=== PATIENT | female | born 1985 | race Caucasian/White ===

== ENCOUNTER 2019-03-08 16:36 | Emergency (ER) | payer BC ==
--- NOTE | 2019-03-08 17:14 | ED ---
Psych HPI - General Source: patient, police, RN notes reviewed Mode of arrival: ambulatory Limitations: no limitations <Get Heller - Last Filed: 03/08/19 17:10> <Kali Delacruz - Last Filed: 03/09/19 01:56> - General Chief Complaint: Psychiatric Symptoms Stated Complaint: pickup order Time Seen by Provider: 03/08/19 16:44 - History of Present Illness Initial Comments: 33-year-old female presents emergency Department with police for psychiatric evaluation. Patient petition by brother and which she states is for her chronic drinking issue with a history of depression and anxiety. Patient also had weight loss secondary to that eating from her anxiety. Patient denies being suicidal no illicit drug use. Patient states he drinks 3-4 drinks daily. Denies any physical complaints. (Get Heller) - Related Data Home Medications Medication Instructions Recorded Confirmed Lessina 0.1/20mcg 1 tab PO DAILY 03/08/19 03/08/19 Allergies Allergy/AdvReac Type Severity Reaction Status Date / Time No Known Allergies Allergy Verified 03/08/19 17:32 Review of Systems ROS Other: All systems not noted in ROS Statement are negative. <Get Heller - Last Filed: 03/08/19 17:10> ROS Other: All systems not noted in ROS Statement are negative. <Kali Delacruz - Last Filed: 03/09/19 01:56> ROS Statement: Those systems with pertinent positive or pertinent negative responses have been documented in the HPI. Past Medical History Past Medical History: No Reported History History of Any Multi-Drug Resistant Organisms: None Reported Past Surgical History: No Surgical Hx Reported Past Psychological History: Anxiety, Depression Smoking Status: Current every day smoker Past Alcohol Use History: Daily Past Drug Use History: None Reported <Get Heller - Last Filed: 03/08/19 17:10> General Exam Limitations: no limitations General appearance: alert, in no apparent distress Head exam: Present: atraumatic, normocephalic, normal inspection Eye exam: Present: normal appearance, PERRL, EOMI. Absent: scleral icterus, conjunctival injection, periorbital swelling ENT exam: Present: normal exam, normal oropharynx, mucous membranes moist, TM's normal bilaterally Neck exam: Present: normal inspection. Absent: tenderness, meningismus, lymphadenopathy Respiratory exam: Present: normal lung sounds bilaterally. Absent: respiratory distress, wheezes, rales, rhonchi, stridor Cardiovascular Exam: Present: regular rate, normal rhythm, normal heart sounds. Absent: systolic murmur, diastolic murmur, rubs, gallop, clicks GI/Abdominal exam: Present: soft, normal bowel sounds. Absent: distended, tenderness, guarding, rebound, rigid Neurological exam: Present: alert, oriented X3, CN II-XII intact Skin exam: Present: warm, dry, intact, normal color. Absent: rash <Get Heller - Last Filed: 03/08/19 17:10> Course Vital Signs 03/08/19 03/08/19 16:41 19:30 Temperature 97.2 F L Pulse Rate 102 H 90 Respiratory 18 20 Rate Blood Pressure 175/102 158/92 O2 Sat by Pulse 98 99 Oximetry Medical Decision Making - Lab Data Result diagrams: 03/08/19 17:23 03/08/19 17:23 <Kali Delacruz - Last Filed: 03/09/19 01:56> - Lab Data Lab Results 03/08/19 03/08/19 03/08/19 Range/Units 17:23 17:23 17:23 WBC 6.2 (3.8-10.6) k/uL RBC 3.79 L (3.80-5.40) m/uL Hgb 13.5 (11.4-16.0) gm/dL Hct 40.6 (34.0-46.0) % MCV 107.0 H (80.0-100.0) fL MCH 35.7 H (25.0-35.0) pg MCHC 33.4 (31.0-37.0) g/dL RDW 15.1 (11.5-15.5) % Plt Count 141 L (150-450) k/uL Neutrophils % 52 % Lymphocytes % 36 % Monocytes % 6 % Eosinophils % 1 % Basophils % 1 % Neutrophils # 3.3 (1.3-7.7) k/uL Lymphocytes # 2.2 (1.0-4.8) k/uL Monocytes # 0.4 (0-1.0) k/uL Eosinophils # 0.0 (0-0.7) k/uL Basophils # 0.1 (0-0.2) k/uL Macrocytosis Moderate Sodium 141 (137-145) mmol/L Potassium 4.2 (3.5-5.1) mmol/L Chloride 102 (98-107) mmol/L Carbon Dioxide 24 (22-30) mmol/L Anion Gap 15 mmol/L BUN 8 (7-17) mg/dL Creatinine 0.54 (0.52-1.04) mg/dL Est GFR (CKD-EPI)AfAm >90 (>60 ml/min/1.73 sqM) Est GFR (CKD-EPI)NonAf >90 (>60 ml/min/1.73 sqM) Glucose 90 (74-99) mg/dL Calcium 9.4 (8.4-10.2) mg/dL Magnesium 1.1 L (1.6-2.3) mg/dL Total Bilirubin 0.6 (0.2-1.3) mg/dL AST 175 H (14-36) U/L ALT 60 H (9-52) U/L Alkaline Phosphatase 81 (38-126) U/L Total Protein 8.2 (6.3-8.2) g/dL Albumin 4.8 (3.5-5.0) g/dL Lipase 177 (23-300) U/L Urine Color Light Yellow Urine Appearance Clear (Clear) Urine pH 6.0 (5.0-8.0) Ur Specific [place] 1.003 (1.001-1.035) Urine Protein 1+ H (Negative) Urine Glucose (UA) Negative (Negative) Urine Ketones Negative (Negative) Urine Blood Negative (Negative) Urine Nitrite Negative (Negative) Urine Bilirubin Negative (Negative) Urine Urobilinogen <2.0 (<2.0) mg/dL Ur Leukocyte Esterase Negative (Negative) Urine RBC <1 (0-5) /hpf Urine WBC <1 (0-5) /hpf Ur Squamous Epith Cells 1 (0-4) /hpf Urine Bacteria Rare H (None) /hpf Urine Opiates Screen Not Detected (NotDetected) Ur Oxycodone Screen Not Detected (NotDetected) Urine Methadone Screen Not Detected (NotDetected) Ur Propoxyphene Screen Not Detected (NotDetected) Ur Barbiturates Screen Not Detected (NotDetected) U Tricyclic Antidepress Not Detected (NotDetected) Ur Phencyclidine Scrn Not Detected (NotDetected) Ur Amphetamines Screen Not Detected (NotDetected) U Methamphetamines Scrn Not Detected (NotDetected) U Benzodiazepines Scrn Not Detected (NotDetected) Urine Cocaine Screen Not Detected (NotDetected) U Marijuana (THC) Screen Not Detected (NotDetected) Disposition <Get Heller - Last Filed: 03/08/19 17:10> Is patient prescribed a controlled substance at d/c from ED?: No <Kali Delacruz - Last Filed: 03/09/19 01:56> Clinical Impression: Mood disorder Disposition: HOME SELF-CARE Condition: Good Instructions (If sedation given, give patient instructions): Mood Disorders (ED) Referrals: Douglas Evans MD [Primary Care Provider] - 1-2 days
[2019-03-08 17:32] LABS: Basophils # (A) 0.1 k/uL (0-0.2); Basophils % (A) 1 %; Eosinophils % (A) 1 %; HCT 40.6 % (34.0-46.0); HGB 13.5 gm/dL (11.4-16.0); Lymphocytes # (A) 2.2 k/uL (1.0-4.8); Lymphocytes % (A) 36 %; MCH 35.7 pg (25.0-35.0); MCHC 33.4 g/dL (31.0-37.0); Macrocytosis Moderate; Monocytes # (A) 0.4 k/uL (0-1.0); Monocytes % (A) 6 %; Neutrophils # (A) 3.3 k/uL (1.3-7.7); Neutrophils % (A) 52 %; Platelet Count 141 k/uL (150-450); RBC 3.79 m/uL (3.80-5.40); RDW 15.1 % (11.5-15.5); WBC 6.2 k/uL (3.8-10.6)
[2019-03-08 17:38] LABS: Appearance,Urine Clear (Clear); Bacteria,Urine Rare /hpf; Bilirubin,Urine Negative (Negative); Blood,Urine Negative (Negative); Color,Urine Light Yellow; Glucose,Urine (UA) Negative (Negative); Ketones,Urine Negative (Negative); Leukocyte Esterase,Urine Negative (Negative); Nitrite,Urine Negative (Negative); Protein,Urine 1+ (Negative); RBC,Urine <1 /hpf (0-5); Specific Gravity,Urine 1.003 (1.001-1.035); Squamous Epithelial Cell,Urine 1 /hpf (0-4); Urobilinogen,Urine <2.0 mg/dL (<2.0); WBC,Urine <1 /hpf (0-5)
[2019-03-08 17:48] LABS: ALT 60 U/L (9-52); AST 175 U/L (14-36); Albumin 4.8 g/dL (3.5-5.0); Alkaline Phosphatase 81 U/L (38-126); Amphetamine Screen,Urine Not Detected (NotDetected); Anion Gap 15 mmol/L; Barbiturate Screen,Urine Not Detected (NotDetected); Benzodiazepines Screen,Urine Not Detected (NotDetected); Blood Urea Nitrogen 8 mg/dL (7-17); Calcium 9.4 mg/dL (8.4-10.2); Carbon Dioxide 24 mmol/L (22-30); Chloride 102 mmol/L (98-107); Cocaine Screen,Urine Not Detected (NotDetected); Glucose 90 mg/dL (74-99); Lipase 177 U/L (23-300); Magnesium 1.1 mg/dL (1.6-2.3); Methadone Screen, Urine Not Detected (NotDetected); Opiate Screen,Urine Not Detected (NotDetected); Oxycodone Screen, Urine Not Detected (NotDetected); Phencyclidine Screen,Urine Not Detected (NotDetected); Potassium 4.2 mmol/L (3.5-5.1); Sodium 141 mmol/L (137-145); Total Bilirubin 0.6 mg/dL (0.2-1.3); Total Protein 8.2 g/dL (6.3-8.2); Tricyclic Antidepressant,Urine Not Detected (NotDetected); Urn Cannabinoid Scrn Not Detected (NotDetected)
[2019-03-08] MEDS ORDERED: MAGNESIUM OXIDE 400 MG TAB PO STA (17:52)
[2019-03-09 02:32] VITALS: BP 148/52; PULSE 87; RESP 16; TEMP 98.1
== END 2019-03-09 02:32 | disposition home or self-care (01) ==
LOC: EC 16:36
DX: F32.9 Major depressive disorder, single episode, unspecified (principal); F41.9 Anxiety disorder, unspecified; R63.4 Abnormal weight loss; F17.200 Nicotine dependence, unspecified, uncomplicated; Z79.3 Long term (current) use of hormonal contraceptives
CPT/HCPCS: 36415; 80053; 80306; 81001; 82075; 83690; 83735; 85025; 99284

== ENCOUNTER 2020-02-21 18:36 | Emergency (ER) | payer BC ==
[2020-02-21 18:51] VITALS: RESP 18; TEMP 98.7
[2020-02-21] MEDS ORDERED: chlordiazePOXIDE 25 MG CAP PO STA (19:40)
--- NOTE | 2020-02-21 19:43 | ED ---
Recheck HPI - General Chief Complaint: Recheck/Abnormal Lab/Rx Stated Complaint: detox Time Seen by Provider: 02/21/20 18:59 Source: patient Mode of arrival: ambulatory Limitations: no limitations - History of Present Illness Initial Comments: 34 year-old female patient presents to the emergency department today for evaluation of alcohol withdrawal. Patient states that she generally drinks 6-8 drinks of vodka daily. States that she has not had any alcohol for the last 2 days. States that she was seen at [facility] today and had labs performed. She was given magnesium, Ativan, and IV fluids. States that she was discharged and instructed to present to a rehabilitation facility. Patient denies having any seizure type activity. States that she has been having several episodes of diarrhea throughout the day. Denies any hematochezia or melena. Denies nausea or vomiting. She denies any chest pain or shortness of breath. Denies any abdominal pain. Patient denies any recent rash, fever, chills, cough, back pain, numbness, tingling, dizziness, weakness, hematuria, dysuria, urinary urgency, urinary frequency, headache, visual changes, or any other complaints. - Related Data Home Medications Medication Instructions Recorded Confirmed Lessina 0.1/20mcg 1 tab PO DAILY 03/08/19 03/08/19 Previous Rx's Medication Instructions Recorded chlordiazePOXIDE HCl [Librium] 25 mg PO DIRECTED 4 Days #15 02/21/20 capsule Allergies Allergy/AdvReac Type Severity Reaction Status Date / Time No Known Allergies Allergy Verified 02/21/20 18:51 Review of Systems ROS Statement: Those systems with pertinent positive or pertinent negative responses have been documented in the HPI. ROS Other: All systems not noted in ROS Statement are negative. Past Medical History Past Medical History: No Reported History History of Any Multi-Drug Resistant Organisms: None Reported Past Surgical History: No Surgical Hx Reported Past Psychological History: Anxiety, Depression Smoking Status: Current every day smoker Past Alcohol Use History: Daily Past Drug Use History: None Reported General Exam Limitations: no limitations General appearance: alert, in no apparent distress, other (This is a well- developed, female patient in no acute distress. Vital signs upon presentation are temperature 98.7F, pulse 108, respirations 18, blood pressure 134/82, pulse ox 100% on room air.) Eye exam: Present: normal appearance, PERRL, EOMI. Absent: scleral icterus, conjunctival injection, periorbital swelling ENT exam: Present: normal exam, normal oropharynx, mucous membranes moist Respiratory exam: Present: normal lung sounds bilaterally. Absent: respiratory distress, wheezes, rales, rhonchi, stridor Cardiovascular Exam: Present: regular rate, normal rhythm, normal heart sounds. Absent: systolic murmur, diastolic murmur, rubs, gallop, clicks GI/Abdominal exam: Present: soft, normal bowel sounds. Absent: distended, tenderness, guarding, rebound, rigid Neurological exam: Present: alert, oriented X3, CN II-XII intact, other (Patient has generalized shaking.) Psychiatric exam: Present: normal affect, normal mood. Absent: homicidal ideation, suicidal ideation Skin exam: Present: warm, dry, intact, normal color. Absent: rash Course Vital Signs 02/21/20 18:50 Temperature 98.7 F Pulse Rate 108 H Respiratory 18 Rate Blood Pressure 134/82 O2 Sat by Pulse 100 Oximetry Medical Decision Making - Medical Decision Making 34 year-old female patient presented to the emergency department today for evaluation of alcohol withdrawal. Physical examination revealed generalized shaking but was otherwise unremarkable. I did review patient's paperwork from [facility] which showed patient was diagnosed with alcohol withdrawal and hypomagnesemia. She did receive 3 doses of Ativan, IV fluids, and magnesium while in the department. Patient's vital signs here showed no major abnormalities. I did discuss with patient that we unfortunately do not provide alcohol rehabilitation and that she would need to follow-up at an outpatient facility. She was given a list of these facilities. She is also given a prescription for Librium to assist with alcohol withdrawals while johnberyl killiang to go to a facility. Return parameters were discussed in detail. She verbalizes understanding and agrees with this plan. Disposition Clinical Impression: Alcohol withdrawal Disposition: HOME SELF-CARE Condition: Good Instructions (If sedation given, give patient instructions): Alcohol Withdrawal (ED) Additional Instructions: Increase fluids. Take medications as directed, do not drink alcohol with this medication. Follow-up at a alcohol rehabilitation facility. Follow-up with your primary care physician for recheck in 1-2 days. Return to the emergency department immediately for any new, worsening, or concerning symptoms. Prescriptions: chlordiazePOXIDE HCl [Librium] 25 mg PO DIRECTED 4 Days #15 capsule Is patient prescribed a controlled substance at d/c from ED?: No Referrals: Douglas Evans MD [Primary Care Provider] - 1-2 days Time of Disposition: 19:43
[2020-02-21 20:02] VITALS: BP 134/95; PULSE 107
== END 2020-02-21 20:12 | disposition home or self-care (01) ==
LOC: EC 18:36
DX: F10.239 Alcohol dependence with withdrawal, unspecified (principal); F17.200 Nicotine dependence, unspecified, uncomplicated; Z79.3 Long term (current) use of hormonal contraceptives
CPT/HCPCS: 99284

== ENCOUNTER 2020-04-01 11:24 | Inpatient (IN) | payer BC ==
--- NOTE | 2020-04-01 11:55 | ED ---
General Adult HPI - General Stated complaint: Mental Health Time Seen by Provider: 04/01/20 11:28 - History of Present Illness Initial comments: Dictation was produced using [employer] dictation software. please excuse any grammatical, word or spelling errors. This patient was cared for during a federal and state declared state of emergency secondary to Covid 19 Chief Complaint: 34-year-old female presents with bizarre behavior History of Present Illness: Patient's 34-year-old female she was brought in by EMS for bizarre behavior. According to nurse receive report from EMS patient has been exhibiting very strange behavioral signs. So apparently patient has been showing rapid changes in personality. Patient also has been seen many things vigorously. Patient states that she has no medical complaints at this time. She reports that she was drinking last night. She denies any visual auditory hallucinations. Denies any suicidal or homicidal ideation. The ROS documented in this emergency department record has been reviewed and confirmed by me. Those systems with pertinent positive or negative responses have been documented in the HPI. All other systems are other negative and/or noncontributory. PHYSICAL EXAM: General Impression: Alert and oriented x3, not in acute distress, smells of EtOH HEENT: Normocephalic atraumatic, extra-ocular movements intact, pupils equal and reactive to light bilaterally, mucous membranes moist. Cardiovascular: Heart regular rate and rhythm Chest: Able to complete full sentences, no retractions, no tachypnea Abdomen: abdomen soft, non-tender, non-distended, no organomegaly Musculoskeletal: Pulses present and equal in all extremities, no peripheral edema Motor: no focal deficits noted Neurological: CN II-XII grossly intact, no focal motor or sensory deficits noted Skin: Intact with no visualized rashes Psych: Normal affect and mood ED course: 34 yo female presents with bizarre behavior. Breath alcohol test is 264. Vital signs upon arrival shows blood pressure 85/54. This was taken however while she was sleeping. According to nurse who received report from EMS there was concern that patient may have overdosed. Laboratory evaluation obtained. CBC unremarkable. Metabolic panel shows no acidosis. Magnesium level I.3. Patient treated with IV magnesium. She does have osmolality of 401. With a normal as osmolar gap. Salicylates and Tylenol is negative. Review blood pressure after intravenous fluids is improved and found to be normal. Considering degree of alcohol intoxication. Discussed patient case with Dr. Peterson who is willing to accept patient's care. Psychiatry consultation. Pending urine - Related Data Home Medications Medication Instructions Recorded Confirmed Lessina 0.1/20mcg 1 tab PO DAILY 03/08/19 03/08/19 Previous Rx's Medication Instructions Recorded chlordiazePOXIDE HCl [Librium] 25 mg PO DIRECTED 4 Days #15 02/21/20 capsule Allergies Allergy/AdvReac Type Severity Reaction Status Date / Time No Known Allergies Allergy Verified 04/01/20 13:31 Review of Systems ROS Statement: Those systems with pertinent positive or pertinent negative responses have been documented in the HPI. ROS Other: All systems not noted in ROS Statement are negative. Past Medical History Past Medical History: No Reported History History of Any Multi-Drug Resistant Organisms: None Reported Past Surgical History: No Surgical Hx Reported Past Psychological History: Anxiety, Depression Smoking Status: Current every day smoker Past Alcohol Use History: Daily Past Drug Use History: None Reported Course Vital Signs 04/01/20 04/01/20 12:14 13:07 Pulse Rate 77 63 Respiratory 18 16 Rate Blood Pressure 85/54 112/72 O2 Sat by Pulse 100 98 Oximetry Medical Decision Making - Lab Data Result diagrams: 04/01/20 12:25 04/01/20 12:25 Lab Results 04/01/20 04/01/20 04/01/20 Range/Units 12:25 12:25 12:25 WBC 8.0 (3.8-10.6) k/uL RBC 3.79 L (3.80-5.40) m/uL Hgb 13.0 (11.4-16.0) gm/dL Hct 42.1 (34.0-46.0) % MCV 110.9 H (80.0-100.0) fL MCH 34.3 (25.0-35.0) pg MCHC 31.0 (31.0-37.0) g/dL RDW 13.8 (11.5-15.5) % Plt Count 316 (150-450) k/uL Macrocytosis Marked A Sodium 146 H (137-145) mmol/L Potassium 4.4 (3.5-5.1) mmol/L Chloride 106 (98-107) mmol/L Carbon Dioxide 27 (22-30) mmol/L Anion Gap 13 mmol/L BUN <2 L (7-17) mg/dL Creatinine 0.53 (0.52-1.04) mg/dL Est GFR (CKD-EPI)AfAm >90 (>60 ml/min/1.73 sqM) Est GFR (CKD-EPI)NonAf >90 (>60 ml/min/1.73 sqM) Glucose 101 H (74-99) mg/dL Osmolality 401 H* (280-301) mosm/kg Plasma Lactic Acid Marc 2.0 (0.7-2.0) mmol/L Calcium 9.6 (8.4-10.2) mg/dL Magnesium 1.3 L (1.6-2.3) mg/dL Salicylates <1.0 mg/dL Acetaminophen <10.0 ug/mL Serum Alcohol 383 H* mg/dL Disposition Clinical Impression: Psychosis, Alcohol intoxication Disposition: ADMITTED IP TO THIS HOSP Condition: Fair Referrals: Douglas Evans MD [Primary Care Provider] - 1-2 days Decision Time: 13:31
[2020-04-01] MEDS ORDERED: SODIUM CHLORIDE 0.9% 1,000 ML IV ONE (12:49)
[2020-04-01 13:02] LABS: Basophils # (A) 0.1 k/uL (0-0.2); Basophils % (A) 1 %; Eosinophils # (A) 0.2 k/uL (0-0.7); Eosinophils % (A) 3 %; HCT 42.1 % (34.0-46.0); Lymphocytes # (A) 2.9 k/uL (1.0-4.8); Lymphocytes % (A) 36 %; MCH 34.3 pg (25.0-35.0); MCV 110.9 fL (80.0-100.0); Macrocytosis Marked; Mean Platelet Volume 7.1; Monocytes # (A) 0.3 k/uL (0-1.0); Monocytes % (A) 4 %; Neutrophils # (A) 4.3 k/uL (1.3-7.7); Neutrophils % (A) 54 %; Platelet Count 316 k/uL (150-450); RBC 3.79 m/uL (3.80-5.40); RDW 13.8 % (11.5-15.5)
[2020-04-01 13:05] LABS: Acetaminophen <10.0 ug/mL; African American GFR (CKD) >90 (>60 ml/min/1.73 sqM); Anion Gap 13 mmol/L; Blood Urea Nitrogen <2 mg/dL (7-17); Calcium 9.6 mg/dL (8.4-10.2); Carbon Dioxide 27 mmol/L (22-30); Chloride 106 mmol/L (98-107); Glucose 101 mg/dL (74-99); Magnesium 1.3 mg/dL (1.6-2.3); Non-African American GFR(CKD) >90 (>60 ml/min/1.73 sqM); Potassium 4.4 mmol/L (3.5-5.1); Salicylate <1.0 mg/dL; Sodium 146 mmol/L (137-145)
[2020-04-01 13:16] LABS: Alcohol 383 mg/dL
[2020-04-01] MEDS ORDERED: NALOXONE 0.4 MG/ML 1 ML VIAL IV PRN (13:31)
[2020-04-01] MEDS ORDERED: THIAMINE 100 MG/ML 2 ML VIAL IM STA (13:32)
[2020-04-01] MEDS ORDERED: LORazepam 2 MG/ML INJ IV PRN ×2 (13:32)
[2020-04-01] MEDS: MAGNESIUM SULFATE-D5W PMX 1 GM in DEXTROSE/WATER 1 100ML.BAG IVPB SCH ×2 (14:00→14:58)
[2020-04-01] MEDS: LORazepam 2 MG/ML INJ IV PRN (16:27)
[2020-04-01] MEDS: THIAMINE 100 MG TAB PO SCH (16:33)
[2020-04-01] MEDS ORDERED: ONDANSETRON ODT 4 MG TAB PO PRN (20:03)
[2020-04-01] MEDS ORDERED: NA PHOS,M-B/NA PHOS,DI-BA 133 ML ENEMA RECTAL PRN (20:04)
[2020-04-01] MEDS ORDERED: LACTULOSE 20 GM/30 ML CUP PO PRN (20:04)
[2020-04-01] MEDS ORDERED: ONDANSETRON 4 MG/2 ML VIAL IVP PRN (20:04)
[2020-04-01] MEDS ORDERED: MAG HYDROX/AL HYDROX/SIMETH 30 ML CUP PO PRN (20:04)
[2020-04-01] MEDS ORDERED: CALCIUM CARBONATE 500 MG CHEWABLE PO PRN (20:04)
[2020-04-01] MEDS ORDERED: MAGNESIUM HYDROXIDE 2,400 MG/10 ML CUP PO PRN (20:04)
[2020-04-01] MEDS: MELATONIN 5 MG TABLET PO PRN (21:03)
[2020-04-01] MEDS: ACAMPROSATE CALCIUM 333 MG TABLET.DR PO SCH (21:03)
[2020-04-01] MEDS: levETIRAcetam 500 MG TAB PO SCH (21:03)
--- NOTE | 2020-04-01 21:48 | P.HPIM ---
History of Present Illness H&P Date: 04/01/20 Chief Complaint: Erratic behavior History of presenting complaint: This is a 34-year-old patient who follows with Dr. Douglas Evans. Per the EMS's narrative-up on arrival they found the patient not able to access the home. Does well. Eventually the patient unlock the door. [employer] and called to say that she was unresponsive and possibly overdose. [employer] was not present. Patient denied any attempt of harm to herself or taking any medications. Patient was very erratic with ounces and just stumbling around without purpose. She went from chronic laughing for no apparent reason. She was lethargic and can't relate honestly. Patient continued to be lethargic but easily arousable. Patient states to me that she takes 2 glasses of vodka every night. Along with melatonin. Patient call level this afternoon in the ER was [phone]. During my interview this evening patient not sure why she was brought here. But does state that when she woke up there was ambulance people there and she was taken to the hospital. Patient slightly anxious and depressed but no suicidal. Denies hearing any voices or seeing things. She lives with her significant other of many years. He does work she does not. Review of systems: GEN.: Tired EYES: None HEENT: None NECK: None RESPIRATORY: None CARDIOVASCULAR: None GASTROINTESTINAL: Had 1 loose stool this morning GENITOURINARY: None MUSCULOSKELETAL: None LYMPHATICS: None HEMATOLOGICAL: None PSYCHIATRY: Anxious NEUROLOGICAL: Jittery Past medical history to include: Depression, anxiety, chronic alcohol disorder Social history: Patient smokes three-quarter pack a day, takes 2 glasses of vodka every night with melatonin. Lives with her significant other maciej Trimble. Family history: Reviewed, noncontributory to presentation Physical examination: VITAL SIGNS: 99, 91, 18, 101/69, 97% on room air GENERAL: BMI 25, laying in bed somewhat restless, awake. EYES: Pupils equal. Conjunctiva normal. HEENT: External appearance of nose and ears normal, oral cavity grossly normal. NECK: JVD not raised; masses not palpable. HEART: First and second heart sounds are normal; no edema. LUNGS: Respiratory rate normal; clear to auscultation. ABDOMEN: Soft, nontender, liver spleen not palpable, no masses palpable. PSYCH: Alert and oriented x3; mood and affect very is somewhat anxious about erratic and answering questionsl. NEUROLOGICAL: Cranial nerves grossly intact; no facial asymmetry, power and sensation grossly intact tremors present, restless. LYMPHATICS: No lymph nodes palpable in the axilla and neck INVESTIGATIONS, reviewed in the clinical context: White count 8 hemoglobin 13 platelets 316 potassium 4.6 serum osmolality 401 Serum salicylate less than 1 serum acetaminophen less than 10 serum alcohol 383 Assessment: -Acute alcohol intoxication -Alcohol use disorder -Alcoholic hepatitis with recent cath report a month ago showing AST of 135 and ALT of 60 -Chronic nicotine dependence patient's cigarette smoker -Depression and anxiety not otherwise specified -Abnormal psychiatric behavior related to be assessed for psychosis -Alcohol withdrawal syndrome, with possible DTs Plan: Patient be started on Valium 5 mg every 8 and add Lopressor 12.5 by mouth 284 controlling symptomatic dry. Fall precautions. Home medications to be resumed. Psychiatry is being consulted. Will give IV fluids at 1 50 mL an hour. Repeat labs in the morning. Replace magnesium. Lovenox for DVT prophylaxis. Nicotine patch. Expect the patient to be hospital at least for 2 nights. Past Medical History Past Medical History: No Reported History History of Any Multi-Drug Resistant Organisms: None Reported Past Surgical History: No Surgical Hx Reported Past Psychological History: Anxiety, Depression Smoking Status: Current every day smoker Past Alcohol Use History: Daily Past Drug Use History: None Reported - Past Family History Mother Family Medical History: No Reported History Medications and Allergies Home Medications Medication Instructions Recorded Confirmed Type Acamprosate Calcium [Campral] 666 mg PO TID 04/01/20 04/01/20 History Citalopram Hydrobromide [CeleXA] 20 mg PO DAILY 04/01/20 04/01/20 History Ondansetron Odt [Zofran Odt] 4 mg PO TID PRN 04/01/20 04/01/20 History Orsythia 1 tab PO DAILY 04/01/20 04/01/20 History busPIRone HCL 10 mg PO QID PRN 04/01/20 04/01/20 History levETIRAcetam [Keppra] 500 mg PO BID 04/01/20 04/01/20 History traZODone HCL [Desyrel] 100 mg PO HS PRN 04/01/20 04/01/20 History Allergies Allergy/AdvReac Type Severity Reaction Status Date / Time No Known Allergies Allergy Verified 04/01/20 13:31 Physical Exam Vitals: Vital Signs Temp Pulse Pulse Resp BP BP Pulse Ox 04/01/20 20:19 99.0 F 91 18 101/69 97 04/01/20 16:00 83 16 04/01/20 15:34 98.4 F 83 16 119/86 99 04/01/20 15:06 98 F 72 16 97/62 100 04/01/20 13:07 63 16 112/72 98 04/01/20 12:14 77 18 85/54 100 Intake and Output 04/01/20 04/01/20 04/01/20 06:59 14:59 22:59 Other: # Voids 2 Weight 63.957 kg 63.957 kg Results CBC & Chem 7: 04/01/20 12:25 04/01/20 12:25 Labs: Abnormal Lab Results - Last 24 Hours (Table) 04/01/20 04/01/20 Range/Units 12:25 12:25 RBC 3.79 L (3.80-5.40) m/uL MCV 110.9 H (80.0-100.0) fL Macrocytosis Marked A Sodium 146 H (137-145) mmol/L BUN <2 L (7-17) mg/dL Glucose 101 H (74-99) mg/dL Osmolality 401 H* (280-301) mosm/kg Magnesium 1.3 L (1.6-2.3) mg/dL Serum Alcohol 383 H* mg/dL
[2020-04-01] MEDS: METOPROLOL TARTRATE 12.5 MG TAB PO SCH (22:02)
[2020-04-01] MEDS: MAGNESIUM OXIDE 400 MG TAB PO SCH (22:02)
[2020-04-01] MEDS: DEXTROSE 5%-0.45% NACL 1,000 ML IV SCH (22:02)
[2020-04-01] MEDS: DIAZEPAM 5 MG TAB PO SCH (22:02)
[2020-04-01] MEDS: traZODone HCL 100 MG TAB PO PRN (23:29)
[2020-04-02] MEDS: LORazepam 2 MG/ML INJ IV PRN ×2 (00:37→04:31)
[2020-04-02 06:49] LABS: ALT 20 U/L (4-34); AST 40 U/L (14-36); African American GFR (CKD) >90 (>60 ml/min/1.73 sqM); Albumin 3.4 g/dL (3.5-5.0); Alkaline Phosphatase 61 U/L (38-126); Anion Gap 11 mmol/L; Blood Urea Nitrogen 2 mg/dL (7-17); Calcium 8.4 mg/dL (8.4-10.2); Carbon Dioxide 24 mmol/L (22-30); Chloride 99 mmol/L (98-107); Glucose 111 mg/dL (74-99); Non-African American GFR(CKD) >90 (>60 ml/min/1.73 sqM); Potassium 3.7 mmol/L (3.5-5.1); Sodium 134 mmol/L (137-145); Total Bilirubin 0.5 mg/dL (0.2-1.3); Total Protein 6.3 g/dL (6.3-8.2)
[2020-04-02] MEDS: levETIRAcetam 500 MG TAB PO SCH ×2 (07:58→20:53)
[2020-04-02] MEDS: MAGNESIUM OXIDE 400 MG TAB PO SCH ×3 (07:58→20:53)
[2020-04-02] MEDS: THIAMINE 100 MG TAB PO SCH ×2 (07:58→17:23)
[2020-04-02] MEDS: ACAMPROSATE CALCIUM 333 MG TABLET.DR PO SCH ×3 (07:58→20:53)
[2020-04-02] MEDS: DIAZEPAM 5 MG TAB PO SCH ×3 (07:58→20:53)
[2020-04-02] MEDS: CITALOPRAM HYDROBROMIDE 20 MG TAB PO SCH (07:58)
[2020-04-02] MEDS: busPIRone HCl 10 MG TAB PO PRN (07:58)
[2020-04-02] MEDS: ORSYTHIA PO SCH (07:59)
[2020-04-02] MEDS: METOPROLOL TARTRATE 12.5 MG TAB PO SCH ×3 (07:59→20:53)
[2020-04-02] MEDS: DEXTROSE 5%-0.45% NACL 1,000 ML IV SCH ×3 (07:59→20:48)
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
[2020-04-02] MEDS: PSYLLIUM HUSK 100% 6 GM PACKET PO SCH ×2 (17:24→20:56)
--- NOTE | 2020-04-02 20:30 | P.PN ---
Progress Note - Text Progress Note Date: 04/02/20 Chief Complaint: Erratic behavior History of presenting complaint: This is a 34-year-old patient who follows with Dr. Douglas Evans. Per the EMS's narrative-up on arrival they found the patient not able to access the home. Does well. Eventually the patient unlock the door. [employer] and called to say that she was unresponsive and possibly overdose. [employer]-republican was not present. Patient denied any attempt of harm to herself or taking any medications. Patient was very erratic with ounces and just stumbling around without purpose. She went from chronic laughing for no apparent reason. She was lethargic and can't relate honestly. Patient continued to be lethargic but easily arousable. Patient states to me that she takes 2 glasses of vodka every night. Along with melatonin. Patient call level this afternoon in the ER was [phone]. During my interview this evening patient not sure why she was brought here. But does state that when she woke up there was ambulance people there and she was taken to the hospital. Patient slightly anxious and depressed but no suicidal. Denies hearing any voices or seeing things. She lives with her significant other of many years. He does work she does not. Admitted with-acute alcohol intoxication, alcoholic hepatitis, abnormal behavior. Patient started on Valium, Lopressor for withdrawal. Today-saw the patient this morning. She ate little bit of her breakfast. Somewhat anxious. Review of systems: Was done for constitutional, cardiovascular, GI, pulmonary. Psychiatry relevant finding as above. Active Medications Acamprosate (Campral) 666 mg PO TID [facility] Last Admin: 04/02/20 17:24 Dose: 666 mg Documented by: Al Hydroxide/Mg Hydroxide (Maalox) 15 ml PO Q6HR PRN PRN Reason: Indigestion Buspirone HCl (Buspar) 10 mg PO QID PRN PRN Reason: Anxiety Last Admin: 04/02/20 07:58 Dose: 10 mg Documented by: Calcium Carbonate/Glycine (Tums) 1,000 mg PO Q4HR PRN PRN Reason: Dyspepsia Citalopram Hydrobromide (Celexa) 20 mg PO DAILY [facility] Last Admin: 04/02/20 07:58 Dose: 20 mg Documented by: Diazepam (Valium) 5 mg PO Q8H [facility] Last Admin: 04/02/20 14:56 Dose: 5 mg Documented by: Dextrose/Sodium Chloride (Dextrose 5%-1/2ns Iv Soln) 1,000 mls @ 150 mls/hr IV .Q6H40M [facility] Last Admin: 04/02/20 14:56 Dose: 150 mls/hr Documented by: Lactulose (Cephulac) 20 gm PO DAILY PRN PRN Reason: Constipation Levetiracetam (Keppra) 500 mg PO BID [facility] Last Admin: 04/02/20 07:58 Dose: 500 mg Documented by: Lorazepam (Ativan) 1 mg IV Q2HR PRN PRN Reason: CIWA 8 or 9 Last Admin: 04/02/20 04:31 Dose: 1 mg Documented by: Lorazepam (Ativan) 1 mg IV Q1HR PRN PRN Reason: CIWA 10 to 15 Lorazepam (Ativan) 2 mg IV Q10M PRN PRN Reason: CIWA 16 or higher Stop: 04/03/20 13:32 Magnesium Hydroxide (Milk Of Magnesia) 2,400 mg PO DAILY PRN PRN Reason: Constipation Magnesium Oxide (Mag-Ox) 400 mg PO TID [facility] Last Admin: 04/02/20 17:24 Dose: 400 mg Documented by: Melatonin (Melatonin) 5 mg PO HS PRN PRN Reason: Insomnia Last Admin: 04/01/20 21:03 Dose: 5 mg Documented by: Metoprolol Tartrate (Lopressor) 12.5 mg PO TID [facility] Last Admin: 04/02/20 17:24 Dose: 12.5 mg Documented by: Naloxone HCl (Narcan) 0.2 mg IV Q2M PRN PRN Reason: Opioid Reversal Patient's Own ( (Orsythia 1 Tab)) 1 tab PO DAILY [facility] Last Admin: 04/02/20 07:59 Dose: Not Given Documented by: Ondansetron HCl (Zofran Odt) 4 mg PO TID PRN PRN Reason: Nausea Ondansetron HCl (Zofran) 4 mg IVP Q8HR PRN PRN Reason: Nausea And Vomiting Psyllium Hydrophilic Mucilloid (Metamucil) 6 gm PO BID [facility] Last Admin: 04/02/20 17:24 Dose: 6 gm Documented by: Sodium Biphosphate/Sodium Phosphate (Fleet Adult) 133 ml RECTAL ONCE PRN PRN Reason: Constipation Thiamine HCl (Vitamin B-1) 100 mg PO BID-W/MEALS DAGMAR Last Admin: 04/02/20 17:23 Dose: 100 mg Documented by: Trazodone HCl (Desyrel) 100 mg PO HS PRN PRN Reason: sleep Last Admin: 04/01/20 23:29 Dose: 100 mg Documented by: Physical examination: VITAL SIGNS: 99.2, 75, 16, 101/64, 92% on room air GENERAL: Laying in bed, a bit restless to less than last visit. EYES: Pupils equal. Conjunctiva normal. HEENT: External appearance of nose and ears normal, oral cavity grossly normal. NECK: JVD not raised; masses not palpable. HEART: First and second heart sounds are normal; no edema. LUNGS: Respiratory rate normal; clear to auscultation. ABDOMEN: Soft, nontender, liver spleen not palpable, no masses palpable. PSYCH: Alert and oriented x3; mood and affect slightly hyperactive NEUROLOGICAL: Decreased tremors INVESTIGATIONS, reviewed in the clinical context: Sodium 134 potassium 3.7 creatinine 0.4 to glucose 111 serum osmolality 277 Previous testing COVID-19 PCR-not detected White count 8 hemoglobin 13 platelets 316 potassium 4.6 serum osmolality 401 Serum salicylate less than 1 serum acetaminophen less than 10 serum alcohol 383 Assessment: -Acute alcohol intoxication, POA -Alcohol use disorder -Alcoholic hepatitis with recent cath report a month ago showing AST of 135 and ALT of 60 -Chronic nicotine dependence patient's cigarette smoker -Depression and anxiety not otherwise specified -Abnormal psychiatric behavior related to be assessed for psychosis -Alcohol withdrawal syndrome, with possible DTs, POA Plan: Decreased the dose of Valium tonight to 2.5 mg daily. Continue with Lopressor. Follow with psychiatry. Decrease IV fluids.
[2020-04-02] MEDS: MELATONIN 5 MG TABLET PO PRN (20:53)
[2020-04-02 21:34] VITALS: RESP 18
[2020-04-02] MEDS: traZODone HCL 100 MG TAB PO PRN (22:46)
[2020-04-03] MEDS: LORazepam 2 MG/ML INJ IV PRN (02:53)
[2020-04-03] MEDS: busPIRone HCl 10 MG TAB PO PRN ×2 (02:53→08:39)
[2020-04-03 04:29] VITALS: TEMP 96.7
[2020-04-03] MEDS: DIAZEPAM 5 MG TAB PO SCH (06:00)
[2020-04-03] MEDS: METOPROLOL TARTRATE 12.5 MG TAB PO SCH ×2 (08:27→15:04)
[2020-04-03] MEDS: CITALOPRAM HYDROBROMIDE 20 MG TAB PO SCH (08:28)
[2020-04-03] MEDS: MAGNESIUM OXIDE 400 MG TAB PO SCH ×2 (08:28→15:01)
[2020-04-03] MEDS: ORSYTHIA PO SCH (08:38)
[2020-04-03] MEDS: THIAMINE 100 MG TAB PO SCH (08:39)
[2020-04-03] MEDS: levETIRAcetam 500 MG TAB PO SCH (08:39)
[2020-04-03] MEDS: PSYLLIUM HUSK 100% 6 GM PACKET PO SCH (08:39)
[2020-04-03] MEDS: ACAMPROSATE CALCIUM 333 MG TABLET.DR PO SCH ×2 (08:40→15:01)
[2020-04-03 15:05] VITALS: BP 136/88; PULSE 74
--- NOTE | 2020-04-03 15:31 | P.CON ---
Consult Note - . Consult date: 04/03/20 Assessment/Plan:: Clinical Problems: Alcohol withdrawal, alcohol use disorder severe Interim history: I reviewed the medical record and interviewed the patient. She denied problems or concerns and requested to my authorization to leave the hospital. She minimizes her alcohol use and alcohol use problems. She alleged that her mother was exaggerating and interfering with her life. She made an unusual statement that "when his her time" she'll stop drinking alcohol. She admitted to believing substance abuse treatment programs but complained that she left the program because they would not let her smoke cigarettes. Mental status exam: She presented as a disheveled 34-year-old female with dark hair. She made eye contact and appeared to attend to the interview. She had no prominent physical abnormalities. She had a distressed facial expression. She is alert and oriented to person, place and time. She was not restless or agitated. She had no abnormal movements. Her speech was spontaneous with decreased rate and rhythm. Her her affect was dysphoric. She denied suicidal ideation or wishes. She denied homicidal ideation. She denied feeling hopeless, helpless or worthless. She ruminated about the circumstances that led to this hospitalization particular the police involvement in her presentation. She did not express ideas reference, paranoid ideation or delusions. Her thinking was concrete but his associations were goal-directed. She denied hallucinations and did not appear to responding to internal stimuli. Assessment: She clearly has an alcohol use disorder and would benefit from a residential substance abuse treatment program. She is unwilling to commit to reentering a program. There is no indication for transfer to the psychiatric unit. Plan: Advise her family to go to probate Court and obtained an order for substance abuse treatment. Again, recommend residential substance abuse treatment. Thank you for this consult. Psychiatry will sign off the case.
[2020-04-03] MEDS ORDERED: DIAZEPAM 2 MG TAB PO SCH (16:00)
--- NOTE | 2020-04-03 17:26 | P.DS ---
Providers Date of admission: 04/01/20 13:32 Expected date of discharge: 04/03/20 Attending physician: Dilip Peterson Consults: 04/01/20 13:21 Consult Physician Routine Consulting Provider: Douglas Bell Reason/Comments: bizarred behavior Do you want consulting provider notified?: Yes Primary care physician: Douglas Evans [facility] Course: Chief Complaint: Erratic behavior History of presenting complaint: This is a 34-year-old patient who follows with Dr. Douglas Evans. Per the EMS's narrative-up on arrival they found the patient not able to access the home. Does well. Eventually the patient unlock the door. [employer]dem[employer] and called to say that she was unresponsive and possibly overdose. Third-democrat was not present. Patient denied any attempt of harm to herself or taking any medications. Patient was very erratic with ounces and just stumbling around without purpose. She went from chronic laughing for no apparent reason. She w as lethargic and can't relate honestly. Patient continued to be lethargic but easily arousable. Patient states to me that she takes 2 glasses of vodka every night. Along with melatonin. Patient call level this afternoon in the ER was [phone]. During my interview this evening patient not sure why she was brought here. But does state that when she woke up there was ambulance people there and she was taken to the hospital. Patient slightly anxious and depressed but no suicidal. Denies hearing any voices or seeing things. She lives with her significant other of many years. He does work she does not. Admitted with-acute alcohol intoxication, alcoholic hepatitis, abnormal behavior. Patient started on Valium, Lopressor for withdrawal. Today-doing better today. Did tolerate some breakfast. I witnessed the patient woke up and out of the room. Steady. Still bit anxious. Discussed with psychiatrist Dr. Jacques. He continued to the staff that patient family may want to go to probate court and obtained an order for substance abuse treatment. I also discussed the patient about [place]. manager house was involved. Patient told not to drive for the next 4 days. Discussion and discharge planning more than 35 minutes Consultation: Dr. Jacques from psychiatry Physical examination: VITAL SIGNS: 96.7, 68, 18, 121/79, 95% on room air GENERAL: Sitting up, comfortable EYES: Pupils equal. Conjunctiva normal. HEENT: External appearance of nose and ears normal, oral cavity grossly normal. NECK: JVD not raised; masses not palpable. HEART: First and second heart sounds are normal; no edema. LUNGS: Respiratory rate normal; clear to auscultation. ABDOMEN: Soft, nontender, liver spleen not palpable, no masses palpable. PSYCH: Alert and oriented x3; mood and affect less anxious NEUROLOGICAL: No tremors INVESTIGATIONS, reviewed in the clinical context: Sodium 134 potassium 3.7 creatinine 0.4 to glucose 111 serum osmolality 277 Previous testing COVID-19 PCR-not detected White count 8 hemoglobin 13 platelets 316 potassium 4.6 serum osmolality 401 Serum salicylate less than 1 serum acetaminophen less than 10 serum alcohol 383 Assessment: -Acute alcohol intoxication, POA -Alcohol use disorder -Alcoholic hepatitis with recent cath report a month ago showing AST of 135 and ALT of 60 -Chronic nicotine dependence patient's cigarette smoker -Depression and anxiety not otherwise specified -Abnormal psychiatric behavior related to be assessed for psychosis -Alcohol withdrawal syndrome, with possible DTs, POA Disposition: Home with family Patient Condition at Discharge: Stable Plan - Discharge Summary Discharge Rx Participant: No New Discharge Prescriptions: New Metoprolol Tartrate [Lopressor] 12.5 mg PO TID #6 tab Melatonin 5 mg PO HS PRN #30 tablet PRN Reason: Insomnia Psyllium Husk 100% [Metamucil Packet] 6 gm PO DAILY #30 packet Diazepam [Valium] 2 mg PO DIRECTED 3 Days #7 tab Thiamine [Vitamin B-1] 100 mg PO BID-W/MEALS #60 tab Continue levETIRAcetam [Keppra] 500 mg PO BID Ondansetron Odt [Zofran ODT] 4 mg PO TID PRN PRN Reason: Nausea busPIRone HCL 10 mg PO QID PRN PRN Reason: Anxiety Citalopram Hydrobromide [CeleXA] 20 mg PO DAILY traZODone HCL [Desyrel] 100 mg PO HS PRN PRN Reason: sleep Acamprosate Calcium [Campral] 666 mg PO TID Orsythia 1 tab PO DAILY Discharge Medication List Acamprosate Calcium [Campral] 666 mg PO TID 04/01/20 [History] Citalopram Hydrobromide [CeleXA] 20 mg PO DAILY 04/01/20 [History] Ondansetron Odt [Zofran ODT] 4 mg PO TID PRN 04/01/20 [History] Orsythia 1 tab PO DAILY 04/01/20 [History] busPIRone HCL 10 mg PO QID PRN 04/01/20 [History] levETIRAcetam [Keppra] 500 mg PO BID 04/01/20 [History] traZODone HCL [Desyrel] 100 mg PO HS PRN 04/01/20 [History] Diazepam [Valium] 2 mg PO DIRECTED 3 Days #7 tab 04/03/20 [Rx] Melatonin 5 mg PO HS PRN #30 tablet 04/03/20 [Rx] Metoprolol Tartrate [Lopressor] 12.5 mg PO TID #6 tab 04/03/20 [Rx] Psyllium Husk 100% [Metamucil Packet] 6 gm PO DAILY #30 packet 04/03/20 [Rx] Thiamine [Vitamin B-1] 100 mg PO BID-W/MEALS #60 tab 04/03/20 [Rx] Follow up Appointment(s)/Referral(s): Douglas Evans MD [Primary Care Provider] - 04/10/20 10:30 am Patient Instructions/Handouts: Alcohol Intoxication (GEN), Hypomagnesemia (GEN), Psychotic Disorder (GEN) Activity/Diet/Wound Care/Special Instructions: no driving till cleared by PCP dr bell to clear pt before dc - he will see her this afternoon Verbal clearance to discharge patient given by Dr. Bell. See chart note. Discharge Disposition: HOME SELF-CARE Plan of Treatment: Encouraged family to go to probate Court and obtained a substance abuse treatment order
== END 2020-04-03 16:11 | disposition home or self-care (01) | DRG 897 ==
LOC: EC 11:24 → 5NMEDONC 13:32 → OBSVTOIN 13:32 → 5NMEDONC 14:36
PROVIDERS: ADMIT Hospitalist; ATTEND Hospitalist
DX: F10.229 Alcohol dependence with intoxication, unspecified (principal); F10.231 Alcohol dependence with withdrawal delirium; F17.210 Nicotine dependence, cigarettes, uncomplicated; F29 Unspecified psychosis not due to a substance or known physiological condition; K70.10 Alcoholic hepatitis without ascites; F32.9 Major depressive disorder, single episode, unspecified; F41.9 Anxiety disorder, unspecified; G40.409 Other generalized epilepsy and epileptic syndromes, not intractable, without status epilepticus; Y90.8 Blood alcohol level of 240 mg/100 ml or more; Z11.59 Encounter for screening for other viral diseases; Z79.899 Other long term (current) drug therapy; Z82.0 Family history of epilepsy and other diseases of the nervous system; Z56.0 Unemployment, unspecified
CPT/HCPCS: 36415; 80048; 80053; 80320; 80329; 82075; 83520; 83605; 83735; 83930; 85025; 87635; 96361; 96365; 96372; 99284

== ENCOUNTER 2020-04-08 22:38 | Inpatient (IN) | payer BC ==
--- NOTE | 2020-04-08 23:17 | ED ---
Psych HPI - General Source: EMS Mode of arrival: EMS Limitations: altered mental status (Patient appears intoxicated) - History of Present Illness MD Complaint: other -: days(s) Associated Psychiatric Symptoms: depression History of same: Yes Quality: constant Improves With: none Worsens With: none Associated Symptoms: denies other symptoms <Kali Delacruz - Last Filed: 04/08/20 23:14> <Gerson Prieto - Last Filed: 04/09/20 10:19> - General Chief Complaint: Psychiatric Symptoms Stated Complaint: mental health Time Seen by Provider: 04/08/20 22:56 - History of Present Illness Initial Comments: Shouldn't is 34 year old woman who states she has history of depression and is reportedly brought in to have Court ordered psychiatric evaluation. The patient is without complaints when I interview her. She is denying hallucinations. She denies suicidal ideation. She does admit to drinking alcohol today. (Kali Delacruz) - Related Data Home Medications Medication Instructions Recorded Confirmed Acamprosate Calcium [Campral] 666 mg PO TID 04/01/20 04/01/20 Citalopram Hydrobromide [CeleXA] 20 mg PO DAILY 04/01/20 04/01/20 Ondansetron Odt [Zofran ODT] 4 mg PO TID PRN 04/01/20 04/01/20 Orsythia 1 tab PO DAILY 04/01/20 04/01/20 busPIRone HCL 10 mg PO QID PRN 04/01/20 04/01/20 levETIRAcetam [Keppra] 500 mg PO BID 04/01/20 04/01/20 traZODone HCL [Desyrel] 100 mg PO HS PRN 04/01/20 04/01/20 Previous Rx's Medication Instructions Recorded Diazepam [Valium] 2 mg PO DIRECTED 3 Days #7 tab 04/03/20 Melatonin 5 mg PO HS PRN #30 tablet 04/03/20 Metoprolol Tartrate [Lopressor] 12.5 mg PO TID #6 tab 04/03/20 Psyllium Husk 100% [Metamucil 6 gm PO DAILY #30 packet 04/03/20 Packet] Thiamine [Vitamin B-1] 100 mg PO BID-W/MEALS #60 tab 04/03/20 Allergies Allergy/AdvReac Type Severity Reaction Status Date / Time No Known Allergies Allergy Verified 04/08/20 22:55 Review of Systems ROS Other: All systems not noted in ROS Statement are negative. Limitations: ROS unobtainable due to patients medical condition (Appears intoxicated) Constitutional: Denies: fever Eyes: Denies: vision change Respiratory: Denies: cough, dyspnea Cardiovascular: Denies: chest pain, syncope Gastrointestinal: Denies: abdominal pain, vomiting Genitourinary: Denies: dysuria, hematuria Musculoskeletal: Denies: back pain Neurological: Denies: headache Psychiatric: Reports: depression. Denies: auditory hallucinations, homicidal thoughts, suicidal thoughts <Kali Delacruz - Last Filed: 04/08/20 23:14> ROS Other: All systems not noted in ROS Statement are negative. <ConnerGerson Pamela - Last Filed: 04/09/20 10:19> ROS Statement: Those systems with pertinent positive or pertinent negative responses have been documented in the HPI. Past Medical History Past Medical History: No Reported History History of Any Multi-Drug Resistant Organisms: None Reported Past Surgical History: No Surgical Hx Reported Past Psychological History: Anxiety, Depression Smoking Status: Current every day smoker Past Alcohol Use History: Daily Past Drug Use History: None Reported - Past Family History Mother Family Medical History: No Reported History <Kali Delacruz - Last Filed: 04/08/20 23:14> General Exam Limitations: no limitations General appearance: alert, in no apparent distress, appears intoxicated Head exam: Present: atraumatic, normocephalic Neck exam: Present: normal inspection, full ROM Respiratory exam: Present: normal lung sounds bilaterally. Absent: respiratory distress, wheezes, rales, rhonchi, stridor Cardiovascular Exam: Present: regular rate, normal rhythm, normal heart sounds. Absent: systolic murmur, diastolic murmur, rubs, gallop GI/Abdominal exam: Present: soft. Absent: distended, tenderness, guarding, r ebound, rigid, mass Extremities exam: Present: normal inspection, normal capillary refill. Absent: pedal edema, calf tenderness Back exam: Present: normal inspection. Absent: CVA tenderness (R), CVA tenderness (L) Neurological exam: Present: alert, oriented X3 Psychiatric exam: Present: depressed. Absent: agitated, anxious, flat affect, manic, homicidal ideation, suicidal ideation Skin exam: Present: warm, dry, intact, normal color. Absent: rash <NubiaKali - Last Filed: 04/08/20 23:14> Course Vital Signs 04/08/20 04/09/20 22:53 06:09 Temperature 98.3 F Pulse Rate 96 85 Respiratory 18 16 Rate Blood Pressure 134/86 121/85 O2 Sat by Pulse 95 99 Oximetry Medical Decision Making <Gerson Prieto - Last Filed: 04/09/20 10:19> - Medical Decision Making 34 yo female presenting for mental health evaluation. Patient was brought in under court order pickup, petition have been filled out. She was evaluated in the emergency department, medically cleared after she was sober and was evaluated by EPS. She will be admitted to this institution for further psychiatric evaluation and treatment. Of depression, suicidal ideation, behavioral problems and alcohol abuse. I have completed a clinical certification on this patient. (Gerson Prieto) - Lab Data Lab Results 04/08/20 04/08/20 04/08/20 Range/Units 23:00 23:00 23:00 Urine Color Yellow Urine Appearance Clear (Clear) Urine pH 5.5 (5.0-8.0) Ur Specific [place] 1.014 (1.001-1.035) Urine Protein 1+ H (Negative) Urine Glucose (UA) Negative (Negative) Urine Ketones Negative (Negative) Urine Blood Negative (Negative) Urine Nitrite Negative (Negative) Urine Bilirubin Negative (Negative) Urine Urobilinogen <2.0 (<2.0) mg/dL Ur Leukocyte Esterase Negative (Negative) Urine RBC 1 (0-5) /hpf Urine WBC 1 (0-5) /hpf Ur Squamous Epith Cells 1 (0-4) /hpf Urine Bacteria Rare H (None) /hpf Hyaline Casts 22 H (0-2) /lpf Urine Mucus Rare H (None) /hpf Urine HCG, Qual Not Detected (Not Detectd) Urine Opiates Screen Not Detected (NotDetected) Ur Oxycodone Screen Not Detected (NotDetected) Urine Methadone Screen Not Detected (NotDetected) Ur Propoxyphene Screen Not Detected (NotDetected) Ur Barbiturates Screen Not Detected (NotDetected) U Tricyclic Antidepress Not Detected (NotDetected) Ur Phencyclidine Scrn Not Detected (NotDetected) Ur Amphetamines Screen Not Detected (NotDetected) U Methamphetamines Scrn Not Detected (NotDetected) U Benzodiazepines Scrn Detected H (NotDetected) Urine Cocaine Screen Not Detected (NotDetected) U Marijuana (THC) Screen Not Detected (NotDetected) Disposition <Kali Delacruz - Last Filed: 04/08/20 23:14> Is patient prescribed a controlled substance at d/c from ED?: No Decision to Admit Reason: Admit from EC Decision Date: 04/09/20 Decision Time: 10:19 <Gerson Prieto - Last Filed: 04/09/20 10:19> Clinical Impression: Depression, Suicidal ideation, Alcohol intoxication, Psychosis Disposition: ADMITTED IP TO THIS HOSP Condition: Stable Referrals: Douglas Evans MD [Primary Care Provider] - 1-2 days
[2020-04-08 23:18] LABS: Appearance,Urine Clear (Clear); Bacteria,Urine Rare /hpf; Bilirubin,Urine Negative (Negative); Blood,Urine Negative (Negative); Color,Urine Yellow; Glucose,Urine (UA) Negative (Negative); Hyaline Casts,Urine 22 /lpf (0-2); Ketones,Urine Negative (Negative); Leukocyte Esterase,Urine Negative (Negative); Mucus,Urine Rare /hpf; Nitrite,Urine Negative (Negative); PH, Urine 5.5 (5.0-8.0); Protein,Urine 1+ (Negative); RBC,Urine 1 /hpf (0-5); Specific Gravity,Urine 1.014 (1.001-1.035); Squamous Epithelial Cell,Urine 1 /hpf (0-4); Urobilinogen,Urine <2.0 mg/dL (<2.0); WBC,Urine 1 /hpf (0-5)
[2020-04-09 00:29] LABS: Amphetamine Screen,Urine Not Detected (NotDetected); Barbiturate Screen,Urine Not Detected (NotDetected); Benzodiazepines Screen,Urine Detected (NotDetected); Cocaine Screen,Urine Not Detected (NotDetected); Methadone Screen, Urine Not Detected (NotDetected); Opiate Screen,Urine Not Detected (NotDetected); Oxycodone Screen, Urine Not Detected (NotDetected); Phencyclidine Screen,Urine Not Detected (NotDetected); Tricyclic Antidepressant,Urine Not Detected (NotDetected); Urn Cannabinoid Scrn Not Detected (NotDetected)
[2020-04-09] MEDS ORDERED: ACETAMINOPHEN TAB 325 MG TAB PO PRN (11:27)
[2020-04-09] MEDS ORDERED: ZIPRASIDONE 20 MG VIAL IM PRN (11:27)
[2020-04-09] MEDS ORDERED: MAGNESIUM HYDROXIDE 2,400 MG/10 ML CUP PO PRN (11:27)
[2020-04-09] MEDS ORDERED: LORazepam 1 MG TAB PO PRN (11:34)
[2020-04-09] MEDS: NICOTINE 21MG/24HR PATCH TRANSDERM SCH (12:18)
[2020-04-09] MEDS: levETIRAcetam 500 MG TAB PO SCH ×2 (12:18→22:18)
[2020-04-09] MEDS: ONDANSETRON ODT 4 MG TAB PO PRN ×2 (13:17→16:31)
[2020-04-09] MEDS: LORazepam 1 MG TAB PO PRN (15:51)
[2020-04-09] MEDS: METOPROLOL TARTRATE 12.5 MG TAB PO SCH ×2 (16:29→22:41)
[2020-04-09] MEDS: DIAZEPAM 5 MG TAB PO SCH ×2 (17:54→23:14)
[2020-04-09] MEDS: THIAMINE 100 MG TAB PO SCH (17:55)
[2020-04-09] MEDS ORDERED: levETIRAcetam 500 MG TAB PO SCH (21:00)
[2020-04-10] MEDS: DIAZEPAM 5 MG TAB PO SCH ×4 (06:17→23:28)
[2020-04-10 08:53] LABS: ALT 16 U/L (4-34); AST 41 U/L (14-36); African American GFR (CKD) >90 (>60 ml/min/1.73 sqM); Albumin 4.5 g/dL (3.5-5.0); Alkaline Phosphatase 85 U/L (38-126); Anion Gap 12 mmol/L; Blood Urea Nitrogen 10 mg/dL (7-17); Calcium 9.4 mg/dL (8.4-10.2); Carbon Dioxide 28 mmol/L (22-30); Chloride 94 mmol/L (98-107); Cholesterol 197 mg/dL (<200); Glucose 115 mg/dL (74-99); HDL Cholesterol 80 mg/dL (40-60); LDL Cholesterol,Calculated 94 mg/dL (0-99); Non-African American GFR(CKD) >90 (>60 ml/min/1.73 sqM); Potassium 4.2 mmol/L (3.5-5.1); Sodium 134 mmol/L (137-145); Total Bilirubin 0.8 mg/dL (0.2-1.3); Total Protein 8.1 g/dL (6.3-8.2); Triglycerides 115 mg/dL (<150)
[2020-04-10] MEDS ORDERED: NICOTINE 21MG/24HR PATCH TRANSDERM SCH ×2 (09:00→12:08)
[2020-04-10 09:21] LABS: Basophils % (A) 0 %; Eosinophils # (A) 0.1 k/uL (0-0.7); Eosinophils % (A) 1 %; HCT 38.7 % (34.0-46.0); HGB 12.1 gm/dL (11.4-16.0); Lymphocytes # (A) 1.3 k/uL (1.0-4.8); Lymphocytes % (A) 14 %; MCH 34.2 pg (25.0-35.0); MCHC 31.2 g/dL (31.0-37.0); MCV 109.7 fL (80.0-100.0); Macrocytosis Marked; Monocytes # (A) 0.4 k/uL (0-1.0); Monocytes % (A) 4 %; Neutrophils % (A) 79 %; Platelet Count 188 k/uL (150-450); RBC 3.53 m/uL (3.80-5.40); RDW 13.3 % (11.5-15.5); WBC 8.9 k/uL (3.8-10.6)
[2020-04-10] MEDS: LORazepam 1 MG TAB PO PRN (09:27)
[2020-04-10] MEDS: THIAMINE 100 MG TAB PO SCH ×2 (09:28→17:08)
[2020-04-10] MEDS: METOPROLOL TARTRATE 12.5 MG TAB PO SCH ×3 (09:28→22:43)
[2020-04-10] MEDS: levETIRAcetam 500 MG TAB PO SCH ×2 (09:28→20:37)
[2020-04-10] MEDS: NICOTINE 21MG/24HR PATCH TRANSDERM SCH (09:28)
--- NOTE | 2020-04-10 13:30 | P.PN ---
Progress Note - Text Progress Note Date: 04/10/20 Clinical Problems: alcohol withdrawal, rule out alcohol withdrawal delirium, alcohol use disorder severe dependence, alcohol induced mood disorder, rule out major depressive disorder Interim history: I reviewed the medical record, interviewed the patient and discuss her treatment and treatment plan during team meeting. Patient alleged that she had alcohol withdrawal symptoms yesterday but they are minimal today. Her highest CIWA was 27 yesterday afternoon. The director medical surgical started her on Valium 7.5 mg every 6 hours for alcohol withdrawal symptoms. She also continues to receive Ativan per CIWA orders. She denied feeling depressed or having thoughts of or suicide. She denied the allegations in the petition that she has had suicidal thoughts, expressed suicidal ideation or experience auditory or visual hallucinations. She alleged that her mother completed the petition because she is attempting to control the patient's life. She has had no episodes of behavioral dyscontrol. She has not attended therapeutic groups or activities. She slept 6 hours last night. Mental status exam: She presented as a casually groomed and neatly dressed 34-year-old female who was pleasant on approach. She made eye contact and attended the interview. She had no distinguishing features or prominent physical abnormalities. She is a blunted but bright facial expression. She was alert and oriented to person, place and time. She had slight psychomotor retardation but no abnormal involuntary movements. Her gait was slow but steady. Her speech was spontaneous and slightly dysarthric but with normal amount and volume. Her affect was bright and appropriate. She denied suicidal ideation and wishes. She denied homicidal ideation. She denied feeling hopeless, helpless or worthless. She did not ruminate over the situation is not to this hospitalization. She did not express ideas reference, paranoid ideation or delusions. Her thinking was concrete but her associations were coherent, logical and goal directed. She denied hallucinations and did not appear to be responding to internal stimuli. Assessment: She is experiencing mild to moderate alcohol withdrawal symptoms when complicated by psychosis or delirium. She is denying depression or suici bandar ideation. Her affect is not consistent with someone who is severely depressed. Plan: Continue hospitalization pending the probate Court hearing. Continue safety precautions. Continue CIWA with Ativan for alcohol withdrawal. Continue diazepam 7.5 mg every 6 as recommended by healthcare economics consultant zoo veterinarian. Continue discuss of substance abuse treatment. Encourage participation in therapeutic groups and activities. Evaluate clinical status response to treatment daily basis.
[2020-04-10 16:00] LABS: Hemoglobin A1C 5.6 % (4.0-6.0)
--- NOTE | 2020-04-10 19:56 | P.CONS ---
History of Present Illness - Reason for Consult Consult date: 04/10/20 Medical management Requesting physician: Douglas Saez - Chief Complaint Intoxicated - History of Present Illness History of presenting complaint: This is a 34-year-old patient who follows with Dr. Douglas Evans. Patient recently in the hospital from April 01 through April 03. Admitted with acute alcohol intoxication, alcoholic hepatitis, and alcohol withdrawal. Patient was seen by Dr. Jacques from psychiatry. Patient had been counseled about alcoholism. Patient was yesterday brought her to the hospital via the EMS after a court order from Dr. Bowling. Has petitioned by the family. Last that the patient is having alcohol withdrawal symptoms and she was started on Valium scheduled and beta blockers. Following that patient's settled out probable overnight. Patient has a history of depression but no suicidal ideation. Patient states that she is continued to drink alcohol. Her appetite is fair. Bowel movements are okay. No abdominal pain. Slight anxiety. She is not employed. Her significant other also drinks but does so in the garage. . Review of systems: GEN.: Tired EYES: None HEENT: None NECK: None RESPIRATORY: None CARDIOVASCULAR: None GASTROINTESTINAL: One to 3 BMs a day GENITOURINARY: None MUSCULOSKELETAL: None LYMPHATICS: None HEMATOLOGICAL: None PSYCHIATRY: Anxious NEUROLOGICAL: Jittery Past medical history to include: Depression, anxiety, chronic alcohol disorder Social history: Patient smokes three-quarter pack a day, takes 2 glasses of vodka every night with melatonin. Lives with her significant other maciej Trimble. Family history: Reviewed, noncontributory to presentation Physical examination: VITAL SIGNS: 98.3, 66, 16, 107/50, 99% on room air GENERAL: BMI 23.8, sitting up, awake slightly anxious EYES: Pupils equal. Conjunctiva normal. HEENT: External appearance of nose and ears normal, oral cavity grossly normal. NECK: JVD not raised; masses not palpable. HEART: First and second heart sounds are normal; no edema. LUNGS: Respiratory rate normal; clear to auscultation. ABDOMEN: Soft, nontender, liver spleen not palpable, no masses palpable. PSYCH: Alert and oriented x3; mood and affect slightly anxious. NEUROLOGICAL: Cranial nerves grossly intact; no facial asymmetry, minimal tremors slightly restless LYMPHATICS: No lymph nodes palpable in the axilla and neck INVESTIGATIONS, reviewed in the clinical context: White count 8.9 and hemoglobin 12.1 potassium 4.2 creatinine 0.79 AST 41 TSH 2.7 Assessment: --Alcohol withdrawal syndrome, with early DTs on presentation -Alcohol use disorder -Alcoholic hepatitis -Chronic nicotine dependence patient's cigarette smoker -Depression and anxiety not otherwise specified Plan: Last that I put the patient on Valium 7.5 mg every 6 hours and Lopressor 12.5 by mouth every 8. Overnight patient responded well to the same. Doing better this morning. We'll cut back the Valium to 5 mg every 8 and continue the same dose of Lopressor. Patient also started him on CIWA scale yesterday. Nicotine patch. Thank you Dr. Jacques Past Medical History Past Medical History: No Reported History History of Any Multi-Drug Resistant Organisms: None Reported Past Surgical History: No Surgical Hx Reported Past Psychological History: Anxiety, Depression Smoking Status: Current every day smoker Past Alcohol Use History: Daily Past Drug Use History: None Reported - Past Family History Mother Family Medical History: No Reported History Medications and Allergies Home Medications Medication Instructions Recorded Confirmed Type Acamprosate Calcium [Campral] 666 mg PO TID 04/01/20 04/01/20 History Citalopram Hydrobromide [CeleXA] 20 mg PO DAILY 04/01/20 04/01/20 History Ondansetron Odt [Zofran ODT] 4 mg PO TID PRN 04/01/20 04/01/20 History Orsythia 1 tab PO DAILY 04/01/20 04/01/20 History busPIRone HCL 10 mg PO QID PRN 04/01/20 04/01/20 History levETIRAcetam [Keppra] 500 mg PO BID 04/01/20 04/01/20 History traZODone HCL [Desyrel] 100 mg PO HS PRN 04/01/20 04/01/20 History Diazepam [Valium] 2 mg PO DIRECTED 3 Days #7 tab 04/03/20 Rx Melatonin 5 mg PO HS PRN #30 tablet 04/03/20 Rx Metoprolol Tartrate [Lopressor] 12.5 mg PO TID #6 tab 04/03/20 Rx Psyllium Husk 100% [Metamucil 6 gm PO DAILY #30 packet 05/22/20 Rx Packet] Thiamine [Vitamin B-1] 100 mg PO BID-W/MEALS #60 tab 04/03/20 Rx Allergies Allergy/AdvReac Type Severity Reaction Status Date / Time No Known Allergies Allergy Verified 04/08/20 22:55 Physical Exam Vitals: Vital Signs Temp Pulse Pulse Resp BP BP Pulse Ox 04/10/20 09:24 97.7 F 86 15 118/72 100 04/10/20 06:05 98.3 F 66 16 107/50 99 04/09/20 22:00 98.5 F 04/09/20 18:00 97.9 F 04/09/20 17:57 98.4 F 96 20 124/67 99 04/09/20 17:00 98.9 F 04/09/20 16:25 77 116/65 04/09/20 15:53 98.1 F 117 H 20 118/80 100 04/09/20 15:51 98.1 F 117 H 18 118/70 100 04/09/20 12:36 98.0 F 90 18 116/64 100 04/09/20 11:51 80 18 131/77 98 Results CBC & Chem 7: 04/10/20 08:16 04/10/20 08:16 Labs: Abnormal Lab Results - Last 24 Hours (Table) 04/10/20 04/10/20 Range/Units 08:16 08:16 RBC 3.53 L (3.80-5.40) m/uL MCV 109.7 H (80.0-100.0) fL Macrocytosis Marked A Sodium 134 L (137-145) mmol/L Chloride 94 L (98-107) mmol/L Glucose 115 H (74-99) mg/dL AST 41 H (14-36) U/L HDL Cholesterol 80 H (40-60) mg/dL
[2020-04-10] MEDS: traZODone HCL 100 MG TAB PO PRN (20:37)
[2020-04-11] MEDS: levETIRAcetam 500 MG TAB PO SCH ×2 (08:36→20:46)
[2020-04-11] MEDS: THIAMINE 100 MG TAB PO SCH ×2 (08:36→17:08)
[2020-04-11] MEDS: METOPROLOL TARTRATE 12.5 MG TAB PO SCH ×3 (08:36→20:46)
[2020-04-11] MEDS: DIAZEPAM 5 MG TAB PO SCH ×2 (08:36→17:08)
[2020-04-11] MEDS: NICOTINE 21MG/24HR PATCH TRANSDERM SCH (08:36)
[2020-04-11] MEDS ORDERED: DIAZEPAM 5 MG TAB PO SCH (09:00)
--- NOTE | 2020-04-11 16:59 | P.PN ---
Progress Note - Text Progress Note Date: 04/11/20 Interval history: Patient seen in [facility] today. She reports she slept about 10 hours last night. She thinks she did take the trazodone. She does not seem to verbalize any adverse psychotropic medication side effects. She denies any withdrawal symptoms. Mental status exam: She is alert and cooperative with the interview. Her speech is fluent, not rapid or pressured. Her thought processes are organized. She does not verbalize any thoughts of harm to self or others. She seems to describe her mood is doing well. No evidence of psychosis or agitation. Plan: Patient will be maintained on current regimen. We'll continue to monitor for any medication side effects and monitor her ongoing response to treatment.
--- NOTE | 2020-04-11 21:49 | P.PN ---
Progress Note - Text Progress Note Date: 04/11/20 History of presenting complaint: This is a 34-year-old patient who follows with Dr. Douglas Evans. Patient recently in the hospital from April 01 through April 03. Admitted with acute alcohol intoxication, alcoholic hepatitis, and alcohol withdrawal. Patient was seen by Dr. Jacques from psychiatry. Patient had been counseled about alcoholism. Patient was yesterday brought her to the hospital via the EMS after a court order from Dr. Bowling. Has petitioned by the family. Last that the patient is having alcohol withdrawal symptoms and she was started on Valium scheduled and beta blockers. Following that patient's settled out probable overnight. Patient has a history of depression but no suicidal ideation. Patient states that she is continued to drink alcohol. Her appetite is fair. Bowel movements are okay. No abdominal pain. Slight anxiety. She is not employed. Her significant other also drinks but does so in the garage. . Admitted with-alcohol withdrawal syndrome and alcohol use disorder patient was started on Valium scheduled and Lopressor scheduled. Today-patient does of value was cut back to 5 mg every 8 starting this morning. Patient doing much better. Up and about. Signs of withdrawals acutely improved. Tolerating a diet. His had to 3 bowel movements. Rather cheerful. Review of systems: Was done for constitutional, cardiovascular, GI, pulmonary. relevant finding as above Active Medications Acetaminophen (Tylenol Tab) 650 mg PO Q4HR PRN PRN Reason: Pain/Discomfort Diazepam (Valium) 5 mg PO Q8HR [facility] Stop: 04/11/20 23:59 Last Admin: 04/11/20 17:08 Dose: 5 mg Documented by: Diazepam (Valium) 2 mg PO Q8H [facility] Levetiracetam (Keppra) 500 mg PO BID [facility] Last Admin: 04/11/20 20:46 Dose: 500 mg Documented by: Lorazepam (Ativan) 1 mg PO Q4HR PRN PRN Reason: Alcohol Withdrawal Last Admin: 04/10/20 09:27 Dose: 1 mg Documented by: Lorazepam (Ativan) 2 mg PO Q4HR PRN PRN Reason: SEVERE Alcohol Withdrawal Last Admin: 04/09/20 12:18 Dose: 2 mg Documented by: Magnesium Hydroxide (Milk Of Magnesia) 2,400 mg PO DAILY PRN PRN Reason: Constipation Metoprolol Tartrate (Lopressor) 12.5 mg PO TID [facility] Last Admin: 04/11/20 20:46 Dose: 12.5 mg Documented by: Nicotine (Habitrol 21mg/24hr Patch) 1 patch TRANSDERM DAILY [facility] Last Admin: 04/11/20 08:36 Dose: 1 patch Documented by: Ondansetron HCl (Zofran Odt) 4 mg PO TID PRN PRN Reason: Nausea Last Admin: 04/09/20 16:31 Dose: 4 mg Documented by: Thiamine HCl (Vitamin B-1) 100 mg PO BID-W/MEALS [facility] Last Admin: 04/11/20 17:08 Dose: 100 mg Documented by: Trazodone HCl (Desyrel) 100 mg PO HS PRN PRN Reason: sleep Last Admin: 04/10/20 20:37 Dose: 100 mg Documented by: Ziprasidone (Geodon) 20 mg IM BID PRN PRN Reason: Agitation or Acute Psychosis Physical examination: VITAL SIGNS: 98, 80, 16, 124/86, 100% on room air GENERAL: Comfortable, more relaxed EYES: Pupils equal. Conjunctiva normal. HEENT: External appearance of nose and ears normal, oral cavity grossly normal. NECK: JVD not raised; masses not palpable. HEART: First and second heart sounds are normal; no edema. LUNGS: Respiratory rate normal; clear to auscultation. PSYCH: Alert and oriented x3; mood and affect anxiety much improved. NEUROLOGICAL: Cranial nerves grossly intact; no facial asymmetry, no tremors INVESTIGATIONS, reviewed in the clinical context: White count 8.9 and hemoglobin 12.1 potassium 4.2 creatinine 0.79 AST 41 TSH 2.7 Assessment: --Alcohol withdrawal syndrome, with early DTs on presentation-improving -Alcohol use disorder -Alcoholic hepatitis -Chronic nicotine dependence patient's cigarette smoker -Depression and anxiety not otherwise specified Plan: Patient currently on Valium 5 mg every 8 hours. We'll stop at midnight today. I switched to 2.5 mg every 8 hours starting tomorrow for another 3 doses. We'll cut back on Lopressor 12.5 twice a day for another 2 days. Then stop Thank you Dr. Jacques
[2020-04-11] MEDS: traZODone HCL 100 MG TAB PO PRN (22:53)
[2020-04-12] MEDS: NICOTINE 21MG/24HR PATCH TRANSDERM SCH (08:08)
[2020-04-12] MEDS: levETIRAcetam 500 MG TAB PO SCH ×2 (08:08→20:50)
[2020-04-12] MEDS: THIAMINE 100 MG TAB PO SCH ×2 (08:08→17:55)
[2020-04-12] MEDS: DIAZEPAM 2 MG TAB PO SCH ×2 (08:09→15:19)
[2020-04-12] MEDS: METOPROLOL TARTRATE 12.5 MG TAB PO SCH ×2 (08:09→20:50)
--- NOTE | 2020-04-12 19:36 | P.PN ---
Progress Note - Text Progress Note Date: 04/12/20 Interval history: Patient is seen in cross coverage today. She relates she slept well last night. She is eating well. She does talk about feeling as though she is ready for discharge tomorrow. She does not voice any adverse psychotropic medication side effects. Mental status exam: She is alert and cooperative with the interview. Her speech is fluent, not rapid or pressured. Thought processes are organized. Her mood seems to be stable. She denies any thoughts of harm to self or others. No evidence of psychosis or agitation. Plan: Patient will be maintained on current psychotropic medication regimen. Continue to monitor for any medication side effects and monitor her ongoing re sponse to treatment.
[2020-04-12] MEDS: traZODone HCL 100 MG TAB PO PRN (20:51)
[2020-04-13] MEDS: NICOTINE 21MG/24HR PATCH TRANSDERM SCH (08:58)
[2020-04-13] MEDS: levETIRAcetam 500 MG TAB PO SCH ×2 (08:59→20:23)
[2020-04-13] MEDS: THIAMINE 100 MG TAB PO SCH ×2 (08:59→16:34)
[2020-04-13] MEDS: METOPROLOL TARTRATE 12.5 MG TAB PO SCH ×2 (08:59→21:55)
[2020-04-13] MEDS: DIAZEPAM 2 MG TAB PO SCH ×2 (09:01→20:23)
--- NOTE | 2020-04-13 15:24 | P.PN ---
Progress Note - Text Progress Note Date: 04/13/20 Clinical Problems: alcohol withdrawal, rule out alcohol withdrawal delirium, alcohol use disorder severe dependence, alcohol induced mood disorder, rule out major depressive disorder Interim history: I reviewed the medical record, interviewed the patient and discuss her treatment and treatment plan during team meeting. She denied problems or concerns other than wishing to return home she again complained about her mother and is concerned that her mother he is applying for guardianship. She met with her regulatory attorney and deferred the probate hearing. She completed the alcohol detox this morning. Mental status exam: She presented as a casually groomed and neatly dressed 34-year-old female who was pleasant on approach. She made eye contact and attended the interview. She had no distinguishing features or prominent physical abnormalities. She is a blunted but bright facial expression. She was alert and oriented to person, place and time. She had no abnormal involuntary movements. Her gait was slow but steady. Her speech was spontaneous a with normal amount and volume. Her affect was bright and appropriate. She denied suicidal ideation and wishes. She denied homicidal ideation. She denied feeling hopeless, helpless or worthless. She did not ruminate over the situation is not to this hospitalization. She did not express ideas reference, paranoid ideation or delusions. Her thinking was concrete but her associations were coherent, logical and goal directed. She denied hallucinations and did not appear to be responding to internal stimuli. Assessment: Her alcohol detoxification was uncomplicated by delirium or psychosis. Plan: Plan for discharge on 04/14/2020 Continue safety precautions. Continue CIWA with Ativan for alcohol withdrawal. Follow-up substance abuse counseling at [facility] 04/16/2020 at 10 AM. Encourage participation in therapeutic groups and activities. Evaluate clinical status response to treatment daily basis.
--- NOTE | 2020-04-13 19:11 | P.PN ---
Progress Note - Text Progress Note Date: 04/13/20 History of presenting complaint: This is a 34-year-old patient who follows with Dr. Douglas Evans. Patient recently in the hospital from April 01 through April 03. Admitted with acute alcohol intoxication, alcoholic hepatitis, and alcohol withdrawal. Patient was seen by Dr. Jacques from psychiatry. Patient had been counseled about alcoholism. Patient was yesterday brought her to the hospital via the EMS after a court order from Dr. Bowling. Has petitioned by the family. Last that the patient is having alcohol withdrawal symptoms and she was started on Valium scheduled and beta blockers. Following that patient's settled out probable overnight. Patient has a history of depression but no suicidal ideation. Patient states that she is continued to drink alcohol. Her appetite is fair. Bowel movements are okay. No abdominal pain. Slight anxiety. She is not employed. Her significant other also drinks but does so in the garage. . Admitted with-alcohol withdrawal syndrome and alcohol use disorder patient was started on Valium scheduled and Lopressor scheduled. Today-no edema. Tolerating a diet. Continue Valium 1 mg twice a day. Also on Lopressor. Mood is a cheerful. Up and about. Review of systems: Was done for constitutional, cardiovascular, GI, pulmonary. relevant finding as above Active Medications Acetaminophen (Tylenol Tab) 650 mg PO Q4HR PRN PRN Reason: Pain/Discomfort Diazepam (Valium) 1 mg PO BID [facility] Stop: 04/13/20 21:01 Last Admin: 04/13/20 09:01 Dose: 1 mg Documented by: Levetiracetam (Keppra) 500 mg PO BID [facility] Last Admin: 04/13/20 08:59 Dose: 500 mg Documented by: Magnesium Hydroxide (Milk Of Magnesia) 2,400 mg PO DAILY PRN PRN Reason: Constipation Metoprolol Tartrate (Lopressor) 12.5 mg PO BID [facility] Stop: 04/13/20 21:01 Last Admin: 04/13/20 08:59 Dose: 12.5 mg Documented by: Nicotine (Habitrol 21mg/24hr Patch) 1 patch TRANSDERM DAILY [facility] Last Admin: 04/13/20 08:58 Dose: 1 patch Documented by: Ondansetron HCl (Zofran Odt) 4 mg PO TID PRN PRN Reason: Nausea Last Admin: 04/09/20 16:31 Dose: 4 mg Documented by: Thiamine HCl (Vitamin B-1) 100 mg PO BID-W/MEALS DAGMAR Last Admin: 04/13/20 16:34 Dose: 100 mg Documented by: Trazodone HCl (Desyrel) 100 mg PO HS PRN PRN Reason: sleep Last Admin: 04/12/20 20:51 Dose: 100 mg Documented by: Ziprasidone (Geodon) 20 mg IM BID PRN PRN Reason: Agitation or Acute Psychosis Physical examination: VITAL SIGNS: 98, 80, 16, 124/86, 100% on room air GENERAL: Comfortable, cheerful EYES: Pupils equal. Conjunctiva normal. HEENT: External appearance of nose and ears normal, oral cavity grossly normal. NECK: JVD not raised; PSYCH: Alert and oriented x3; mood and affect cheerful NEUROLOGICAL: Cranial nerves grossly intact; no facial asymmetry, no tremors INVESTIGATIONS, reviewed in the clinical context: White count 8.9 and hemoglobin 12.1 potassium 4.2 creatinine 0.79 AST 41 TSH 2.7 Assessment: --Alcohol withdrawal syndrome, with early DTs on much improved -Alcohol use disorder -Alcoholic hepatitis -Chronic nicotine dependence patient's cigarette smoker -Depression and anxiety not otherwise specified Plan: Patient's telemetry on Valium 1 mg twice a day Lopressor 12.5 mg twice a day. That can be discontinued after today. Patient told to follow-up with his family doctor and also will be going through alcohol rehab place. Thank you Dr. Jacques
[2020-04-13] MEDS: traZODone HCL 100 MG TAB PO PRN (20:55)
[2020-04-14 06:41] VITALS: BP 134/75; PULSE 58; RESP 17; TEMP 98.1
[2020-04-14] MEDS: NICOTINE 21MG/24HR PATCH TRANSDERM SCH (08:34)
[2020-04-14] MEDS: levETIRAcetam 500 MG TAB PO SCH (08:35)
[2020-04-14] MEDS: THIAMINE 100 MG TAB PO SCH (08:35)
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
== END 2020-04-14 12:25 | disposition home or self-care (01) | DRG 897 ==
LOC: EC 22:38 → 3MHU 04-09 11:24
PROVIDERS: ADMIT Psychiatry & Neurology Psychiatry; ATTEND Psychiatry & Neurology Psychiatry
DX: F10.251 Alcohol dependence with alcohol-induced psychotic disorder with hallucinations (principal); F10.231 Alcohol dependence with withdrawal delirium; K70.10 Alcoholic hepatitis without ascites; F32.9 Major depressive disorder, single episode, unspecified; F41.9 Anxiety disorder, unspecified; G40.909 Epilepsy, unspecified, not intractable, without status epilepticus; F17.210 Nicotine dependence, cigarettes, uncomplicated; Z71.41 Alcohol abuse counseling and surveillance of alcoholic; Z79.899 Other long term (current) drug therapy; Z56.0 Unemployment, unspecified
CPT/HCPCS: 80053; 80061; 80306; 81001; 81025; 82075; 83036; 84443; 85025; 99285

== ENCOUNTER 2020-04-24 15:57 | Emergency (ER) | payer BC ==
[2020-04-24 16:10] VITALS: RESP 18; TEMP 97.9
--- NOTE | 2020-04-24 18:28 | ED ---
Psych HPI - General Chief Complaint: Psychiatric Symptoms Stated Complaint: mental health evaluation Time Seen by Provider: 04/24/20 16:26 Source: patient, RN notes reviewed Mode of arrival: ambulatory - History of Present Illness Initial Comments: This is a 34-year-old female was brought in by her for evaluation. There apparently was a pickup order but the patient decided to come in voluntarily. She was found to have alcohol level was elevated upon arrival. She denies any suicidal thought or ideation at this time. Is initially unclear whether the patient was brought into this time. She states she's not sure why exactly. Complaint: other - Related Data Home Medications Medication Instructions Recorded Confirmed Acamprosate Calcium [Campral] 666 mg PO TID 04/01/20 04/01/20 Ondansetron Odt [Zofran ODT] 4 mg PO TID PRN 04/01/20 04/01/20 Orsythia 1 tab PO DAILY 04/01/20 04/01/20 levETIRAcetam [Keppra] 500 mg PO BID 04/01/20 04/01/20 traZODone HCL [Desyrel] 100 mg PO HS PRN 04/01/20 04/01/20 Previous Rx's Medication Instructions Recorded Melatonin 5 mg PO HS PRN #30 tablet 04/03/20 Psyllium Husk 100% [Metamucil 6 gm PO DAILY #30 packet 04/03/20 Packet] Thiamine [Vitamin B-1] 100 mg PO BID-W/MEALS #60 tab 04/03/20 Allergies Allergy/AdvReac Type Severity Reaction Status Date / Time No Known Allergies Allergy Verified 04/24/20 16:10 Review of Systems ROS Statement: Those systems with pertinent positive or pertinent negative responses have been documented in the HPI. ROS Other: All systems not noted in ROS Statement are negative. Past Medical History Past Medical History: No Reported History History of Any Multi-Drug Resistant Organisms: None Reported Past Surgical History: No Surgical Hx Reported Past Psychological History: Anxiety, Depression Smoking Status: Current every day smoker Past Alcohol Use History: Daily Past Drug Use History: None Reported - Past Family History Mother Family Medical History: No Reported History General Exam - General Exam Comments Initial Comments: Is a well-developed well-nourished awake alert oriented history female who does demonstrate the smell of alcohol conjoiners on her breath Limitations: no limitations General appearance: alert, in no apparent distress, appears intoxicated Head exam: Present: atraumatic, normocephalic, normal inspection Eye exam: Present: normal appearance, PERRL, EOMI. Absent: scleral icterus, conjunctival injection, periorbital swelling ENT exam: Present: normal exam, mucous membranes moist Neck exam: Present: normal inspection. Absent: tenderness, meningismus, lymphadenopathy Respiratory exam: Present: normal lung sounds bilaterally. Absent: respiratory distress, wheezes, rales, rhonchi, stridor Cardiovascular Exam: Present: regular rate, normal rhythm, normal heart sounds. Absent: systolic murmur, diastolic murmur, rubs, gallop, clicks GI/Abdominal exam: Present: soft, normal bowel sounds. Absent: distended, tenderness, guarding, rebound, rigid Extremities exam: Present: normal inspection, full ROM, normal capillary refill. Absent: tenderness, pedal edema, joint swelling, calf tenderness Back exam: Present: normal inspection Neurological exam: Present: alert, oriented X3, CN II-XII intact Psychiatric exam: Present: flat affect Skin exam: Present: warm, dry, intact, normal color. Absent: rash Course Vital Signs 04/24/20 16:06 Temperature 97.9 F Pulse Rate 89 Respiratory 18 Rate Blood Pressure 131/87 O2 Sat by Pulse 100 Oximetry Medical Decision Making - Medical Decision Making The patient was evaluated by psychiatric service found not to be a risk to herself or anyone else at this time. Patient will be discharged home with referrals Disposition Clinical Impression: Alcohol intoxication Disposition: HOME SELF-CARE Condition: Good Instructions (If sedation given, give patient instructions): Alcohol Intoxication (ED) Is patient prescribed a controlled substance at d/c from ED?: No Referrals: Douglas Evans MD [Primary Care Provider] - 1-2 days
[2020-04-24 22:21] VITALS: BP 122/87; PULSE 80
== END 2020-04-24 22:33 | disposition home or self-care (01) ==
LOC: EC 15:57
DX: F10.129 Alcohol abuse with intoxication, unspecified (principal); F17.200 Nicotine dependence, unspecified, uncomplicated; Z79.3 Long term (current) use of hormonal contraceptives; Z79.899 Other long term (current) drug therapy
CPT/HCPCS: 82075; 99284

== ENCOUNTER 2020-05-25 16:17 | Emergency (ER) | payer BC ==
--- NOTE | 2020-05-25 16:36 | ED ---
General Adult HPI - General Chief complaint: Psychiatric Symptoms Stated complaint: Mental Health Time Seen by Provider: 05/25/20 16:20 Source: patient, family, EMS Mode of arrival: EMS Limitations: no limitations - History of Present Illness Initial comments: Dictation was produced using [employer] dictation software. please excuse any grammatical, word or spelling errors. This patient was cared for during a federal and state declared state of [place] rgency secondary to Covid 19 Chief Complaint: 35-year-old female past medical history of alcoholism and psychiatric disease presents with paranoid behavior. History of Present Illness: Patient 35-year-old female she presents today with her who has guardianship over patient. Patient was recently admitted to [facility] for alcohol detoxification. After being at the rehab center she was transported to inpatient psychiatry. She's been on psychiatric medications. Patient has been displaying psychotic behaviors according to guardian at the bedside. She has been very paranoid that the world is full of drug dealers and that her [id number] is trying to kill her. Patient has any complaints at bedside today. She was told by her PCP to come into the emergency Department for brain MRI after she fell one month ago. Patient has no complaints. Guardian at bedside reports that they were at the PCPs office earlier today. PCP directed him to come to the emergency Department with concerns about her psychiatric health. The ROS documented in this emergency department record has been reviewed and confirmed by me. Those systems with pertinent positive or negative responses have been documented in the HPI. All other systems are other negative and/or noncontributory. PHYSICAL EXAM: General Impression: Alert and oriented x3, not in acute distress HEENT: Normocephalic atraumatic, extra-ocular movements intact, pupils equal and reactive to light bilaterally, mucous membranes moist. Cardiovascular: Heart regular rate and rhythm Chest: Able to complete full sentences, no retractions, no tachypnea Abdomen: abdomen soft, non-tender, non-distended, no organomegaly Musculoskeletal: Pulses present and equal in all extremities, no peripheral edema Motor: no focal deficits noted Neurological: CN II-XII grossly intact, no focal motor or sensory deficits noted Skin: Intact with no visualized rashes Psych: Normal affect and mood ED course: 35-year-old feel presents with paranoid thinking. Signs upon arrival are within acceptable limits. Patient was well-appearing at bedside. Patient not overtly psychotic upon my evaluation. Laboratory evaluation obtained. Patient has macrocytosis with MCV of 107.6. There is concern of nutritional deficiency leading to abnormal mental behavior. Rest of labs are unremarkable. Urine hCG is negative. Patient does have benzodiazepines in her urine drug screen. Serum alcohol is 47. Patient given IV multivitamin. Patient medically cleared for EPS evaluation. Patient evaluated by EPS. She will be admitted to inpatient psychiatry. - Related Data Home Medications Medication Instructions Recorded Confirmed Acamprosate Calcium [Campral] 666 mg PO TID 04/01/20 05/25/20 Ondansetron Odt [Zofran ODT] 4 mg PO TID PRN 04/01/20 05/25/20 Orsythia 1 tab PO DAILY 04/01/20 05/25/20 levETIRAcetam [Keppra] 500 mg PO BID 04/01/20 05/25/20 traZODone HCL [Desyrel] 100 mg PO HS PRN 04/01/20 05/25/20 Previous Rx's Medication Instructions Recorded Melatonin 5 mg PO HS PRN #30 tablet 04/03/20 Thiamine [Vitamin B-1] 100 mg PO BID-W/MEALS #60 tab 04/03/20 Allergies Allergy/AdvReac Type Severity Reaction Status Date / Time No Known Allergies Allergy Verified 05/25/20 19:07 Review of Systems ROS Statement: Those systems with pertinent positive or pertinent negative responses have been documented in the HPI. ROS Other: All systems not noted in ROS Statement are negative. Past Medical History Past Medical History: No Reported History History of Any Multi-Drug Resistant Organisms: None Reported Past Surgical History: No Surgical Hx Reported Past Psychological History: Anxiety, Depression Smoking Status: Current every day smoker Past Alcohol Use History: Daily Past Drug Use History: None Reported - Past Family History Mother Family Medical History: No Reported History General Exam Limitations: no limitations Course Vital Signs 05/25/20 16:18 Temperature 98.6 F Pulse Rate 83 Respiratory 18 Rate Blood Pressure 141/85 O2 Sat by Pulse 98 Oximetry Medical Decision Making - Lab Data Result diagrams: 05/25/20 16:42 05/25/20 16:42 Lab Results 05/25/20 05/25/20 05/25/20 Range/Units 16:26 16:26 16:42 WBC 7.4 (3.8-10.6) k/uL RBC 3.41 L (3.80-5.40) m/uL Hgb 11.8 (11.4-16.0) gm/dL Hct 36.7 (34.0-46.0) % MCV 107.6 H (80.0-100.0) fL MCH 34.5 (25.0-35.0) pg MCHC 32.1 (31.0-37.0) g/dL RDW 14.4 (11.5-15.5) % Plt Count 327 (150-450) k/uL Neutrophils % 56 % Lymphocytes % 32 % Monocytes % 7 % Eosinophils % 1 % Basophils % 1 % Neutrophils # 4.2 (1.3-7.7) k/uL Lymphocytes # 2.4 (1.0-4.8) k/uL Monocytes # 0.6 (0-1.0) k/uL Eosinophils # 0.1 (0-0.7) k/uL Basophils # 0.0 (0-0.2) k/uL Macrocytosis Moderate Sodium (137-145) mmol/L Potassium (3.5-5.1) mmol/L Chloride (98-107) mmol/L Carbon Dioxide (22-30) mmol/L Anion Gap mmol/L BUN (7-17) mg/dL Creatinine (0.52-1.04) mg/dL Est GFR (CKD-EPI)AfAm (>60 ml/min/1.73 sqM) Est GFR (CKD-EPI)NonAf (>60 ml/min/1.73 sqM) Glucose (74-99) mg/dL Calcium (8.4-10.2) mg/dL Urine HCG, Qual Not Detected (Not Detectd) Urine Opiates Screen Not Detected (NotDetected) Ur Oxycodone Screen Not Detected (NotDetected) Urine Methadone Screen Not Detected (NotDetected) Ur Propoxyphene Screen Not Detected (NotDetected) Ur Barbiturates Screen Not Detected (NotDetected) U Tricyclic Antidepress Not Detected (NotDetected) Ur Phencyclidine Scrn Not Detected (NotDetected) Ur Amphetamines Screen Not Detected (NotDetected) U Methamphetamines Scrn Not Detected (NotDetected) U Benzodiazepines Scrn Detected H (NotDetected) Urine Cocaine Screen Not Detected (NotDetected) U Marijuana (THC) Screen Not Detected (NotDetected) Serum Alcohol mg/dL 05/25/20 Range/Units 16:42 WBC (3.8-10.6) k/uL RBC (3.80-5.40) m/uL Hgb (11.4-16.0) gm/dL Hct (34.0-46.0) % MCV (80.0-100.0) fL MCH (25.0-35.0) pg MCHC (31.0-37.0) g/dL RDW (11.5-15.5) % Plt Count (150-450) k/uL Neutrophils % % Lymphocytes % % Monocytes % % Eosinophils % % Basophils % % Neutrophils # (1.3-7.7) k/uL Lymphocytes # (1.0-4.8) k/uL Monocytes # (0-1.0) k/uL Eosinophils # (0-0.7) k/uL Basophils # (0-0.2) k/uL Macrocytosis Sodium 140 (137-145) mmol/L Potassium 3.6 (3.5-5.1) mmol/L Chloride 105 (98-107) mmol/L Carbon Dioxide 25 (22-30) mmol/L Anion Gap 10 mmol/L BUN <2 L (7-17) mg/dL Creatinine 0.55 (0.52-1.04) mg/dL Est GFR (CKD-EPI)AfAm >90 (>60 ml/min/1.73 sqM) Est GFR (CKD-EPI)NonAf >90 (>60 ml/min/1.73 sqM) Glucose 93 (74-99) mg/dL Calcium 9.2 (8.4-10.2) mg/dL Urine HCG, Qual (Not Detectd) Urine Opiates Screen (NotDetected) Ur Oxycodone Screen (NotDetected) Urine Methadone Screen (NotDetected) Ur Propoxyphene Screen (NotDetected) Ur Barbiturates Screen (NotDetected) U Tricyclic Antidepress (NotDetected) Ur Phencyclidine Scrn (NotDetected) Ur Amphetamines Screen (NotDetected) U Methamphetamines Scrn (NotDetected) U Benzodiazepines Scrn (NotDetected) Urine Cocaine Screen (NotDetected) U Marijuana (THC) Screen (NotDetected) Serum Alcohol 47 mg/dL Disposition Clinical Impression: Psychosis, Macrocytosis Disposition: ADMITTED IP TO THIS HOSP Condition: Fair Referrals: Douglas Evans MD [Primary Care Provider] - 1-2 days Decision Time: 19:18
[2020-05-25 16:41] LABS: Amphetamine Screen,Urine Not Detected (NotDetected); Barbiturate Screen,Urine Not Detected (NotDetected); Benzodiazepines Screen,Urine Detected (NotDetected); Cocaine Screen,Urine Not Detected (NotDetected); Methadone Screen, Urine Not Detected (NotDetected); Opiate Screen,Urine Not Detected (NotDetected); Oxycodone Screen, Urine Not Detected (NotDetected); Phencyclidine Screen,Urine Not Detected (NotDetected); Tricyclic Antidepressant,Urine Not Detected (NotDetected); Urn Cannabinoid Scrn Not Detected (NotDetected)
[2020-05-25 16:58] LABS: Basophils % (A) 1 %; Eosinophils # (A) 0.1 k/uL (0-0.7); Eosinophils % (A) 1 %; HCT 36.7 % (34.0-46.0); HGB 11.8 gm/dL (11.4-16.0); Lymphocytes # (A) 2.4 k/uL (1.0-4.8); Lymphocytes % (A) 32 %; MCH 34.5 pg (25.0-35.0); MCHC 32.1 g/dL (31.0-37.0); MCV 107.6 fL (80.0-100.0); Macrocytosis Moderate; Mean Platelet Volume 7.3; Monocytes # (A) 0.6 k/uL (0-1.0); Monocytes % (A) 7 %; Neutrophils # (A) 4.2 k/uL (1.3-7.7); Neutrophils % (A) 56 %; Platelet Count 327 k/uL (150-450); RBC 3.41 m/uL (3.80-5.40); RDW 14.4 % (11.5-15.5); WBC 7.4 k/uL (3.8-10.6)
[2020-05-25 17:07] LABS: African American GFR (CKD) >90 (>60 ml/min/1.73 sqM); Alcohol 47 mg/dL; Anion Gap 10 mmol/L; Blood Urea Nitrogen <2 mg/dL (7-17); Calcium 9.2 mg/dL (8.4-10.2); Carbon Dioxide 25 mmol/L (22-30); Chloride 105 mmol/L (98-107); Glucose 93 mg/dL (74-99); Non-African American GFR(CKD) >90 (>60 ml/min/1.73 sqM); Potassium 3.6 mmol/L (3.5-5.1); Sodium 140 mmol/L (137-145)
[2020-05-25] MEDS ORDERED: THIAMINE 100 MG/ML 2 ML VIAL IVP SCH (17:30)
[2020-05-25] MEDS ORDERED: NICOTINE 14MG/24HR PATCH TRANSDERM STA (21:05)
[2020-05-25] MEDS ORDERED: LORazepam 2 MG/ML INJ IM STA (21:08)
[2020-05-25 21:39] LABS: Appearance,Urine Clear (Clear); Bilirubin,Urine Negative (Negative); Blood,Urine Negative (Negative); Color,Urine Light Yellow; Glucose,Urine (UA) Negative (Negative); Ketones,Urine Negative (Negative); Leukocyte Esterase,Urine Negative (Negative); Nitrite,Urine Negative (Negative); PH, Urine 5.5 (5.0-8.0); Protein,Urine Negative (Negative); Specific Gravity,Urine 1.002 (1.001-1.035); Urobilinogen,Urine <2.0 mg/dL (<2.0)
[2020-05-25] MEDS ORDERED: traZODone HCL 100 MG TAB PO PRN (22:07)
[2020-05-25] MEDS ORDERED: ONDANSETRON ODT 4 MG TAB PO PRN (22:07)
[2020-05-25] MEDS ORDERED: ACAMPROSATE CALCIUM 333 MG TABLET.DR PO SCH (22:15)
[2020-05-26] MEDS ORDERED: levETIRAcetam 500 MG TAB PO STA (03:16)
[2020-05-26 03:34] LABS: Urine Alcohol Positive (Negative); Urine Barbiturate Negative (Negative); Urine Cocaine Negative (Negative); Urine Methadone Negative (Negative); Urine Opiates Negative (Negative); Urine Phencyclidine Negative (Negative)
[2020-05-26 07:03] VITALS: PULSE 63; RESP 16; TEMP 97.8
[2020-05-26] MEDS ORDERED: THIAMINE 100 MG TAB PO SCH (07:30)
[2020-05-26] MEDS ORDERED: levETIRAcetam 500 MG TAB PO SCH (09:00)
[2020-05-26] MEDS ORDERED: ORSYTHIA PO SCH (09:00)
[2020-05-26 11:28] VITALS: BP 129/81
== END 2020-05-26 11:15 | disposition other institution (70) ==
LOC: EC 16:17
DX: F29 Unspecified psychosis not due to a substance or known physiological condition (principal); D75.89 Other specified diseases of blood and blood-forming organs; F32.9 Major depressive disorder, single episode, unspecified; F41.9 Anxiety disorder, unspecified; F17.200 Nicotine dependence, unspecified, uncomplicated; Z79.899 Other long term (current) drug therapy
CPT/HCPCS: 99285 ×2; 96372 ×2; 36415; 80048; 85025; 81003; 81025; 80306 ×2; 80320; S4990; J2060

== ENCOUNTER → 2020-06-24 | Outpatient (CLI) | payer BC ==
--- NOTE | 2020-06-24 14:46 | MR ---
MR brain without contrast HISTORY: Altered mental status Multiplanar multisequence imaging through the brain No comparisons There is no restricted diffusion. There is no hemorrhage or hydrocephalus. Brain signal is within nor mal limits with the exception of a punctate focus of hyperintensity and inversion recovery T2-weighte d sequences within the centrum semiovale ovale on the left, frontal lobe measuring 5 to 6 mm. The cor pus callosum, pituitary, cervical medullary junction, cerebellopontine angles are within normal limit s. There are normal vascular flow voids. The orbits show symmetric appearance. Paranasal sinuses and mastoid air cells show no abnormal inflammatory change. IMPRESSION: Nonspecific white matter demyelination focus of questionable clinical significance.
== END | disposition home or self-care (01) ==
LOC: RADMRIMAIN 12:11
PROVIDERS: ATTEND Family Medicine
DX: R41.82 Altered mental status, unspecified (principal)
CPT/HCPCS: 70551

== ENCOUNTER 2021-07-14 18:57 | Emergency (ER) | payer OTHER ==
[2021-07-14 19:10] VITALS: TEMP 98.5
[2021-07-14] MEDS ORDERED: DIPH,PERTUS(ACELL)TETVAC-LF 0.5 ML VIAL IM ONE (19:48)
--- NOTE | 2021-07-14 20:01 | CT ---
EXAMINATION TYPE: CT brain taya wo con DATE OF EXAM: 07/14/2021 COMPARISON: None HISTORY: headache post head injury CT DLP: 1285.1 mGycm Automated exposure control for dose reduction was used. Exam without contrast. There is noticeable cerebral atrophy for the patient's age. There is no mass effect nor midline shift . There is no evidence of intracranial hemorrhage. The calvarium is intact. Skull base is intact. The re is normal aeration of the mastoid sinuses. Cervical vertebra have normal spacing and alignment. Posterior elements are intact. There is no compr ession fracture. Facet joints appear normal. Prevertebral soft tissues are intact. IMPRESSION: Normal CT scan of the cervical spine. There is some cerebral cortical atrophy. No acute intracranial abnormality.
--- NOTE | 2021-07-14 20:28 | ED ---
Head Injury HPI - General Chief complaint: Head Injury Stated complaint: fall, head injury Time Seen by Provider: 07/14/21 19:11 Source: patient Mode of arrival: ambulatory Limitations: no limitations - History of Present Illness Initial comments: 36-year-old female presenting to the emergency department with a chief complaint of a head injury. Patient reports the incident occurred several days prior to arrival. States she accidentally pulled on a shelf which fell on the right side of her head. States it was associated loss of consciousness but she denies any blood thinners. States she had a laceration to the right side of the head and provide she was not evaluated for. States now it is scabbed. Denies any fevers or chills. However, she continues to experience a headache. She denies any associated gait instability nausea or vomiting. States she is currently at [place] and was advised to come to the emergency department for evaluation head injury. - Related Data Home Medications Medication Instructions Recorded Confirmed Acamprosate Calcium [Campral] 666 mg PO TID 04/01/20 05/25/20 Ondansetron Odt [Zofran ODT] 4 mg PO TID PRN 04/01/20 05/25/20 Orsythia 1 tab PO DAILY 04/01/20 05/25/20 levETIRAcetam [Keppra] 500 mg PO BID 04/01/20 05/25/20 traZODone HCL [Desyrel] 100 mg PO HS PRN 04/01/20 05/25/20 Previous Rx's Medication Instructions Recorded Melatonin 5 mg PO HS PRN #30 tablet 04/03/20 Thiamine [Vitamin B-1] 100 mg PO BID-W/MEALS #60 tab 04/03/20 Allergies/Adverse reactions: Allergies Allergy/AdvReac Type Severity Reaction Status Date / Time No Known Allergies Allergy Verified 07/14/21 19:05 Review of Systems ROS Statement: Those systems with pertinent positive or pertinent negative responses have been documented in the HPI. ROS Other: All systems not noted in ROS Statement are negative. Past Medical History Past Medical History: Seizure Disorder History of Any Multi-Drug Resistant Organisms: None Reported Past Surgical History: No Surgical Hx Reported Past Psychological History: Anxiety, Bipolar, Depression, Schizophrenia Smoking Status: Current every day smoker Past Alcohol Use History: Daily Past Drug Use History: None Reported - Past Family History Mother Family Medical History: No Reported History General Exam Limitations: no limitations General appearance: alert, in no apparent distress Head exam: Present: atraumatic, normocephalic. Absent: normal inspection (Healing laceration on the right temporal region. No signs of infection or discharge at this time.), other (Negative Delatorre sign, raccoon eyes, hemotympanum) Eye exam: Present: normal appearance Pupils: Present: normal accommodation ENT exam: Present: normal exam, normal oropharynx, mucous membranes moist Neck exam: Present: normal inspection, full ROM. Absent: tenderness Respiratory exam: Present: normal lung sounds bilaterally. Absent: respiratory distress Cardiovascular Exam: Present: regular rate, normal rhythm, normal heart sounds Extremities exam: Present: normal inspection, full ROM Back exam: Present: normal inspection, full ROM. Absent: tenderness, CVA tenderness (R), CVA tenderness (L) Neurological exam: Present: alert, oriented X3 Psychiatric exam: Present: normal affect, normal mood Skin exam: Present: warm, dry, intact, normal color Course Vital Signs 07/14/21 07/14/21 19:06 21:09 Temperature 98.5 F Pulse Rate 65 66 Respiratory 20 18 Rate Blood Pressure 160/108 142/76 O2 Sat by Pulse 100 99 Oximetry Medical Decision Making - Medical Decision Making 36-year-old female presents to the emergency room with a chief complaint of head injury. Physical examination is unremarkable. Patient likely experienced a concussion. CT of the brain and C-spine is unremarkable. Patient otherwise well-appearing. Advised mental physical rest for the next week. Case discussed with physician. Disposition Clinical Impression: Healing laceration, Head injury, Fall, Concussion with loss of consciousness Disposition: HOME SELF-CARE Condition: Stable Instructions (If sedation given, give patient instructions): Concussion (ED) Additional Instructions: Please return to the Emergency Department if symptoms worsen or any other concerns. Is patient prescribed a controlled substance at d/c from ED?: No Referrals: Douglas Evans MD [Primary Care Provider] - 1-2 days Time of Disposition: 20:28
[2021-07-14 21:10] VITALS: BP 142/76; PULSE 66; RESP 18
== END 2021-07-14 21:10 | disposition home or self-care (01) ==
LOC: EC 18:57
DX: S06.0X9A Concussion with loss of consciousness of unspecified duration, initial encounter (principal); S01.81XA Laceration without foreign body of other part of head, initial encounter; F17.200 Nicotine dependence, unspecified, uncomplicated; G40.909 Epilepsy, unspecified, not intractable, without status epilepticus; Z79.899 Other long term (current) drug therapy; Z23 Encounter for immunization; W20.8XXA Other cause of strike by thrown, projected or falling object, initial encounter
CPT/HCPCS: 70450; 72125; 90471; 90715; 99284

== ENCOUNTER 2021-09-22 02:54 | Inpatient (IN) | payer OTHER ==
[2021-09-22] MEDS ORDERED: SODIUM CHLORIDE 0.9% 1,000 ML IV STA ×2 (02:57)
--- NOTE | 2021-09-22 02:58 | ED ---
Altered Mental Status HPI - General Stated Complaint: Unresponsive Time Seen by Provider: 09/22/21 02:57 Source: RN notes reviewed, old records reviewed Mode of arrival: EMS Limitations: language barrier, altered mental status, physical limitation - History of Present Illness Initial Comments: This is a 28-year-old female to the emergency room today for evaluation of unresponsive event. Patient arrives in the ER intubated by EMS unresponsive. Patient was intubated secondary to significant was believed to be intoxication but altered mental status and unresponsiveness. 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 Complaint: altered mental status, confusion, decreased responsiveness, intoxication -: unknown Severity: severe Context: alcohol abuse, drug abuse, history of similar presentation Treatments Prior to Arrival: IV fluid, oxygen, intubation - Related Data Home Medications Medication Instructions Recorded Confirmed Acamprosate Calcium [Campral] 666 mg PO TID 04/01/20 05/25/20 Ondansetron Odt [Zofran ODT] 4 mg PO TID PRN 04/01/20 05/25/20 Orsythia 1 tab PO DAILY 04/01/20 05/25/20 levETIRAcetam [Keppra] 500 mg PO BID 04/01/20 05/25/20 traZODone HCL [Desyrel] 100 mg PO HS PRN 04/01/20 05/25/20 Previous Rx's Medication Instructions Recorded Melatonin 5 mg PO HS PRN #30 tablet 04/03/20 Thiamine [Vitamin B-1] 100 mg PO BID-W/MEALS #60 tab 04/03/20 Allergies Allergy/AdvReac Type Severity Reaction Status Date / Time No Known Allergies Allergy Verified 07/14/21 19:05 Review of Systems ROS Statement: Those systems with pertinent positive or pertinent negative responses have been documented in the HPI. ROS Other: All systems not noted in ROS Statement are negative. Past Medical History Past Medical History: Seizure Disorder History of Any Multi-Drug Resistant Organisms: None Reported Past Surgical History: No Surgical Hx Reported Past Psychological History: Anxiety, Bipolar, Depression, Schizophrenia Smoking Status: Current every day smoker Past Alcohol Use History: Daily Past Drug Use History: None Reported - Past Family History Mother Family Medical History: No Reported History General Exam Limitations: altered mental status General appearance: alert, obtunded, other (Patient is intubated) Head exam: Present: atraumatic, normocephalic, normal inspection Eye exam: Present: normal appearance, PERRL, EOMI. Absent: scleral icterus, co njunctival injection, periorbital swelling ENT exam: Present: normal exam, mucous membranes moist Neck exam: Present: normal inspection. Absent: tenderness, meningismus, lymphadenopathy Respiratory exam: Present: normal lung sounds bilaterally. Absent: respiratory distress, wheezes, rales, rhonchi, stridor Cardiovascular Exam: Present: regular rate, normal rhythm, normal heart sounds. Absent: systolic murmur, diastolic murmur, rubs, gallop, clicks GI/Abdominal exam: Present: soft, normal bowel sounds. Absent: distended, tenderness, guarding, rebound, rigid Extremities exam: Present: normal inspection, full ROM, normal capillary refill. Absent: tenderness, pedal edema, joint swelling, calf tenderness Back exam: Present: normal inspection Neurological exam: Present: alert, oriented X3, CN II-XII intact Psychiatric exam: Present: normal affect, normal mood Skin exam: Present: warm, dry, intact, normal color. Absent: rash Course Vital Signs 09/22/21 09/22/21 09/22/21 02:56 03:00 04:15 Temperature 97.3 F L Pulse Rate 84 70 65 Respiratory 18 16 16 Rate Blood Pressure 144/109 144/109 111/82 O2 Sat by Pulse 99 99 100 Oximetry 09/22/21 05:00 Temperature Pulse Rate 65 Respiratory 16 Rate Blood Pressure 108/78 O2 Sat by Pulse 98 Oximetry - Reevaluation(s) Reevaluation #1: 09/22/21 05:15 Medical record is reviewed - Consultations Consultation #1: Spoke with [facility] who agrees to admit this patient Consultation #2: [place] with Dr. 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 ingestion, unsure of this is a suicidal attempt - Lab Data Result diagrams: 09/22/21 03:04 09/22/21 03:04 Lab Results 09/22/21 09/22/21 09/22/21 Range/Units 03:01 03:04 03:04 WBC 6.4 (3.8-10.6) k/uL RBC 3.92 (3.80-5.40) m/uL Hgb 13.9 (11.4-16.0) gm/dL Hct 41.9 (34.0-46.0) % MCV 106.9 H (80.0-100.0) fL MCH 35.5 H (25.0-35.0) pg MCHC 33.2 (31.0-37.0) g/dL RDW 13.7 (11.5-15.5) % Plt Count 143 L (150-450) k/uL MPV 7.7 Neutrophils % 37 % Lymphocytes % 53 % Monocytes % 6 % Eosinophils % 1 % Basophils % 0 % Neutrophils # 2.3 (1.3-7.7) k/uL Lymphocytes # 3.4 (1.0-4.8) k/uL Monocytes # 0.4 (0-1.0) k/uL Eosinophils # 0.0 (0-0.7) k/uL Basophils # 0.0 (0-0.2) k/uL Macrocytosis Moderate Sample Site ABG pH (7.35-7.45) ABG pCO2 (35-45) mmHg ABG pO2 (83-108) mmHg ABG HCO3 (21-25) mmol/L ABG Total CO2 (19-24) mmol/L ABG O2 Saturation (94-97) % ABG Base Excess mmol/L Jered Test FiO2 % Sodium 144 (137-145) mmol/L Potassium 3.6 (3.5-5.1) mmol/L Chloride 107 (98-107) mmol/L Carbon Dioxide 25 (22-30) mmol/L Anion Gap 12 mmol/L BUN 6 L (7-17) mg/dL Creatinine 0.63 (0.52-1.04) mg/dL Est GFR (CKD-EPI)AfAm >90 (>60 ml/min/1.73 sqM) Est GFR (CKD-EPI)NonAf >90 (>60 ml/min/1.73 sqM) Glucose 127 H (74-99) mg/dL POC Glucose (mg/dL) 123 H (75-99) mg/dL POC Glu Accelerator Systems Director ID Hunter, S[place] Calcium 8.3 L (8.4-10.2) mg/dL Phosphorus 3.0 (2.5-4.5) mg/dL Magnesium 1.9 (1.6-2.3) mg/dL Total Bilirubin 0.3 (0.2-1.3) mg/dL AST 64 H (14-36) U/L ALT 27 (4-34) U/L Alkaline Phosphatase 65 (38-126) U/L Total Protein 7.1 (6.3-8.2) g/dL Albumin 4.1 (3.5-5.0) g/dL Lipase 134 (23-300) U/L Serum Alcohol 562 H* mg/dL 09/22/21 Range/Units 04:15 WBC (3.8-10.6) k/uL RBC (3.80-5.40) m/uL Hgb (11.4-16.0) gm/dL Hct (34.0-46.0) % MCV (80.0-100.0) fL MCH (25.0-35.0) pg MCHC (31.0-37.0) g/dL RDW (11.5-15.5) % Plt Count (150-450) k/uL MPV Neutrophils % % Lymphocytes % % Monocytes % % Eosinophils % % Basophils % % Neutrophils # (1.3-7.7) k/uL Lymphocytes # (1.0-4.8) k/uL Monocytes # (0-1.0) k/uL Eosinophils # (0-0.7) k/uL Basophils # (0-0.2) k/uL Macrocytosis Sample Site Right Radial ABG pH 7.39 (7.35-7.45) ABG pCO2 46 H (35-45) mmHg ABG pO2 60 L (83-108) mmHg ABG HCO3 28 H (21-25) mmol/L ABG Total CO2 29 H (19-24) mmol/L ABG O2 Saturation 84.4 L (94-97) % ABG Base Excess 3.1 mmol/L Jered Test Yes FiO2 100 % Sodium (137-145) mmol/L Potassium (3.5-5.1) mmol/L Chloride (98-107) mmol/L Carbon Dioxide (22-30) mmol/L Anion Gap mmol/L BUN (7-17) mg/dL Creatinine (0.52-1.04) mg/dL Est GFR (CKD-EPI)AfAm (>60 ml/min/1.73 sqM) Est GFR (CKD-EPI)NonAf (>60 ml/min/1.73 sqM) Glucose (74-99) mg/dL POC Glucose (mg/dL) (75-99) mg/dL POC Glu Accelerator Systems Director ID Calcium (8.4-10.2) mg/dL Phosphorus (2.5-4.5) mg/dL Magnesium (1.6-2.3) mg/dL Total Bilirubin (0.2-1.3) mg/dL AST (14-36) U/L ALT (4-34) U/L Alkaline Phosphatase (38-126) U/L Total Protein (6.3-8.2) g/dL Albumin (3.5-5.0) g/dL Lipase (23-300) U/L Serum Alcohol mg/dL - EKG Data -: EKG Interpreted by Me (EKG shows sinus rhythm 77 DC 136 QRS 90 QTC 452) - Radiology Data Radiology results: report reviewed (Chest x-ray and CT brain is negative for acute disease), image reviewed Critical Care Time Critical Care Time: Yes Total Critical Care Time: 31 Disposition Clinical Impression: Alcohol use disorder, severe, dependence, Acute respiratory failure Disposition: ADMITTED IP TO THIS HOSP Condition: Serious Is patient prescribed a controlled substance at d/c from ED?: No
[2021-09-22 03:04] LABS: Glucose,Whole Blood 123 mg/dL (75-99)
[2021-09-22] MEDS ORDERED: MIDAZOLAM 1 MG/ML 5 ML VIAL IV STA ×2 (03:17→07:12)
--- NOTE | 2021-09-22 03:17 | XR ---
EXAMINATION TYPE: XR chest 1V portable DATE OF EXAM: 09/22/2021 COMPARISON: NONE HISTORY: Altered mental status TECHNIQUE: Single view FINDINGS: There is endotracheal tube 3.8 cm from the emma. The lungs are clear of infiltrate. There is some mild atelectasis in the left lower lobe. There are chest leads. Bony thorax is intact. IMPRESSION: Left lower lobe mild perihilar atelectasis. Normal heart.
--- NOTE | 2021-09-22 03:48 | CT ---
EXAMINATION TYPE: CT brain cspine wo con DATE OF EXAM: 09/22/2021 COMPARISON: 07/14/2021 HISTORY: ams/responsive CT DLP: 1542.6 mGycm Automated exposure control for dose reduction was used. There is mild cerebral atrophy. There is no mass effect nor midline shift. There is no sign of intrac ranial hemorrhage. Calvarium is intact. There is normal aeration of the mastoid sinuses. The cervical vertebra have normal spacing and alignment. Posterior elements are intact. There is no c ompression fracture. Skull base is intact. Facet joints appear normal. There is endotracheal tube not ed. IMPRESSION: Mild cerebral atrophy. No acute intracranial abnormality. Normal CT scan of the cervical spine. No change compared to old exam.
[2021-09-22 03:52] LABS: Basophils % (A) 0 %; Eosinophils % (A) 1 %; HCT 41.9 % (34.0-46.0); HGB 13.9 gm/dL (11.4-16.0); Lymphocytes # (A) 3.4 k/uL (1.0-4.8); Lymphocytes % (A) 53 %; MCH 35.5 pg (25.0-35.0); MCHC 33.2 g/dL (31.0-37.0); MCV 106.9 fL (80.0-100.0); Macrocytosis Moderate; Mean Platelet Volume 7.7; Monocytes # (A) 0.4 k/uL (0-1.0); Monocytes % (A) 6 %; Neutrophils # (A) 2.3 k/uL (1.3-7.7); Neutrophils % (A) 37 %; Platelet Count 143 k/uL (150-450); RBC 3.92 m/uL (3.80-5.40); RDW 13.7 % (11.5-15.5); WBC 6.4 k/uL (3.8-10.6)
[2021-09-22 04:20] LABS: ABG Base Excess 3.1 mmol/L; ABG HCO3 28 mmol/L (21-25); ABG Oxygen Saturation 84.4 % (94-97); ABG PCO2 46 mmHg (35-45); ABG PH 7.39 (7.35-7.45); ABG PO2 60 mmHg (83-108); ABG TCO2 29 mmol/L (19-24); Allen Test Performed? Yes
[2021-09-22 04:21] LABS: ALT 27 U/L (4-34); AST 64 U/L (14-36); African American GFR (CKD) >90 (>60 ml/min/1.73 sqM); Albumin 4.1 g/dL (3.5-5.0); Alkaline Phosphatase 65 U/L (38-126); Anion Gap 12 mmol/L; Blood Urea Nitrogen 6 mg/dL (7-17); Calcium 8.3 mg/dL (8.4-10.2); Carbon Dioxide 25 mmol/L (22-30); Chloride 107 mmol/L (98-107); Glucose 127 mg/dL (74-99); Lipase 134 U/L (23-300); Magnesium 1.9 mg/dL (1.6-2.3); Non-African American GFR(CKD) >90 (>60 ml/min/1.73 sqM); Potassium 3.6 mmol/L (3.5-5.1); Sodium 144 mmol/L (137-145); Total Bilirubin 0.3 mg/dL (0.2-1.3); Total Protein 7.1 g/dL (6.3-8.2)
--- NOTE | 2021-09-22 04:29 | XR ---
EXAMINATION TYPE: XR chest 1V portable DATE OF EXAM: 09/22/2021 COMPARISON: Today HISTORY: Tube placement TECHNIQUE: Single view FINDINGS: There is gastric tube in the body of the stomach. Endotracheal tube is 4 cm from the emma . Lungs are clear of consolidation. There is some atelectasis right upper lobe. There are chest leads . IMPRESSION: Tubing in good position. No heart failure. Heart and lungs not significantly different th an exam one hour ago.
[2021-09-22 04:31] LABS: Alcohol 562 mg/dL
[2021-09-22] MEDS ORDERED: NALOXONE 0.4 MG/ML 1 ML VIAL IV PRN (04:40)
[2021-09-22] MEDS ORDERED: IPRATROPIUM-ALBUTEROL 3 ML NEB INHALATION PRN (04:40)
[2021-09-22] MEDS ORDERED: MORPHINE SULFATE 4 MG/ML SYRINGE IV PRN (04:40)
[2021-09-22] MEDS ORDERED: LORazepam 2 MG/ML INJ IV PRN ×3 (04:41)
[2021-09-22] MEDS ORDERED: THIAMINE 100 MG/ML 2 ML VIAL IM STA (04:41)
[2021-09-22 04:50] LABS: ABG Base Excess 1.7 mmol/L; ABG HCO3 27 mmol/L (21-25); ABG PCO2 44 mmHg (35-45); ABG PH 7.39 (7.35-7.45); ABG PO2 370 mmHg (83-108); ABG TCO2 28 mmol/L (19-24); Allen Test Performed? Yes
[2021-09-22] MEDS ORDERED: CALCIUM GLUCONATE 2 GM in SODIUM CHLORIDE 0.9% 100 ML IVPB ONE ×2 (05:30→19:00)
--- NOTE | 2021-09-22 06:10 | P.HPIM ---
History of Present Illness H&P Date: 09/22/21 The patient is a 36-year-old female with a PMH of EtOH abuse, tobacco abuse, schizophrenia, and bipolar depression who was brought into the emergency room for unresponsiveness. The patient was intubated and thereby history obtained from the chart. 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 In the emergency room a head/cervical spine CT scan was unremarkable with laboratory evaluation significant for alcohol level of 562 and platelet count 143 with MCV 106.9. EKG revealed normal sinus rhythm at 77 bpm with a prolonged QT at [address] ms [address]/T-wave changes noted as reviewed by me. Chest x-ray was unremarkable. Review of systems: Unable to perform as patient intubated Physical examination: General: Intubated disheveled female, non toxic, no distress, appears at stated age, overweight Derm: no unusual rashes/lesions no unusual ecchymoses, warm, dry Head: atraumatic, normocephalic, symmetric Eyes: anicteric sclera, pupils equal round reactive to light 4 mm ENT: Nose and ears atraumatic Neck: No thyromegaly, no cervical lymphadenopathy, trachea midline, supple Mouth: no lip lesion Cardiovascular: S1S2 reg, no murmur, positive posterior tibial pulse bilateral, no edema, capillary refill less than 2 seconds Lungs: CTA bilateral, no rhonchi, no rales , no accessory muscle use, gag reflex noted Abdominal: soft, nontender to palpation, no guarding, no appreciable organomegaly, normal bowel sounds Ext: no gross muscle atrophy, withdrawing all extremities upon noxious stimuli Neuro: No obvious gross deficits noted Psych: Intubated and sedated Assessment/plan Acute hypoxic respiratory failure secondary to alcohol intoxication -Ventilator bundle -Admitted to medical ICU -Pulmonary consulted -[facility] protocol -Thiamine -IV fluids -Toxic ingestion workup sent Macrocytosis -Check B12 and folate levels Thrombocytopenia -Likely due to alcohol abuse DVT prophylaxis -Heparin subq The patient is admitted with an anticipated greater than 2 midnight stay for evaluation of EtOH abuse CODE STATUS: Full Code Discussed with: Patient Anticipated discharge date: 3-[address]: Home Past Medical History Past Medical History: Seizure Disorder History of Any Multi-Drug Resistant Organisms: None Reported Past Surgical History: No Surgical Hx Reported Past Psychological History: Anxiety, Bipolar, Depression, Schizophrenia Smoking Status: Current every day smoker Past Alcohol Use History: Daily Past Drug Use History: None Reported - Past Family History Mother Family Medical History: Unable to Obtain Additional Family Medical History / Comment(s): Patient sedated and intubated Medications and Allergies Home Medications Medication Instructions Recorded Confirmed Type Acamprosate Calcium [Campral] 666 mg PO TID 04/01/20 05/25/20 History Ondansetron Odt [Zofran ODT] 4 mg PO TID PRN 04/01/20 05/25/20 History Orsythia 1 tab PO DAILY 04/01/20 05/25/20 History levETIRAcetam [Keppra] 500 mg PO BID 04/01/20 05/25/20 History traZODone HCL [Desyrel] 100 mg PO HS PRN 04/01/20 05/25/20 History Melatonin 5 mg PO HS PRN #30 tablet 04/03/20 05/25/20 Rx Thiamine [Vitamin B-1] 100 mg PO BID-W/MEALS #60 tab 04/03/20 05/25/20 Rx Allergies Allergy/AdvReac Type Severity Reaction Status Date / Time No Known Allergies Allergy Verified 07/14/21 19:05 Physical Exam Vitals: Vital Signs Temp Pulse Resp BP Pulse Ox 09/22/21 05:00 65 16 108/78 98 09/22/21 04:15 65 16 111/82 100 09/22/21 03:00 70 16 144/109 99 09/22/21 02:56 97.3 F L 84 18 144/109 99 Intake and Output 09/21/21 09/21/21 09/22/21 14:59 22:59 06:59 Intake Total 6.863 Balance 6.863 Intake: Intake, IV Titration 6.863 Amount propofoL 1,000 mg In 6.863 Empty Bag 1 bag @ Titrate IV .Q0M ONE Rx#: [id number] Other: Weight 77.111 kg Results CBC & Chem 7: 09/22/21 03:04 09/22/21 03:04 Labs: Abnormal Lab Results - Last 24 Hours (Table) 09/22/21 09/22/2109/22/21 Range/Units 03:01 03:04 03:04 MCV 106.9 H (80.0-100.0) fL MCH 35.5 H (25.0-35.0) pg Plt Count 143 L (150-450) k/uL ABG pCO2 (35-45) mmHg ABG pO2 (83-108) mmHg ABG HCO3 (21-25) mmol/L ABG Total CO2 (19-24) mmol/L ABG O2 Saturation (94-97) % BUN 6 L (7-17) mg/dL Glucose 127 H (74-99) mg/dL POC Glucose (mg/dL) 123 H (75-99) mg/dL Calcium 8.3 L (8.4-10.2) mg/dL AST 64 H (14-36) U/L Serum Alcohol 562 H* mg/dL 09/22/21 09/22/21 Range/Units 04:15 04:45 MCV (80.0-100.0) fL MCH (25.0-35.0) pg Plt Count (150-450) k/uL ABG pCO2 46 H (35-45) mmHg ABG pO2 60 L 370 H (83-108) mmHg ABG HCO3 28 H 27 H (21-25) mmol/L ABG Total CO2 29 H 28 H (19-24) mmol/L ABG O2 Saturation 84.4 L 100.0 H (94-97) % BUN (7-17) mg/dL Glucose (74-99) mg/dL POC Glucose (mg/dL) (75-99) mg/dL Calcium (8.4-10.2) mg/dL AST (14-36) U/L Serum Alcohol mg/dL
[2021-09-22 06:19] LABS: Acetaminophen <10.0 ug/mL; Salicylate <1.0 mg/dL
[2021-09-22] MEDS: POTASSIUM CHLORIDE 10 MEQ in WATER FOR INJECTION 1 100ML.BAG IVPB SCH ×4 (06:34→16:15)
[2021-09-22] MEDS: MAGNESIUM SULFATE-D5W PMX 1 GM in DEXTROSE/WATER 1 100ML.BAG IVPB SCH ×2 (06:35→09:18)
[2021-09-22 06:59] LABS: Amphetamine Screen,Urine Not Detected (NotDetected); Barbiturate Screen,Urine Not Detected (NotDetected); Benzodiazepines Screen,Urine Not Detected (NotDetected); Cocaine Screen,Urine Not Detected (NotDetected); Methadone Screen, Urine Not Detected (NotDetected); Opiate Screen,Urine Not Detected (NotDetected); Oxycodone Screen, Urine Not Detected (NotDetected); Phencyclidine Screen,Urine Not Detected (NotDetected); Tricyclic Antidepressant,Urine Not Detected (NotDetected); Urn Cannabinoid Scrn Not Detected (NotDetected)
[2021-09-22] MEDS: SODIUM CHLORIDE 0.9% 1,000 ML IV SCH ×3 (08:00→23:55)
[2021-09-22] MEDS ORDERED: propofoL 100 ML IV ONE ×2 (08:28→12:06)
--- NOTE | 2021-09-22 09:11 | P.NPCON ---
History of Present Illness - Reason for Consult hypokalemia, metabolic acidosis - History of Present Illness Reason for consultation: Toxic alcohol ingestion. History of present illness: Patient is a 36-year-old female seen in renal consultation for toxic alcohol ingestion. Patient was found unresponsive at home. Patient is currently intubated. Patient has history of schizophrenia. 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 Patient's creatinine is stable at 0.63. Serum osmolality was 436. Bicarb level 25. Poison control was notified. She is currently maintained on normal saline. Potassium and magnesium are being replaced. Serum alcohol level was high at 562. Salicylate and acetaminophen levels were negative. Urine drug screen was negative. Volatile acid levels are pending. Nonoliguric. Hemodynamically stable. Vital signs are stable. General: The patient appeared well nourished and normally developed. HEENT: Head exam is unremarkable. Intubated. LUNGS: Breath sounds decreased. HEART: Rate and Rhythm are regular. ABDOMEN: Soft, no distention. EXTREMITITES: No edema. Past Medical History Past Medical History: Seizure Disorder History of Any Multi-Drug Resistant Organisms: None Reported Past Surgical History: No Surgical Hx Reported Past Psychological History: Anxiety, Bipolar, Depression, Schizophrenia Smoking Status: Current every day smoker Past Alcohol Use History: Daily Past Drug Use History: None Reported - Past Family History Mother Family Medical History: Unable to Obtain Additional Family Medical History / Comment(s): Patient sedated and intubated Medications and Allergies Home Medications Medication Instructions Recorded Confirmed Type Acamprosate Calcium [Campral] 666 mg PO TID 04/01/20 05/25/20 History Ondansetron Odt [Zofran ODT] 4 mg PO TID PRN 04/01/20 05/25/20 History Orsythia 1 tab PO DAILY 04/01/20 05/25/20 History levETIRAcetam [Keppra] 500 mg PO BID 04/01/20 05/25/20 History traZODone HCL [Desyrel] 100 mg PO HS PRN 04/01/20 05/25/20 History Melatonin 5 mg PO HS PRN #30 tablet 04/03/20 05/25/20 Rx Thiamine [Vitamin B-1] 100 mg PO BID-W/MEALS #60 tab 04/03/20 05/25/20 Rx Allergies Allergy/AdvReac Type Severity Reaction Status Date / Time No Known Allergies Allergy Verified 07/14/21 19:05 Physical Exam Vitals: Vital Signs Temp Pulse Resp BP Pulse Ox 09/22/21 07:00 80 15 107/83 99 09/22/21 06:50 68 16 106/83 99 09/22/21 06:00 67 16 107/81 97 09/22/21 05:00 65 16 108/80 98 09/22/21 04:15 65 16 111/82 100 09/22/21 04:00 71 16 133/103 100 09/22/21 03:30 71 13 155/120 100 09/22/21 03:00 70 16 144/109 99 09/22/21 02:56 97.3 F L 84 18 144/109 99 Intake and Output 09/21/21 09/22/21 09/22/21 22:59 06:59 14:59 Intake Total 6.863 Balance 6.863 Intake: Intake, IV Titration 6.863 Amount propofoL 1,000 mg In 6.863 Empty Bag 1 bag @ Titrate IV .Q0M ONE Rx#: [id number] Other: Weight 77.111 kg Results - Lab Results Most recent lab results ABG pH 7.39 (7.35-7.45) 09/22/21 04:45 ABG pCO2 44 mmHg (35-45) 09/22/21 04:45 ABG pO2 370 mmHg (83-108) H 09/22/21 04:45 ABG HCO3 27 mmol/L (21-25) H 09/22/21 04:45 ABG O2 Saturation 100.0 % (94-97) H 09/22/21 04:45 Calcium 8.3 mg/dL (8.4-10.2) L 09/22/21 03:04 Phosphorus 3.0 mg/dL (2.5-4.5) 09/22/21 03:04 Magnesium 1.9 mg/dL (1.6-2.3) 09/22/21 03:04 09/22/21 03:04 09/22/21 03:04 Assessment and Plan Plan: Assessment: 1. Toxic alcohol ingestion. 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 Patient is not acidotic. PH 7.39. Bicarb level XXV. Anion gap 12. Osmolar gap was -9. No evidence of acute kidney injury. Nonoliguric. Poison control notified. Currently on IV fluids. Volatile screen pending. 2. Schizophrenia. Plan: Follow-up volatile screen. Maintain IV fluids. Continue to monitor renal function and urine output. Continue to assess closely for need for renal replacement therapy as well as fomepizole. Poison control also following. Potassium and magnesium replaced. Also received IV calcium. Case discussed with the area secretary. Thank you for the consultation. I will continue to follow the patient with you during her hospital stay.
[2021-09-22] MEDS: ENOXAPARIN 40 MG/0.4 ML SYRINGE SQ SCH (09:18)
--- NOTE | 2021-09-22 09:35 | P.CNPUL ---
History of Present Illness Consult date: 09/22/21 Chief complaint: altered mental status History of present illness: 36-year-old female patient, known history of schizophrenia/bipolar disorder, a lso history of alcoholism, presented emergency department unresponsive. The patient was unable to protect her airways and she was intubated immediately by the emergency physician for airway protection. Further investigation with a scan of the brain and C-spine showed no acute abnormalities. Alcohol level was 562 and there is a history of drinking and ingesting hand radiation oncologist as a source of alcohol in this patient. Apparently this patient has had a similar events before where she was drinking rubbing alcohol at that time. She has an extensive psychiatric history. 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 In any rate, along with this high level of alcohol, poison control was involved and recommended supportive care. The patient's volatile alcohols screen is still pending for now. Rest of your ingesting was negative, serum osmolality was 436, the patient had no evidence of anion gap metabolic acidosis. Anion gap was at 12, bicarb level is at 25, and white second was at 6.4 with hemoglobin 13.9. Blood gases showing a pH of 7.39 with a pCO2 of 44 and pO2 of 370 and the patient is an assist-control mode at the rate of 16, tidal volume of 400, FiO2 of 60% with a PEEP of 5. The chest x-ray is showing no acute abnormalities. ET tube is in a good location. No evidence of any decompensated heart failure. At this point in time, the patient ispropofol at 60 mcg/kg per minute. The patient is also receiving IV fluids in the form of 0.9 at the rate of 100 mL an hour. She is hemodynamically stable. Urine output is over 100 mL an hour. 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, previous history of alcohol withdrawal syndrome and previous history of alcohol intoxication and previous history of delirium/hallucinations History of Any Multi-Drug Resistant Organisms: None Reported Past Surgical History: No Surgical Hx Reported Past Psychological History: Anxiety, Bipolar, Depression, Schizophrenia Smoking Status: Current every day smoker Past Alcohol Use History: Daily Past Drug Use History: None Reported - Past Family History Mother Family Medical History: Unable to Obtain Additional Family Medical History / Comment(s): Patient sedated and intubated Medications and Allergies Home Medications Medication Instructions Recorded Confirmed Type Acamprosate Calcium [Campral] 666 mg PO TID 04/01/20 05/25/20 History Ondansetron Odt [Zofran ODT] 4 mg PO TID PRN 04/01/20 05/25/20 History Orsythia 1 tab PO DAILY 04/01/20 05/25/20 History levETIRAcetam [Keppra] 500 mg PO BID 04/01/20 05/25/20 History traZODone HCL [Desyrel] 100 mg PO HS PRN 04/01/20 05/25/20 History Melatonin 5 mg PO HS PRN #30 tablet 04/03/20 05/25/20 Rx Thiamine [Vitamin B-1] 100 mg PO BID-W/MEALS #60 tab 04/03/20 05/25/20 Rx Allergies Allergy/AdvReac Type Severity Reaction Status Date / Time No Known Allergies Allergy Verified 07/14/21 19:05 Physical Exam Vitals: Vital Signs Temp Pulse Resp BP Pulse Ox 09/22/21 07:00 80 15 107/83 99 09/22/21 06:50 68 16 106/83 99 09/22/21 06:00 67 16 107/81 97 09/22/21 05:00 65 16 108/80 98 09/22/21 04:15 65 16 111/82 100 09/22/21 04:00 71 16 133/103 100 09/22/21 03:30 71 13 155/120 100 09/22/21 03:00 70 16 144/109 99 09/22/21 02:56 97.3 F L 84 18 144/109 99 Intake and Output 09/21/21 09/22/21 09/22/21 22:59 06:59 14:59 Intake Total 6.863 Balance 6.863 Intake: Intake, IV Titration 6.863 Amount propofoL 1,000 mg In 6.863 Empty Bag 1 bag @ Titrate IV .Q0M ONE Rx#: [id number] Other: Weight 77.111 kg Gen. appearance, comfortable and the patient is not in acute respiratory distress, intubated on a mechanical ventilator and sedated with propofol Head exam was generally normal. There was no scleral icterus or corneal arcus. Mucous membranes were moist. Neck was supple and without jugular venous distension, thyromegaly, or carotid bruits. Carotids were easily palpable bilaterally. There was no adenopathy. Orogastric and endotracheal tube are both in place. Lungs were clear to auscultation and percussion, and with normal diaphragmatic excursion. No wheezes or rales were noted. Cardiac exam revealed the PMI to be normally situated and sized. The rhythm was regular and no extrasystoles were noted during several minutes of auscultation. The first and second heart sounds were normal and physiologic splitting of the second heart sound was noted. There were no murmurs, rubs, clicks, or gallops. Abdominal exam revealed normal bowel sounds. The abdomen was soft, non-tender, and without masses, organomegaly, or appreciable enlargement of the abdominal aorta. Examination of the extremities revealed easily palpable radial, femoral and pedal pulses. There was no cyanosis, clubbing or edema. Examination of the skin revealed no evidence of significant rashes, suspicious appearing nevi or other concerning lesions. Neurologically, the patient is deeply neurologically, the patient has sedated, responds to painful stimulation. Pupils are equal and reactive to light. No nystagmus pain no facial asymmetry. Positive cough. Positive gag. Results - Laboratory Findings CBC and BMP: 09/22/21 03:04 09/22/21 03:04 ABG ABG pH 7.39 (7.35-7.45) 09/22/21 04:45 ABG pCO2 44 mmHg (35-45) 09/22/21 04:45 ABG pO2 370 mmHg (83-108) H 09/22/21 04:45 ABG O2 Saturation 100.0 % (94-97) H 09/22/21 04:45 Abnormal lab findings: Abnormal Labs 09/22/21 09/22/21 09/22/21 03:01 03:04 03:04 MCV 106.9 H MCH 35.5 H Plt Count 143 L ABG pCO2 ABG pO2 ABG HCO3 ABG Total CO2 ABG O2 Saturation BUN 6 L Glucose 127 H POC Glucose (mg/dL) 123 H Osmolality Calcium 8.3 L AST 64 H Serum Alcohol 562 H* 09/22/21 09/22/21 09/22/21 03:04 04:15 04:45 MCV MCH Plt Count ABG pCO2 46 H ABG pO2 60 L 370 H ABG HCO3 28 H 27 H ABG Total CO2 29 H 28 H ABG O2 Saturation 84.4 L 100.0 H BUN Glucose POC Glucose (mg/dL) Osmolality 436 H* Calcium AST Serum Alcohol - Diagnostic Findings Chest x-ray: image reviewed Assessment and Plan Plan: 1 acute alcohol intoxication. Based on the reported history, the patient has ingested hand radiation oncologist which includes alcohol. Nevertheless, based on calculation, the patient rim turning finisher to have no evidence of any osmolality gap and based on that, the possibility of volatile alcohol ingestion such as isopropyl alcohol is considered to be unlikely. Noted the patient has no anion gap metabolic acidosis. No crystals in the urine. 2 acute altered mentation secondary to above 3 acute hypoxic respiratory failure. The patient was intubated for airway protection. Chest x-ray was noted. Blood gas was noted. Currently is an FiO2 of 60% with a PEEP of 5. 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 He is IV fluids up to 150 mL an hour Keep the Propofol for now and gradually wean it off Continue ventilator support and drop the FiO2 down to 40% Chest x-ray was noted IV Protonix Heparin subcu for DVT prophylaxis [facility] electrodes are [facility] accordingly Time with Patient: Greater than 30
[2021-09-22] MEDS: levETIRAcetam 500 MG TAB PO SCH ×2 (14:29→21:06)
[2021-09-22] MEDS: PANTOPRAZOLE 40 MG/10 ML VIAL IVP SCH (14:29)
[2021-09-22 15:15] LABS: ALT 24 U/L (4-34); AST 66 U/L (14-36); African American GFR (CKD) >90 (>60 ml/min/1.73 sqM); Albumin 3.5 g/dL (3.5-5.0); Alkaline Phosphatase 48 U/L (38-126); Anion Gap 11 mmol/L; Bilirubin, Delta 0.3 mg/dL (0.0-0.2); Bilirubin,Unconjugated 0.1 mg/dL (0.0-1.1); Blood Urea Nitrogen 8 mg/dL (7-17); Calcium 7.9 mg/dL (8.4-10.2); Carbon Dioxide 18 mmol/L (22-30); Chloride 114 mmol/L (98-107); Glucose 110 mg/dL (74-99); Non-African American GFR(CKD) >90 (>60 ml/min/1.73 sqM); Potassium 4.2 mmol/L (3.5-5.1); Sodium 143 mmol/L (137-145); Total Bilirubin 0.4 mg/dL (0.2-1.3); Total Protein 6.3 g/dL (6.3-8.2)
--- NOTE | 2021-09-22 15:57 | P.PN ---
Subjective Patient was seen by me this morning. She was sedated and intubated. No acute events reported by nursing staff. Objective - Vital Signs Vital signs: Vital Signs Temp 98.8 F 09/22/21 12:00 Pulse 56 L 09/22/21 15:00 Resp 16 09/22/21 15:00 BP 89/62 09/22/21 15:00 Pulse Ox 99 09/22/21 15:00 Intake & Output 09/21/21 09/22/21 09/22/21 18:59 06:59 18:59 Intake Total 6.863 800 Output Total 810 Balance 6.863 -10 Weight 77.111 kg Intake: IV 800 0.9 800 Intake, IV Titration 6.863 Amount propofoL 1,000 mg In 6.863 Empty Bag 1 bag @ Titrate IV .Q0M ONE Rx#: [id number] Output: Urine 810 Other: Voiding Method Indwelling Catheter - Exam General: The patient is sedated and intubated Eye: there is normal conjunctiva bilaterally. Neck: The neck is supple, there is no JVD. Cardiovascular: Normal S1-S2, no S3-S4, no murmurs. Respiratory: Lungs clear to auscultation bilaterally with mechanical ventilator sounds Gastrointestinal: Abdomen is soft, nontender Musculoskeletal: There is no pedal edema. Skin: Skin is warm and dry - Labs CBC & Chem 7: 09/22/21 03:04 09/22/21 14:14 Labs: Abnormal Lab Results - Last 24 Hours (Table) 09/22/21 09/22/21 09/22/21 Range/Units 03:01 03:04 03:04 MCV 106.9 H (80.0-100.0) fL MCH 35.5 H (25.0-35.0) pg Plt Count 143 L (150-450) k/uL ABG pCO2 (35-45) mmHg ABG pO2 (83-108) mmHg ABG HCO3 (21-25) mmol/L ABG Total CO2 (19-24) mmol/L ABG O2 Saturation (94-97) % Chloride (98-107) mmol/L Carbon Dioxide (22-30) mmol/L BUN 6 L (7-17) mg/dL Glucose 127 H (74-99) mg/dL POC Glucose (mg/dL) 123 H (75-99) mg/dL Osmolality (280-301) mosm/kg Plasma Lactic Acid Marc (0.7-2.0) mmol/L Calcium 8.3 L (8.4-10.2) mg/dL Delta Bilirubin (0.0-0.2) mg/dL AST 64 H (14-36) U/L Serum Alcohol 562 H* mg/dL 09/22/21 09/22/21 09/22/21 Range/Units 03:04 04:15 04:45 MCV (80.0-100.0) fL MCH (25.0-35.0) pg Plt Count (150-450) k/uL ABG pCO2 46 H (35-45) mmHg ABG pO2 60 L 370 H (83-108) mmHg ABG HCO3 28 H 27 H (21-25) mmol/L ABG Total CO2 29 H 28 H (19-24) mmol/L ABG O2 Saturation 84.4 L 100.0 H (94-97) % Chloride (98-107) mmol/L Carbon Dioxide (22-30) mmol/L BUN (7-17) mg/dL Glucose (74-99) mg/dL POC Glucose (mg/dL) (75-99) mg/dL Osmolality 436 H* (280-301) mosm/kg Plasma Lactic Acid Marc (0.7-2.0) mmol/L Calcium (8.4-10.2) mg/dL Delta Bilirubin (0.0-0.2) mg/dL AST (14-36) U/L Serum Alcohol mg/dL 09/22/21 09/22/21 Range/Units 14:14 14:14 MCV (80.0-100.0) fL MCH (25.0-35.0) pg Plt Count (150-450) k/uL ABG pCO2 (35-45) mmHg ABG pO2 (83-108) mmHg ABG HCO3 (21-25) mmol/L ABG Total CO2 (19-24) mmol/L ABG O2 Saturation (94-97) % Chloride 114 H (98-107) mmol/L Carbon Dioxide 18 L (22-30) mmol/L BUN (7-17) mg/dL Glucose 110 H (74-99) mg/dL POC Glucose (mg/dL) (75-99) mg/dL Osmolality (280-301) mosm/kg Plasma Lactic Acid Marc 2.5 H* (0.7-2.0) mmol/L Calcium 7.9 L (8.4-10.2) mg/dL Delta Bilirubin 0.3 H (0.0-0.2) mg/dL AST 66 H (14-36) U/L Serum Alcohol mg/dL Assessment and Plan Assessment: This is a 36-year-old female with past medical history noted below that presented to the emergency room after she was found unresponsive and was intubated by EMS secondary to altered mental status and inability to protect her airway. She was brought into the emergency room and was found to be intoxicated with alcohol. She is currently admitted to the ICU for further management of her medical problems noted below. 1. Alcohol intoxication with toxic encephalopathy 2. Acute hypoxic respiratory failure requiring intubation and mechanical ventilation secondary to patient being unable to protect her airway 3. Heavy alcohol use 4. Underlying schizophrenia and bipolar disorder 5. Underlying seizure disorder on Keppra Patient is currently admitted to the ICU. We will continue ICU care. Ventilator management by daycare assistant. Continue IV fluid hydration. Ativan as needed per CIWA protocol after extubation.
[2021-09-22] MEDS: THIAMINE 100 MG TAB PO SCH (18:32)
[2021-09-22] MEDS: DEXTROSE 5% IN WATER 1,000 ML with SODIUM BICARB (1 MEQ/ML) 150 ML IV SCH (20:22)
[2021-09-22] MEDS: CHLORHEXIDINE GLUCONATE 15 ML CUP MUCOUS MEM SCH (21:05)
[2021-09-22 21:13] LABS: ABG Base Excess -2.3 mmol/L; ABG HCO3 23 mmol/L (21-25); ABG Oxygen Saturation 99.1 % (94-97); ABG PCO2 41 mmHg (35-45); ABG PH 7.36 (7.35-7.45); ABG PO2 128 mmHg (83-108); ABG TCO2 24 mmol/L (19-24); Allen Test Performed? Yes
[2021-09-23 01:55] LABS: ALT 23 U/L (4-34); African American GFR (CKD) >90 (>60 ml/min/1.73 sqM); Anion Gap 8 mmol/L; Blood Urea Nitrogen 12 mg/dL (7-17); Carbon Dioxide 22 mmol/L (22-30); Chloride 110 mmol/L (98-107); Glucose 101 mg/dL (74-99); Non-African American GFR(CKD) >90 (>60 ml/min/1.73 sqM); Sodium 140 mmol/L (137-145); Total Bilirubin 0.5 mg/dL (0.2-1.3)
[2021-09-23 02:32] LABS: Albumin 3.6 g/dL (3.5-5.0); Magnesium 1.8 mg/dL (1.6-2.3); Potassium 5.7 mmol/L (3.5-5.1); Total Protein 6.4 g/dL (6.3-8.2)
[2021-09-23 02:33] LABS: AST 66 U/L (14-36); Alkaline Phosphatase 41 U/L (38-126)
[2021-09-23 03:08] LABS: Basophils % (A) 0 %; Eosinophils # (A) 0.1 k/uL (0-0.7); Eosinophils % (A) 1 %; HCT 34.2 % (34.0-46.0); HGB 12.1 gm/dL (11.4-16.0); Lymphocytes # (A) 2.7 k/uL (1.0-4.8); Lymphocytes % (A) 40 %; MCH 37.7 pg (25.0-35.0); MCHC 35.4 g/dL (31.0-37.0); MCV 106.6 fL (80.0-100.0); Macrocytosis Moderate; Mean Platelet Volume 7.7; Monocytes # (A) 0.3 k/uL (0-1.0); Monocytes % (A) 5 %; Neutrophils # (A) 3.5 k/uL (1.3-7.7); Neutrophils % (A) 52 %; Platelet Count 108 k/uL (150-450); RBC 3.21 m/uL (3.80-5.40); RDW 14.6 % (11.5-15.5); WBC 6.8 k/uL (3.8-10.6)
[2021-09-23 03:34] LABS: ALT 21 U/L (4-34); AST 53 U/L (14-36); African American GFR (CKD) >90 (>60 ml/min/1.73 sqM); Albumin 3.2 g/dL (3.5-5.0); Alkaline Phosphatase 47 U/L (38-126); Anion Gap 7 mmol/L; Blood Urea Nitrogen 12 mg/dL (7-17); Calcium 8.1 mg/dL (8.4-10.2); Carbon Dioxide 24 mmol/L (22-30); Chloride 106 mmol/L (98-107); Glucose 104 mg/dL (74-99); Magnesium 1.6 mg/dL (1.6-2.3); Non-African American GFR(CKD) >90 (>60 ml/min/1.73 sqM); Potassium 3.7 mmol/L (3.5-5.1); Sodium 137 mmol/L (137-145); Total Bilirubin 0.3 mg/dL (0.2-1.3); Total Protein 5.8 g/dL (6.3-8.2)
[2021-09-23] MEDS: SODIUM CHLORIDE 0.9% 1,000 ML IV SCH ×2 (03:55→13:00)
[2021-09-23] MEDS: DEXTROSE 5% IN WATER 1,000 ML with SODIUM BICARB (1 MEQ/ML) 150 ML IV SCH (03:55)
[2021-09-23] MEDS ORDERED: Potassium Replacement Protocol 1 EACH MISC MISCELLANE PRN (04:03)
[2021-09-23 04:06] LABS: Ethylene Glycol Negative (Negative)
[2021-09-23] MEDS ORDERED: MAGNESIUM SULFATE-D5W PMX 1 GM in DEXTROSE/WATER 1 100ML.BAG IVPB ONE (04:31)
[2021-09-23] MEDS ORDERED: CALCIUM GLUCONATE 2 GM in SODIUM CHLORIDE 0.9% 100 ML IVPB ONE ×2 (04:45→12:00)
[2021-09-23 04:49] LABS: ABG Base Excess 6.7 mmol/L; ABG HCO3 31 mmol/L (21-25); ABG Oxygen Saturation 97.9 % (94-97); ABG PCO2 43 mmHg (35-45); ABG PH 7.46 (7.35-7.45); ABG PO2 116 mmHg (83-108); ABG TCO2 32 mmol/L (19-24); Allen Test Performed? Yes
[2021-09-23] MEDS ORDERED: POTASSIUM BICARBONATE/CIT AC 20 MEQ TABLET.EFF NG-TUBE SCH (05:00)
[2021-09-23] MEDS ORDERED: SODIUM CHLORIDE 0.9% 1,000 ML IV SCH (06:30)
[2021-09-23] MEDS: THIAMINE 100 MG TAB PO SCH ×2 (06:48→17:11)
[2021-09-23] MEDS: ENOXAPARIN 40 MG/0.4 ML SYRINGE SQ SCH (08:10)
[2021-09-23] MEDS: PANTOPRAZOLE 40 MG/10 ML VIAL IVP SCH (08:20)
[2021-09-23] MEDS: CHLORHEXIDINE GLUCONATE 15 ML CUP MUCOUS MEM SCH (08:20)
[2021-09-23] MEDS: levETIRAcetam 500 MG TAB PO SCH ×2 (08:20→20:38)
[2021-09-23 08:25] LABS: Isopropanol Negative (Negative)
--- NOTE | 2021-09-23 08:41 | P.PN ---
Subjective Patient is seen in follow-up for toxic alcohol ingestion. Bicarb drip was switched to normal saline this morning. PH this morning was 7.46 with CO2 of 31. Patient is awake on a vent. Renal function at baseline. Vital signs are stable. General: Intubated. HEENT: Head exam is unremarkable. LUNGS: Breath sounds decreased. HEART: Rate and Rhythm are regular. ABDOMEN: Soft, no distention. EXTREMITITES: No edema. Objective - Vital Signs Vital signs: Vital Signs Temp 98.5 F 09/23/21 08:00 Pulse 78 09/23/21 08:00 Resp 16 09/23/21 08:00 BP 153/98 09/23/21 08:00 Pulse Ox 95 09/23/21 08:00 Intake & Output 09/22/21 09/23/21 09/23/21 18:59 06:59 18:59 Intake Total 1200 2630.081 348.895 Output Total 1010 485 200 Balance 190 2145.081 148.895 Weight 78 kg Intake: IV 1200 2280 250 0.9 1200 480 250 Calcium Gluconate 2 gm In 200 Sodium Chloride 0.9% 100 ml @ 100 mls/hr IVPB ONCE ONE Rx#:[id number] Dextrose 5% in Water 1, 1500 000 ml @ 150 mls/hr IV . Q7H40M DAGMAR with Sodium Bicarb (1 Meq/ml) 150 ml Rx#:[id number] Magnesium Sulfate-D5w Pmx 100 1 gm In Dextrose/Water 1 100ml.bag @ 100 mls/hr IVPB ONCE ONE Rx#: [id number] Intake, IV Titration 350.081 98.895 Amount propofoL 1,000 mg In 350.081 98.895 Empty Bag 1 bag @ Titrate IV .Q0M DAGMAR Rx#: [id number] Output: Urine 1010 485 200 Other: Voiding Method Indwelling Catheter Indwelling Catheter - Labs CBC & Chem 7: 09/23/21 02:33 09/23/21 02:33 Labs: Abnormal Lab Results - Last 24 Hours (Table) 09/22/21 09/22/21 09/22/21 Range/Units 05:56 14:14 14:14 RBC (3.80-5.40) m/uL MCV (80.0-100.0) fL MCH (25.0-35.0) pg Plt Count (150-450) k/uL ABG pH (7.35-7.45) ABG pO2 (83-108) mmHg ABG HCO3 (21-25) mmol/L ABG Total CO2 (19-24) mmol/L ABG O2 Saturation (94-97) % Potassium (3.5-5.1) mmol/L Chloride 114 H (98-107) mmol/L Carbon Dioxide 18 L (22-30) mmol/L Creatinine (0.52-1.04) mg/dL Glucose 110 H (74-99) mg/dL Plasma Lactic Acid Marc 2.5 H* (0.7-2.0) mmol/L Calcium 7.9 L (8.4-10.2) mg/dL Delta Bilirubin 0.3 H (0.0-0.2) mg/dL AST 66 H (14-36) U/L Total Protein (6.3-8.2) g/dL Albumin (3.5-5.0) g/dL Ethyl Alcohol Screen >400 H* (Negative) mg/dL 09/22/21 09/22/21 09/22/21 Range/Units 18:59 21:04 22:04 RBC (3.80-5.40) m/uL MCV (80.0-100.0) fL MCH (25.0-35.0) pg Plt Count (150-450) k/uL ABG pH (7.35-7.45) ABG pO2 128 H (83-108) mmHg ABG HCO3 (21-25) mmol/L ABG Total CO2 (19-24) mmol/L ABG O2 Saturation 99.1 H (94-97) % Potassium (3.5-5.1) mmol/L Chloride (98-107) mmol/L Carbon Dioxide (22-30) mmol/L Creatinine (0.52-1.04) mg/dL Glucose (74-99) mg/dL Plasma Lactic Acid Marc 3.2 H* 2.5 H* (0.7-2.0) mmol/L Calcium (8.4-10.2) mg/dL Delta Bilirubin (0.0-0.2) mg/dL AST (14-36) U/L Total Protein (6.3-8.2) g/dL Albumin (3.5-5.0) g/dL Ethyl Alcohol Screen (Negative) mg/dL 09/23/21 09/23/21 09/23/21 Range/Units 00:35 02:33 02:33 RBC 3.21 L (3.80-5.40) m/uL MCV 106.6 H (80.0-100.0) fL MCH 37.7 H (25.0-35.0) pg Plt Count 108 L (150-450) k/uL ABG pH (7.35-7.45) ABG pO2 (83-108) mmHg ABG HCO3 (21-25) mmol/L ABG Total CO2 (19-24) mmol/L ABG O2 Saturation (94-97) % Potassium 5.7 H (3.5-5.1) mmol/L Chloride 110 H (98-107) mmol/L Carbon Dioxide (22-30) mmol/L Creatinine 0.49 L (0.52-1.04) mg/dL Glucose 101 H 104 H (74-99) mg/dL Plasma Lactic Acid Marc (0.7-2.0) mmol/L Calcium 8.1 L (8.4-10.2) mg/dL Delta Bilirubin (0.0-0.2) mg/dL AST 66 H 53 H (14-36) U/L Total Protein 5.8 L (6.3-8.2) g/dL Albumin 3.2 L (3.5-5.0) g/dL Ethyl Alcohol Screen (Negative) mg/dL 09/23/21 09/23/21 Range/Units 02:33 04:38 RBC (3.80-5.40) m/uL MCV (80.0-100.0) fL MCH (25.0-35.0) pg Plt Count (150-450) k/uL ABG pH 7.46 H (7.35-7.45) ABG pO2 116 H (83-108) mmHg ABG HCO3 31 H (21-25) mmol/L ABG Total CO2 32 H (19-24) mmol/L ABG O2 Saturation 97.9 H (94-97) % Potassium (3.5-5.1) mmol/L Chloride (98-107) mmol/L Carbon Dioxide (22-30) mmol/L Creatinine (0.52-1.04) mg/dL Glucose (74-99) mg/dL Plasma Lactic Acid Marc 2.8 H* (0.7-2.0) mmol/L Calcium (8.4-10.2) mg/dL Delta Bilirubin (0.0-0.2) mg/dL AST (14-36) U/L Total Protein (6.3-8.2) g/dL Albumin (3.5-5.0) g/dL Ethyl Alcohol Screen (Negative) mg/dL Assessment and Plan Plan: Assessment: 1. Toxic alcohol ingestion. From the records it appears she drank hand maintenance planner. Patient is not acidotic. PH 7.46 this morning. Bicarb level 24. A nion gap now 7. Osmolar gap was -9 on admission. No evidence of acute kidney injury. Nonoliguric. Poison control following. Currently on IV fluids. Volatile screen negative. Ethyl alcohol level high. 2. Schizophrenia. Plan: Maintain IV fluids. Continue to monitor renal function and urine output. Poison control following. Potassium and magnesium being replaced. Also received IV calcium.
--- NOTE | 2021-09-23 08:43 | XR ---
EXAMINATION TYPE: XR chest 1V portable DATE OF EXAM: 09/23/2021 COMPARISON: 09/22/2021 HISTORY: Tube placement TECHNIQUE: Single frontal view of the chest is obtained. FINDINGS: ET and NG tube stable. Improving areas of subsegmental consolidation. No pleural effusion or pneumothorax. Heart size stable. IMPRESSION: Improving areas of bilateral subsegmental consolidation.
--- NOTE | 2021-09-23 09:29 | P.PN ---
Subjective Progress Note Date: 09/23/21 36-year-old female patient, known history of schizophrenia/bipolar disorder, also history of alcoholism, presented emergency department unresponsive. The patient was unable to protect her airways and she was intubated immediately by the emergency physician for airway protection. Further investigation with a scan of the brain and C-spine showed no acute abnormalities. 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 Apparently this patient has had a similar events before where she was drinking rubbing alcohol at that time. She has an extensive psychiatric history. 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 In any rate, along with this high level of alcohol, poison control was involved and recommended supportive care. The patient's volatile alcohols screen is still pending for now. Rest of your ingesting was negative, serum osmolality was 436, the patient had no evidence of anion gap metabolic acidosis. Anion gap was at 12, bicarb level is at 25, and white second was at 6.4 with hemoglobin 13.9. Blood gases showing a pH of 7.39 with a pCO2 of 44 and pO2 of 370 and the patient is an assist-control mode at the rate of 16, tidal volume of 400, FiO2 of 60% with a PEEP of 5. The chest x-ray is showing no acute abnormalities. ET tube is in a good location. No evidence of any decompensated heart failure. At this point in time, the patient ispropofol at 60 mcg/kg per minute. The patient is also receiving IV fluids in the form of 0.9 at the rate of 100 mL an hour. She is hemodynamically stable. Urine output is over 100 mL an hour. On today's evaluation on 09/23/2021 patient in follow-up in intensive care unit, she remains sedated and intubated, on assist-control mode of ventilation with a rate of 16, tidal lungs 400, FiO2 40% and PEEP 5, this was blood gas has been reviewed showed pO2 of 116, pCO2 43, and pH of 7.46. Patient is currently on room air and at 75 mics per kilo per minute, normal saline at 125 ML per hour. No other drips. Patient is awake and following all commands, moving all 4 extremities, squeezing apparently with both hands, nodding appropriately to questions. CXR has been reviewed showing improving areas of bilateral segmental consolidation. Today's labs have been reviewed showing white blood cell count of 6.8, hemoglobin of 12.1, electrolytes are within normal limits, CO2 is 24, BUN of 12, creatinine 0.49, plasma lactic acid is 2.8, AST 63, ALT is 21, volatile screen alcohol showed ethyl alcohol greater than 400, methyl, isopropyl, acetone, isopropyl and ethylene were all negative. Urine output has been in the order of 40-75 ML per hour. Patient has been restarted on Her and there is been no seizure activity reported, she is also on CoQ10 a call, she is on thiamine. She is awake, following all command, she is appropriate, she started becoming very restless on the ventilator, and patient was extubated suc cessfully and currently tolerating extubation very well, she was placed on nasal cannula at 4 L and her pulse ox is 94%, blood pressure stable, no requiring any vasopressor support. Objective - Vital Signs Vital signs: Vital Signs Temp 98.5 F 09/23/21 08:00 Pulse 78 09/23/21 08:00 Resp 16 09/23/21 08:00 BP 153/98 09/23/21 08:00 Pulse Ox 95 09/23/21 08:00 Intake & Output 09/22/21 09/23/21 09/23/21 18:59 06:59 18:59 Intake Total 1200 2630.081 348.895 Output Total 1010 485 200 Balance 190 2145.081 148.895 Weight 78 kg Intake: IV 1200 2280 250 0.9 1200 480 250 Calcium Gluconate 2 gm In 200 Sodium Chloride 0.9% 100 ml @ 100 mls/hr IVPB ONCE ONE Rx#:[id number] Dextrose 5% in Water 1, 1500 000 ml @ 150 mls/hr IV . Q7H40M DAGMAR with Sodium Bicarb (1 Meq/ml) 150 ml Rx#:[id number] Magnesium Sulfate-D5w Pmx 100 1 gm In Dextrose/Water 1 100ml.bag @ 100 mls/hr IVPB ONCE ONE Rx#: [id number] Intake, IV Titration 350.081 98.895 Amount propofoL 1,000 mg In 350.081 98.895 Empty Bag 1 bag @ Titrate IV .Q0M [facility] Rx#: [id number] Output: Urine 1010 485 200 Other: Voiding Method Indwelling Catheter Indwelling Catheter - Exam GENERAL EXAM:Awake and alert, following commands, 36 yo white female a bit agitated, but no acute distress comfortable in no apparent distress. HEAD: Normocephalic/atraumatic. EYES: Normal reaction of pupils, equal size. Conjunctiva pink, sclera white. NOSE: Clear with pink turbinates. THROAT: No erythema or exudates. NECK: No masses, no JVD, no thyroid enlargement, no adenopathy. CHEST: No chest wall deformity. Symmetrical expansion. LUNGS: Equal air entry with diffuse rhonchi CVS: Regular rate and rhythm, normal S1 and S2, no gallops, no murmurs, no rubs ABDOMEN: Soft, nontender. No hepatosplenomegaly, normal bowel sounds, no guarding or rigidity. EXTREMITIES: No clubbing, no edema, no cyanosis, 2+ pulses and upper and lower extremities. MUSCULOSKELETAL: Muscle strength and tone normal. SPINE: No scoliosis or deformity SKIN: No rashes CENTRAL NERVOUS SYSTEM: Alert and oriented -3. No focal deficits, tone is normal in all 4 extremities. PSYCHIATRIC: Alert and oriented -3. Appropriate affect. Intact judgment and insight. - Labs CBC & Chem 7: 09/23/21 02:33 09/23/21 02:33 Labs: Abnormal Lab Results - Last 24 Hours (Table) 09/22/21 09/22/21 09/22/21 Range/Units 05:56 14:14 14:14 RBC (3.80-5.40) m/uL MCV (80.0-100.0) fL MCH (25.0-35.0) pg Plt Count (150-450) k/uL ABG pH (7.35-7.45) ABG pO2 (83-108) mmHg ABG HCO3 (21-25) mmol/L ABG Total CO2 (19-24) mmol/L ABG O2 Saturation (94-97) % Potassium (3.5-5.1) mmol/L Chloride 114 H (98-107) mmol/L Carbon Dioxide 18 L (22-30) mmol/L Creatinine (0.52-1.04) mg/dL Glucose 110 H (74-99) mg/dL Plasma Lactic Acid Marc 2.5 H* (0.7-2.0) mmol/L Calcium 7.9 L (8.4-10.2) mg/dL Delta Bilirubin 0.3 H (0.0-0.2) mg/dL AST 66 H (14-36) U/L Total Protein (6.3-8.2) g/dL Albumin (3.5-5.0) g/dL Ethyl Alcohol Screen >400 H* (Negative) mg/dL 09/22/21 09/22/21 09/22/21 Range/Units 18:59 21:04 22:04 RBC (3.80-5.40) m/uL MCV (80.0-100.0) fL MCH (25.0-35.0) pg Plt Count (150-450) k/uL ABG pH (7.35-7.45) ABG pO2 128 H (83-108) mmHg ABG HCO3 (21-25) mmol/L ABG Total CO2 (19-24) mmol/L ABG O2 Saturation 99.1 H (94-97) % Potassium (3.5-5.1) mmol/L Chloride (98-107) mmol/L Carbon Dioxide (22-30) mmol/L Creatinine (0.52-1.04) mg/dL Glucose (74-99) mg/dL Plasma Lactic Acid Marc 3.2 H* 2.5 H* (0.7-2.0) mmol/L Calcium (8.4-10.2) mg/dL Delta Bilirubin (0.0-0.2) mg/dL AST (14-36) U/L Total Protein (6.3-8.2) g/dL Albumin (3.5-5.0) g/dL Ethyl Alcohol Screen (Negative) mg/dL 09/23/21 09/23/21 09/23/21 Range/Units 00:35 02:33 02:33 RBC 3.21 L (3.80-5.40) m/uL MCV 106.6 H (80.0-100.0) fL MCH 37.7 H (25.0-35.0) pg Plt Count 108 L (150-450) k/uL ABG pH (7.35-7.45) ABG pO2 (83-108) mmHg ABG HCO3 (21-25) mmol/L ABG Total CO2 (19-24) mmol/L ABG O2 Saturation (94-97) % Potassium 5.7 H (3.5-5.1) mmol/L Chloride 110 H (98-107) mmol/L Carbon Dioxide (22-30) mmol/L Creatinine 0.49 L (0.52-1.04) mg/dL Glucose 101 H 104 H (74-99) mg/dL Plasma Lactic Acid Marc (0.7-2.0) mmol/L Calcium 8.1 L (8.4-10.2) mg/dL Delta Bilirubin (0.0-0.2) mg/dL AST 66 H 53 H (14-36) U/L Total Protein 5.8 L (6.3-8.2) g/dL Albumin 3.2 L (3.5-5.0) g/dL Ethyl Alcohol Screen (Negative) mg/dL 09/23/21 09/23/21 Range/Units 02:33 04:38 RBC (3.80-5.40) m/uL MCV (80.0-100.0) fL MCH (25.0-35.0) pg Plt Count (150-450) k/uL ABG pH 7.46 H (7.35-7.45) ABG pO2 116 H (83-108) mmHg ABG HCO3 31 H (21-25) mmol/L ABG Total CO2 32 H (19-24) mmol/L ABG O2 Saturation 97.9 H (94-97) % Potassium (3.5-5.1) mmol/L Chloride (98-107) mmol/L Carbon Dioxide (22-30) mmol/L Creatinine (0.52-1.04) mg/dL Glucose (74-99) mg/dL Plasma Lactic Acid Marc 2.8 H* (0.7-2.0) mmol/L Calcium (8.4-10.2) mg/dL Delta Bilirubin (0.0-0.2) mg/dL AST (14-36) U/L Total Protein (6.3-8.2) g/dL Albumin (3.5-5.0) g/dL Ethyl Alcohol Screen (Negative) mg/dL Assessment and Plan Plan: 1 acute alcohol intoxication. Based on the reported history, the patient has ingested hand elevator operator service which includes alcohol. 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 Noted the patient has no anion gap metabolic acidosis. No crystals in the urine. Volatile alcohol screen was negative for methanol, ethylene, acetone, and was positive for ethanol and the level was greater than 400 2 acute altered mentation secondary to above, appropriate mentation on today's exam 3 acute hypoxic respiratory failure. The patient was intubated for airway protection. Chest x-ray was noted. Blood gas was noted. Currently is an FiO2 of 60% with a PEEP of 5. Successfully weaned and extubated today on 09/23/2021 4 alcoholism 5 history of cognitive impairment secondary to alcohol ingestion 6 history of alcohol withdrawal syndrome 7 history of schizophrenia 8 history of bipolar disorder 9 history of seizure disorder Plan: Patient was successfully weaned and extubated from mechanical ventilator, currently on 4 L nasal cannula, Breathing comfortably, tolerating extubation quite well Mentation is appropriate, patient is following simple commands, moving all 4 extremities, no seizure activity reported overnight Continue Keppra Continue CIWA protocol Volatile alcohols screen was only positive for ethanol, was negative for ethanol, methanol, acetone, and isopropyl Vital signs are stable, no sign of metabolic acidosis on blood work Blood gases chest x-ray reviewed Maintain aspiration precautions maintaining safety precautions Nothing by mouth for at least 6 hours after extubation We'll restart patient's home antipsychotics We'll continue to follow closely in the intensive care unit I performed a history & physical examination of the patient and discussed their management with my nurse practitioner, Zita Rush. I reviewed the nurse practitioner's note and agree with the documented findings and plan of care. Lung sounds are positive for diffuse rhonchi throughout the lung goddard. The findings and the impression was discussed with the patient. I attest to the documentation by the nurse practitioner. Time with Patient: Greater than 30
[2021-09-23 09:45] LABS: ALT 25 U/L (4-34); African American GFR (CKD) >90 (>60 ml/min/1.73 sqM); Anion Gap 11 mmol/L; Blood Urea Nitrogen 11 mg/dL (7-17); Calcium 8.8 mg/dL (8.4-10.2); Carbon Dioxide 25 mmol/L (22-30); Chloride 96 mmol/L (98-107); Glucose 79 mg/dL (74-99); Non-African American GFR(CKD) >90 (>60 ml/min/1.73 sqM); Sodium 132 mmol/L (137-145); Total Bilirubin 0.4 mg/dL (0.2-1.3)
[2021-09-23 10:11] LABS: AST 63 U/L (14-36); Albumin 3.7 g/dL (3.5-5.0); Alkaline Phosphatase 53 U/L (38-126); Magnesium 1.6 mg/dL (1.6-2.3); Total Protein 6.9 g/dL (6.3-8.2)
[2021-09-23] MEDS ORDERED: Magnesium Replacement Protocol 1 EACH MISC MISCELLANE PRN (11:23)
[2021-09-23] MEDS: MAGNESIUM SULFATE-D5W PMX 1 GM in DEXTROSE/WATER 1 100ML.BAG IVPB SCH ×2 (11:46→13:42)
--- NOTE | 2021-09-23 13:01 | P.PN ---
Subjective Patient was extubated earlier. She is awake and alert. She does not have any complaints. Objective - Vital Signs Vital signs: Vital Signs Temp 98.5 F 09/23/21 08:00 Pulse 84 09/23/21 11:00 Resp 16 09/23/21 11:00 BP 144/82 09/23/21 11:00 Pulse Ox 98 09/23/21 11:00 Intake & Output 09/22/21 09/23/21 09/23/21 18:59 06:59 18:59 Intake Total 1200 2630.081 723.895 Output Total 1010 485 575 Balance 190 2145.081 148.895 Weight 78 kg Intake: IV 1200 2280 625 0.9 1200 480 625 Calcium Gluconate 2 gm In 200 Sodium Chloride 0.9% 100 ml @ 100 mls/hr IVPB ONCE ONE Rx#:[id number] Dextrose 5% in Water 1, 1500 000 ml @ 150 mls/hr IV . Q7H40M [facility] with Sodium Bicarb (1 Meq/ml) 150 ml Rx#:[id number] Magnesium Sulfate-D5w Pmx 100 1 gm In Dextrose/Water 1 100ml.bag @ 100 mls/hr IVPB ONCE ONE Rx#: [id number] Intake, IV Titration 350.081 98.895 Amount propofoL 1,000 mg In 350.081 98.895 Empty Bag 1 bag @ Titrate IV .Q0M [facility] Rx#: [id number] Output: Urine 1010 485 575 Other: Voiding Method Indwelling Catheter Indwelling Catheter - Exam General: The patient is awake and alert, in no distress Eye: there is normal conjunctiva bilaterally. Neck: The neck is supple, there is no JVD. Cardiovascular: Normal S1-S2, no S3-S4, no murmurs. Respiratory: Lungs clear to auscultation bilaterally Gastrointestinal: Abdomen is soft, nontender Musculoskeletal: There is no pedal edema. Neurological:. Speech is normal. Skin: Skin is warm and dry - Labs CBC & Chem 7: 09/23/21 02:33 09/23/21 07:45 Labs: Abnormal Lab Results - Last 24 Hours (Table) 09/22/21 09/22/21 09/22/21 Range/Units 05:56 14:14 14:14 RBC (3.80-5.40) m/uL MCV (80.0-100.0) fL MCH (25.0-35.0) pg Plt Count (150-450) k/uL ABG pH (7.35-7.45) ABG pO2 (83-108) mmHg ABG HCO3 (21-25) mmol/L ABG Total CO2 (19-24) mmol/L ABG O2 Saturation (94-97) % Sodium (137-145) mmol/L Potassium (3.5-5.1) mmol/L Chloride 114 H (98-107) mmol/L Carbon Dioxide 18 L (22-30) mmol/L Creatinine (0.52-1.04) mg/dL Glucose 110 H (74-99) mg/dL Plasma Lactic Acid Marc 2.5 H* (0.7-2.0) mmol/L Calcium 7.9 L (8.4-10.2) mg/dL Delta Bilirubin 0.3 H (0.0-0.2) mg/dL AST 66 H (14-36) U/L Total Protein (6.3-8.2) g/dL Albumin (3.5-5.0) g/dL Ethyl Alcohol Screen >400 H* (Negative) mg/dL 09/22/21 09/22/21 09/22/21 Range/Units 18:59 21:04 22:04 RBC (3.80-5.40) m/uL MCV (80.0-100.0) fL MCH (25.0-35.0) pg Plt Count (150-450) k/uL ABG pH (7.35-7.45) ABG pO2 128 H (83-108) mmHg ABG HCO3 (21-25) mmol/L ABG Total CO2 (19-24) mmol/L ABG O2 Saturation 99.1 H (94-97) % Sodium (137-145) mmol/L Potassium (3.5-5.1) mmol/L Chloride (98-107) mmol/L Carbon Dioxide (22-30) mmol/L Creatinine (0.52-1.04) mg/dL Glucose (74-99) mg/dL Plasma Lactic Acid Marc 3.2 H* 2.5 H* (0.7-2.0) mmol/L Calcium (8.4-10.2) mg/dL Delta Bilirubin (0.0-0.2) mg/dL AST (14-36) U/L Total Protein (6.3-8.2) g/dL Albumin (3.5-5.0) g/dL Ethyl Alcohol Screen (Negative) mg/dL 09/23/21 09/23/21 09/23/21 Range/Units 00:35 02:33 02:33 RBC 3.21 L (3.80-5.40) m/uL MCV 106.6 H (80.0-100.0) fL MCH 37.7 H (25.0-35.0) pg Plt Count 108 L (150-450) k/uL ABG pH (7.35-7.45) ABG pO2 (83-108) mmHg ABG HCO3 (21-25) mmol/L ABG Total CO2 (19-24) mmol/L ABG O2 Saturation (94-97) % Sodium (137-145) mmol/L Potassium 5.7 H (3.5-5.1) mmol/L Chloride 110 H (98-107) mmol/L Carbon Dioxide (22-30) mmol/L Creatinine 0.49 L (0.52-1.04) mg/dL Glucose 101 H 104 H (74-99) mg/dL Plasma Lactic Acid Marc (0.7-2.0) mmol/L Calcium 8.1 L (8.4-10.2) mg/dL Delta Bilirubin (0.0-0.2) mg/dL AST 66 H 53 H (14-36) U/L Total Protein 5.8 L (6.3-8.2) g/dL Albumin 3.2 L (3.5-5.0) g/dL Ethyl Alcohol Screen (Negative) mg/dL 09/23/21 09/23/21 09/23/21 Range/Units 02:33 04:38 07:45 RBC (3.80-5.40) m/uL MCV (80.0-100.0) fL MCH (25.0-35.0) pg Plt Count (150-450) k/uL ABG pH 7.46 H (7.35-7.45) ABG pO2 116 H (83-108) mmHg ABG HCO3 31 H (21-25) mmol/L ABG Total CO2 32 H (19-24) mmol/L ABG O2 Saturation 97.9 H (94-97) % Sodium (137-145) mmol/L Potassium (3.5-5.1) mmol/L Chloride (98-107) mmol/L Carbon Dioxide (22-30) mmol/L Creatinine (0.52-1.04) mg/dL Glucose (74-99) mg/dL Plasma Lactic Acid Marc 2.8 H* 2.3 H* (0.7-2.0) mmol/L Calcium (8.4-10.2) mg/dL Delta Bilirubin (0.0-0.2) mg/dL AST (14-36) U/L Total Protein (6.3-8.2) g/dL Albumin (3.5-5.0) g/dL Ethyl Alcohol Screen (Negative) mg/dL 09/23/21 Range/Units 07:45 RBC (3.80-5.40) m/uL MCV (80.0-100.0) fL MCH (25.0-35.0) pg Plt Count (150-450) k/uL ABG pH (7.35-7.45) ABG pO2 (83-108) mmHg ABG HCO3 (21-25) mmol/L ABG Total CO2 (19-24) mmol/L ABG O2 Saturation (94-97) % Sodium 132 L (137-145) mmol/L Potassium (3.5-5.1) mmol/L Chloride 96 L (98-107) mmol/L Carbon Dioxide (22-30) mmol/L Creatinine 0.47 L (0.52-1.04) mg/dL Glucose (74-99) mg/dL Plasma Lactic Acid Marc (0.7-2.0) mmol/L Calcium (8.4-10.2) mg/dL Delta Bilirubin (0.0-0.2) mg/dL AST 63 H (14-36) U/L Total Protein (6.3-8.2) g/dL Albumin (3.5-5.0) g/dL Ethyl Alcohol Screen (Negative) mg/dL Assessment and Plan Assessment: This is a 36-year-old female with past medical history noted below that presented to the emergency room after she was found unresponsive and was intubated by EMS secondary to altered mental status and inability to protect her airway. She was brought into the emergency room and was found to be intoxicated with alcohol. She is currently admitted to the ICU for further management of her medical problems noted below. 1. Alcohol intoxication with toxic encephalopathy 2. Acute hypoxic respiratory failure requiring intubation and mechanical ventilation secondary to patient being unable to protect her airway extubated successfully on 09/23 3. Heavy alcohol use including drinking hand rn acls 4. Underlying schizophrenia and bipolar disorder 5. Underlying seizure disorder on Keppra Patient is currently admitted to the ICU. Plan to transfer her to a stepdown unit today. Continue IV Ativan as needed for withdrawal per CIWA protocol. Consult psychiatry for further evaluation.
[2021-09-23 13:20] LABS: African American GFR (CKD) >90 (>60 ml/min/1.73 sqM); Anion Gap 6 mmol/L; Blood Urea Nitrogen 9 mg/dL (7-17); Calcium 8.7 mg/dL (8.4-10.2); Carbon Dioxide 28 mmol/L (22-30); Chloride 101 mmol/L (98-107); Glucose 110 mg/dL (74-99); Magnesium 1.6 mg/dL (1.6-2.3); Non-African American GFR(CKD) >90 (>60 ml/min/1.73 sqM); Potassium 3.9 mmol/L (3.5-5.1); Sodium 135 mmol/L (137-145)
[2021-09-23] MEDS ORDERED: MULTIVITAMINS, THERA 1 EACH TAB PO ONE (13:30)
[2021-09-23] MEDS: GABAPENTIN 300 MG CAP PO SCH ×2 (13:33→20:39)
[2021-09-23] MEDS: cloNIDine HCL 0.1 MG TAB PO SCH ×2 (13:33→20:38)
[2021-09-23] MEDS ORDERED: SODIUM CHLORIDE 0.9% 1,000 ML with THIAMINE 100 MG, FOLIC ACID 1 MG IV ONE ×3 (14:00)
[2021-09-23 16:27] LABS: African American GFR (CKD) >90 (>60 ml/min/1.73 sqM); Anion Gap 6 mmol/L; Blood Urea Nitrogen 8 mg/dL (7-17); Carbon Dioxide 28 mmol/L (22-30); Chloride 100 mmol/L (98-107); Glucose 105 mg/dL (74-99); Non-African American GFR(CKD) >90 (>60 ml/min/1.73 sqM); Potassium 3.9 mmol/L (3.5-5.1); Sodium 134 mmol/L (137-145)
[2021-09-23] MEDS: OLANZapine 5 MG TAB PO SCH (17:10)
[2021-09-23] MEDS ORDERED: POTASSIUM CHLORIDE ER 20 MEQ TAB.ER PO SCH (18:00)
[2021-09-23] MEDS: traZODone HCL 100 MG TAB PO SCH (20:40)
[2021-09-23] MEDS ORDERED: QUEtiapine 100 MG TAB PO SCH (21:00)
[2021-09-23] MEDS ORDERED: risperiDONE 1 MG TAB PO SCH (21:00)
[2021-09-24] MEDS: SODIUM CHLORIDE 0.9% 1,000 ML IV SCH ×2 (02:15→12:04)
[2021-09-24] MEDS: THIAMINE 100 MG TAB PO SCH ×2 (07:44→16:52)
[2021-09-24] MEDS: ENOXAPARIN 40 MG/0.4 ML SYRINGE SQ SCH (07:44)
[2021-09-24] MEDS: OLANZapine 5 MG TAB PO SCH (07:44)
[2021-09-24] MEDS: cloNIDine HCL 0.1 MG TAB PO SCH ×2 (07:44→21:13)
[2021-09-24] MEDS: PANTOPRAZOLE 40 MG/10 ML VIAL IVP SCH (07:44)
[2021-09-24] MEDS: GABAPENTIN 300 MG CAP PO SCH ×2 (07:44→21:13)
[2021-09-24 08:08] LABS: ALT 17 U/L (4-34); AST 37 U/L (14-36); African American GFR (CKD) >90 (>60 ml/min/1.73 sqM); Albumin 3.2 g/dL (3.5-5.0); Alkaline Phosphatase 61 U/L (38-126); Anion Gap 5 mmol/L; Blood Urea Nitrogen 5 mg/dL (7-17); Calcium 8.6 mg/dL (8.4-10.2); Carbon Dioxide 24 mmol/L (22-30); Chloride 106 mmol/L (98-107); Glucose 95 mg/dL (74-99); Magnesium 1.5 mg/dL (1.6-2.3); Non-African American GFR(CKD) >90 (>60 ml/min/1.73 sqM); Potassium 3.6 mmol/L (3.5-5.1); Sodium 135 mmol/L (137-145); Total Bilirubin 0.8 mg/dL (0.2-1.3)
[2021-09-24] MEDS: levETIRAcetam 500 MG TAB PO SCH ×2 (08:09→21:13)
[2021-09-24 08:25] LABS: Ethanol >400 mg/dL (Negative)
[2021-09-24 09:19] LABS: Basophils % (A) 0 %; Eosinophils # (A) 0.1 k/uL (0-0.7); Eosinophils % (A) 2 %; HCT 37.8 % (34.0-46.0); HGB 12.9 gm/dL (11.4-16.0); Lymphocytes # (A) 2.7 k/uL (1.0-4.8); Lymphocytes % (A) 38 %; MCH 36.1 pg (25.0-35.0); MCHC 34.1 g/dL (31.0-37.0); MCV 105.9 fL (80.0-100.0); Macrocytosis Moderate; Mean Platelet Volume 8.5; Monocytes # (A) 0.3 k/uL (0-1.0); Monocytes % (A) 5 %; Neutrophils # (A) 3.8 k/uL (1.3-7.7); Neutrophils % (A) 54 %; Platelet Count 122 k/uL (150-450); RBC 3.57 m/uL (3.80-5.40); RDW 14.4 % (11.5-15.5); WBC 7.1 k/uL (3.8-10.6)
--- NOTE | 2021-09-24 10:10 | P.PN ---
Subjective Patient is seen in follow-up for toxic alcohol ingestion. Patient was extubated yesterday. She is currently awake and alert. Patient states she drank alcohol. 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 Vital signs are stable. General: Intubated. HEENT: Head exam is unremarkable. LUNGS: Breath sounds decreased. HEART: Rate and Rhythm are regular. ABDOMEN: Soft, no distention. EXTREMITITES: No edema. Objective - Vital Signs Vital signs: Vital Signs Temp 98.8 F 09/24/21 08:00 Pulse 53 L 09/24/21 08:00 Resp 16 09/24/21 08:00 BP 150/89 09/24/21 08:00 Pulse Ox 94 L 09/24/21 08:00 Intake & Output 09/23/21 09/24/21 09/24/21 18:59 06:59 18:59 Intake Total 1277.032 80 Output Total 1825 1650 Balance -547.968 -1570 Weight 80 kg Intake: IV 625 80 0.9 625 80 Intake, IV Titration 652.032 Amount Sodium Chloride 0.9% 1, 460 000 ml @ 80 mls/hr IV . [id number] Rx#:[id number] propofoL 1,000 mg In 93.137 Empty Bag 1 bag @ Titrate IV .Q0M [facility] Rx#: [id number] propofoL 1,000 mg In 98.895 Empty Bag 1 bag @ Titrate IV .Q0M [facility] Rx#: [id number] Output: Urine 1825 1650 Other: Voiding Method Indwelling Catheter Indwelling Catheter Indwelling Catheter # Voids 1 # Bowel Movements 1 - Labs CBC & Chem 7: 09/24/21 09:08 09/24/21 07:30 Labs: Abnormal Lab Results - Last 24 Hours (Table) 09/22/21 09/23/21 09/23/21 Range/Units 05:56 07:45 12:08 RBC (3.80-5.40) m/uL MCV (80.0-100.0) fL MCH (25.0-35.0) pg Plt Count (150-450) k/uL Sodium 132 L 135 L (137-145) mmol/L Chloride 96 L (98-107) mmol/L BUN (7-17) mg/dL Creatinine 0.47 L 0.46 L (0.52-1.04) mg/dL Glucose 110 H (74-99) mg/dL Plasma Lactic Acid Marc (0.7-2.0) mmol/L Magnesium (1.6-2.3) mg/dL AST 63 H (14-36) U/L Total Protein (6.3-8.2) g/dL Albumin (3.5-5.0) g/dL Ethyl Alcohol Screen >400 H* (Negative) mg/dL 09/23/21 09/23/21 09/24/21 Range/Units 12:08 16:06 07:30 RBC (3.80-5.40) m/uL MCV (80.0-100.0) fL MCH (25.0-35.0) pg Plt Count (150-450) k/uL Sodium 134 L 135 L (137-145) mmol/L Chloride (98-107) mmol/L BUN 5 L (7-17) mg/dL Creatinine 0.48 L (0.52-1.04) mg/dL Glucose 105 H (74-99) mg/dL Plasma Lactic Acid Marc 2.2 H* (0.7-2.0) mmol/L Magnesium 1.5 L (1.6-2.3) mg/dL AST 37 H (14-36) U/L Total Protein 6.0 L (6.3-8.2) g/dL Albumin 3.2 L (3.5-5.0) g/dL Ethyl Alcohol Screen (Negative) mg/dL 09/24/21 Range/Units 09:08 RBC 3.57 L (3.80-5.40) m/uL MCV 105.9 H (80.0-100.0) fL MCH 36.1 H (25.0-35.0) pg Plt Count 122 L (150-450) k/uL Sodium (137-145) mmol/L Chloride (98-107) mmol/L BUN (7-17) mg/dL Creatinine (0.52-1.04) mg/dL Glucose (74-99) mg/dL Plasma Lactic Acid Marc (0.7-2.0) mmol/L Magnesium (1.6-2.3) mg/dL AST (14-36) U/L Total Protein (6.3-8.2) g/dL Albumin (3.5-5.0) g/dL Ethyl Alcohol Screen (Negative) mg/dL Assessment and Plan Plan: Assessment: 1. Toxic alcohol ingestion. 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 Patient is not acidotic. PH 7.46 this morning. B icarb level 24. Anion gap 5. Osmolar gap was -9 on admission. No evidence of acute kidney injury. Nonoliguric. Poison control following. Currently on IV fluids. Volatile screen negative. Ethyl alcohol level high. 2. Schizophrenia. 3. Hypokalemia from poor intake. Replaced. 4. Hypomagnesemia from poor intake. Replaced. Plan: Maintain IV fluids; also receiving MVI. Continue to monitor renal function and urine output. Morning labs pending.
[2021-09-24 11:11] LABS: African American GFR (CKD) >90 (>60 ml/min/1.73 sqM); Anion Gap 6 mmol/L; Blood Urea Nitrogen 5 mg/dL (7-17); Calcium 8.5 mg/dL (8.4-10.2); Carbon Dioxide 23 mmol/L (22-30); Chloride 106 mmol/L (98-107); Glucose 99 mg/dL (74-99); Magnesium 1.4 mg/dL (1.6-2.3); Non-African American GFR(CKD) >90 (>60 ml/min/1.73 sqM); Potassium 3.5 mmol/L (3.5-5.1); Sodium 135 mmol/L (137-145)
--- NOTE | 2021-09-24 13:11 | P.CN ---
Psychiatric Consult - . Consult date: 09/24/21 Consult:: 09/24/21 13:01 IDENTIFYING DATA: This patient is a 36-year-old female who has a history of chronic alcohol use, lives with her mother's single has and is unemployed. REASON FOR REFERRAL: Psychiatry was consulted for "ingestion of hand supervisor laboratory animal facility and alcohol" HISTORY OF PRESENT ILLNESS: The patient presented to the hospital on 09/22 after being unresponsive at home. Patient was apparently intubated by EMS and appeared to be confused and intoxicated. Patient was apparently noted to have ingested hand supervisor laboratory animal facility along with etoh at home. Patient's blood alcohol level on admission was 562. Patient was admitted medically. Patient's nurse claims that patient has been sleeping for most of the morning however has not mentioned any suicidal thoughts or depression. Patient was seen laying in her bed today and agreeable to speak to commercial insurance underwriter. She is fairly calm and cooperative during the interview. She states that she is in the hospital because "I have a drinking problem". She claims that she has been drinking vodka heavily and drank "too much" before coming into the hospital. She states that she also drank hand supervisor laboratory animal facility at home because she ran out of alcohol. She is denying it as a suicide attempt. She claims that she has been dealing with her alcohol use disorder for approximately 20 years now and has gone to rehab about 8 times in the past. She states that she has mild depression however at this time states that her mood is "okay". She is denying any anxiety. She is denying any mood swings at this time however didn't mention a vague history of manic episodes. She claims that her diagnosis is friendly and bipolar and claims that she follows up with a nurse practitioner at [facility]. She is denying any current withdrawal symptoms however does have a complicated history of withdrawals in the past. She claims that her sleep is fair and has a poor appetite at this time. At this time patient denies any suicidal or homical ideations, intent or plan. Patient denies any auditory, visual hallucinations and denies any paranoia or delusions. Patients admits to using alcohol heavily as noted above. She denies any recreational drug use. She claims that she uses cigarettes daily. As any access to guns or weapons PAST PSYCHIATRIC HISTORY: Patient has a a history of schizophrenia and bipolar. Patient is currently on Risperdal, trazodone, Seroquel and Zyprexa. States that she was admitted psychiatrically at [facility] about 1 year ago. She states that she follows up with Latricia nurse practitioner at [facility]. Patient denies any history of suicide attempts in the past. PAST MEDICAL HISTORY: as per medicine H and P ALLERGIES: as per EMR. CHEMICAL DEPENDENCY HISTORY: as per HPI. FAMILY PSYCHIATRIC/SUBSTANCE USE HISTORY: Claims that her mother has schizophrenia SOCIAL HISTORY: Patient was born and raised in [place] [place]. She states that she has a Associates degree in hospitality management. She states that she does have a DUI and spent fdc time in 2006. She currently has no kids is single and unemployed and lives with her mother.. MENTAL STATUS EXAM: General Appearance: Patient appears to be stated age is alert, pleasant, and cooperative. Patient appears to have fair hygiene and grooming wearing hospital gown with fair eye contact. Behavior: Patient is calmly lying in bed without any agitated behavior. Speech: Patient's speech is fluent and nonpressured. Mood/Affect: Patient reports their mood is "ok now", affect is congruent and constricted Suicidality/Homicidality: Patient denies having any suicidal or homicidal ideation intent or plan. Perceptions: Patient denies any visual hallucinations and denies any auditory hallucinations Though content/process: There is no evidence of any delusional thought content and thought process is linear and goal-directed. Memory and concentration: AOX3, grossly intact for the purposes of this session. Can spell "WORLD" backwards Judgment and insight: poor IMPRESSIONS: Bipolar disorder unspecified Alcohol use disorder, severe, currently in withdrawal Nicotine dependence PLAN: -At this time patient DOES NOT meet criteria for inpatient psychiatric admission. -Would recommend the following medication changes/additions: Discontinue the Risperdal and Zyprexa and continue with Seroquel 100 mg daily at bedtime for mood stabilization/insomnia. Continue trazodone 300 mg daily at bedtime for insomnia/mood. -CIWA protocol with PRN Ativan for alcohol withdrawal. Continue to monitor vital signs. -Train Planner spoke with patient about substance abuse and the harmful effects on medical and mental health, patient verbally understood and agreed. -tie up worker to provide patient substance use treatment resources including AA/NA meetings in the community. -tie up worker to provide patient with access line number to call for inpatient substance rehab. Patient apparently does have an appointment for intake at [place] but this will need to be pushed to the beginning of the week if possible. -Patient can discharged to when ready for discharge -Communicated plan to patient's nurse and 7th grade social studies teacher -Will continue to follow along to make any other med adjustments prior to patients discharge -Please contact with any questions.
[2021-09-24] MEDS ORDERED: POTASSIUM CHLORIDE 10 MEQ in WATER FOR INJECTION 1 100ML.BAG IVPB STA (13:43)
[2021-09-24] MEDS ORDERED: POTASSIUM CHLORIDE ER 20 MEQ TAB.ER PO STA (13:43)
--- NOTE | 2021-09-24 13:48 | P.PN ---
Subjective Patient is awake and alert today. Her potassium and magnesium remained low. No acute events overnight reported by nursing staff. No significant evidence of withdrawal. Objective - Vital Signs Vital signs: Vital Signs Temp 98.8 F 09/24/21 08:00 Pulse 53 L 09/24/21 08:00 Resp 16 09/24/21 08:00 BP 150/89 09/24/21 08:00 Pulse Ox 94 L 09/24/21 08:00 Intake & Output 09/23/21 09/24/21 09/24/21 18:59 06:59 18:59 Intake Total 1277.032 80 Output Total 1825 1650 1400 Balance -547.968 -1570 -1400 Weight 80 kg Intake: IV 625 80 0.9 625 80 Intake, IV Titration 652.032 Amount Sodium Chloride 0.9% 1, 460 000 ml @ 80 mls/hr IV . [id number] [facility] Rx#:[id number] propofoL 1,000 mg In 93.137 Empty Bag 1 bag @ Titrate IV .Q0M ONE Rx#: [id number] propofoL 1,000 mg In 98.895 Empty Bag 1 bag @ Titrate IV .Q0M [facility] Rx#: [id number] Output: Urine 1825 1650 1400 Uretheral (Cottrell) 1400 Other: Voiding Method Indwelling Catheter Indwelling Catheter Indwelling Catheter # Voids 1 # Bowel Movements 1 - Exam General: The patient is awake and alert, in no distress Eye: there is normal conjunctiva bilaterally. Neck: The neck is supple, there is no JVD. Cardiovascular: Normal S1-S2, no S3-S4, no murmurs. Respiratory: Lungs clear to auscultation bilaterally Gastrointestinal: Abdomen is soft, nontender Musculoskeletal: There is no pedal edema. Neurological:. Speech is normal. Skin: Skin is warm and dry - Labs CBC & Chem 7: 09/24/21 09:08 09/24/21 10:14 Labs: Abnormal Lab Results - Last 24 Hours (Table) 09/22/21 09/23/21 09/23/21 Range/Units 05:56 02:33 16:06 RBC (3.80-5.40) m/uL MCV (80.0-100.0) fL MCH (25.0-35.0) pg Plt Count (150-450) k/uL Sodium 134 L (137-145) mmol/L BUN (7-17) mg/dL Creatinine 0.48 L (0.52-1.04) mg/dL Glucose 105 H (74-99) mg/dL Magnesium (1.6-2.3) mg/dL AST (14-36) U/L Total Protein (6.3-8.2) g/dL Albumin (3.5-5.0) g/dL RBC Folate 935 H (280 - 791) ng/mL Ethyl Alcohol Screen >400 H* (Negative) mg/dL 09/24/21 09/24/21 09/24/21 Range/Units 07:30 09:08 10:14 RBC 3.57 L (3.80-5.40) m/uL MCV 105.9 H (80.0-100.0) fL MCH 36.1 H (25.0-35.0) pg Plt Count 122 L (150-450) k/uL Sodium 135 L 135 L (137-145) mmol/L BUN 5 L 5 L (7-17) mg/dL Creatinine (0.52-1.04) mg/dL Glucose (74-99) mg/dL Magnesium 1.5 L 1.4 L (1.6-2.3) mg/dL AST 37 H (14-36) U/L Total Protein 6.0 L (6.3-8.2) g/dL Albumin 3.2 L (3.5-5.0) g/dL RBC Folate (280 - 791) ng/mL Ethyl Alcohol Screen (Negative) mg/dL Assessment and Plan Assessment: This is a 36-year-old female with past medical history noted below that presented to the emergency room after she was found unresponsive and was intubated by EMS secondary to altered mental status and inability to protect her airway. She was brought into the emergency room and was found to be intoxicated with alcohol. She is currently admitted for further management of her medical problems noted below. 1. Alcohol intoxication with toxic encephalopathy 2. Acute hypoxic respiratory failure requiring intubation and mechanical ventilation secondary to patient being unable to protect her airway extubated successfully on 09/23 3. Heavy alcohol use including drinking hand mica plate layer 4. Underlying schizophrenia and bipolar disorder 5. Underlying seizure disorder on Keppra 6. Hypokalemia and hypomagnesemia Patient was seen and evaluated by psychiatry. She is not a candidate for inpatient psych. Plan to replace potassium and magnesium today. He shouldn't is willing to go to [place] for rehab. She need to go home first to get her belongings. Plan for discharge home tomorrow. Plan discussed with perinatal social worker.
--- NOTE | 2021-09-24 14:28 | P.PN ---
Subjective Progress Note Date: 09/24/21 36-year-old female patient, known history of schizophrenia/bipolar disorder, also history of alcoholism, presented emergency department unresponsive. The patient was unable to protect her airways and she was intubated immediately by the emergency physician for airway protection. Further investigation with a scan of the brain and C-spine showed no acute abnormalities. Alcohol level was 562 and there is a history of drinking and ingesting hand digital director as a source of alcohol in this patient. Apparently this patient has had a similar events before where she was drinking rubbing alcohol at that time. She has an extensive psychiatric history. 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 In any rate, along with this high level of alcohol, poison control was involved and recommended supportive care. The patient's volatile alcohols screen is still pending for now. Rest of your ingesting was negative, serum osmolality was 436, the patient had no evidence of anion gap metabolic acidosis. Anion gap was at 12, bicarb level is at 25, and white second was at 6.4 with hemoglobin 13.9. Blood gases showing a pH of 7.39 with a pCO2 of 44 and pO2 of 370 and the patient is an assist-control mode at the rate of 16, tidal volume of 400, FiO2 of 60% with a PEEP of 5. The chest x-ray is showing no acute abnormalities. ET tube is in a good location. No evidence of any decompensated heart failure. At this point in time, the patient ispropofol at 60 mcg/kg per minute. The patient is also receiving IV fluids in the form of 0.9 at the rate of 100 mL an hour. She is hemodynamically stable. Urine output is over 100 mL an hour. On today's evaluation on 09/23/2021 patient in follow-up in intensive care unit, she remains sedated and intubated, on assist-control mode of ventilation with a rate of 16, tidal lungs 400, FiO2 40% and PEEP 5, this was blood gas has been reviewed showed pO2 of 116, pCO2 43, and pH of 7.46. Patient is currently on room air and at 75 mics per kilo per minute, normal saline at 125 ML per hour. No other drips. Patient is awake and following all commands, moving all 4 extremities, squeezing apparently with both hands, nodding appropriately to questions. CXR has been reviewed showing improving areas of bilateral segmental consolidation. Today's labs have been reviewed showing white blood cell count of 6.8, hemoglobin of 12.1, electrolytes are within normal limits, CO2 is 24, BUN of 12, creatinine 0.49, plasma lactic acid is 2.8, AST 63, ALT is 21, volatile screen alcohol showed ethyl alcohol greater than 400, methyl, isopropyl, acetone, isopropyl and ethylene were all negative. Urine output has been in the order of 40-75 ML per hour. Patient has been restarted on Her and there is been no seizure activity reported, she is also on CoQ10 a call, she is on thiamine. She is awake, following all command, she is appropriate, she started becoming very restless on the ventilator, and patient was extubated chiu ccessfully and currently tolerating extubation very well, she was placed on nasal cannula at 4 L and her pulse ox is 94%, blood pressure stable, no requiring any vasopressor support. 09/24/2021, I'm seeing the patient for a follow-up. Patient is wide awake and alert. Acute intoxication rubber turner to be alcohol intoxication ethyl alcohol. The patient was also seen by psychiatry. She is a candidate for inpatient psychiatric evaluation and the patient will ultimately go to [place]. She has no complaints for now. Mother the bedside. Electrodes are all normal. No altered mentation. She is awake and alert and following commands and answering questions appropriately. No other significant events overnight. She is on room air oxygen. She has been extubated. Pulmonary critical care services we'll sign off the case. Objective - Vital Signs Vital signs: Vital Signs Temp 98.8 F 09/24/21 08:00 Pulse 53 L 09/24/21 08:00 Resp 16 09/24/21 08:00 BP 150/89 09/24/21 08:00 Pulse Ox 94 L 09/24/21 08:00 Intake & Output 09/23/21 09/24/21 09/24/21 18:59 06:59 18:59 Intake Total 1277.032 80 Output Total 1825 1650 1400 Balance -547.968 -1570 -1400 Weight 80 kg Intake: IV 625 80 0.9 625 80 Intake, IV Titration 652.032 Amount Sodium Chloride 0.9% 1, 460 000 ml @ 80 mls/hr IV . [id number] [facility] Rx#:[id number] propofoL 1,000 mg In 93.137 Empty Bag 1 bag @ Titrate IV .Q0M ONE Rx#: [id number] propofoL 1,000 mg In 98.895 Empty Bag 1 bag @ Titrate IV .Q0M [facility] Rx#: [id number] Output: Urine 1825 1650 1400 Uretheral (Cottrell) 1400 Other: Voiding Method Indwelling Catheter Indwelling Catheter Indwelling Catheter # Voids 1 1 # Bowel Movements 1 - Exam GENERAL EXAM:Awake and alert, following commands, 36 yo white female a bit agitated, but no acute distress comfortable in no apparent distress. HEAD: Normocephalic/atraumatic. EYES: Normal reaction of pupils, equal size. Conjunctiva pink, sclera white. NOSE: Clear with pink turbinates. THROAT: No erythema or exudates. NECK: No masses, no JVD, no thyroid enlargement, no adenopathy. CHEST: No chest wall deformity. Symmetrical expansion. LUNGS: Equal air entry with diffuse rhonchi CVS: Regular rate and rhythm, normal S1 and S2, no gallops, no murmurs, no rubs ABDOMEN: Soft, nontender. No hepatosplenomegaly, normal bowel sounds, no guarding or rigidity. EXTREMITIES: No clubbing, no edema, no cyanosis, 2+ pulses and upper and lower extremities. MUSCULOSKELETAL: Muscle strength and tone normal. SPINE: No scoliosis or deformity SKIN: No rashes CENTRAL NERVOUS SYSTEM: Alert and oriented -3. No focal deficits, tone is no rmal in all 4 extremities. PSYCHIATRIC: Alert and oriented -3. Appropriate affect. Intact judgment and insight. - Labs CBC & Chem 7: 09/24/21 09:08 09/24/21 10:14 Labs: Abnormal Lab Results - Last 24 Hours (Table) 09/22/21 09/23/21 09/23/21 Range/Units 05:56 02:33 16:06 RBC (3.80-5.40) m/uL MCV (80.0-100.0) fL MCH (25.0-35.0) pg Plt Count (150-450) k/uL Sodium 134 L (137-145) mmol/L BUN (7-17) mg/dL Creatinine 0.48 L (0.52-1.04) mg/dL Glucose 105 H (74-99) mg/dL Magnesium (1.6-2.3) mg/dL AST (14-36) U/L Total Protein (6.3-8.2) g/dL Albumin (3.5-5.0) g/dL RBC Folate 935 H (280 - 791) ng/mL Ethyl Alcohol Screen >400 H* (Negative) mg/dL 09/24/21 09/24/21 09/24/21 Range/Units 07:30 09:08 10:14 RBC 3.57 L (3.80-5.40) m/uL MCV 105.9 H (80.0-100.0) fL MCH 36.1 H (25.0-35.0) pg Plt Count 122 L (150-450) k/uL Sodium 135 L 135 L (137-145) mmol/L BUN 5 L 5 L (7-17) mg/dL Creatinine (0.52-1.04) mg/dL Glucose (74-99) mg/dL Magnesium 1.5 L 1.4 L (1.6-2.3) mg/dL AST 37 H (14-36) U/L Total Protein 6.0 L (6.3-8.2) g/dL Albumin 3.2 L (3.5-5.0) g/dL RBC Folate (280 - 791) ng/mL Ethyl Alcohol Screen (Negative) mg/dL Assessment and Plan Plan: 1 acute alcohol intoxication, recovered 2 acute altered mentation secondary to above, appropriate mentation on today's exam, recovered and the mental status is back to normal 3 acute hypoxic respiratory failure, recovered and the patient is currently on room air oxygen 4 alcoholism 5 history of cognitive impairment secondary to alcohol ingestion 6 history of alcohol withdrawal syndrome 7 history of schizophrenia 8 history of bipolar disorder 9 history of seizure disorder Plan: patient was successfully extubated No evidence of any other volatile alcohol other than after alcohol the patient has recovered from that. She admitted to drinking vodka and large quantities Psychiatric medications have been resumed Continue Keppra Medications as for inpatient psychiatric. Treatment The patient will be likely going to [place] Pulmonary critical care services we'll sign off the case. I discussed the case with the mother.
[2021-09-24] MEDS: MAGNESIUM SULFATE-D5W PMX 1 GM in DEXTROSE/WATER 1 100ML.BAG IVPB SCH ×2 (15:52→16:52)
[2021-09-24] MEDS ORDERED: QUEtiapine 100 MG TAB PO SCH (21:00)
[2021-09-24] MEDS: traZODone HCL 100 MG TAB PO SCH (21:14)
[2021-09-25 07:41] VITALS: RESP 16
[2021-09-25] MEDS: GABAPENTIN 300 MG CAP PO SCH (07:46)
[2021-09-25] MEDS: cloNIDine HCL 0.1 MG TAB PO SCH (07:46)
[2021-09-25] MEDS: levETIRAcetam 500 MG TAB PO SCH (07:46)
[2021-09-25] MEDS: THIAMINE 100 MG TAB PO SCH (07:46)
[2021-09-25] MEDS: PANTOPRAZOLE 40 MG/10 ML VIAL IVP SCH (07:47)
[2021-09-25] MEDS: ENOXAPARIN 40 MG/0.4 ML SYRINGE SQ SCH (07:47)
--- NOTE | 2021-09-25 08:58 | P.PN ---
Subjective Patient is seen in follow-up for toxic alcohol ingestion. Awake and alert. No active complaints. Vital signs are stable. General: Intubated. HEENT: Head exam is unremarkable. LUNGS: Breath sounds decreased. HEART: Rate and Rhythm are regular. ABDOMEN: Soft, no distention. EXTREMITITES: No edema. Objective - Vital Signs Vital signs: Vital Signs Temp 98.2 F 09/25/21 07:08 Pulse 50 L 09/25/21 07:08 Resp 16 09/25/21 07:08 BP 153/91 09/25/21 07:08 Pulse Ox 95 09/25/21 07:08 Intake & Output 09/24/21 09/25/21 09/25/21 18:59 06:59 18:59 Intake Total 1020 600 Output Total 1400 Balance -380 600 Intake: IV 1020 0.9 720 Magnesium Sulfate-D5w Pmx 200 1 gm In Dextrose/Water 1 100ml.bag @ 100 mls/hr IVPB Q1H [facility] Rx#: [id number] Potassium Chloride 10 meq 100 In Water For Injection 1 100ml.bag @ 100 mls/hr IVPB ONCE [facility] Rx#: [id number] Oral 600 Output: Urine 1400 Uretheral (Cottrell) 1400 Other: Voiding Method Indwelling Catheter # Voids 1 - Labs CBC & Chem 7: 09/24/21 09:08 09/24/21 10:14 Labs: Abnormal Lab Results - Last 24 Hours (Table) 09/23/21 09/24/21 09/24/21 Range/Units 02:33 09:08 10:14 RBC 3.57 L (3.80-5.40) m/uL MCV 105.9 H (80.0-100.0) fL MCH 36.1 H (25.0-35.0) pg Plt Count 122 L (150-450) k/uL Sodium 135 L (137-145) mmol/L BUN 5 L (7-17) mg/dL Magnesium 1.4 L (1.6-2.3) mg/dL RBC Folate 935 H (280 - 791) ng/mL Assessment and Plan Plan: Assessment: 1. Toxic alcohol ingestion. From the records it appears she drank hand interventional physician - patient denies. Patient is not acidotic. PH 7.46 this morning. Bicarb level 24. Anion gap 5. Osmolar gap was -9 on admission. No evidence of acute kidney injury. Nonoliguric. Poison control following. Currently on IV fluids. Volatile screen negative. Ethyl alcohol level high. 2. Schizophrenia. 3. Hypokalemia from poor intake. Replaced. 4. Hypomagnesemia from poor intake. Replaced. Plan: I will sign off. Please call with any questions or concerns.
[2021-09-25] MEDS ORDERED: amLODIPine 5 MG TAB PO SCH (09:00)
--- NOTE | 2021-09-25 11:04 | P.DS ---
Providers Date of admission: 09/22/21 04:40 Expected date of discharge: 09/25/21 Attending physician: Anne Marie Tovar MD Consults: 09/22/21 04:40 Consult Physician Routine Consulting Provider: Servando Arnold Consult Reason/Comments: icu Do you want consulting provider notified?: Yes 09/22/21 05:18 Consult Physician Routine Consulting Provider: Ana Lawson Consult Reason/Comments: toxicIngestion Do you want consulting provider notified?: Yes 09/23/21 12:59 Consult Physician Routine Consulting Provider: Hunter Trujillo Consult Reason/Comments: Drinking hand sanitizers Do you want consulting provider notified?: Yes 09/23/21 18:08 Consult Physician Routine Consulting Provider: Lazaro Jimenez Consult Reason/Comments: ingested hand hostler helper/alcohol Do you want consulting provider notified?: Yes Primary care physician: [facility] Course: This is a 36-year-old female with past medical history noted below that presented to the emergency room after she was found unresponsive and was intubated by EMS secondary to altered mental status and inability to protect her airway. She was brought into the emergency room and was found to be intoxicated with alcohol. She is currently admitted for further management of her medical problems noted below. 1. Alcohol intoxication with toxic encephalopathy 2. Acute hypoxic respiratory failure requiring intubation and mechanical ventilation secondary to patient being unable to protect her airway extubated successfully on 09/23 3. Heavy alcohol use including drinking hand hostler helper 4. Underlying schizophrenia and bipolar disorder 5. Underlying seizure disorder on Keppra 6. Hypokalemia and hypomagnesemia, replaced Patient was seen and evaluated by psychiatry. She is not a candidate for inpatient psych. Her psychiatric regimen was adjusted. She is willing to go to [place] for rehab. She need to go home first to get her belongings. Plan discussed with social media community manager. Patient will be discharged home in a stable condition. Physical exam: General: The patient is awake and alert, in no distress Eye: there is normal conjunctiva bilaterally. Neck: The neck is supple, there is no JVD. Cardiovascular: Normal S1-S2, no S3-S4, no murmurs. Respiratory: Lungs clear to auscultation bilaterally Gastrointestinal: Abdomen is soft, nontender Musculoskeletal: There is no pedal edema. Neurological:. Speech is normal. Skin: Skin is warm and dry Patient Condition at Discharge: Serious Plan - Discharge Summary New Discharge Prescriptions: New Magnesium Oxide [Mag-Ox] 400 mg PO BID #14 tablet amLODIPine [Norvasc] 5 mg PO DAILY #30 tab Folic Acid 1 mg PO DAILY #30 tablet Thiamine [Vitamin B-1] 100 mg PO BID-W/MEALS #30 tab Continue levETIRAcetam [Keppra] 500 mg PO BID QUEtiapine [SEROquel] 100 mg PO HS traZODone HCL 300 mg PO HS OLANZapine [ZyPREXA] 5 mg PO DAILY Gabapentin 600 mg PO HS cloNIDine HCL 0.1 mg PO BID Gabapentin 300 mg PO QAM Discontinued risperiDONE [RisperDAL] 1 mg PO HS Vienva 1 tab PO DAILY Discharge Medication List levETIRAcetam [Keppra] 500 mg PO BID 04/01/20 [History] Gabapentin 300 mg PO QAM 09/22/21 [History] Gabapentin 600 mg PO HS 09/22/21 [History] OLANZapine [ZyPREXA] 5 mg PO DAILY 09/22/21 [History] QUEtiapine [SEROquel] 100 mg PO HS 09/22/21 [History] cloNIDine HCL 0.1 mg PO BID 09/22/21 [History] traZODone HCL 300 mg PO HS 09/22/21 [History] Folic Acid 1 mg PO DAILY #30 tablet 09/25/21 [Rx] Magnesium Oxide [Mag-Ox] 400 mg PO BID #14 tablet 09/25/21 [Rx] Thiamine [Vitamin B-1] 100 mg PO BID-W/MEALS #30 tab 09/25/21 [Rx] amLODIPine [Norvasc] 5 mg PO DAILY #30 tab 09/25/21 [Rx] Follow up Appointment(s)/Referral(s): Douglas Evans MD [Primary Care Provider] - 1-2 days Discharge Disposition: HOME SELF-CARE
[2021-09-25 13:53] LABS: African American GFR (CKD) 129.4 (60.0-200.0); Anion Gap 16.1 mmol/L (4.00-12.00); BUN/Creat Ratio 7.66 Ratio (12.00-20.00); Blood Urea Nitrogen 5.1 mg/dL (9.0-27.0); Carbon Dioxide 19.1 mmol/L (21.6-31.8); Magnesium 1.6 mg/dL (1.5-2.4); Non-African American GFR(CKD) 111.7 (60.0-200.0); Potassium 3.8 mmol/L (3.5-5.5)
[2021-09-25] MEDS ORDERED: MAGNESIUM SULFATE-D5W PMX 1 GM in DEXTROSE/WATER 1 100ML.BAG IVPB SCH (14:30)
[2021-09-25 14:48] VITALS: BP 116/83; PULSE 70; TEMP 98.8
== END 2021-09-25 15:02 | disposition home or self-care (01) | DRG 917 ==
LOC: EC 02:54 → 2SICU 04:40 → EEVIPCON 04:40 → 2SICU 07:43 → 4SSUR 09-23 22:16
PROVIDERS: ADMIT Internal Medicine; ATTEND Internal Medicine
PROC: 0BH17EZ Insertion of Endotracheal Airway into Trachea, Via Natural or Artificial Opening (ICD-10-PCS; principal; 2021-09-22)
PROC: 5A1935Z Respiratory Ventilation, Less than 24 Consecutive Hours (ICD-10-PCS; 2021-09-22)
DX: T49.0X4A Poisoning by local antifungal, anti-infective and anti-inflammatory drugs, undetermined, initial encounter (principal); J96.01 Acute respiratory failure with hypoxia; E87.2 Acidosis; F10.239 Alcohol dependence with withdrawal, unspecified; F10.251 Alcohol dependence with alcohol-induced psychotic disorder with hallucinations; F31.30 Bipolar disorder, current episode depressed, mild or moderate severity, unspecified; Z20.822 Contact with and (suspected) exposure to COVID-19; E83.42 Hypomagnesemia; E87.6 Hypokalemia; F10.229 Alcohol dependence with intoxication, unspecified; F17.200 Nicotine dependence, unspecified, uncomplicated; F20.9 Schizophrenia, unspecified; F41.9 Anxiety disorder, unspecified; G40.909 Epilepsy, unspecified, not intractable, without status epilepticus; Y90.8 Blood alcohol level of 240 mg/100 ml or more; Z79.899 Other long term (current) drug therapy
CPT/HCPCS: 36415; 36600; 70450; 71045; 72125; 80048; 80053; 80143; 80179; 80306; 80320; 82248; 82607; 82747; 82805; 83605; 83690; 83735; 83930; 83935; 84100; 84600; 85025; 93005; 94002; 94003; 96361; 96372; 96374; 99291

== ENCOUNTER 2021-10-04 21:30 | Observation (INO) | payer OTHER ==
[2021-10-04] MEDS ORDERED: SODIUM CHLORIDE 0.9% 2,000 ML IV STA (21:54)
[2021-10-04 22:15] LABS: Basophils # (A) 0.1 k/uL (0-0.2); Basophils % (A) 1 %; Eosinophils # (A) 0.1 k/uL (0-0.7); Eosinophils % (A) 1 %; HCT 43.8 % (34.0-46.0); HGB 14.8 gm/dL (11.4-16.0); Lymphocytes # (A) 3.7 k/uL (1.0-4.8); Lymphocytes % (A) 51 %; MCH 35.9 pg (25.0-35.0); MCHC 33.7 g/dL (31.0-37.0); MCV 106.6 fL (80.0-100.0); Macrocytosis Moderate; Mean Platelet Volume 7.3; Monocytes # (A) 0.2 k/uL (0-1.0); Monocytes % (A) 2 %; Neutrophils % (A) 40 %; RBC 4.11 m/uL (3.80-5.40); RDW 13.9 % (11.5-15.5); WBC 7.3 k/uL (3.8-10.6)
[2021-10-04 22:32] LABS: Platelet Count 288 k/uL (150-450)
[2021-10-04 22:37] LABS: ALT 24 U/L (4-34); AST 53 U/L (14-36); Acetaminophen <10.0 ug/mL; African American GFR (CKD) >90 (>60 ml/min/1.73 sqM); Albumin 4.4 g/dL (3.5-5.0); Alkaline Phosphatase 81 U/L (38-126); Anion Gap 18 mmol/L; Blood Urea Nitrogen 9 mg/dL (7-17); Calcium 8.3 mg/dL (8.4-10.2); Carbon Dioxide 20 mmol/L (22-30); Chloride 105 mmol/L (98-107); Glucose 107 mg/dL (74-99); Non-African American GFR(CKD) >90 (>60 ml/min/1.73 sqM); Potassium 4.3 mmol/L (3.5-5.1); Salicylate <1.0 mg/dL; Sodium 143 mmol/L (137-145); Total Bilirubin 0.3 mg/dL (0.2-1.3); Total Protein 7.7 g/dL (6.3-8.2)
[2021-10-04 23:00] LABS: Alcohol 587 mg/dL
[2021-10-05] MEDS ORDERED: LORazepam 2 MG/ML INJ IV PRN ×3 (00:02)
[2021-10-05] MEDS ORDERED: THIAMINE 100 MG/ML 2 ML VIAL IM STA (00:02)
--- NOTE | 2021-10-05 00:02 | ED ---
Alcohol HPI - General Chief Complaint: Alcohol Stated Complaint: ETOH Time Seen by Provider: 10/04/21 21:45 Source: patient, RN/MD Mode of arrival: EMS Limitations: altered mental status, physical limitation - History of Present Illness Initial Comments: 36-year-old female with past history of schizophrenia, seizure disorder, heavy daily alcohol abuse presents from home by EMS. EMS were called by the patient's mother because she was found unresponsive. She was breathing with a pulse. She was given 400 mL of normal saline and 4 mg of Zofran. Patient is known for heavy alcohol abuse. Mother reports that she drank a fifth in the morning and a second one in the afternoon. Patient was intubated 10 days ago from significant alcohol intoxication. Patient denies that she is drinking alcohol in order to harm herself. She denies using any other drugs. No reported injuries while intoxicated. Denies concern for . No other alleviating, precipitating or modifying factors - Related Data Home Medications Medication Instructions Recorded Confirmed levETIRAcetam [Keppra] 500 mg PO BID 04/01/20 10/04/21 Gabapentin 300 mg PO QAM 09/22/21 10/04/21 Gabapentin 600 mg PO HS 09/22/21 10/04/21 OLANZapine [ZyPREXA] 5 mg PO DAILY 09/22/21 10/04/21 QUEtiapine [SEROquel] 100 mg PO HS 09/22/21 10/04/21 cloNIDine HCL 0.1 mg PO BID 09/22/21 10/04/21 traZODone HCL 300 mg PO HS 09/22/21 10/04/21 Previous Rx's Medication Instructions Recorded Folic Acid 1 mg PO DAILY #30 tablet 09/25/21 Magnesium Oxide [Mag-Ox] 400 mg PO BID #14 tablet 09/25/21 Thiamine [Vitamin B-1] 100 mg PO BID-W/MEALS #30 tab 09/25/21 amLODIPine [Norvasc] 5 mg PO DAILY #30 tab 09/25/21 Allergies Allergy/AdvReac Type Severity Reaction Status Date / Time No Known Allergies Allergy Verified 10/04/21 22:54 Review of Systems ROS Statement: Those systems with pertinent positive or pertinent negative responses have been documented in the HPI. ROS Other: All systems not noted in ROS Statement are negative. 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, previous history of alcohol withdrawal syndrome and previous history of alcohol intoxication and previous history of delirium/hallucinations History of Any Multi-Drug Resistant Organisms: None Reported Past Surgical History: No Surgical Hx Reported Past Psychological History: Anxiety, Bipolar, Depression, Schizophrenia Smoking Status: Current every day smoker Past Alcohol Use History: Abuse, Daily, Heavy Past Drug Use History: None Reported - Past Family History Mother Family Medical History: Unable to Obtain Additional Family Medical History / Comment(s): Patient sedated and intubated General Exam Limitations: altered mental status, physical limitation General appearance: appears intoxicated, obtunded Head exam: Present: atraumatic, normocephalic, normal inspection Eye exam: Present: conjunctival injection ENT exam: Present: mucous membranes moist Neck exam: Present: normal inspection. Absent: tenderness, meningismus, lymphadenopathy Respiratory exam: Present: normal lung sounds bilaterally. Absent: respiratory distress, wheezes, rales, rhonchi, stridor Cardiovascular Exam: Present: normal rhythm, tachycardia GI/Abdominal exam: Present: soft, normal bowel sounds. Absent: distended, tenderness, guarding, rebound, rigid Extremities exam: Present: normal inspection, full ROM, normal capillary refill. Absent: tenderness, pedal edema, joint swelling, calf tenderness Neurological exam: Present: altered Psychiatric exam: Present: flat affect Course Vital Signs 10/04/21 10/04/21 10/04/21 21:40 22:09 23:00 Temperature 97.7 F Pulse Rate 103 H 95 96 Pulse Rate [ Log Roper ] Respiratory 16 18 18 Rate Blood Pressure 143/96 128/88 117/82 Blood Pressure [Left Arm Supine] O2 Sat by Pulse 86 L 98 98 Oximetry 10/05/21 10/05/21 10/05/21 00:00 01:00 02:00 Temperature 98.2 F Pulse Rate 98 94 93 Pulse Rate [ 104 H Log Roper ] Respiratory 18 18 18 Rate Blood Pressure 106/67 105/69 104/67 Blood Pressure 105/69 [Left Arm Supine] O2 Sat by Pulse 96 97 96 Oximetry 10/05/21 10/05/21 10/05/21 03:00 04:00 05:00 Temperature Pulse Rate 87 89 86 Pulse Rate [ Log Roper ] Respiratory 18 18 18 Rate Blood Pressure 100/64 97/62 Blood Pressure [Left Arm Supine] O2 Sat by Pulse 96 97 96 Oximetry 10/05/21 10/05/21 10/05/21 06:00 12:00 15:44 Temperature 98.1 F 98.3 F 98.5 F Pulse Rate 90 104 H Pulse Rate [ 95 Log Roper ] Respiratory 18 18 20 Rate Blood Pressure 103/72 103/83 Blood Pressure 95/63 [Left Arm Supine] O2 Sat by Pulse 96 97 Oximetry Medical Decision Making - Medical Decision Making Upon arrival patient was placed into room 2. Patient is clinically intoxicated however does answer questions appropriately for me. Laboratory studies are conducted which demonstrates an alcohol level of 587. Recommended admission for alcohol intoxication. Spoke with Dr. Tovar who agreed to admit the patient. - Lab Data Result diagrams: 10/06/21 05:30 10/06/21 05:30 Lab Results 10/04/21 10/04/21 10/04/21 Range/Units 21:59 21:59 21:59 WBC 7.3 (3.8-10.6) k/uL RBC 4.11 (3.80-5.40) m/uL Hgb 14.8 (11.4-16.0) gm/dL Hct 43.8 (34.0-46.0) % MCV 106.6 H (80.0-100.0) fL MCH 35.9 H (25.0-35.0) pg MCHC 33.7 (31.0-37.0) g/dL RDW 13.9 (11.5-15.5) % Plt Count 288 D (150-450) k/uL MPV 7.3 Neutrophils % 40 % Lymphocytes % 51 % Monocytes % 2 % Eosinophils % 1 % Basophils % 1 % Neutrophils # 3.0 (1.3-7.7) k/uL Lymphocytes # 3.7 (1.0-4.8) k/uL Monocytes # 0.2 (0-1.0) k/uL Eosinophils # 0.1 (0-0.7) k/uL Basophils # 0.1 (0-0.2) k/uL Macrocytosis Moderate Sodium (137-145) mmol/L Potassium (3.5-5.1) mmol/L Chloride (98-107) mmol/L Carbon Dioxide (22-30) mmol/L Anion Gap mmol/L BUN (7-17) mg/dL Creatinine (0.52-1.04) mg/dL Est GFR (CKD-EPI)AfAm (>60 ml/min/1.73 sqM) Est GFR (CKD-EPI)NonAf (>60 ml/min/1.73 sqM) Glucose (74-99) mg/dL Calcium (8.4-10.2) mg/dL Total Bilirubin (0.2-1.3) mg/dL AST (14-36) U/L ALT (4-34) U/L Alkaline Phosphatase (38-126) U/L Total Protein (6.3-8.2) g/dL Albumin (3.5-5.0) g/dL Urine HCG, Qual Not Detected (Not Detectd) Salicylates mg/dL Urine Opiates Screen Not Detected (NotDetected) Ur Oxycodone Screen Not Detected (NotDetected) Urine Methadone Screen Not Detected (NotDetected) Ur Propoxyphene Screen Not Detected (NotDetected) Acetaminophen ug/mL Ur Barbiturates Screen Not Detected (NotDetected) U Tricyclic Antidepress Not Detected (NotDetected) Ur Phencyclidine Scrn Not Detected (NotDetected) Ur Amphetamines Screen Not Detected (NotDetected) U Methamphetamines Scrn Not Detected (NotDetected) U Benzodiazepines Scrn Not Detected (NotDetected) Urine Cocaine Screen Not Detected (NotDetected) U Marijuana (THC) Screen Not Detected (NotDetected) Serum Alcohol mg/dL 10/04/21 Range/Units 21:59 WBC (3.8-10.6) k/uL RBC (3.80-5.40) m/uL Hgb (11.4-16.0) gm/dL Hct (34.0-46.0) % MCV (80.0-100.0) fL MCH (25.0-35.0) pg MCHC (31.0-37.0) g/dL RDW (11.5-15.5) % Plt Count (150-450) k/uL MPV Neutrophils % % Lymphocytes % % Monocytes % % Eosinophils % % Basophils % % Neutrophils # (1.3-7.7) k/uL Lymphocytes # (1.0-4.8) k/uL Monocytes # (0-1.0) k/uL Eosinophils # (0-0.7) k/uL Basophils # (0-0.2) k/uL Macrocytosis Sodium 143 (137-145) mmol/L Potassium 4.3 (3.5-5.1) mmol/L Chloride 105 (98-107) mmol/L Carbon Dioxide 20 L (22-30) mmol/L Anion Gap 18 mmol/L BUN 9 (7-17) mg/dL Creatinine 0.63 (0.52-1.04) mg/dL Est GFR (CKD-EPI)AfAm >90 (>60 ml/min/1.73 sqM) Est GFR (CKD-EPI)NonAf >90 (>60 ml/min/1.73 sqM) Glucose 107 H (74-99) mg/dL Calcium 8.3 L (8.4-10.2) mg/dL Total Bilirubin 0.3 (0.2-1.3) mg/dL AST 53 H (14-36) U/L ALT 24 (4-34) U/L Alkaline Phosphatase 81 (38-126) U/L Total Protein 7.7 (6.3-8.2) g/dL Albumin 4.4 (3.5-5.0) g/dL Urine HCG, Qual (Not Detectd) Salicylates <1.0 mg/dL Urine Opiates Screen (NotDetected) Ur Oxycodone Screen (NotDetected) Urine Methadone Screen (NotDetected) Ur Propoxyphene Screen (NotDetected) Acetaminophen <10.0 ug/mL Ur Barbiturates Screen (NotDetected) U Tricyclic Antidepress (NotDetected) Ur Phencyclidine Scrn (NotDetected) Ur Amphetamines Screen (NotDetected) U Methamphetamines Scrn (NotDetected) U Benzodiazepines Scrn (NotDetected) Urine Cocaine Screen (NotDetected) U Marijuana (THC) Screen (NotDetected) Serum Alcohol 587 H* mg/dL - EKG Data EKG Comments: EKG demonstrates a normal sinus rhythm with a ventricular rate of 95. TN interval 140. QRS 88. QTC of 472. No acute ST segment elevations or depressions Disposition Clinical Impression: Alcohol use disorder, severe, dependence Disposition: ADMITTED IP TO THIS [facility] Condition: Serious Is patient prescribed a controlled substance at d/c from ED?: No Decision to Admit Reason: Admit from EC Decision Date: 10/05/21 Decision Time: 00:02
[2021-10-05] MEDS ORDERED: NALOXONE 0.4 MG/ML 1 ML VIAL IV PRN (00:03)
[2021-10-05] MEDS: SODIUM CHLORIDE 0.9% 1,000 ML IV SCH ×3 (00:34→17:47)
[2021-10-05 00:36] LABS: Amphetamine Screen,Urine Not Detected (NotDetected); Barbiturate Screen,Urine Not Detected (NotDetected); Benzodiazepines Screen,Urine Not Detected (NotDetected); Cocaine Screen,Urine Not Detected (NotDetected); Methadone Screen, Urine Not Detected (NotDetected); Opiate Screen,Urine Not Detected (NotDetected); Oxycodone Screen, Urine Not Detected (NotDetected); Phencyclidine Screen,Urine Not Detected (NotDetected); Tricyclic Antidepressant,Urine Not Detected (NotDetected); Urn Cannabinoid Scrn Not Detected (NotDetected)
--- NOTE | 2021-10-05 02:09 | P.HPIM ---
History of Present Illness H&P Date: 10/05/21 The patient is a 36-year-old female with a PMH of significant alcohol abuse and hypertension who presents to the emergency room with alcohol intoxication. Patient reports that she continues to drink 10-12 large drinks of vodka daily. She reports a history of alcohol withdrawal seizures and requiring IV Ativan infusions. Of note, the patient was recently hospitalized after being intubated for alcohol intoxication. The patient denied any active complaints at the time of interview. She reports feeling better after moving to the hospital. She denied chest discomfort, shortness of breath, fever, chills, cough. She denied nausea, vomiting, abdominal pain, diarrhea. She does wish to go down on her drinking and is open to going to a rehab or detox facility. Patient's alcohol level in the emergency room was 587. Review of systems: Pertinent positives and negatives as discussed in HPI, a complete review of systems was performed and all other systems are negative. Physical examination: General: non toxic, no distress, appears at stated age, normal weight Derm: no unusual rashes/lesions no unusual ecchymoses, warm, dry Head: atraumatic, normocephalic, symmetric Eyes: EOMI, no lid lag, anicteric sclera, pupils equal round reactive to light ENT: Nose and ears atraumatic, no thrush, no pharyngeal erythema Neck: No thyromegaly, no cervical lymphadenopathy, trachea midline, supple Mouth: no lip lesion, mucus membranes moist Cardiovascular: S1S2 reg, no murmur, positive posterior tibial pulse bilateral, no edema, capillary refill less than 2 seconds Lungs: CTA bilateral, no rhonchi, no rales , no accessory muscle use Abdominal: soft, nontender to palpation, no guarding, no appreciable organomegaly, normal bowel sounds Ext: no gross muscle atrophy, muscle strength 5 out of 5 in all 4 extremities grossly, no contractures, Neuro: CN II-XI grossly intact, light touch intact all 4 extremities, mild outstretched hand tremor Psych: Alert, oriented, appropriate affect Assessment/plan Alcohol intoxication, impending withdrawal -[facility] protocol -Librium -Fall, seizure, aspiration precautions -Folic acid -Monitor electrolytes -IV fluids -Thiamine -Strongly advised on importance of cessation Macrocytosis -Check B12 and folate levels DVT prophylaxis -Heparin subcu The patient is admitted with an anticipated less than 2 midnight stay for evaluation of EtOH abuse. 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, previous history of alcohol withdrawal syndrome and previous history of alcohol intoxication and previous history of delirium/hallucinations History of Any Multi-Drug Resistant Organisms: None Reported Past Surgical History: No Surgical Hx Reported Past Psychological History: Anxiety, Bipolar, Depression, Schizophrenia Smoking Status: Current every day smoker Past Alcohol Use History: Abuse, Daily, Heavy Past Drug Use History: None Reported - Past Family History Mother Family Medical History: Liver Disease Medications and Allergies Home Medications Medication Instructions Recorded Confirmed Type levETIRAcetam [Keppra] 500 mg PO BID 04/01/20 10/04/21 History Gabapentin 300 mg PO QAM 09/22/21 10/04/21 History Gabapentin 600 mg PO HS 09/22/21 10/04/21 History OLANZapine [ZyPREXA] 5 mg PO DAILY 09/22/21 10/04/21 History QUEtiapine [SEROquel] 100 mg PO HS 09/22/21 10/04/21 History cloNIDine HCL 0.1 mg PO BID 09/22/21 10/04/21 History traZODone HCL 300 mg PO HS 09/22/21 10/04/21 History Folic Acid 1 mg PO DAILY #30 tablet 09/25/21 10/04/21 Rx Magnesium Oxide [Mag-Ox] 400 mg PO BID #14 tablet 09/25/21 10/04/21 Rx Thiamine [Vitamin B-1] 100 mg PO BID-W/MEALS #30 tab 09/25/21 10/04/21 Rx amLODIPine [Norvasc] 5 mg PO DAILY #30 tab 09/25/21 10/04/21 Rx Allergies Allergy/AdvReac Type Severity Reaction Status Date / Time No Known Allergies Allergy Verified 10/04/21 22:54 Physical Exam Vitals: Vital Signs Temp Pulse Pulse Resp BP BP Pulse Ox 10/05/21 01:00 98.2 F 104 H 18 105/69 95 10/05/21 00:00 98 18 106/67 96 10/04/21 23:00 96 18 117/82 98 10/04/21 22:09 95 18 128/88 98 11/22/21 21:40 97.7 F 103 H 16 143/96 86 L Intake and Output 10/04/21 10/04/21 10/05/21 14:59 22:59 06:59 Other: Weight 66.361 kg 66.361 kg Results CBC & Chem 7: 10/04/21 21:59 10/04/21 21:59 Labs: Abnormal Lab Results - Last 24 Hours (Table) 10/04/21 10/04/21 Range/Units 21:59 21:59 MCV 106.6 H (80.0-100.0) fL MCH 35.9 H (25.0-35.0) pg Carbon Dioxide 20 L (22-30) mmol/L Glucose 107 H (74-99) mg/dL Calcium 8.3 L (8.4-10.2) mg/dL AST 53 H (14-36) U/L Serum Alcohol 587 H* mg/dL Thrombosis Risk Factor Assmnt - Choose All That Apply Any of the Below Risk Factors Present?: Yes Each Factor Represents 1 point: Age 41-60 years Thrombosis Risk Factor Assessment Total Risk Factor Score: 1 Thrombosis Risk Factor Assessment Level: Low Risk
[2021-10-05] MEDS: diazePAM 5 MG TAB PO SCH ×4 (04:18→20:32)
[2021-10-05] MEDS: MAGNESIUM OXIDE 400 MG TAB PO SCH ×3 (04:18→20:32)
[2021-10-05] MEDS: cloNIDine HCL 0.1 MG TAB PO SCH ×3 (04:18→20:32)
[2021-10-05] MEDS: levETIRAcetam 500 MG TAB PO SCH ×3 (04:22→20:32)
[2021-10-05 06:33] LABS: HCT 38.1 % (34.0-46.0); HGB 12.7 gm/dL (11.4-16.0); MCH 35.5 pg (25.0-35.0); MCHC 33.4 g/dL (31.0-37.0); MCV 106.1 fL (80.0-100.0); Macrocytosis Moderate; Mean Platelet Volume 7.4; Platelet Count 256 k/uL (150-450); RBC 3.59 m/uL (3.80-5.40); RDW 14.2 % (11.5-15.5)
[2021-10-05 06:49] LABS: ALT 19 U/L (4-34); AST 44 U/L (14-36); African American GFR (CKD) >90 (>60 ml/min/1.73 sqM); Albumin 3.5 g/dL (3.5-5.0); Albumin/Globulin Ratio 1.2; Alkaline Phosphatase 65 U/L (38-126); Anion Gap 11 mmol/L; Blood Urea Nitrogen 7 mg/dL (7-17); Calcium 7.5 mg/dL (8.4-10.2); Carbon Dioxide 21 mmol/L (22-30); Chloride 113 mmol/L (98-107); Glucose 90 mg/dL (74-99); Magnesium 1.8 mg/dL (1.6-2.3); Non-African American GFR(CKD) >90 (>60 ml/min/1.73 sqM); Potassium 4.4 mmol/L (3.5-5.1); Sodium 145 mmol/L (137-145); Total Bilirubin 0.2 mg/dL (0.2-1.3); Total Protein 6.5 g/dL (6.3-8.2)
[2021-10-05] MEDS: amLODIPine 5 MG TAB PO SCH (10:35)
[2021-10-05] MEDS: OLANZapine 5 MG TAB PO SCH (10:35)
[2021-10-05] MEDS: GABAPENTIN 300 MG CAP PO SCH ×2 (10:35→20:32)
[2021-10-05] MEDS: THIAMINE 100 MG TAB PO SCH (17:53)
[2021-10-05] MEDS: traZODone HCL 100 MG TAB PO SCH (22:18)
[2021-10-06] MEDS: SODIUM CHLORIDE 0.9% 1,000 ML IV SCH ×3 (00:33→18:00)
[2021-10-06 06:29] LABS: Basophils % (A) 1 %; Eosinophils # (A) 0.2 k/uL (0-0.7); Eosinophils % (A) 2 %; HCT 39.1 % (34.0-46.0); HGB 12.9 gm/dL (11.4-16.0); Lymphocytes # (A) 3.2 k/uL (1.0-4.8); Lymphocytes % (A) 42 %; MCH 35.5 pg (25.0-35.0); MCHC 32.9 g/dL (31.0-37.0); MCV 107.7 fL (80.0-100.0); Macrocytosis Moderate; Mean Platelet Volume 7.5; Monocytes # (A) 0.3 k/uL (0-1.0); Monocytes % (A) 4 %; Neutrophils # (A) 3.8 k/uL (1.3-7.7); Neutrophils % (A) 49 %; Platelet Count 241 k/uL (150-450); RBC 3.63 m/uL (3.80-5.40); RDW 13.7 % (11.5-15.5); WBC 7.7 k/uL (3.8-10.6)
[2021-10-06] MEDS: THIAMINE 100 MG TAB PO SCH ×2 (07:41→18:00)
[2021-10-06] MEDS: MAGNESIUM OXIDE 400 MG TAB PO SCH ×2 (07:41→20:12)
[2021-10-06] MEDS: GABAPENTIN 300 MG CAP PO SCH ×2 (07:41→20:12)
[2021-10-06] MEDS: levETIRAcetam 500 MG TAB PO SCH ×2 (07:41→20:12)
[2021-10-06] MEDS: cloNIDine HCL 0.1 MG TAB PO SCH ×2 (07:41→20:12)
[2021-10-06] MEDS: amLODIPine 5 MG TAB PO SCH (07:41)
[2021-10-06] MEDS: diazePAM 5 MG TAB PO SCH ×3 (07:42→20:12)
[2021-10-06] MEDS ORDERED: ACETAMINOPHEN TAB 325 MG TAB PO PRN (08:06)
[2021-10-06] MEDS: OLANZapine 5 MG TAB PO SCH (08:16)
[2021-10-06 10:01] LABS: African American GFR (CKD) 127.4 (60.0-200.0); Anion Gap 11.7 mmol/L (10.00-18.00); BUN/Creat Ratio 11.71 Ratio (12.00-20.00); Blood Urea Nitrogen 8.2 mg/dL (9.0-27.0); Calcium 8.1 mg/dL (8.7-10.3); Carbon Dioxide 23.3 mmol/L (20.0-27.5); Non-African American GFR(CKD) 109.9 (60.0-200.0); Potassium 4.2 mmol/L (3.5-5.5)
[2021-10-06] MEDS: traZODone HCL 100 MG TAB PO SCH (20:12)
--- NOTE | 2021-10-06 21:39 | P.PN ---
Subjective Progress Note Date: 10/06/21 (brandon charting seen at 1630) Principal diagnosis: ETOH intoxication Patient is a 36-year-old female with a history of alcohol abuse, hypertension, and prior seizure related to alcohol withdrawal who presented to the ER with complaints of alcohol abuse and wanting to maintain sobriety. In the ER she was found have a room air pulse ox of 86%. Laboratory analysis showed macrocytosis. Blood alcohol was 587. Arrangements are made for admission secondary to impend ing alcohol withdrawal with history of seizure. She was admitted and started on Valium and CIWA protocol. She was also noted to have macrocytosis. B12 and RBC folate were normal. She was maintained on her Keppra, Norvasc, Seroquel, Zyprexa, and gabapentin. She was also started on thiamine and folic acid. Patient seen and examined at bedside. She reports that she is not having any significant signs of alcohol withdrawal. She denies any headache, lightheadedness, dizziness, nausea, vomiting, tremors, tactile hallucinations. Discussed with her mom over the phone. Patient mother agree that she has an intake at [facility] at 12:00 on Monday. Mother will be able to take control of her value medications and is an ICU nurse. This will be a recurrent stent at [facility] for the patient she has been struggling with alcoholism for several years. General: Nontoxic, no distress, appears at stated age Derm: warm, dry Head: atraumatic, normocephalic, symmetric Eyes: EOMI, no lid lag, anicteric sclera Mouth: no lip lesion, mucus membranes moist Cardiovascular: S1S2 reg, no murmur, positive posterior tibial pulse bilateral, Lungs: CTA bilateral, no rhonchi, no rales , no accessory muscle use Abdominal: soft, nontender to palpation, no guarding, no appreciable organomegaly Ext: no gross muscle atrophy, no edema, no contractures Neuro: CN II-XI grossly intact, no focal neuro deficits, no tremors Psych: Alert, oriented, sedated affect Alcohol intoxication with mild withdrawal -Continue with Valium, CIWA protocol -Continue with thiamine, full acid -Patient has intake at [facility] on 10/08 -Discussed with mother with a home in a.m. with continued Valium taper. Macrocytosis -B12 and folate levels are normal -Suspect secondary to alcohol intake Chronic: Schizophrenia Bipolar Cognitive impairment secondary to alcoholism Likely home in a.m. Objective - Vital Signs Vital signs: Vital Signs Temp 98.5 F 10/06/21 11:06 Pulse 65 10/06/21 11:06 Resp 18 10/06/21 11:06 BP 109/71 10/06/21 11:06 Pulse Ox 97 10/06/21 11:06 Intake & Output 10/06/21 10/06/21 10/07/21 06:59 18:59 06:59 Intake Total 1040 1560 Balance 1040 1560 Intake: Intake, IV Titration 1040 1560 Amount Sodium Chloride 0.9% 1, 1040 1560 000 ml @ 130 mls/hr IV . [id number] [facility] Rx#:[id number] Other: # Voids 5 - Labs CBC & Chem 7: 10/06/21 05:30 10/06/21 05:30 Labs: Abnormal Lab Results - Last 24 Hours (Table) 10/06/21 10/06/21 Range/Units 05:30 05:30 RBC 3.63 L (3.80-5.40) m/uL MCV 107.7 H (80.0-100.0) fL MCH 35.5 H (25.0-35.0) pg BUN 8.2 L (9.0-27.0) mg/dL BUN/Creatinine Ratio 11.71 L (12.00-20.00) Ratio Calcium 8.1 L (8.7-10.3) mg/dL
[2021-10-07] MEDS: SODIUM CHLORIDE 0.9% 1,000 ML IV SCH ×2 (00:10→08:41)
[2021-10-07 04:32] VITALS: BP 155/87; PULSE 60; RESP 20; TEMP 97.5
[2021-10-07] MEDS: GABAPENTIN 300 MG CAP PO SCH (08:48)
[2021-10-07] MEDS: levETIRAcetam 500 MG TAB PO SCH (08:48)
[2021-10-07] MEDS: THIAMINE 100 MG TAB PO SCH (08:49)
[2021-10-07] MEDS: cloNIDine HCL 0.1 MG TAB PO SCH (08:49)
[2021-10-07] MEDS: MAGNESIUM OXIDE 400 MG TAB PO SCH (08:49)
[2021-10-07] MEDS: amLODIPine 5 MG TAB PO SCH (08:49)
[2021-10-07] MEDS: OLANZapine 5 MG TAB PO SCH (08:50)
[2021-10-07] MEDS ORDERED: diazePAM 5 MG TAB PO SCH (09:00)
--- NOTE | 2021-10-07 18:27 | P.DS ---
Providers Date of admission: 10/05/21 00:03 Expected date of discharge: 10/07/21 Attending physician: Anne Marie Tovar MD Primary care physician: [facility] Course: Discharge Diagnosis: Alcohol withdrawal Acute alcohol intoxication on arrival Macrocytosis Schizophrenia/bipolar disorder Hospital Course: Patient is a 36-year-old female with a history of alcohol abuse, hypertension, and prior seizure related to alcohol withdrawal who presented to the ER with complaints of alcohol abuse and wanting to maintain sobriety. In the ER she was found have a room air pulse ox of 86%. Laboratory analysis showed macrocytosis. Blood alcohol was 587. Arrangements are made for admission secondary to impending alcohol withdrawal with history of seizure. She was admitted and started on Valium and CIWA protocol. She was also noted to have macrocytosis. B12 and RBC folate were normal. She was maintained on her Keppra, Norvasc, Seroquel, Zyprexa, and gabapentin. She was also started on thiamine and folic acid. She continued to do well and was not requiring any Ativan dosing. It was confirmed with her mother that she would be able controlled with Valium and ho use. Claudia has a intake appointment at [facility] on 10/08. Patient was subsequently discharged home. It was made clear to her and her mother that combining Valium with alcohol need to overdose in . Mother is ICU nurse and ensure she will keep the medications. Patient seen and examined at bedside. Feeling well. Denies any chest pain, shortness breath, nausea, vomiting. Vital signs reviewed and stable. General: non toxic, no distress, appears at stated age Derm: warm, dry Head: atraumatic, normocephalic, symmetric Eyes: EOMI, no lid lag, anicteric sclera Mouth: no lip lesion, mucus membranes moist Cardiovascular: S1S2 reg, no murmur, positive posterior tibial pulse bilateral, Lungs: CTA bilateral, no rhonchi, no rales , no accessory muscle use Abdominal: soft, nontender to palpation, no guarding, no appreciable organomegaly Ext: no gross muscle atrophy, no edema, no contractures Neuro: CN II-XI grossly intact, no focal neuro deficits Psych: Alert, oriented, appropriate affect A total of 32 minutes of time were spent preparing this complex discharge summary . Patient Condition at Discharge: Stable Plan - Discharge Summary Discharge Rx Participant: No New Discharge Prescriptions: New diazePAM [Valium] 10 mg PO DIRECTED #7 tab Continue levETIRAcetam [Keppra] 500 mg PO BID QUEtiapine [SEROquel] 100 mg PO HS Magnesium Oxide [Mag-Ox] 400 mg PO BID #14 tablet amLODIPine [Norvasc] 5 mg PO DAILY #30 tab OLANZapine [ZyPREXA] 5 mg PO DAILY Gabapentin 600 mg PO HS cloNIDine HCL 0.1 mg PO BID Gabapentin 300 mg PO QAM Folic Acid 1 mg PO DAILY #30 tablet Thiamine [Vitamin B-1] 100 mg PO BID-W/MEALS #30 tab traZODone HCL 300 mg PO HS #30 tab Discharge Medication List levETIRAcetam [Keppra] 500 mg PO BID 04/01/20 [History] Gabapentin 300 mg PO QAM 09/22/21 [History] Gabapentin 600 mg PO HS 09/22/21 [History] OLANZapine [ZyPREXA] 5 mg PO DAILY 09/22/21 [History] QUEtiapine [SEROquel] 100 mg PO HS 09/22/21 [History] cloNIDine HCL 0.1 mg PO BID 09/22/21 [History] Folic Acid 1 mg PO DAILY #30 tablet 09/25/21 [Rx] Magnesium Oxide [Mag-Ox] 400 mg PO BID #14 tablet 09/25/21 [Rx] Thiamine [Vitamin B-1] 100 mg PO BID-W/MEALS #30 tab 09/25/21 [Rx] amLODIPine [Norvasc] 5 mg PO DAILY #30 tab 09/25/21 [Rx] diazePAM [Valium] 10 mg PO DIRECTED #7 tab 10/07/21 [Rx] traZODone HCL 300 mg PO HS #30 tab 10/07/21 [Rx] Follow up Appointment(s)/Referral(s): Douglas Evans MD [Primary Care Provider] - 1-2 days (Patient to make own follow-up appt. Office closed at time of discharge. ) Patient Instructions/Handouts: Diazepam (By mouth), Trazodone (By mouth), Abuse of Alcohol (DC) Activity/Diet/Wound Care/Special Instructions: Per patient... She will be going to inpatient rehab for substance abuse on Monday afternoon. Mother to provide transportation to rehab facility. Activity: as tolerated Diet: regular, abstain from alcohol Special Instructions: Mom to hold medications Using Valium and Alcohol together can lead to overdose and Thank you for trusting us with your care. We wish you well on your journey too good health. I hope your rehab experience goes well and you are able to stay sober. Keep fighting! Discharge Disposition: HOME SELF-CARE
== END 2021-10-07 13:28 | disposition home or self-care (01) ==
LOC: EC 21:30 → 6NMEDSUR 10-05 00:03 → 5NMEDONC 10-05 00:36
PROVIDERS: ADMIT Internal Medicine; ATTEND Internal Medicine
DX: F10.239 Alcohol dependence with withdrawal, unspecified (principal); F10.229 Alcohol dependence with intoxication, unspecified; Y90.8 Blood alcohol level of 240 mg/100 ml or more; D75.89 Other specified diseases of blood and blood-forming organs; F20.9 Schizophrenia, unspecified; F31.9 Bipolar disorder, unspecified; R41.89 Other symptoms and signs involving cognitive functions and awareness; F41.9 Anxiety disorder, unspecified; G40.909 Epilepsy, unspecified, not intractable, without status epilepticus; F17.200 Nicotine dependence, unspecified, uncomplicated; I10 Essential (primary) hypertension; Z20.822 Contact with and (suspected) exposure to COVID-19; Z79.899 Other long term (current) drug therapy; Z71.41 Alcohol abuse counseling and surveillance of alcoholic; Z83.79 Family history of other diseases of the digestive system
CPT/HCPCS: 96361 ×4; 96372; 96374; 99285; 36415; 93005; 82747; 80053 ×2; 80048; 82607; 83735; 85025 ×2; 85027; 81025; 80306; 80143; 87635; 80179; G0378 ×4; G0480; J2060; J3411; 80320

== ENCOUNTER 2021-11-18 21:41 | Observation (INO) | payer OTHER ==
--- NOTE | 2021-11-18 23:11 | ED ---
Alcohol HPI - General Chief Complaint: Alcohol Stated Complaint: ETOH, Fall Time Seen by Provider: 11/18/21 22:03 Source: patient, EMS, RN notes reviewed, old records reviewed Mode of arrival: EMS Limitations: altered mental status - History of Present Illness Initial Comments: This is a 36-year-old female Fred today for evaluation today. Patient's pr esenting for eval regarding alcohol intoxication significant intoxication. Patient also had a fall. Otherwise no complaints of travel history no sick contacts patient is awake and alert. Denies any drugs or alcohol abuse. Not homicidal or suicidal. 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) Previous Visits for Alcohol Intoxication?: Yes Recent Trauma: Yes Associated Symptoms: nausea, vomiting Treatments Prior to Arrival: none Chronic Alcohol Use: Yes - Related Data Home Medications Medication Instructions Recorded Confirmed levETIRAcetam [Keppra] 500 mg PO BID 04/01/20 10/04/21 Gabapentin 300 mg PO QAM 09/22/21 10/04/21 Gabapentin 600 mg PO HS 09/22/21 10/04/21 OLANZapine [ZyPREXA] 5 mg PO DAILY 09/22/21 10/04/21 QUEtiapine [SEROquel] 100 mg PO HS 09/22/21 10/04/21 cloNIDine HCL 0.1 mg PO BID 09/22/21 10/04/21 Previous Rx's Medication Instructions Recorded Folic Acid 1 mg PO DAILY #30 tablet 09/25/21 Magnesium Oxide [Mag-Ox] 400 mg PO BID #14 tablet 09/25/21 Thiamine [Vitamin B-1] 100 mg PO BID-W/MEALS #30 tab 09/25/21 amLODIPine [Norvasc] 5 mg PO DAILY #30 tab 09/25/21 diazePAM [Valium] 10 mg PO DIRECTED #7 tab 10/07/21 traZODone HCL 300 mg PO HS #30 tab 10/07/21 Allergies Allergy/AdvReac Type Severity Reaction Status Date / Time No Known Allergies Allergy Verified 11/18/21 22:12 Review of Systems ROS Statement: Those systems with pertinent positive or pertinent negative responses have been documented in the HPI. ROS Other: All systems not noted in ROS Statement are negative. 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, previous history of alcohol withdrawal syndrome and previous history of alcohol intoxication and previous history of delirium/hallucinations History of Any Multi-Drug Resistant Organisms: None Reported Past Surgical History: No Surgical Hx Reported Past Psychological History: Anxiety, Bipolar, Depression, Schizophrenia Past Alcohol Use History: Daily - Past Family History Mother Family Medical History: Unable to Obtain Additional Family Medical History / Comment(s): Patient sedated and intubated General Exam Limitations: altered mental status General appearance: alert, in no apparent distress Head exam: Present: atraumatic, normocephalic, normal inspection Eye exam: Present: normal appearance, PERRL, EOMI. Absent: scleral icterus, conjunctival injection, periorbital swelling ENT exam: Present: normal exam, mucous membranes moist Neck exam: Present: normal inspection. Absent: tenderness, meningismus, lymphadenopathy Respiratory exam: Present: normal lung sounds bilaterally. Absent: respiratory distress, wheezes, rales, rhonchi, stridor Cardiovascular Exam: Present: regular rate, normal rhythm, normal heart sounds. Absent: systolic murmur, diastolic murmur, rubs, gallop, clicks GI/Abdominal exam: Present: soft, normal bowel sounds. Absent: distended, tenderness, guarding, rebound, rigid Extremities exam: Present: normal inspection, full ROM, normal capillary refill. Absent: tenderness, pedal edema, joint swelling, calf tenderness Back exam: Present: normal inspection Neurological exam: Present: alert, oriented X3, CN II-XII intact Psychiatric exam: Present: normal affect, normal mood Skin exam: Present: warm, dry, intact, normal color. Absent: rash Course Vital Signs 11/18/21 22:08 Temperature 97.5 F L Pulse Rate 102 H Respiratory 16 Rate Blood Pressure 158/97 O2 Sat by Pulse 96 Oximetry - Reevaluation(s) Reevaluation #1: 11/19/21 01:09 Medical record is reviewed Reevaluation #2: 11/19/21 01:09 Patient is informed of results and questions answered Reevaluation #3: 11/19/21 06:09 Patient can be discharged home to care of her mother Medical Decision Making - Medical Decision Making 46 female DF for evaluation of alcohol intoxication no injury. He did have a fall with no trauma. Patient is monitored in the ER currently awake alert doing well and can be discharged home - Radiology Data Radiology results: report reviewed (CT brain C-spine chest and pelvis x-ray are negative for traumatic injury), image reviewed Disposition Clinical Impression: Alcoholic intoxication, Fall Disposition: HOME SELF-CARE Condition: Good Instructions (If sedation given, give patient instructions): Alcohol Intoxication (ED) Is patient prescribed a controlled substance at d/c from ED?: No Referrals: Douglas Evans MD [Primary Care Provider] - 1-2 days
--- NOTE | 2021-11-18 23:26 | XR ---
EXAMINATION TYPE: XR pelvis AP view DATE OF EXAM: 11/18/2021 COMPARISON: NONE HISTORY: Pain TECHNIQUE: Single view FINDINGS: Pelvic ring is intact. Sacroiliac joints are intact. Proximal femurs and hip joints are int act. IMPRESSION: Negative exam. No fracture.
--- NOTE | 2021-11-18 23:27 | XR ---
EXAMINATION TYPE: XR chest 1V DATE OF EXAM: 11/18/2021 COMPARISON: 09/23/2021 HISTORY: Tube placement TECHNIQUE: Single view FINDINGS: Heart and mediastinum are normal. Lungs are clear. Diaphragm is normal. Bony thorax is inta ct. IMPRESSION: Normal chest. No change.
--- NOTE | 2021-11-18 23:53 | CT ---
EXAMINATION TYPE: CT brain cspine wo con DATE OF EXAM: 11/18/2021 COMPARISON: 09/22/2021 HISTORY: ETOH. fall/pain CT DLP: 1388.2 mGycm Automated exposure control for dose reduction was used. Images of the brain and cervical spine obtained with no contrast. Ventricles and sulci appear normal. There is no mass effect or midline shift. There is no sign of int racranial hemorrhage. Calvarium is intact. Cervical vertebra have normal spacing and alignment. Posterior elements are intact. Facet joints appe ar normal. Prevertebral soft tissues appear normal. There is no compression fracture. Skull base is i ntact. There is normal aeration of the mastoid sinuses. IMPRESSION: Normal CT scan of the cervical spine. Negative CT scan of the brain. No adverse change.
[2021-11-19] MEDS ORDERED: SODIUM CHLORIDE 0.9% 500 ML 500 ML IV STA (01:01)
[2021-11-19] MEDS ORDERED: SODIUM CHLORIDE 0.9% 1,000 ML IV STA ×2 (01:01)
[2021-11-19 01:27] LABS: ALT 40 U/L (4-34); AST 111 U/L (14-36); African American GFR (CKD) >90 (>60 ml/min/1.73 sqM); Albumin 4.3 g/dL (3.5-5.0); Alkaline Phosphatase 82 U/L (38-126); Anion Gap 20 mmol/L; Blood Urea Nitrogen 9 mg/dL (7-17); Calcium 9.1 mg/dL (8.4-10.2); Carbon Dioxide 19 mmol/L (22-30); Chloride 102 mmol/L (98-107); Glucose 96 mg/dL (74-99); Non-African American GFR(CKD) >90 (>60 ml/min/1.73 sqM); Phosphorus 3.3 mg/dL (2.5-4.5); Potassium 3.5 mmol/L (3.5-5.1); Sodium 141 mmol/L (137-145); Total Bilirubin 0.4 mg/dL (0.2-1.3); Total Protein 7.2 g/dL (6.3-8.2)
[2021-11-19 01:37] LABS: Basophils % (A) 0 %; Eosinophils # (A) 0.1 k/uL (0-0.7); Eosinophils % (A) 1 %; HCT 39.9 % (34.0-46.0); HGB 13.1 gm/dL (11.4-16.0); Lymphocytes # (A) 3.4 k/uL (1.0-4.8); Lymphocytes % (A) 44 %; MCHC 32.8 g/dL (31.0-37.0); MCV 106.8 fL (80.0-100.0); Macrocytosis Moderate; Mean Platelet Volume 8.7; Monocytes # (A) 0.5 k/uL (0-1.0); Monocytes % (A) 6 %; Neutrophils # (A) 3.4 k/uL (1.3-7.7); Neutrophils % (A) 45 %; Platelet Count 257 k/uL (150-450); RBC 3.74 m/uL (3.80-5.40); RDW 13.9 % (11.5-15.5); WBC 7.6 k/uL (3.8-10.6)
[2021-11-19 01:39] LABS: Alcohol 281 mg/dL; Lipase 2210 U/L (23-300)
[2021-11-19] MEDS: MELATONIN 5 MG TABLET PO SCH ×2 (03:34→20:49)
[2021-11-19] MEDS ORDERED: NALOXONE 0.4 MG/ML 1 ML VIAL IV PRN (03:58)
[2021-11-19] MEDS ORDERED: ONDANSETRON 4 MG/2 ML VIAL IVP PRN (03:58)
[2021-11-19] MEDS ORDERED: MORPHINE SULFATE 4 MG/ML SYRINGE IV PRN ×2 (03:58→05:40)
[2021-11-19] MEDS ORDERED: LORazepam 2 MG/ML INJ IV PRN ×4 (03:58→05:40)
--- NOTE | 2021-11-19 04:01 | ED ---
Medical Decision Making - Medical Decision Making 36 female to the ER for evaluation of fall with alcohol intoxication had basic labs done because of intoxicated state and unable to get ride home. Patient has significant pancreatitis hypomagnesemia which were replaced and patient will be admitted for further evaluation monitoring - Lab Data Result diagrams: 11/19/21 01:04 11/19/21 01:04 Lab Results 11/19/21 11/19/21 Range/Units 01:04 01:04 WBC 7.6 (3.8-10.6) k/uL RBC 3.74 L (3.80-5.40) m/uL Hgb 13.1 (11.4-16.0) gm/dL Hct 39.9 (34.0-46.0) % MCV 106.8 H (80.0-100.0) fL MCH 35.0 (25.0-35.0) pg MCHC 32.8 (31.0-37.0) g/dL RDW 13.9 (11.5-15.5) % Plt Count 257 (150-450) k/uL MPV 8.7 Neutrophils % 45 % Lymphocytes % 44 % Monocytes % 6 % Eosinophils % 1 % Basophils % 0 % Neutrophils # 3.4 (1.3-7.7) k/uL Lymphocytes # 3.4 (1.0-4.8) k/uL Monocytes # 0.5 (0-1.0) k/uL Eosinophils # 0.1 (0-0.7) k/uL Basophils # 0.0 (0-0.2) k/uL Macrocytosis Moderate Sodium 141 (137-145) mmol/L Potassium 3.5 (3.5-5.1) mmol/L Chloride 102 (98-107) mmol/L Carbon Dioxide 19 L (22-30) mmol/L Anion Gap 20 mmol/L BUN 9 (7-17) mg/dL Creatinine 0.67 (0.52-1.04) mg/dL Est GFR (CKD-EPI)AfAm >90 (>60 ml/min/1.73 sqM) Est GFR (CKD-EPI)NonAf >90 (>60 ml/min/1.73 sqM) Glucose 96 (74-99) mg/dL Calcium 9.1 (8.4-10.2) mg/dL Phosphorus 3.3 (2.5-4.5) mg/dL Magnesium 1.0 L (1.6-2.3) mg/dL Total Bilirubin 0.4 (0.2-1.3) mg/dL AST 111 H (14-36) U/L ALT 40 H (4-34) U/L Alkaline Phosphatase 82 (38-126) U/L Total Protein 7.2 (6.3-8.2) g/dL Albumin 4.3 (3.5-5.0) g/dL Lipase 2210 H (23-300) U/L Serum Alcohol 281 H* mg/dL Disposition Clinical Impression: Alcoholic intoxication, Fall, Acute pancreatitis, Hypomagnesemia Disposition: ADMITTED IP TO THIS HOSP Condition: Fair Instructions (If sedation given, give patient instructions): Alcohol Intoxication (ED) Referrals: Douglas Evans MD [Primary Care Provider] - 1-2 days
[2021-11-19] MEDS: SODIUM CHLORIDE 0.9% 1,000 ML IV SCH ×4 (05:12→20:50)
--- NOTE | 2021-11-19 05:50 | P.HPIM ---
History of Present Illness H&P Date: 11/19/21 Chief Complaint: Acute pancreatitis 36-year-old female with alcohol dependence and abuse history of bipolar disorder Patient provides limited history she reports that her mom insisted that she go to the hospital for evaluation due to call intoxication patient otherwise claims that she is feeling fine. She admits that she has long history of alcohol abuse she's been to rehab over 13 times. She cannot control her drinking today she was so intoxicated that she fell she doesn't remember details she was brought to the hospital for evaluation. Initial plan by the ED was to keep her until she tejal up and then gets discharged however blood work revealed elevated lipase, patient currently denies any abdominal pain nausea or vomiting she denies any fevers or chills denies any diarrhea or GI bleeding. Patient denies having any past medical history and denies taking any medications. Patient seems to be little anxious and seems to be still intoxicated looks like she also has a guardian and patient doesn't seem to have good insight about her conditions. No further details regarding her fall Blood work showed hypomagnesemia and elevated lipase. 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, previous history of alcohol withdrawal syndrome and previous history of alcohol intoxication and previous history of delirium/hallucinations History of Any Multi-Drug Resistant Organisms: None Reported Past Surgical History: No Surgical Hx Reported Past Psychological History: Anxiety, Bipolar, Depression, Schizophrenia Past Alcohol Use History: Daily - Past Family History Mother Family Medical History: Unable to Obtain Additional Family Medical History / Comment(s): Patient sedated and intubated Medications and Allergies Home Medications Medication Instructions Recorded Confirmed Type levETIRAcetam [Keppra] 500 mg PO BID 04/01/20 10/04/21 History Gabapentin 300 mg PO QAM 09/22/21 10/04/21 History Gabapentin 600 mg PO HS 09/22/21 10/04/21 History OLANZapine [ZyPREXA] 5 mg PO DAILY 09/22/21 10/04/21 History QUEtiapine [SEROquel] 100 mg PO HS 09/22/21 10/04/21 History cloNIDine HCL 0.1 mg PO BID 09/22/21 10/04/21 History Folic Acid 1 mg PO DAILY #30 tablet 09/25/21 10/04/21 Rx Magnesium Oxide [Mag-Ox] 400 mg PO BID #14 tablet 09/25/21 10/04/21 Rx Thiamine [Vitamin B-1] 100 mg PO BID-W/MEALS #30 tab 09/25/21 10/04/21 Rx amLODIPine [Norvasc] 5 mg PO DAILY #30 tab 09/25/21 10/04/21 Rx diazePAM [Valium] 10 mg PO DIRECTED #7 tab 10/07/21 Rx traZODone HCL 300 mg PO HS #30 tab 10/07/21 Rx Allergies Allergy/AdvReac Type Severity Reaction Status Date / Time No Known Allergies Allergy Verified 11/18/21 22:12 Physical Exam Vitals: Vital Signs Temp Pulse Resp BP Pulse Ox 11/18/21 22:08 97.5 F L 102 H 16 158/97 96 Intake and Output 11/18/21 11/18/21 11/19/21 14:59 22:59 06:59 Other: Weight 56.699 kg Constitutional: No acute distress, patient is cooperative looks anxious Eyes: Anicteric sclerae, moist conjunctiva, Pupils equal round reactive to light ENMT: NC Oropharynx clear, no erythema, or exudates Neck: Supple, no masses, or JVD No carotid bruits No thyromegaly Lungs: Clear to auscultation Clear to percussion Normal respiratory effort, no accessory muscle use Cardiovascular: Heart regular in rate and rhythm, No murmurs, gallops, or rubs No peripheral edema Abdominal: Soft Tenderness to deep palpation of the epigastric region with voluntary guarding no rebound or rigidity Abdomen moving with respiration Normoactive bowel sounds No hepatomegaly, No splenomegaly No palpable mass No abdominal wall hernia noted Skin: Normal temperature, tone, texture, turgor No induration No subcutaneous nodules No rash, lesions No ulcers Extremities: No digital cyanosis No clubbing Pedal pulses intact and symmetrical Radial pulses intact and symmetrical No calf tenderness Psychiatric: Alert and oriented to person, place , patient seems to be anxious Neuro Muscles Strength 4/5 in all 4 extremities Sensation to light touch grossly present throughout Cranial nerves II-XII grossly intact No focal sensory deficits Lymphatics: no palpable cervical or supraclavicular , or inguinal lymph no leonardo Results CBC & Chem 7: 11/19/21 01:04 11/19/21 01:04 Labs: Abnormal Lab Results - Last 24 Hours (Table) 11/19/21 11/19/21 Range/Units 01:04 01:04 RBC 3.74 L (3.80-5.40) m/uL MCV 106.8 H (80.0-100.0) fL Carbon Dioxide 19 L (22-30) mmol/L Magnesium 1.0 L (1.6-2.3) mg/dL AST 111 H (14-36) U/L ALT 40 H (4-34) U/L Lipase 2210 H (23-300) U/L Serum Alcohol 281 H* mg/dL Assessment and Plan Assessment: Acute alcohol intoxication with alcohol abuse Monitor for alcohol withdrawal syndrome Acute pancreatitis Fall at home Plan Aggressive IV fluid hydration with normal saline Fall precautions Nothing by mouth Pain control with opiates PPI Monitor hemoglobin and renal function DVT prophylaxis Lovenox subcu Chronic conditions Bipolar disorder Schizophrenia History of seizures Patient has poor insight of her conditions and provides limited history. Above chronic conditions should be verified with her caregiver and guardian which is her mother along with verifying cold medications Patient is full code DVT prophylaxis Lovenox subcu GI prophylaxis with PPI Anticipated length of stay more than 2 midnights
[2021-11-19] MEDS: MAGNESIUM SULFATE-D5W PMX 1 GM in DEXTROSE/WATER 1 100ML.BAG IVPB SCH ×2 (07:36→09:24)
[2021-11-19] MEDS: ENOXAPARIN 40 MG/0.4 ML SYRINGE SQ SCH (09:23)
[2021-11-19] MEDS: PANTOPRAZOLE 40 MG/10 ML VIAL IV SCH (09:24)
--- NOTE | 2021-11-19 12:12 | P.PN ---
Progress Note - Text Progress Note Date: 11/19/21 Seen and examined. Doing better currently. Continue NPO and follow up labs in am. Monitor for alcohol withdrawal.
[2021-11-19] MEDS: THIAMINE 100 MG TAB PO SCH (17:11)
[2021-11-19] MEDS ORDERED: MELATONIN 5 MG TABLET PO SCH (21:00)
[2021-11-20] MEDS: SODIUM CHLORIDE 0.9% 1,000 ML IV SCH ×2 (05:04→10:09)
[2021-11-20 07:33] LABS: Basophils % (A) 1 %; Eosinophils # (A) 0.1 k/uL (0-0.7); Eosinophils % (A) 1 %; HCT 36.2 % (34.0-46.0); HGB 12.3 gm/dL (11.4-16.0); Lymphocytes # (A) 2.5 k/uL (1.0-4.8); Lymphocytes % (A) 38 %; MCH 36.4 pg (25.0-35.0); MCV 107.1 fL (80.0-100.0); Macrocytosis Moderate; Monocytes # (A) 0.5 k/uL (0-1.0); Monocytes % (A) 8 %; Neutrophils # (A) 3.3 k/uL (1.3-7.7); Neutrophils % (A) 51 %; Platelet Count 199 k/uL (150-450); RBC 3.38 m/uL (3.80-5.40); RDW 13.7 % (11.5-15.5); WBC 6.6 k/uL (3.8-10.6)
[2021-11-20] MEDS: THIAMINE 100 MG TAB PO SCH ×2 (10:07→15:59)
[2021-11-20] MEDS: PANTOPRAZOLE 40 MG/10 ML VIAL IV SCH (10:07)
[2021-11-20] MEDS: ENOXAPARIN 40 MG/0.4 ML SYRINGE SQ SCH (10:08)
[2021-11-20 11:55] LABS: African American GFR (CKD) 140.9 (60.0-200.0); Albumin 3.4 g/dL (3.8-4.9); Albumin/Globulin Ratio 1.68 (1.60-3.17); Anion Gap 15.1 mmol/L (10.00-18.00); BUN/Creat Ratio 8.82 Ratio (12.00-20.00); Blood Urea Nitrogen 4.5 mg/dL (9.0-27.0); Calcium 7.2 mg/dL (8.7-10.3); Carbon Dioxide 21.4 mmol/L (20.0-27.5); Globulin 2.1 g/dL (1.6-3.3); Non-African American GFR(CKD) 121.6 (60.0-200.0); Potassium 3.4 mmol/L (3.5-5.5); Total Bilirubin 0.3 mg/dL (0.30-1.20); Total Protein 5.5 g/dL (6.2-8.2)
[2021-11-20] MEDS ORDERED: POTASSIUM CHLORIDE ER 20 MEQ TAB.ER PO STA (12:20)
--- NOTE | 2021-11-20 13:27 | P.DS ---
Providers Date of admission: 11/19/21 11:42 Expected date of discharge: 11/20/21 Attending physician: John Leyva MD Primary care physician: Douglas Munguia Cook Hospital Course: 36-year-old female with alcohol dependence and abuse, history of bipolar disorder who presented for etoh intoxication after her mother insisted on her to come to the ER. Patient otherwise claims that she was feeling fine. She admits that she has long history of alcohol abuse she's been to rehab over 13 times. Initial plan by the ED was to keep her until she tejal up and then gets discharged however blood work revealed elevated lipase up to 1999, however she denied any abdominal pain nausea or vomiting, no fevers or chills, diarrhea or GI bleeding. Computed tomography scan of the head and neck no acute pathology, imaging of the chest and pelvis no acute pathology Patient was admitted for IV fluids. She was kept nothing by mouth due to acute pancreatitis. Her lipase improved to normal the next day. She was initiated on diet, tolerated well. She has been feeling fine throughout the admission. No pain reported. No nausea or vomiting. No fevers. She was counseled to quit drinking. Naltrexone will be prescribed upon Discharge. She Was Instructed to Follow-Up with Her Primary Care Physician. Patient Condition at Discharge: Fair Plan - Discharge Summary Discharge Rx Participant: No New Discharge Prescriptions: New Naltrexone HCl [Revia] 50 mg PO DAILY 30 Days #30 tablet Continue levETIRAcetam [Keppra] 500 mg PO BID amLODIPine [Norvasc] 5 mg PO DAILY #30 tab OLANZapine [ZyPREXA] 5 mg PO DAILY Gabapentin 600 mg PO HS cloNIDine HCL 0.1 mg PO QID PRN PRN Reason: Anxiety Gabapentin 300 mg PO DAILY Folic Acid 1 mg PO DAILY #30 tablet traZODone HCL 300 mg PO HS #30 tab l-Norgest/E.estradiol-E.estrad [Loseasonique Tablet] 1 tab PO DAILY Thiamine [Vitamin B-1] 100 mg PO DAILY Discontinued Naltrexone Microspheres [Vivitrol] 380 mg IM Q28D Discharge Medication List levETIRAcetam [Keppra] 500 mg PO BID 04/01/20 [History] Gabapentin 300 mg PO DAILY 09/22/21 [History] Gabapentin 600 mg PO HS 09/22/21 [History] OLANZapine [ZyPREXA] 5 mg PO DAILY 09/22/21 [History] cloNIDine HCL 0.1 mg PO QID PRN 09/22/21 [History] Folic Acid 1 mg PO DAILY #30 tablet 09/25/21 [Rx] amLODIPine [Norvasc] 5 mg PO DAILY #30 tab 09/25/21 [Rx] traZODone HCL 300 mg PO HS #30 tab 10/07/21 [Rx] Thiamine [Vitamin B-1] 100 mg PO DAILY 11/19/21 [History] l-Norgest/E.estradiol-E.estrad [Loseasonique Tablet] 1 tab PO DAILY 11/19/21 [History] Naltrexone HCl [Revia] 50 mg PO DAILY 30 Days #30 tablet 11/20/21 [Rx] Follow up Appointment(s)/Referral(s): Douglas Evans MD [Primary Care Provider] - 1-2 days Patient Instructions/Handouts: Alcohol Intoxication (ED) Activity/Diet/Wound Care/Special Instructions: Diet as tolerated Activity limited until seen by
[2021-11-20 14:13] VITALS: BP 142/81; PULSE 69; RESP 19; TEMP 98.1
== END 2021-11-20 17:50 | disposition home or self-care (01) ==
LOC: EC 21:41 → 5NMEDONC 11-19 03:59 → OBSVTOIN 11-19 11:42 → INTOOBSV 11-19 11:42 → 5NMEDONC 11-19 17:19 → UNDODISIN 11-20 17:50
PROVIDERS: ADMIT Internal Medicine; ATTEND Internal Medicine
DX: F10.229 Alcohol dependence with intoxication, unspecified (principal); K85.90 Acute pancreatitis without necrosis or infection, unspecified; E83.42 Hypomagnesemia; F10.288 Alcohol dependence with other alcohol-induced disorder; R41.89 Other symptoms and signs involving cognitive functions and awareness; G40.909 Epilepsy, unspecified, not intractable, without status epilepticus; F20.9 Schizophrenia, unspecified; F31.9 Bipolar disorder, unspecified; Z79.899 Other long term (current) drug therapy; Y90.8 Blood alcohol level of 240 mg/100 ml or more; F41.9 Anxiety disorder, unspecified; Z91.81 History of falling; W19.XXXA Unspecified fall, initial encounter; Y92.009 Unspecified place in unspecified non-institutional (private) residence as the place of occurrence of the external cause
CPT/HCPCS: 96376; 96361 ×3; 96372 ×2; 96375 ×2; 96365; 96366; 99285 ×2; 36415; 80053 ×2; 83690 ×2; 83735; 84100; 85025 ×2; 87635; 72170; 71045; 72125; 70450; G0378 ×2; G0480; J2060 ×2; J2270; J1650 ×2; J3475; C9113 ×2; 80320

== ENCOUNTER 2021-11-21 19:03 | Emergency (ER) | payer OTHER ==
[2021-11-21] MEDS ORDERED: LORazepam 2 MG/ML INJ IV STA (19:35)
[2021-11-21] MEDS ORDERED: SODIUM CHLORIDE 0.9% 1,000 ML IV STA (19:35)
[2021-11-21 20:00] VITALS: RESP 18; TEMP 98.9
[2021-11-21 21:56] LABS: Basophils % (A) 0 %; Eosinophils % (A) 0 %; HCT 42.6 % (34.0-46.0); HGB 14.6 gm/dL (11.4-16.0); Lymphocytes # (A) 2.1 k/uL (1.0-4.8); Lymphocytes % (A) 17 %; MCH 35.8 pg (25.0-35.0); MCHC 34.3 g/dL (31.0-37.0); MCV 104.4 fL (80.0-100.0); Macrocytosis Slight; Mean Platelet Volume 7.9; Monocytes # (A) 0.6 k/uL (0-1.0); Monocytes % (A) 5 %; Neutrophils # (A) 9.5 k/uL (1.3-7.7); Neutrophils % (A) 77 %; Platelet Count 257 k/uL (150-450); RBC 4.09 m/uL (3.80-5.40); RDW 13.8 % (11.5-15.5); WBC 12.4 k/uL (3.8-10.6)
[2021-11-21 23:51] LABS: ALT 41 U/L (4-34); AST 240 U/L (14-36); African American GFR (CKD) >90 (>60 ml/min/1.73 sqM); Albumin 3.9 g/dL (3.5-5.0); Alkaline Phosphatase 78 U/L (38-126); Amylase 89 U/L (30-110); Anion Gap 19 mmol/L; Blood Urea Nitrogen 4 mg/dL (7-17); Calcium 7.6 mg/dL (8.4-10.2); Carbon Dioxide 15 mmol/L (22-30); Chloride 107 mmol/L (98-107); Glucose 65 mg/dL (74-99); Lipase 535 U/L (23-300); Magnesium 1.2 mg/dL (1.6-2.3); Non-African American GFR(CKD) >90 (>60 ml/min/1.73 sqM); Potassium 3.3 mmol/L (3.5-5.1); Sodium 141 mmol/L (137-145); Total Bilirubin 0.5 mg/dL (0.2-1.3); Total Protein 6.8 g/dL (6.3-8.2)
[2021-11-22 00:08] LABS: Alcohol 133 mg/dL
[2021-11-22] MEDS ORDERED: POTASSIUM CHLORIDE ER 20 MEQ TAB.ER PO STA (00:10)
[2021-11-22] MEDS ORDERED: CALCIUM GLUCONATE 1 GM in SODIUM CHLORIDE 0.9% 100 ML IVPB ONE (00:15)
[2021-11-22] MEDS: MAGNESIUM SULFATE-D5W PMX 1 GM in DEXTROSE/WATER 1 100ML.BAG IVPB SCH ×2 (00:48→01:38)
[2021-11-22 01:06] LABS: Amphetamine Screen,Urine Not Detected (NotDetected); Appearance,Urine Cloudy (Clear); Bacteria,Urine Moderate /hpf; Benzodiazepines Screen,Urine Detected (NotDetected); Bilirubin,Urine Negative (Negative); Blood,Urine Large (Negative); Cocaine Screen,Urine Not Detected (NotDetected); Color,Urine Yellow; Glucose,Urine (UA) Negative (Negative); Hyaline Casts,Urine 1 /lpf (0-2); Ketones,Urine 2+ (Negative); Leukocyte Esterase,Urine Negative (Negative); Methadone Screen, Urine Detected (NotDetected); Mucus,Urine Rare /hpf; Nitrite,Urine Negative (Negative); Opiate Screen,Urine Not Detected (NotDetected); PH, Urine 5.5 (5.0-8.0); Phencyclidine Screen,Urine Not Detected (NotDetected); Protein,Urine 1+ (Negative); RBC,Urine 1 /hpf (0-5); Specific Gravity,Urine 1.016 (1.001-1.035); Squamous Epithelial Cell,Urine 2 /hpf (0-4); Tricyclic Antidepressant,Urine Detected (NotDetected); Urn Cannabinoid Scrn Not Detected (NotDetected); Urobilinogen,Urine <2.0 mg/dL (<2.0); WBC,Urine 7 /hpf (0-5)
[2021-11-22 01:07] LABS: Barbiturate Screen,Urine Not Detected (NotDetected); Oxycodone Screen, Urine Not Detected (NotDetected)
[2021-11-22] MEDS ORDERED: cefTRIAXone IN SWFI 1,000 MG/10 ML SYRINGE IVP STA (01:21)
[2021-11-22] MEDS ORDERED: SODIUM CHLORIDE 0.9% 1,000 ML IV STA (01:24)
--- NOTE | 2021-11-22 01:24 | ED ---
Alcohol HPI - General Chief Complaint: Alcohol Stated Complaint: ETOH, alcohol poisoning Time Seen by Provider: 11/21/21 19:35 Source: patient, EMS, RN notes reviewed Mode of arrival: EMS Limitations: no limitations - History of Present Illness Initial Comments: Patient is a 36-year-old female that presents to the emergency department complaining of alcohol intoxication. She notes she was sent by her guardian to get evaluated. Patient notes that she usually drinks about 2/5 of alcohol every. She notes she was also recently diagnosed with pancreatic cancer at [facility]. Patient was otherwise well-appearing acting appropriately in no apparent distress. She denied any chest pain shortness of breath headache nausea vomiting diarrhea constipation fever fatigue chills. - Related Data Home Medications Medication Instructions Recorded Confirmed levETIRAcetam [Keppra] 500 mg PO BID 04/01/20 11/21/21 Gabapentin 300 mg PO DAILY 09/22/21 11/21/21 Gabapentin 600 mg PO HS 09/22/21 11/21/21 OLANZapine [ZyPREXA] 5 mg PO DAILY 09/22/21 11/21/21 cloNIDine HCL 0.1 mg PO QID PRN 09/22/21 11/21/21 Thiamine [Vitamin B-1] 100 mg PO DAILY 11/19/21 11/21/21 l-Norgest/E.estradiol-E.estrad 1 tab PO DAILY 11/19/21 11/21/21 [Loseasonique Tablet] Previous Rx's Medication Instructions Recorded Folic Acid 1 mg PO DAILY #30 tablet 09/25/21 amLODIPine [Norvasc] 5 mg PO DAILY #30 tab 09/25/21 traZODone HCL 300 mg PO HS #30 tab 10/07/21 Naltrexone HCl [Revia] 50 mg PO DAILY 30 Days #30 tablet 11/20/21 Cephalexin [Keflex] 500 mg PO Q6HR #28 cap 11/22/21 Magnesium Oxide [Mag-Ox] 800 mg PO DAILY #6 tablet 11/22/21 Allergies Allergy/AdvReac Type Severity Reaction Status Date / Time No Known Allergies Allergy Verified 11/21/21 21:24 Review of Systems ROS Statement: Those systems with pertinent positive or pertinent negative responses have been documented in the HPI. ROS Other: All systems not noted in ROS Statement are negative. Past Medical History Past Medical History: Hypertension, Seizure Disorder Additional Past Medical History / Comment(s): Alcoholism, alcohol withdrawl/del irium/hallucinations/seizure with last one being 03/13/2020 History of Any Multi-Drug Resistant Organisms: None Reported Past Surgical History: No Surgical Hx Reported Additional Past Surgical History / Comment(s): [place] teeth extractions. Past Anesthesia/Blood Transfusion Reactions: No Reported Reaction Additional Past Anesthesia/Blood Transfusion Reaction / Comment(s): Pt has clausterphobia Past Psychological History: Anxiety, Bipolar, Depression, Schizophrenia Smoking Status: Current every day smoker Past Alcohol Use History: Abuse, Daily Past Drug Use History: None Reported - Past Family History Mother Family Medical History: No Reported History Additional Family Medical History / Comment(s): Mother is healthy Father Additional Family Medical History / Comment(s): Father is from alcoholism. General Exam Limitations: no limitations General appearance: alert, in no apparent distress Head exam: Present: atraumatic, normocephalic, normal inspection Eye exam: Present: normal appearance, PERRL, EOMI. Absent: scleral icterus, conjunctival injection, periorbital swelling ENT exam: Present: normal exam, mucous membranes moist Neck exam: Present: normal inspection Respiratory exam: Present: normal lung sounds bilaterally. Absent: respiratory distress, wheezes, rales, rhonchi, stridor Cardiovascular Exam: Present: regular rate, normal rhythm, normal heart sounds. Absent: systolic murmur, diastolic murmur, rubs, gallop, clicks GI/Abdominal exam: Present: soft, normal bowel sounds. Absent: distended, tenderness, guarding, rebound, rigid Extremities exam: Present: normal inspection, full ROM, normal capillary refill. Absent: tenderness, pedal edema, joint swelling, calf tenderness Neurological exam: Present: alert, oriented X3 Psychiatric exam: Present: normal affect, normal mood Skin exam: Present: warm, dry, intact, normal color. Absent: rash Course Vital Signs 11/21/21 11/21/21 11/21/21 19:49 21:38 23:24 Temperature 98.9 F Pulse Rate 130 H 88 91 Respiratory 18 18 18 Rate Blood Pressure 139/86 107/72 116/83 O2 Sat by Pulse 95 94 L 94 L Oximetry 11/22/21 00:50 Temperature Pulse Rate 93 Respiratory 18 Rate Blood Pressure 124/89 O2 Sat by Pulse 95 Oximetry Medical Decision Making - Medical Decision Making 36-year-old female here for alcohol. Labs, 1 L normal saline, 2 grams of Ativan. Labs: White blood cells 12.4, potassium 3.3, calcium 7.6, magnesium 1.2 lipase slightly elevated at 535. Urinalysis shows several white blood cells moderate bacteria. Urine drug screen shows positive for methadone tricyclic antidepressants and benzodiazepines. Milliequivalents of potassium, 2 g of magnesium and 1 g of calcium ordered to replenish electrolyte. 1 g of Rocephin will be ordered for urinary tract infection. Patient was informed of results. It was informed that she can discharge home after medications. Case discussed with Dr. Ash - Lab Data Result diagrams: 11/21/21 21:41 11/21/21 23:03 Lab Results 11/21/21 11/21/21 11/22/21 Range/Units 21:41 23:03 00:37 WBC 12.4 H (3.8-10.6) k/uL RBC 4.09 (3.80-5.40) m/uL Hgb 14.6 (11.4-16.0) gm/dL Hct 42.6 (34.0-46.0) % MCV 104.4 H (80.0-100.0) fL MCH 35.8 H (25.0-35.0) pg MCHC 34.3 (31.0-37.0) g/dL RDW 13.8 (11.5-15.5) % Plt Count 257 (150-450) k/uL MPV 7.9 Neutrophils % 77 % Lymphocytes % 17 % Monocytes % 5 % Eosinophils % 0 % Basophils % 0 % Neutrophils # 9.5 H (1.3-7.7) k/uL Lymphocytes # 2.1 (1.0-4.8) k/uL Monocytes # 0.6 (0-1.0) k/uL Eosinophils # 0.0 (0-0.7) k/uL Basophils # 0.0 (0-0.2) k/uL Macrocytosis Slight Sodium 141 (137-145) mmol/L Potassium 3.3 L (3.5-5.1) mmol/L Chloride 107 (98-107) mmol/L Carbon Dioxide 15 L (22-30) mmol/L Anion Gap 19 mmol/L BUN 4 L (7-17) mg/dL Creatinine 0.62 (0.52-1.04) mg/dL Est GFR (CKD-EPI)AfAm >90 (>60 ml/min/1.73 sqM) Est GFR (CKD-EPI)NonAf >90 (>60 ml/min/1.73 sqM) Glucose 65 L (74-99) mg/dL Calcium 7.6 L (8.4-10.2) mg/dL Magnesium 1.2 L (1.6-2.3) mg/dL Total Bilirubin 0.5 (0.2-1.3) mg/dL AST 240 H (14-36) U/L ALT 41 H (4-34) U/L Alkaline Phosphatase 78 (38-126) U/L Total Protein 6.8 (6.3-8.2) g/dL Albumin 3.9 (3.5-5.0) g/dL Amylase 89 (30-110) U/L Lipase 535 H (23-300) U/L Urine Color Yellow Urine Appearance Cloudy H (Clear) Urine pH 5.5 (5.0-8.0) Ur Specific Arrey 1.016 (1.001-1.035) Urine Protein 1+ H (Negative) Urine Glucose (UA) Negative (Negative) Urine Ketones 2+ H (Negative) Urine Blood Large H (Negative) Urine Nitrite Negative (Negative) Urine Bilirubin Negative (Negative) Urine Urobilinogen <2.0 (<2.0) mg/dL Ur Leukocyte Esterase Negative (Negative) Urine RBC 1 (0-5) /hpf Urine WBC 7 H (0-5) /hpf Ur Squamous Epith Cells 2 (0-4) /hpf Urine Bacteria Moderate H (None) /hpf Hyaline Casts 1 (0-2) /lpf Urine Mucus Rare H (None) /hpf Urine Opiates Screen Not Detected (NotDetected) Ur Oxycodone Screen Not Detected (NotDetected) Urine Methadone Screen Detected H (NotDetected) Ur Propoxyphene Screen Not Detected (NotDetected) Ur Barbiturates Screen Not Detected (NotDetected) U Tricyclic Antidepress Detected H (NotDetected) Ur Phencyclidine Scrn Not Detected (NotDetected) Ur Amphetamines Screen Not Detected (NotDetected) U Methamphetamines Scrn Not Detected (NotDetected) U Benzodiazepines Scrn Detected H (NotDetected) Urine Cocaine Screen Not Detected (NotDetected) U Marijuana (THC) Screen Not Detected (NotDetected) Serum Alcohol 133 mg/dL Disposition Clinical Impression: Hypomagnesemia, Hypokalemia, Hypocalcemia, Alcohol use disorder, severe, dependence Disposition: HOME SELF-CARE Condition: Stable Instructions (If sedation given, give patient instructions): Alcohol Intoxication (ED) Additional Instructions: Please return to the Emergency Department if symptoms worsen or any other concerns. Follow-up with primary care 1-2 days. Take medications as prescribed. Is patient prescribed a controlled substance at d/c from ED?: No Referrals: Douglas Evans MD [Primary Care Provider] - 1-2 days Time of Disposition: 01:23
[2021-11-22] MEDS ORDERED: LORazepam 2 MG/ML INJ IV PRN (02:45)
[2021-11-22 06:07] VITALS: BP 136/92; PULSE 88
== END 2021-11-22 06:37 | disposition home or self-care (01) ==
LOC: EC 19:03
DX: F10.20 Alcohol dependence, uncomplicated (principal); E83.42 Hypomagnesemia; E87.6 Hypokalemia; E83.51 Hypocalcemia; F17.200 Nicotine dependence, unspecified, uncomplicated; I10 Essential (primary) hypertension; G40.909 Epilepsy, unspecified, not intractable, without status epilepticus; Z79.899 Other long term (current) drug therapy; Y90.6 Blood alcohol level of 120-199 mg/100 ml
CPT/HCPCS: 36415; 80053; 82150; 83690; 83735; 85025; 81001; 80306; 99284; 96365; 96366; 96368; 96375; 96376; 96361; G0480; J2060 ×2; J0696; J3475; J0610; 80320

== ENCOUNTER 2022-03-09 12:25 | Inpatient (IN) | payer MEDICAID, OTHER ==
--- NOTE | 2022-03-09 13:50 | ED ---
Psych HPI - General Source: patient, RN notes reviewed Mode of arrival: ambulatory Limitations: no limitations <Get Heller - Last Filed: 03/09/22 14:51> <Pj Knowles - Last Filed: 03/09/22 15:43> - General Chief Complaint: Psychiatric Symptoms Stated Complaint: petition Time Seen by Provider: 03/09/22 13:02 - History of Present Illness Initial Comments: This a 36-year-old female presents emergency from from [facility] for psychiatric evaluation. Patient has been having some hallucinations, delusional thoughts. Patient does have underlying psychiatric history. Patient herself has no complaints but is here with [facility] worker. Denies alcohol or drug use patient has NO KNOWN DRUG ALLERGIES. She states she's been taking her medications as directed. (Get Heller) - Related Data Home Medications Medication Instructions Recorded Confirmed levETIRAcetam [Keppra] 500 mg PO BID 04/01/20 03/09/22 Gabapentin 300 mg PO DAILY 09/22/21 03/09/22 Gabapentin 600 mg PO HS 09/22/21 03/09/22 OLANZapine [ZyPREXA] 5 mg PO DAILY 09/22/21 03/09/22 cloNIDine HCL 0.1 mg PO QID PRN 09/22/21 03/09/22 Aviane 0.1/0.02mg 1 tab PO DAILY 01/26/22 03/09/22 Famotidine 20 mg PO DAILY 01/26/22 03/09/22 QUEtiapine FUMARATE 100 mg PO HS 01/26/22 03/09/22 risperiDONE [RisperDAL] 1 mg PO HS 01/26/22 03/09/22 Previous Rx's Medication Instructions Recorded Folic Acid 1 mg PO DAILY #30 tablet 09/25/21 amLODIPine [Norvasc] 5 mg PO DAILY #30 tab 09/25/21 traZODone HCL 300 mg PO HS #30 tab 10/07/21 Naltrexone HCl [Revia] 50 mg PO DAILY 30 Days #30 tablet 11/20/21 Magnesium Oxide [Mag-Ox] 800 mg PO DAILY #6 tablet 11/22/21 Allergies Allergy/AdvReac Type Severity Reaction Status Date / Time No Known Allergies Allergy Verified 03/09/22 13:31 Review of Systems ROS Other: All systems not noted in ROS Statement are negative. <Get Heller - Last Filed: 03/09/22 14:51> ROS Other: All systems not noted in ROS Statement are negative. <Pj Knowles - Last Filed: 03/09/22 15:43> ROS Statement: Those systems with pertinent positive or pertinent negative responses have been documented in the HPI. Past Medical History Past Medical History: Hypertension, Seizure Disorder Additional Past Medical History / Comment(s): Alcoholism, alcohol withdrawl/delirium/hallucinations/seizure with last one being 03/13/2020 History of Any Multi-Drug Resistant Organisms: None Reported Past Surgical History: No Surgical Hx Reported Additional Past Surgical History / Comment(s): [place] teeth extractions. Past Anesthesia/Blood Transfusion Reactions: No Reported Reaction Additional Past Anesthesia/Blood Transfusion Reaction / Comment(s): Pt has clausterphobia Past Psychological History: Anxiety, Bipolar, Depression, Schizophrenia Smoking Status: Current every day smoker Past Alcohol Use History: Abuse, Daily Past Drug Use History: None Reported - Past Family History Mother Family Medical History: No Reported History Additional Family Medical History / Comment(s): Mother is healthy Father Additional Family Medical History / Comment(s): Father is from [place] . <Get Heller - Last Filed: 03/09/22 14:51> General Exam Limitations: no limitations General appearance: alert, in no apparent distress Head exam: Present: atraumatic, normocephalic, normal inspection Eye exam: Present: normal appearance, PERRL, EOMI. Absent: scleral icterus, conjunctival injection, periorbital swelling ENT exam: Present: normal exam, normal oropharynx Neck exam: Present: normal inspection. Absent: tenderness, meningismus, lymphadenopathy Respiratory exam: Present: normal lung sounds bilaterally. Absent: respiratory distress, wheezes, rales, rhonchi, stridor Cardiovascular Exam: Present: regular rate, normal rhythm, normal heart sounds. Absent: systolic murmur, diastolic murmur, rubs, gallop, clicks GI/Abdominal exam: Present: soft, normal bowel sounds. Absent: distended, tenderness, guarding, rebound, rigid Neurological exam: Present: alert Psychiatric exam: Present: flat affect Skin exam: Present: warm, dry, intact, normal color. Absent: rash <Get Heller - Last Filed: 03/09/22 14:51> Course Vital Signs 03/09/22 12:49 Temperature 98.3 F Pulse Rate 80 Respiratory 20 Rate Blood Pressure 112/79 O2 Sat by Pulse 100 Oximetry Medical Decision Making <Get Heller - Last Filed: 03/09/22 14:51> <Pj Knowles - Last Filed: 03/09/22 15:43> - Medical Decision Making Evaluated by EPS will be admitted for psychiatric treatment. (Get Heller) Patient reexamined and reevaluated by myself, Dr. Knowles. Patient resting com fortably in bed. I do agree with PAs findings. This includes diagnostic agitation treatment plan. Patient was seen by mental health services with plans for admission. Positive clinical certificate completed. (Pj Knowles) - Lab Data Lab Results 03/09/22 Range/Units 14:41 Coronavirus (PCR) Not Detected (Not Detectd) Disposition <Get Heller - Last Filed: 03/09/22 14:51> <Pj Knowles - Last Filed: 03/09/22 15:43> Clinical Impression: Psychosis, Bipolar disorder Disposition: TRANSFER TO PSYCH HOSP/UNIT Referrals: Douglas Evans MD [Primary Care Provider] - 1-2 days
[2022-03-09] MEDS ORDERED: LORazepam 1 MG TAB PO PRN (16:47)
[2022-03-09] MEDS ORDERED: HALOPERIDOL LACTATE 5 MG/ML 1 ML VIAL IM PRN (16:47)
[2022-03-09] MEDS ORDERED: ACETAMINOPHEN TAB 325 MG TAB PO PRN (16:47)
[2022-03-09] MEDS ORDERED: MAG HYDROX/AL HYDROX/SIMETH 30 ML CUP PO PRN (16:47)
[2022-03-09] MEDS ORDERED: MAGNESIUM HYDROXIDE 2,400 MG/10 ML CUP PO PRN (16:47)
[2022-03-09] MEDS ORDERED: LORazepam 2 MG/ML INJ IM PRN (16:56)
[2022-03-09] MEDS ORDERED: haloperidoL 5 MG TAB PO PRN (16:56)
[2022-03-09] MEDS: NICOTINE 14MG/24HR PATCH TRANSDERM SCH (17:30)
[2022-03-09] MEDS ORDERED: PALIPERIDONE 3 MG TAB.ER.24 PO SCH (21:00)
[2022-03-09] MEDS ORDERED: GABAPENTIN 300 MG CAP PO SCH (21:00)
[2022-03-09] MEDS: traZODone HCL 100 MG TAB PO SCH (21:33)
[2022-03-09] MEDS: levETIRAcetam 500 MG TAB PO SCH (21:33)
--- NOTE | 2022-03-10 02:59 | P.PN ---
Progress Note - Text Progress Note Date: 03/10/22 Notified of the new admission by the mental health unit RN. Informed that the patient is sleeping and not appropriate for evaluation.
[2022-03-10] MEDS: NICOTINE 14MG/24HR PATCH TRANSDERM SCH (08:26)
[2022-03-10] MEDS: NALTREXONE HCL 50 MG TAB PO SCH (08:27)
[2022-03-10] MEDS: FOLIC ACID 1 MG TAB PO SCH (08:27)
[2022-03-10] MEDS: levETIRAcetam 500 MG TAB PO SCH ×2 (08:27→20:14)
[2022-03-10] MEDS: FAMOTIDINE 20 MG TAB PO SCH (08:27)
[2022-03-10] MEDS: amLODIPine 5 MG TAB PO SCH (08:27)
[2022-03-10] MEDS: MAGNESIUM OXIDE 400 MG TAB PO SCH (08:28)
[2022-03-10] MEDS: AVIANE PO SCH (08:30)
[2022-03-10] MEDS ORDERED: GABAPENTIN 300 MG CAP PO SCH (09:00)
[2022-03-10 12:03] LABS: Basophils % (A) 0 %; Eosinophils # (A) 0.1 k/uL (0-0.7); Eosinophils % (A) 1 %; Lymphocytes % (A) 21 %; MCH 37.8 pg (25.0-35.0); MCHC 33.2 g/dL (31.0-37.0); Macrocytosis Marked; Mean Platelet Volume 8.3; Monocytes # (A) 0.4 k/uL (0-1.0); Monocytes % (A) 4 %; Neutrophils # (A) 6.9 k/uL (1.3-7.7); Neutrophils % (A) 73 %; RBC 3.69 m/uL (3.80-5.40); RDW 14.5 % (11.5-15.5); WBC 9.6 k/uL (3.8-10.6)
[2022-03-10 12:04] LABS: MCV 113.9 fL (80.0-100.0); Platelet Count 211 k/uL (150-450)
[2022-03-10 12:05] LABS: ALT 29 U/L (4-34); AST 70 U/L (14-36); African American GFR (CKD) >90 (>60 ml/min/1.73 sqM); Alkaline Phosphatase 66 U/L (38-126); Anion Gap 8 mmol/L; Blood Urea Nitrogen 7 mg/dL (7-17); Calcium 8.7 mg/dL (8.4-10.2); Carbon Dioxide 30 mmol/L (22-30); Chloride 99 mmol/L (98-107); Glucose 130 mg/dL (74-99); Non-African American GFR(CKD) >90 (>60 ml/min/1.73 sqM); Potassium 3.7 mmol/L (3.5-5.1); Sodium 137 mmol/L (137-145); Total Bilirubin 0.7 mg/dL (0.2-1.3); Total Protein 7.2 g/dL (6.3-8.2)
--- NOTE | 2022-03-10 13:41 | P.HP ---
Psychiatric H&P - . H&P Date: 03/10/22 History & Physical: Allergies Allergy/AdvReac Type Severity Reaction Status Date / Time No Known Allergies Allergy Verified 03/09/22 13:31 Vital Signs Temp 97.4 F L 03/10/22 01:57 Pulse 82 03/10/22 01:57 Resp 18 03/09/22 19:18 BP 125/84 03/10/22 01:57 Pulse Ox 97 03/09/22 19:18 Intake & Output 03/09/22 03/10/22 03/10/22 18:59 06:59 18:59 Weight 71.668 kg 71.3 kg Laboratory Last Values WBC 9.6 k/uL (3.8-10.6) 03/10/22 11:05 RBC 3.69 m/uL (3.80-5.40) L 03/10/22 11:05 Hgb 14.0 gm/dL (11.4-16.0) 03/10/22 11:05 Hct 42.0 % (34.0-46.0) 03/10/22 11:05 MCV 113.9 fL (80.0-100.0) H D 03/10/22 11:05 MCH 37.8 pg (25.0-35.0) H 03/10/22 11:05 MCHC 33.2 g/dL (31.0-37.0) 03/10/22 11:05 RDW 14.5 % (11.5-15.5) 03/10/22 11:05 Plt Count 211 k/uL (150-450) D 03/10/22 11:05 MPV 8.3 03/10/22 11:05 Neutrophils % 73 % 03/10/22 11:05 Lymphocytes % 21 % 03/10/22 11:05 Monocytes % 4 % 03/10/22 11:05 Eosinophils % 1 % 03/10/22 11:05 Basophils % 0 % 03/10/22 11:05 Neutrophils # 6.9 k/uL (1.3-7.7) 03/10/22 11:05 Lymphocytes # 2.0 k/uL (1.0-4.8) 03/10/22 11:05 Monocytes # 0.4 k/uL (0-1.0) 03/10/22 11:05 Eosinophils # 0.1 k/uL (0-0.7) 03/10/22 11:05 Basophils # 0.0 k/uL (0-0.2) 03/10/22 11:05 Manual Slide Review Performed 03/10/22 11:05 Macrocytosis Marked A 03/10/22 11:05 Sodium 137 mmol/L (137-145) 03/10/22 11:05 Potassium 3.7 mmol/L (3.5-5.1) 03/10/22 11:05 Chloride 99 mmol/L (98-107) 03/10/22 11:05 Carbon Dioxide 30 mmol/L (22-30) 03/10/22 11:05 Anion Gap 8 mmol/L 03/10/22 11:05 BUN 7 mg/dL (7-17) 03/10/22 11:05 Creatinine 0.69 mg/dL (0.52-1.04) 03/10/22 11:05 Est GFR (CKD-EPI)AfAm >90 (>60 ml/min/1.73 sqM) 03/10/22 11:05 Est GFR (CKD-EPI)NonAf >90 (>60 ml/min/1.73 sqM) 03/10/22 11:05 Glucose 130 mg/dL (74-99) H 03/10/22 11:05 Calcium 8.7 mg/dL (8.4-10.2) 03/10/22 11:05 Total Bilirubin 0.7 mg/dL (0.2-1.3) 03/10/22 11:05 AST 70 U/L (14-36) H 03/10/22 11:05 ALT 29 U/L (4-34) 03/10/22 11:05 Alkaline Phosphatase 66 U/L (38-126) 03/10/22 11:05 Total Protein 7.2 g/dL (6.3-8.2) 03/10/22 11:05 Albumin 4.0 g/dL (3.5-5.0) 03/10/22 11:05 TSH 1.430 mIU/L (0.465-4.680) 03/10/22 11:05 Coronavirus (PCR) Not Detected (Not Detectd) 03/09/22 14:41 03/10/22 13:41 IDENTIFYING DATA: Patient is a single, unemployed, 36-year-old female with significant history of alcohol use disorder and major depressive disorder with psychotic features who presents to the hospital after endorsing bizarre delusions and hallucinations during her outpatient therapy appointment HPI: Patient presented to the hospital on 03/09/2022, brought into the hospital by her social service technician after being observed to display bizarre behavior during her therapy session at [facility]. Patient was petitioned. As per petition, "Claudia reported auditory hallucinations, visual hallucinations of seeing her dad. Claudia states that she went on a joint honeymoon in a private jet with a pool and traveled the world. Most secondary to not make sense and the session today. She appears to be in a delusional state." Upon evaluation by the EPS nurse, the patient continued to display significantly disorganized thought processes as well as responding to internal stimuli. The patient was subsequently certified and admitted to the psychiatric unit. Collateral information was provided by [facility] who informed this treatment team that the patient has been also drinking excessive amounts of cough syrup that she mixed with her alcohol. Upon evaluation on this unit, the patient is unable to recall events leading up to this hospitalization. She does admit that she was stating such things to her therapist however reports that she believes she was "dreaming." She states that she is having a difficult time discerning between what is "dreaming and reality." The patient is currently denying any suicidal or homicidal ideation, intention, and/or plan. She continues to endorse auditory hallucinations but states that the voices are very faint and is unable to expand on what she is hearing. She is denying any visual hallucinations at this time. Prior to this admission, the patient reports that she has been drinking alcohol but states that her last drink was 10 days ago. She does admit that she has been drinking excessive amounts of vodka, and approximates up to a fifth per day. She does admit that she has been mixing it with cough syrup. In regards to bipolar symptoms, the patient is currently denying any grandiosity, pressured speech, increased goal-directed activity, or severe mood lability. She is currently not reporting any issues regarding her sleep or her appetite. The patient expresses that she has been sleeping excessively although contradicts herself saying that she has difficulty with sleep and would like medications to help her sleep. The patient is currently not reporting any significant symptoms of depression. She is currently denying any acute stressors. She is not reporting any suicidal or homicidal ideation, intention, and/or plan. She is not reporting any hopelessness or helplessness. She expresses a strong desire to continue with treatment and eventually quit alcohol. She wishes to comply with treatment and sign herself voluntarily onto the psychiatric unit. PAST PSYCHIATRIC HISTORY: Patient states that she has been previously treated for alcohol use disorder and depression.. Patient has had numerous trials of medication and is most recently on a regimen of Zyprexa, ReVia, trazodone, and clonidine. This is the patient's fourth inpatient psychiatric admission. Her last admission was at [facility] approximately one year ago. She currently is open with [facility]. Patient denies any history of suicide attempts in the past. PMH: Past Medical History: Hypertension, Seizure Disorder Additional Past Medical History / Comment(s): Alcoholism, alcohol withdrawl/delirium/hallucinations/seizure with last one being 03/13/2020 History of Any Multi-Drug Resistant Organisms: None Reported Past Surgical History: No Surgical Hx Reported Additional Past Surgical History / Comment(s): [place] teeth extractions. Past Anesthesia/Blood Transfusion Reactions: No Reported Reaction Additional Past Anesthesia/Blood Transfusion Reaction / Comment(s): Pt has clausterphobia Past Psychological History: Anxiety, Bipolar, Depression, Schizophrenia Smoking Status: Current every day smoker Past Alcohol Use History: Abuse, Daily Past Drug Use History: None Reported ALLERGIES: NO KNOWN DRUG ALLERGIES CHEMICAL DEPENDENCY HISTORY: The patient reports that she began drinking at the age of 14. She reports that her alcohol use became much worse after the of her father in 2010. She reports that she has been to rehab at least 14 times in the past. She does report a history of withdrawal seizures. She states that she also smokes one pack per day of tobacco. She denies any marijuana or illicit drug use. FAMILY PSYCHIATRIC/SUBSTANCE USE HISTORY: The patient reports that she has a maternal uncle with schizophrenia. She reports no history of suicide family. She does report that she has maternal uncles who abuse crack cocaine. SOCIAL HISTORY: Patient was born and raised in [place], [place]. She currently lives with her mother and brother. She is single, never , and has no children. She currently has no source of income and is unemployed. MENTAL STATUS EXAM: General Appearance: Patient appears to be stated age is alert, directable, and attempts to cooperate. Patient appears to have slightly disheveled hygiene and grooming. Behavior: Patient is seated without any agitated behavior. Eye contact is intense Speech: Patient's speech is fluent and nonpressured. Mood/Affect: Patient reports their mood is "doing okay," affect is congruent and constricted. Suicidality/Homicidality: Patient denies any suicidal or homicidal ideation. Perceptions: Patient denies any visual hallucinations but endorses auditory hallucinations. Though content/process: Mild disorganization and a poor historian. Memory and concentration: Poor Judgment and insight: Fair STRENGTHS/WEAKNESSES: Strength is that the patient is open with outpatient services and actively engages in treatment. She also has significant support from family. Weakness is the patient abuses alcohol. INTELLECT: Below average to average IMPRESSIONS: Acute psychosis - rule out alcoholic hallucinosis versus major depressive disorder with psychotic features Major depressive disorder Nicotine dependence PLAN: -Patient is admitted under involuntary however converted to voluntary status to MHU for stabilization of psychiatric symptoms and safety. Patient signed adult voluntary form and medication consent and is placed in patient's chart. -Medications : Will start patient on Invega 3 mg by mouth at bedtime which she will increase to 6 mg by mouth at bedtime was stabilization/psychosis Trazodone 100 mg daily at bedtime for insomnia We will increase gabapentin to 600 mg by mouth twice a day from label use for anxiety and alcohol use disorder -Ativan and Haldol PRN for agitation/aggression -CIWA protocol with Ativan PRN for ETOH withdrawal -Patient was counselled on substance abuse and desired to cut back on use -Patient was informed of the risks, benefits and side effects of the medication and patient verbally consented to taking the medications. Patient signed med consent form and was placed in chart. -Internal Medicine consult to perform medical evaluation and physical. -NRT - nicotine patch -SW on board for discharge planning. Encourage patient to participate in groups to work on coping skills. 03/10/22 13:41
[2022-03-10 18:10] LABS: Chol/HDL Ratio 2.21 Ratio; LDL Cholesterol,Calculated 85.7 mg/dL (0.0-131.0)
[2022-03-10] MEDS: PALIPERIDONE 3 MG TAB.ER.24 PO SCH (20:14)
[2022-03-10] MEDS: GABAPENTIN 300 MG CAP PO SCH (20:15)
--- NOTE | 2022-03-11 01:17 | P.CONS ---
History of Present Illness - Reason for Consult Consult date: 03/10/22 - History of Present Illness The patient is a 36-year-old female with a PMH of schizophrenia, and bipolar disorder, hypertension, and seizure disorder who was brought into the emergency room by a [facility] worker for psychiatric evaluation. The patient was reportedly having hallucinations and delusions, and was admitted to the mental health unit where she was seen and evaluated. The patient reports that she does not know wh at she is in the emergency room and reports feeling well. She did exhibit flight of ideas and pressured speech during the interview. She reported smoking one pack of cigarettes daily for the past several years. Also reported a history of significant alcohol abuse, drinking as much as a fifth of vodka daily for several years, but reported having quit roughly a month ago. Denies any additional substance use. Denied physical complaints at the time of interview. Denied chest discomfort, shortness of breath, fever, chills, cough, nausea, vomiting, abdominal pain, diarrhea. Laboratory evaluation was remarkable for macrocytosis of 113.9. Review of systems: Pertinent positives and negatives as discussed in HPI, a complete review of systems was performed and all other systems are negative. Physical examination: General: non toxic, no distress, appears at stated age, overweight Derm: no unusual rashes/lesions no unusual ecchymoses, warm, dry Head: atraumatic, normocephalic, symmetric Eyes: EOMI, no lid lag, anicteric sclera, pupils equal round reactive to light ENT: Nose and ears atraumatic, no thrush, no pharyngeal erythema Neck: No thyromegaly, no cervical lymphadenopathy, trachea midline, supple Mouth: no lip lesion, mucus membranes moist Cardiovascular: S1S2 reg, no murmur, positive posterior tibial pulse bilateral, no edema, capillary refill less than 2 seconds Lungs: CTA bilateral, no rhonchi, no rales , no accessory muscle use Abdominal: soft, nontender to palpation, no guarding, no appreciable organomegaly, normal bowel sounds Ext: no gross muscle atrophy, muscle strength 5 out of 5 in all 4 extremities grossly, no contractures, Neuro: CN II-XI grossly intact, light touch intact all 4 extremities, finger to nose within normal limits, Psych: Alert, oriented, pressured speech and flight of ideas Assessment/plan Macrocytosis -Check B12 and folate levels Elevated AST -Unclear etiology, patient reports currently abstaining from alcohol -Monitor for now Schizophrenia and psychosis -As per psychiatry Chronic conditions: Hypertension, seizure disorder -Continue with home meds Thank you for allowing us to participate in the care of this patient. We will follow peripherally. Do not hesitate to contact us with questions. Someone can be reached from the [facility] hospitalist group at all hours of the day at [phone]. Past Medical History Past Medical History: Hypertension, Seizure Disorder Additional Past Medical History / Comment(s): Alcoholism, alcohol withdrawl/delirium/hallucinations/seizure with last one being 03/13/2020 History of Any Multi-Drug Resistant Organisms: None Reported Past Surgical History: No Surgical Hx Reported Additional Past Surgical History / Comment(s): [place] teeth extractions. Past Anesthesia/Blood Transfusion Reactions: No Reported Reaction Additional Past Anesthesia/Blood Transfusion Reaction / Comm: Pt has roman sterphobia Past Psychological History: Anxiety, Bipolar, Depression, Schizophrenia Smoking Status: Current every day smoker Past Alcohol Use History: Abuse, Daily Past Drug Use History: None Reported - Past Family History Mother Family Medical History: No Reported History Additional Family Medical History / Comment(s): Mother is healthy Father Additional Family Medical History / Comment(s): Father is from alcoholism. Medications and Allergies Home Medications Medication Instructions Recorded Confirmed Type levETIRAcetam [Keppra] 500 mg PO BID 04/01/20 03/09/22 History Gabapentin 300 mg PO DAILY 09/22/21 03/09/22 History Gabapentin 600 mg PO HS 09/22/21 03/09/22 History OLANZapine [ZyPREXA] 5 mg PO DAILY 09/22/21 03/09/22 History cloNIDine HCL 0.1 mg PO QID PRN 09/22/21 03/09/22 History Folic Acid 1 mg PO DAILY #30 tablet 09/25/21 03/09/22 Rx amLODIPine [Norvasc] 5 mg PO DAILY #30 tab 09/25/21 03/09/22 Rx traZODone HCL 300 mg PO HS #30 tab 10/07/21 03/09/22 Rx Naltrexone HCl [Revia] 50 mg PO DAILY 30 Days #30 tablet 11/20/21 03/09/22 Rx Magnesium Oxide [Mag-Ox] 800 mg PO DAILY #6 tablet 11/22/21 03/09/22 Rx Aviane 0.1/0.02mg 1 tab PO DAILY 01/26/22 03/09/22 History Famotidine 20 mg PO DAILY 01/26/22 03/09/22 History QUEtiapine FUMARATE 100 mg PO HS 01/26/22 03/09/22 History risperiDONE [RisperDAL] 1 mg PO HS 01/26/22 03/09/22 History Allergies Allergy/AdvReac Type Severity Reaction Status Date / Time No Known Allergies Allergy Verified 03/09/22 13:31 Physical Exam Vitals: Vital Signs Temp Pulse BP 03/10/22 01:57 97.4 F L 82 125/84 Results CBC & Chem 7: 03/10/22 11:05 03/10/22 11:05 Labs: Abnormal Lab Results - Last 24 Hours (Table) 03/10/22 03/10/22 Range/Units 11:05 11:05 RBC 3.69 L (3.80-5.40) m/uL MCV 113.9 H D (80.0-100.0) fL MCH 37.8 H (25.0-35.0) pg Macrocytosis Marked A Glucose 130 H (74-99) mg/dL AST 70 H (14-36) U/L HDL Cholesterol 90.30 H (40.00-60.00) mg/dL
[2022-03-11 07:00] LABS: ALT 24 U/L (4-34); AST 45 U/L (14-36); African American GFR (CKD) >90 (>60 ml/min/1.73 sqM); Albumin 3.8 g/dL (3.5-5.0); Alkaline Phosphatase 64 U/L (38-126); Anion Gap 6 mmol/L; Blood Urea Nitrogen 11 mg/dL (7-17); Calcium 9.1 mg/dL (8.4-10.2); Carbon Dioxide 31 mmol/L (22-30); Chloride 101 mmol/L (98-107); Glucose 109 mg/dL (74-99); Non-African American GFR(CKD) >90 (>60 ml/min/1.73 sqM); Potassium 3.9 mmol/L (3.5-5.1); Sodium 138 mmol/L (137-145); Total Bilirubin 0.7 mg/dL (0.2-1.3)
[2022-03-11] MEDS: NICOTINE 14MG/24HR PATCH TRANSDERM SCH (08:05)
[2022-03-11] MEDS: levETIRAcetam 500 MG TAB PO SCH ×2 (08:05→21:26)
[2022-03-11] MEDS: GABAPENTIN 300 MG CAP PO SCH ×2 (08:05→21:26)
[2022-03-11] MEDS: amLODIPine 5 MG TAB PO SCH (08:06)
[2022-03-11] MEDS: FAMOTIDINE 20 MG TAB PO SCH (08:06)
[2022-03-11] MEDS: FOLIC ACID 1 MG TAB PO SCH (08:06)
[2022-03-11] MEDS: NALTREXONE HCL 50 MG TAB PO SCH (08:06)
[2022-03-11] MEDS: AVIANE PO SCH (08:07)
[2022-03-11] MEDS: MAGNESIUM OXIDE 400 MG TAB PO SCH (08:08)
--- NOTE | 2022-03-11 11:16 | P.PN ---
Progress Note - Text Progress Note Date: 03/11/22 Interval History: Patient was seen resting in bed and was directable and agreeable to speak with health science writer in her room. Currently, the patient is not suicidal or homicidal ideation, intention, and/or plan. She is no longer endorsing any auditory or visual hallucinations. She is denying any paranoia or other delusions. The patient has been adherent with her medications and is not reporting any significant side effects at this time. She reports no issues regarding her sle ep or her appetite. She has been attending groups with the high-level participation. Currently there is concern that her current guardian has not been supportive of her sobriety. The patient is interested in continuing treatment for substance use disorder. Mental Status Exam: General Appearance: Patient appears to be stated age is alert, directable, and cooperative. Improved hygiene and grooming. Behavior: Patient is calmly seated without any agitated behavior. Speech: Patient's speech is fluent and nonpressured. Mood/Affect: Mood is improving mildly, affect is congruent and euthymic. Suicidality/Homicidality: Patient denies having any suicidal or homicidal ideation intent or plan. Perceptions: Patient denies any visual hallucinations and denies any auditory hallucinations Though content/process: There is no evidence of any delusional thought content and thought process is linear and goal-directed. Memory and concentration: AOX3, grossly intact for the purposes of this session Judgment and insight: Improving mildly Vital Signs Temp 97.4 F L 03/10/22 01:57 Pulse 82 03/10/22 01:57 Resp 18 03/09/22 19:18 BP 125/84 03/10/22 01:57 Pulse Ox 97 03/09/22 19:18 Laboratory Results - Last 24 Hours 03/10/22 03/10/22 03/10/22 11:05 11:05 11:05 WBC 9.6 RBC 3.69 L Hgb 14.0 Hct 42.0 MCV 113.9 H D MCH 37.8 H MCHC 33.2 RDW 14.5 Plt Count 211 D MPV 8.3 Neutrophils % 73 Lymphocytes % 21 Monocytes % 4 Eosinophils % 1 Basophils % 0 Neutrophils # 6.9 Lymphocytes # 2.0 Monocytes # 0.4 Eosinophils # 0.1 Basophils # 0.0 Manual Slide Review Performed Macrocytosis Marked A Sodium 137 Potassium 3.7 Chloride 99 Carbon Dioxide 30 Anion Gap 8 BUN 7 Creatinine 0.69 Est GFR (CKD-EPI)AfAm >90 Est GFR (CKD-EPI)NonAf >[address] Glu mg/dL 103 Hemoglobin A1c 5.2 Calcium 8.7 Total Bilirubin 0.7 AST 70 H ALT 29 Alkaline Phosphatase 66 Total Protein 7.2 Albumin 4.0 Triglycerides 120.00 Cholesterol 200.00 LDL Cholesterol, Calc 85.7 VLDL Cholesterol, Calc 24.00 HDL Cholesterol 90.30 H Cholesterol/HDL Ratio 2.21 Vitamin B12 TSH 1.430 03/11/22 03/11/22 06:26 06:26 WBC RBC Hgb Hct MCV MCH MCHC RDW Plt Count MPV Neutrophils % Lymphocytes % Monocytes % Eosinophils % Basophils % Neutrophils # Lymphocytes # Monocytes # Eosinophils # Basophils # Manual Slide Review Macrocytosis Sodium 138 Potassium 3.9 Chloride 101 Carbon Dioxide 31 H Anion Gap 6 BUN 11 Creatinine 0.83 Est GFR (CKD-EPI)AfAm >90 Est GFR (CKD-EPI)NonAf >90 [address] Glu mg/dL Hemoglobin A1c Calcium 9.1 Total Bilirubin 0.7 AST 45 H ALT 24 Alkaline Phosphatase 64 Total Protein 7.0 Albumin 3.8 Triglycerides Cholesterol LDL Cholesterol, Calc VLDL Cholesterol, Calc HDL Cholesterol Cholesterol/HDL Ratio Vitamin B12 665.0 TSH Assessment Acute psychosis Major depressive disorder Nicotine dependence Plan: -Patient continues to meet criteria for inpatient psychiatric admission for symptom stabilization and safety. Patient has signed adult voluntary form and medication consent and was placed in patient's chart. -Medications: Continue Invega 6 mg by mouth at bedtime with plans to titrate 9 mg over the weekend. Continue trazodone 100 mg by mouth at bedtime for insomnia Continue gabapentin 600 mg by mouth twice a day for off label use for anxiety and alcohol use disorder -When necessary Ativan and Haldol for agitation/aggression. -NRT - nicotine patch -SW on board for discharge planning. Encouraged the patient to participate in milieu.
[2022-03-11] MEDS: PALIPERIDONE 3 MG TAB.ER.24 PO SCH (21:26)
[2022-03-11] MEDS: traZODone HCL 100 MG TAB PO SCH ×2 (23:04)
[2022-03-12] MEDS: MAGNESIUM OXIDE 400 MG TAB PO SCH (08:01)
[2022-03-12] MEDS: NICOTINE 14MG/24HR PATCH TRANSDERM SCH (08:01)
[2022-03-12] MEDS: GABAPENTIN 300 MG CAP PO SCH ×2 (08:02→20:58)
[2022-03-12] MEDS: amLODIPine 5 MG TAB PO SCH (08:02)
[2022-03-12] MEDS: NALTREXONE HCL 50 MG TAB PO SCH (08:02)
[2022-03-12] MEDS: levETIRAcetam 500 MG TAB PO SCH ×2 (08:02→20:58)
[2022-03-12] MEDS: FOLIC ACID 1 MG TAB PO SCH (08:02)
[2022-03-12] MEDS: FAMOTIDINE 20 MG TAB PO SCH (08:02)
[2022-03-12] MEDS: AVIANE PO SCH (08:02)
--- NOTE | 2022-03-12 11:08 | P.PN ---
Subjective Progress Note Date: 03/12/22 Principal diagnosis: Schizophrenia chronic undifferentiated type Mood disorder unspecified Nicotine dependence Subjective data: I have no idea why they brought me here But I don't that I was drinking somewhat more than usual and I should not be doing that Know I'm not doing any other drugs I am currently on disability with my family/mother I'm not hearing any voices or seeing things I feel that I'm making good progress Objective data: Patient is casually dressed and groomed Responses are appropriate and quick and somewhat robotic Affect at this time remains flat Thinking is concrete Patient denies any suicidal or homicidal ideations or plans Formal and operational judgment and insight appears to have improved Plan: We'll continue current medications as prescribed Patient is not currently exhibiting any side effects from her current medications Continue milieu treatment and supportive care and improving coping skills Patient also would be a good candidate for referral to a substance use program after discharge including attending psychosocial services like Alcoholics Anonymous Aníbal Cool M.D. 03/12/2022 Objective - Vital Signs Vital signs: Vital Signs Temp 97.8 F 03/12/22 06:56 Pulse 119 H 03/12/22 08:04 Resp 20 03/12/22 08:04 BP 108/71 03/12/22 08:04 Pulse Ox 97 03/09/22 19:18 - Labs CBC & Chem 7: 03/10/22 11:05 03/11/22 06:26
[2022-03-12] MEDS: PALIPERIDONE 3 MG TAB.ER.24 PO SCH (20:58)
[2022-03-13] MEDS: traZODone HCL 100 MG TAB PO SCH ×2 (00:04→23:49)
[2022-03-13] MEDS: AVIANE PO SCH (08:20)
[2022-03-13] MEDS: amLODIPine 5 MG TAB PO SCH (08:23)
[2022-03-13] MEDS: GABAPENTIN 300 MG CAP PO SCH ×2 (08:23→20:54)
[2022-03-13] MEDS: NICOTINE 14MG/24HR PATCH TRANSDERM SCH (08:23)
[2022-03-13] MEDS: MAGNESIUM OXIDE 400 MG TAB PO SCH (08:23)
[2022-03-13] MEDS: FOLIC ACID 1 MG TAB PO SCH (08:23)
[2022-03-13] MEDS: levETIRAcetam 500 MG TAB PO SCH ×2 (08:23→20:54)
[2022-03-13] MEDS: NALTREXONE HCL 50 MG TAB PO SCH (08:23)
[2022-03-13] MEDS: FAMOTIDINE 20 MG TAB PO SCH (08:23)
--- NOTE | 2022-03-13 10:00 | P.PN ---
Subjective Progress Note Date: 03/13/22 Principal diagnosis: Schizophrenia chronic undifferentiated type Mood disorder unspecified Nicotine dependence Subjective data: I am feeling a lot better now I feel that I could go home tomorrow and again get back to my routine as before I plan to take my medications as prescribed I'm not feeling suicidal I plan to follow-up in my treatment for my substance use Objective data: Patient was laying down in bed but was easily arousable Responses are appropriate and quick Affect at this time remains flat Thinking is concrete Patient denies any auditory or visual hallucinations Patient denies any suicidal or homicidal ideations or plans Formal and operational judgment and insight appears to have improved Plan: We'll continue current medications as prescribed Patient is not currently exhibiting any side effects from her current medications Continue milieu treatment and supportive care and improving coping skills Patient also would be a good candidate for referral to a substance use program after discharge including attending psychosocial services like Aisha Cool M.D. 03/13/2022 Objective - Vital Signs Vital signs: Vital Signs Temp 97.8 F 03/12/22 06:56 Pulse 112 H 03/13/22 08:26 Resp 20 03/12/22 08:04 BP 108/76 03/13/22 08:26 Pulse Ox 97 03/09/22 19:18 Intake & Output 03/12/22 03/13/22 03/13/22 18:59 06:59 18:59 Weight 71.1 kg - Labs CBC & Chem 7: 03/10/22 11:05 03/11/22 06:26
[2022-03-13] MEDS ORDERED: PALIPERIDONE 3 MG TAB.ER.24 PO SCH (21:00)
[2022-03-14 06:43] VITALS: BP 116/82; PULSE 77; RESP 16; TEMP 97.7
[2022-03-14] MEDS: NICOTINE 14MG/24HR PATCH TRANSDERM SCH (08:47)
[2022-03-14] MEDS: NALTREXONE HCL 50 MG TAB PO SCH (08:48)
[2022-03-14] MEDS: levETIRAcetam 500 MG TAB PO SCH (08:48)
[2022-03-14] MEDS: GABAPENTIN 300 MG CAP PO SCH (08:48)
[2022-03-14] MEDS: FAMOTIDINE 20 MG TAB PO SCH (08:48)
[2022-03-14] MEDS: amLODIPine 5 MG TAB PO SCH (08:48)
[2022-03-14] MEDS: MAGNESIUM OXIDE 400 MG TAB PO SCH (08:48)
[2022-03-14] MEDS: AVIANE PO SCH (08:48)
[2022-03-14] MEDS: FOLIC ACID 1 MG TAB PO SCH (08:48)
--- NOTE | 2022-03-14 13:06 | P.DS ---
Providers Date of admission: 03/09/22 16:39 Expected date of discharge: 03/14/22 Attending physician: Lazaro Jimenez MD Consults: 03/09/22 16:47 Consult Physician Routine Consulting Provider: Ricardo Ma Consult Reason/Comments: history and physical/medical management Do you want consulting provider notified?: Yes Primary care physician: Douglas Evans - Discharge Diagnosis(es) (1) Major depressive disorder with psychotic features Current Visit: Yes Status: Acute Priority: High (2) Alcohol-induced psychotic disorder with hallucinations Current Visit: Yes Status: Acute Priority: High (3) Alcohol use disorder Current Visit: Yes Status: Chronic Priority: Medium (4) Nicotine dependence Current Visit: Yes Status: Chronic Priority: Medium Hospital Course: Admission HPI: Patient is a single, unemployed, 36-year-old female with significant history of alcohol use disorder and major depressive disorder with psychotic features who presents to the hospital after endorsing bizarre delusions and hallucinations during her outpatient therapy appointment Patient presented to the hospital on 03/09/2022, brought into the hospital by her psych social worker after being observed to display bizarre behavior during her therapy session at [facility]. Patient was petitioned. As per petition, "Claudia reported auditory hallucinations, visual hallucinations of seeing her dad. Claudia states that she went on a joint honeymoon in a private jet with a pool and traveled the world. Most secondary to not make sense and the session today. She appears to be in a delusional state." Upon evaluation by the EPS nurse, the patient continued to display significantly disorganized thought processes as well as responding to internal stimuli. The patient was subsequently certified and admitted to the psychiatric unit. Collateral information was provided by [facility] who informed this treatment team that the patient has been also drinking excessive amounts of cough syrup that she mixed with her alcohol. Upon evaluation on this unit, the patient is unable to recall events leading up to this hospitalization. She does admit that she was stating such things to her therapist however reports that she believes she was "dreaming." She states that she is having a difficult time discerning between what is "dreaming and reality." The patient is currently denying any suicidal or homicidal ideation, intention, and/or plan. She continues to endorse auditory hallucinations but states that the voices are very faint and is unable to expand on what she is hearing. She is denying any visual hallucinations at this time. Prior to this admission, the patient reports that she has been drinking alcohol but states that her last drink was 10 days ago. She does admit that she has been drinking excessive amounts of vodka, and approximates up to a fifth per day. She does admit that she has been mixing it with cough syrup. In regards to bipolar symptoms, the patient is currently denying any grandiosity, pressured speech, increased goal-directed activity, or severe mood lability. She is currently not reporting any issues regarding her sleep or her appetite. The patient expresses that she has been sleeping excessively although contradicts herself saying that she has difficulty with sleep and would like medications to help her sleep. The patient is currently not reporting any significant symptoms of depression. She is currently denying any acute stressors. She is not reporting any suicidal or homicidal ideation, intention, and/or plan. She is not reporting any hopelessness or helplessness. She expresses a strong desire to continue with treatment and eventually quit alcohol. She wishes to comply with treatment and sign herself voluntarily onto the psychiatric unit. Patient states that she has been previously treated for alcohol use disorder and depression.. Patient has had numerous trials of medication and is most recently on a regimen of Zyprexa, ReVia, trazodone, and clonidine. This is the patient's fourth inpatient psychiatric admission. Her last admission was at [facility] approximately one year ago. She currently is open with [facility]. Patient denies any history of suicide attempts in the past. Hospital course: Upon admission to the unit patient was initially calm and cooperative however a poor historian of the events leading up to the hospitalization. Patient was however directable and agreeable to commence treatment. Patient got along well with other patients on the unit and followed unit protocol. Patient was compliant with the medications and denied any side effects throughout hospital course. Patient was started on Invega for mood stabilization/psychosis, trazodone for insomnia, and gabapentin was increased roughly please for anxiety and to address her alcohol use disorder.. Patient spoke of her stressors and engaged in therapy both group and individual. Patient was also seen by medical team for history and physical exam. Over the course of the hospitalization, the patient displayed gradual improvement in regards to her mood, thought process, and became more future oriented with better insight and judgment. The patient did understand that she had a significant issue with alcohol as well as mixing alcohol with other substances such as Benadryl. She was counseled at length on abstaining from alcohol, marijuana, tobacco, and illicit drugs. Patient was offered inpatient substance abuse rehabilitation however declined. The patient was also counseled at length on importance of medication adherence and appropriate outpatient follow-up. She denies any access to firearms or weapons. Prior to discharge, family meeting will be arranged by psych social worker to answer questions and ensure safety. Mental status exam: General Appearance: Patient appears to be stated age is alert, pleasant, and cooperative. Patient is in no acute distress and has fair hygiene and grooming Behavior: Patient is calmly seated without any agitated behavior. Speech: Patient's speech is fluent and nonpressured. Mood/Affect: Patient reports their mood is "really good", affect is congruent and euthymic to bright. Suicidality/Homicidality: Patient denies any suicidal or homicidal ideation. Perceptions: Patient denies any auditory or visual hallucinations. Though content/process: There is no evidence of any delusional thought content and thought process is linear and goal-directed. Patient is future oriented. Memory and concentration: AOX3, grossly intact for the purposes of this session. Can spell "WORLD" backwards correctly. Judgment and insight: Improved with guarded prognosis Vital Signs Temp 97.7 F 03/14/22 06:42 Pulse 77 03/14/22 06:42 Resp 16 03/14/22 06:42 BP 116/82 03/14/22 06:42 Pulse Ox 98 03/14/22 06:42 Intake & Output 03/13/22 03/14/22 03/14/22 18:59 06:59 18:59 Weight 71.1 kg Impression: Major depressive disorder, with psychotic features Alcohol use disorder Nicotine dependence Plan: -Continue with discharge today as patient has improved and stabilized psychiatrically and is not currently an imminent threat to herself and/or others. Patient will remain at chronically elevated risk for harm to self and/or others due to her impulsivity and polysubstance abuse. -Continue medications: Invega 9 mg by mouth at bedtime for mood stabilization/psychosis Keppra 300 mg by mouth twice a day for seizure disorder Trazodone 100 mg daily at bedtime for insomnia Habitrol patches for nicotine cessation Neurontin 600 mg by mouth twice a day roughly please for anxiety and to address alcohol use disorder ReVia 50 mg daily for alcohol use disorder. -Patient was counseled on the need for medication compliance and appropriate follow-up at mental health and also primary care for medical issues. Patient verbalized understanding and agreed. -Social work to arrange for and conduct family meeting to ensure safety upon discharge and answer any questions/concerns. Social work also to arrange for patients follow up appointments with [facility] for psychiatric care along with follow up with primary care provider. -Patient counseled on abstaining from recreational drugs and marijuana and alcohol. Was informed/educated on the adverse effects on their physical and mental health. Patient verbally agreed and understood. Patient was offered substance abuse treatment however declined at this time. -Patient was instructed to return to the hospital or seek immediate medical care if their psychiatric or medical symptoms do worsen or reoccur. -Psychoeducation and supportive therapy provided to patient. Risks and benefits of pharmacological treatment versus the risks and benefits of nontreatment weight and discussed. Informed consent discussion held. Common side effects of psychotropics discussed such as, but not limited to headache, GI disturbance, sexual dysfunction, movement disorders, sedation, and orthostatic hypotension. Life threatening and blackbox warnings of prescribed medications also discussed. Potential risks of operating a vehicle or heavy machinery discussed with patient at length. Advised on importance of compliance and a reliable and responsible manner. Patient advised to review FDA consumer labeling of all medications prior to taking. Patient verbalized understanding of potential risk s, and agrees with current treatment plan. Patient advised to medically contact physician/emergency personnel if any acute changes in condition occur. Allergies Allergy/AdvReac Type Severity Reaction Status Date / Time No Known Allergies Allergy Verified 03/09/22 13:31 Laboratory Results WBC 9.6 k/uL (3.8-10.6) 03/10/22 11:05 RBC 3.69 m/uL (3.80-5.40) L 03/10/22 11:05 Hgb 14.0 gm/dL (11.4-16.0) 03/10/22 11:05 Hct 42.0 % (34.0-46.0) 03/10/22 11:05 MCV 113.9 fL (80.0-100.0) H D 03/10/22 11:05 MCH 37.8 pg (25.0-35.0) H 03/10/22 11:05 MCHC 33.2 g/dL (31.0-37.0) 03/10/22 11:05 RDW 14.5 % (11.5-15.5) 03/10/22 11:05 Plt Count 211 k/uL (150-450) D 03/10/22 11:05 MPV 8.3 03/10/22 11:05 Neutrophils % 73 % 03/10/22 11:05 Lymphocytes % 21 % 03/10/22 11:05 Monocytes % 4 % 03/10/22 11:05 Eosinophils % 1 % 03/10/22 11:05 Basophils % 0 % 03/10/22 11:05 Neutrophils # 6.9 k/uL (1.3-7.7) 03/10/22 11:05 Lymphocytes # 2.0 k/uL (1.0-4.8) 03/10/22 11:05 Monocytes # 0.4 k/uL (0-1.0) 03/10/22 11:05 Eosinophils # 0.1 k/uL (0-0.7) 03/10/22 11:05 Basophils # 0.0 k/uL (0-0.2) 03/10/22 11:05 Manual Slide Review Performed 03/10/22 11:05 Macrocytosis Marked A 03/10/22 11:05 Sodium 138 mmol/L (137-145) 03/11/22 06:26 Potassium 3.9 mmol/L (3.5-5.1) 03/11/22 06:26 Chloride 101 mmol/L (98-107) 03/11/22 06:26 Carbon Dioxide 31 mmol/L (22-30) H 03/11/22 06:26 Anion Gap 6 mmol/L 03/11/22 06:26 BUN 11 mg/dL (7-17) 03/11/22 06:26 Creatinine 0.83 mg/dL (0.52-1.04) 03/11/22 06:26 Est GFR (CKD-EPI)AfAm >90 (>60 ml/min/1.73 sqM) 03/11/22 06:26 Est GFR (CKD-EPI)NonAf >90 (>60 ml/min/1.73 sqM) 03/11/22 06:26 Glucose 109 mg/dL (74-99) H 03/11/22 06:[address] Glu mg/dL 103 03/10/22 11:05 Hemoglobin A1c 5.2 % (0.0-6.0) 03/10/22 11:05 Calcium 9.1 mg/dL (8.4-10.2) 03/11/22 06:26 Total Bilirubin 0.7 mg/dL (0.2-1.3) 03/11/22 06:26 AST 45 U/L (14-36) H 03/11/22 06:26 ALT 24 U/L (4-34) 03/11/22 06:26 Alkaline Phosphatase 64 U/L (38-126) 03/11/22 06:26 Total Protein 7.0 g/dL (6.3-8.2) 03/11/22 06:26 Albumin 3.8 g/dL (3.5-5.0) 03/11/22 06:26 Triglycerides 120.00 mg/dL (0.00-149.00) 03/10/22 11:05 Cholesterol 200.00 mg/dL (0.00-200.00) 03/10/22 11:05 LDL Cholesterol, Calc 85.7 mg/dL (0.0-131.0) 03/10/22 11:05 VLDL Cholesterol, Calc 24.00 mg/dL (5.00-40.00) 03/10/22 11:05 HDL Cholesterol 90.30 mg/dL (40.00-60.00) H 03/10/22 11:05 Cholesterol/HDL Ratio 2.21 Ratio 03/10/22 11:05 Vitamin B12 665.0 pg/mL (200.0-944.0) 03/11/22 06:26 TSH 1.430 mIU/L (0.465-4.680) 03/10/22 11:05 Coronavirus (PCR) Not Detected (Not Detectd) 03/09/22 14:41 Patient Condition at Discharge: Stable Plan - Discharge Summary New Discharge Prescriptions: New Paliperidone [Invega] 9 mg PO HS 30 Days levETIRAcetam [Keppra] 500 mg PO BID 30 Days tab traZODone HCL [Desyrel] 100 mg PO HS 30 Days tab Nicotine 14Mg/24Hr Patch [Habitrol] 1 patch TRANSDERM DAILY 30 Days patch Gabapentin [Neurontin] 600 mg PO BID 30 Days cap Naltrexone HCl [Revia] 50 mg PO DAILY 30 Days tab Continue amLODIPine [Norvasc] 5 mg PO DAILY #30 tab Magnesium Oxide [Mag-Ox] 800 mg PO DAILY #6 tablet Famotidine 20 mg PO DAILY Folic Acid 1 mg PO DAILY #30 tablet Aviane 0.1/0.02mg 1 tab PO DAILY Discontinued levETIRAcetam [Keppra] 500 mg PO BID Naltrexone HCl [Revia] 50 mg PO DAILY 30 Days #30 tablet QUEtiapine FUMARATE 100 mg PO HS OLANZapine [ZyPREXA] 5 mg PO DAILY Gabapentin 600 mg PO HS cloNIDine HCL 0.1 mg PO QID PRN PRN Reason: Anxiety Gabapentin 300 mg PO DAILY traZODone HCL 300 mg PO HS #30 tab risperiDONE [RisperDAL] 1 mg PO HS Discharge Medication List Folic Acid 1 mg PO DAILY #30 tablet 09/25/21 [Rx] amLODIPine [Norvasc] 5 mg PO DAILY #30 tab 09/25/21 [Rx] Magnesium Oxide [Mag-Ox] 800 mg PO DAILY #6 tablet 11/22/21 [Rx] Aviane 0.1/0.02mg 1 tab PO DAILY 01/26/22 [History] Famotidine 20 mg PO DAILY 01/26/22 [History] Gabapentin [Neurontin] 600 mg PO BID 30 Days cap 03/14/22 [Rx] Naltrexone HCl [Revia] 50 mg PO DAILY 30 Days tab 03/14/22 [Rx] Nicotine 14Mg/24Hr Patch [Habitrol] 1 patch TRANSDERM DAILY 30 Days patch 03/14/22 [Rx] Paliperidone [Invega] 9 mg PO HS 30 Days 03/14/22 [Rx] levETIRAcetam [Keppra] 500 mg PO BID 30 Days tab 03/14/22 [Rx] traZODone HCL [Desyrel] 100 mg PO HS 30 Days tab 03/14/22 [Rx] Follow up Appointment(s)/Referral(s): [facility] [Outside] - 03/21/22 1:30 pm (03-21-22 at 1:30 with PROSPER Sierra at [facility] 03-22-22 at 11:00 with Kristina Francisco at [facility]) Douglas Evans MD [Primary Care Provider] - 1-2 days Patient Instructions/Handouts: Brief Psychotic Disorder (DC) Activity/Diet/Wound Care/Special Instructions: Activity and diet as tolerated. Avoid the use of street drugs and alcohol. Take all medications as prescribed. When you are in need of refills on your medications please contact your medical provider and/or outpatient psychiatrist to have this done. Please go to scheduled outpatient appointment for aftercare treatment. If symptoms return or become worse, call the crisis line at and/or go to the nearest emergency room for evaluation Discharge Disposition: HOME SELF-CARE
== END 2022-03-14 13:04 | disposition home or self-care (01) | DRG 885 ==
LOC: EC 12:25 → 3MHU 16:39
PROVIDERS: ADMIT Psychiatry & Neurology Psychiatry; ATTEND Psychiatry & Neurology Psychiatry
DX: F32.3 Major depressive disorder, single episode, severe with psychotic features (principal); F10.151 Alcohol abuse with alcohol-induced psychotic disorder with hallucinations; F10.951 Alcohol use, unspecified with alcohol-induced psychotic disorder with hallucinations; D75.89 Other specified diseases of blood and blood-forming organs; F17.210 Nicotine dependence, cigarettes, uncomplicated; F20.9 Schizophrenia, unspecified; F31.9 Bipolar disorder, unspecified; F41.9 Anxiety disorder, unspecified; G40.909 Epilepsy, unspecified, not intractable, without status epilepticus; G47.00 Insomnia, unspecified; I10 Essential (primary) hypertension; Z79.899 Other long term (current) drug therapy; Z81.8 Family history of other mental and behavioral disorders; Z20.822 Contact with and (suspected) exposure to COVID-19
CPT/HCPCS: 80053; 80061; 82075; 82607; 82747; 83036; 84443; 85025; 87635; 99285

== ENCOUNTER 2022-05-21 18:32 | Emergency (ER) | payer OTHER ==
[2022-05-21 18:58] VITALS: TEMP 98.1
--- NOTE | 2022-05-21 21:06 | ED ---
Wound/Laceration HPI - General Source: patient Mode of arrival: ambulatory Limitations: no limitations <Gabby Magallon - Last Filed: 05/21/22 23:13> <Saulo Ash - Last Filed: 05/22/22 00:45> - General Chief Complaint: Wound/Laceration Stated Complaint: syncope, fall on thinners Time Seen by Provider: 05/21/22 21:01 - History of Present Illness Initial Comments: Patient is a 37-year-old female presents to the emergency room after waking up earlier today noticing blood on her chin. She reports that she was at [facility] for alcohol rehab and was discharged on 05/14/2022. Initially she denied having any alcoholic drinks but then admits that her last drink was yesterday and her substance of choice is vodka. She denies any nausea, dizziness or loss of consciousness since waking. She is a poor historian and is unsure how long she was blacked out for and the event was unwitnessed. She has a past medical history significant for seizures and hypertension in addition to her alcohol abuse history. She reports that she does not believe that she had a seizure however she is unsure. She reports some moderate anxiety that causes her to have elevated heart rate with palpitations at time including now but she denies any chest pain, shortness of breath, diaphoresis or headache. She denies any other complaints or concerns at this time. (Gabby Magallon) - Related Data Home Medications Medication Instructions Recorded Confirmed Vienva 1 tab PO DAILY 05/21/22 05/21/22 traZODone HCL 300 mg PO HS 05/21/22 05/21/22 Previous Rx's Medication Instructions Recorded Folic Acid 1 mg PO DAILY #30 tablet 09/25/21 amLODIPine [Norvasc] 5 mg PO DAILY #30 tab 09/25/21 Gabapentin [Neurontin] 600 mg PO BID 30 Days cap 03/14/22 Naltrexone HCl [Revia] 50 mg PO DAILY 30 Days tab 03/14/22 Paliperidone [Invega] 9 mg PO HS 30 Days 03/14/22 levETIRAcetam [Keppra] 500 mg PO BID 30 Days tab 03/14/22 Allergies Allergy/AdvReac Type Severity Reaction Status Date / Time No Known Allergies Allergy Verified 05/21/22 21:21 Review of Systems ROS Other: All systems not noted in ROS Statement are negative. <Gabby Magallon - Last Filed: 05/21/22 23:13> ROS Other: All systems not noted in ROS Statement are negative. <Saulo Ash - Last Filed: 05/22/22 00:45> ROS Statement: Those systems with pertinent positive or pertinent negative responses have been documented in the HPI. Past Medical History Past Medical History: Hypertension, Seizure Disorder Additional Past Medical History / Comment(s): Alcoholism, alcohol withdrawl/delirium/hallucinations/seizure with last one being 03/13/2020 History of Any Multi-Drug Resistant Organisms: None Reported Past Surgical History: No Surgical Hx Reported Additional Past Surgical History / Comment(s): [place] teeth extractions. Past Anesthesia/Blood Transfusion Reactions: No Reported Reaction Additional Past Anesthesia/Blood Transfusion Reaction / Comment(s): Pt has clausterphobia Past Psychological History: Anxiety, Bipolar, Depression, Schizophrenia Smoking Status: Current every day smoker Past Alcohol Use History: Abuse, Daily Past Drug Use History: None Reported - Past Family History Mother Family Medical History: No Reported History Additional Family Medical History / Comment(s): Mother is healthy Father Additional Family Medical History / Comment(s): Father is from alcoholism. <Gabby Magallon - Last Filed: 05/21/22 23:13> General Exam Limitations: no limitations General appearance: alert, in no apparent distress, appears intoxicated Head exam: Present: normocephalic, other (Large laceration to chin) Eye exam: Present: normal appearance, PERRL, EOMI. Absent: scleral icterus, conjunctival injection, periorbital swelling ENT exam: Present: mucous membranes moist Neck exam: Absent: tenderness, lymphadenopathy Respiratory exam: Present: normal lung sounds bilaterally. Absent: respiratory distress, wheezes, rales, rhonchi, stridor Cardiovascular Exam: Present: regular rate, normal rhythm, normal heart sounds. Absent: systolic murmur, diastolic murmur, rubs, gallop, clicks GI/Abdominal exam: Present: soft, normal bowel sounds. Absent: distended, tenderness, guarding, rebound, rigid Extremities exam: Present: normal inspection, full ROM, normal capillary refill. Absent: tenderness, pedal edema, joint swelling, calf tenderness Back exam: Present: normal inspection Neurological exam: Present: alert, oriented X3, CN II-XII intact Psychiatric exam: Present: flat affect Skin exam: Present: other (Large laceration to lower chin) <Gabby Magallon - Last Filed: 05/21/22 23:13> Course <Saulo Ash - Last Filed: 05/22/22 00:45> Vital Signs 05/21/22 18:56 Temperature 98.1 F Pulse Rate 125 H Respiratory 20 Rate Blood Pressure 105/64 O2 Sat by Pulse 96 Oximetry - Reevaluation(s) Reevaluation #1: 05/22/22 00:44 Record is reviewed (Saulo Ash) Reevaluation #2: 05/22/22 00:44 Is becoming more alert and awake (Saulo Ash) Procedures - Laceration Laceration #1 Consent Obtained: verbal consent Indication: laceration Site: face Size (cm): 3 Description: linear Depth: simple, single layer Anesthetic Used: lidocaine 1% Anesthesia Technique: local infiltration Pre-repair: irrigated extensively Type of Sutures: nylon Size of Sutures: 4-0 Number of Sutures: 6 Technique: simple, interrupted Patient Tolerated Procedure: well, no complications <Gabby Magallon - Last Filed: 05/21/22 23:13> Medical Decision Making - Lab Data Result diagrams: 05/21/22 21:25 05/21/22 21:25 <Gabby Magallon - Last Filed: 05/21/22 23:13> - Lab Data Result diagrams: 05/21/22 21:25 05/21/22 21:25 - Radiology Data Radiology results: report reviewed (CT brain C-spine negative for acute disease), image reviewed <Saulo Ash - Last Filed: 05/22/22 00:45> - Medical Decision Making Due to loss of consciousness an unwitnessed event along with seizure history will check CT of brain and cervical spine and EKG. High probability for 12-24 hours since laceration occurred; will need coverage for infection. Will check alcohol level, CMP, CBC along with clotting times due to unknown length of unconsciousness and unknown amount of bleeding from large laceration to chin along with alcohol abuse status. She is requesting a nicotine patch, will provide. Pain tolerable denies analgesic need; EtOH level elevated at 332 consistent with intoxication presentation. CBC with macrocytosis no anemia. Elevated liver enzymes otherwise lab stable. Awaiting computed tomography scan. Laceration to chin sutured without complications. Report given to Dr. Ash to complete care and for discharge post computed tomography scan evaluation . (Gabby Magallon) 37 female to the emergency department for evaluation. Patient has fall fall with chin laceration laceration is repaired CT scanning is negative. Patient is intoxicated, able to sleep it off able to ambulate walk and speak without difficulty. Patient can be discharged to care of cardiac (Saulo Ash) - Lab Data Lab Results 05/21/22 05/21/22 Range/Units 21:25 21:25 WBC 7.3 (3.8-10.6) k/uL RBC 3.77 L (3.80-5.40) m/uL Hgb 13.8 (11.4-16.0) gm/dL Hct 40.5 (34.0-46.0) % MCV 107.4 H (80.0-100.0) fL MCH 36.6 H (25.0-35.0) pg MCHC 34.0 (31.0-37.0) g/dL RDW 14.6 (11.5-15.5) % Plt Count 216 (150-450) k/uL MPV 7.5 Neutrophils % 49 % Lymphocytes % 43 % Monocytes % 4 % Eosinophils % 0 % Basophils % 0 % Neutrophils # 3.6 (1.3-7.7) k/uL Lymphocytes # 3.2 (1.0-4.8) k/uL Monocytes # 0.3 (0-1.0) k/uL Eosinophils # 0.0 (0-0.7) k/uL Basophils # 0.0 (0-0.2) k/uL Macrocytosis Moderate Sodium 141 (137-145) mmol/L Potassium 3.8 (3.5-5.1) mmol/L Chloride 102 (98-107) mmol/L Carbon Dioxide 16 L (22-30) mmol/L Anion Gap 23 mmol/L BUN 3 L (7-17) mg/dL Creatinine 0.64 (0.52-1.04) mg/dL Est GFR (CKD-EPI)AfAm >90 (>60 ml/min/1.73 sqM) Est GFR (CKD-EPI)NonAf >90 (>60 ml/min/1.73 sqM) Glucose 102 H (74-99) mg/dL Calcium 10.0 (8.4-10.2) mg/dL Total Bilirubin 0.4 (0.2-1.3) mg/dL AST 85 H (14-36) U/L ALT 48 H (4-34) U/L Alkaline Phosphatase 70 (38-126) U/L Total Protein 7.4 (6.3-8.2) g/dL Albumin 4.5 (3.5-5.0) g/dL Serum Alcohol 332 H* mg/dL - EKG Data EKG Comments: EKG shows sinus tachycardia, ventricular rate 119 bpm, TN interval 141 ms, QRS duration, 93 ms, QT/QTC 357/420 ms, PRT axes 70, 92, 50 (Gabby Magallon) Disposition <Gabby Magallon - Last Filed: 05/21/22 23:13> Is patient prescribed a controlled substance at d/c from ED?: No <Saulo Ash - Last Filed: 05/22/22 00:45> Clinical Impression: Laceration, Alcoholic intoxication, Fall Disposition: HOME SELF-CARE Condition: Fair Instructions (If sedation given, give patient instructions): Laceration (ED), Care For Your Stitches (ED) Referrals: Douglas Evans MD [Primary Care Provider] - 1-2 days
[2022-05-21] MEDS ORDERED: NICOTINE 21MG/24HR PATCH TRANSDERM STA (21:30)
[2022-05-21] MEDS ORDERED: LIDOCAINE 1% INJ 10MG/ML (5 ML VIAL-PF) SQ ONE (21:40)
[2022-05-21 22:30] LABS: Basophils % (A) 0 %; Eosinophils % (A) 0 %; HCT 40.5 % (34.0-46.0); HGB 13.8 gm/dL (11.4-16.0); Lymphocytes # (A) 3.2 k/uL (1.0-4.8); Lymphocytes % (A) 43 %; MCH 36.6 pg (25.0-35.0); MCV 107.4 fL (80.0-100.0); Macrocytosis Moderate; Mean Platelet Volume 7.5; Monocytes # (A) 0.3 k/uL (0-1.0); Monocytes % (A) 4 %; Neutrophils # (A) 3.6 k/uL (1.3-7.7); Neutrophils % (A) 49 %; Platelet Count 216 k/uL (150-450); RBC 3.77 m/uL (3.80-5.40); RDW 14.6 % (11.5-15.5); WBC 7.3 k/uL (3.8-10.6)
[2022-05-21 22:39] LABS: ALT 48 U/L (4-34); AST 85 U/L (14-36); African American GFR (CKD) >90 (>60 ml/min/1.73 sqM); Albumin 4.5 g/dL (3.5-5.0); Alkaline Phosphatase 70 U/L (38-126); Anion Gap 23 mmol/L; Blood Urea Nitrogen 3 mg/dL (7-17); Carbon Dioxide 16 mmol/L (22-30); Chloride 102 mmol/L (98-107); Glucose 102 mg/dL (74-99); Non-African American GFR(CKD) >90 (>60 ml/min/1.73 sqM); Sodium 141 mmol/L (137-145); Total Bilirubin 0.4 mg/dL (0.2-1.3); Total Protein 7.4 g/dL (6.3-8.2)
[2022-05-21 22:50] LABS: Alcohol 332 mg/dL
[2022-05-21 22:53] LABS: Potassium 3.8 mmol/L (3.5-5.1)
--- NOTE | 2022-05-21 23:55 | CT ---
EXAMINATION TYPE: CT brain cspine wo con DATE OF EXAM: 05/21/2022 COMPARISON: 01/26/2022 HISTORY: head trauma/fall. prior on PACS CT DLP: 1386 mGycm Automated exposure control for dose reduction was used. Exam of the brain and cervical spine with no contrast. Ventricles have normal size. There is no mass effect or midline shift. No sign of intracranial hemorr misa. The calvarium is intact. Skull base is intact. There is normal aeration of the mastoid sinuses. The cervical vertebra have normal alignment. Posterior element are intact. No compression fracture. F acet joints are intact. Prevertebral soft tissues appear normal. IMPRESSION: Normal CT scan of the brain. Normal CT scan of the cervical spine.
[2022-05-22 09:21] VITALS: BP 139/69; PULSE 106; RESP 15
== END 2022-05-22 09:20 | disposition home or self-care (01) ==
LOC: EC 18:32
DX: S01.81XA Laceration without foreign body of other part of head, initial encounter (principal); F10.129 Alcohol abuse with intoxication, unspecified; F17.200 Nicotine dependence, unspecified, uncomplicated; I10 Essential (primary) hypertension; W19.XXXA Unspecified fall, initial encounter
CPT/HCPCS: 36415; 80053; 85025; 72125; 70450; 99285; G0480; S4990; J2001; 80320; 93005

== ENCOUNTER 2022-06-07 16:41 | Inpatient (IN) | payer OTHER ==
[2022-06-07] MEDS ORDERED: LORazepam 2 MG/ML INJ IV STA ×2 (19:26→22:19)
[2022-06-07] MEDS ORDERED: SODIUM CHLORIDE 0.9% 1,000 ML with MVI, ADULT NO.4 WITH VIT K 10 ML, THIAMINE 100 MG, F... IV ONE ×4 (19:28)
--- NOTE | 2022-06-07 19:49 | XR ---
EXAMINATION TYPE: XR chest 1V portable DATE OF EXAM: 06/07/2022 7:41 PM COMPARISON: Chest radiographs from 11/18/2021 TECHNIQUE: XR chest 1V portable Portable AP radiograph of the chest. CLINICAL INDICATION:Female, 37 years old with history of Seizure activity; FINDINGS: Lungs/Pleura: There is no evidence of pleural effusion, focal consolidation, or pneumothorax. Pulmonary vascularity: Unremarkable. Heart/mediastinum: Cardiomediastinal silhouette is unremarkable. Musculoskeletal: No acute osseous pathology. IMPRESSION: No acute cardiopulmonary disease/process.
--- NOTE | 2022-06-07 19:58 | ED ---
Seizure HPI - General Chief Complaint: Seizure Stated Complaint: anxiety Time Seen by Provider: 06/07/22 19:22 Source: patient, RN notes reviewed Mode of arrival: EMS Limitations: no limitations - History of Present Illness Initial Comments: This is a pleasant 37-year-old female who presents after having a witnessed seizure. Patient denies any injury. Seizure was witnessed by her mother. Unknown downtime. Patient was brought in by EMS. Patient states she is feeling anxious, jittery, has some tremor, has had some visual hallucinations, some increased agitation. Patient denies any pain at this time. Patient states she had a seizure about one year ago for alcohol withdrawal. Last drink was yesterday. No headache, no fever or chills, no changes in vision or hearing, no sore throat or difficulty with speech, no neck pain, no chest pain or shortness of breath, no abdominal pain, no nausea or vomiting, no changes in urination or bowel movements, no extremity pain, no skin rashes or lesions. Past medical, surgical, social, and family history reviewed. MD Complaint: seizure - Related Data Home Medications Medication Instructions Recorded Confirmed Vienva 1 tab PO DAILY 05/21/22 06/07/22 traZODone HCL 300 mg PO HS 05/21/22 06/07/22 Famotidine 20 mg PO DAILY 06/07/22 06/07/22 Gabapentin 600 mg PO BID 06/07/22 06/07/22 Magnesium Oxide [Walker] 500 mg PO QID PRN 06/07/22 06/07/22 OLANZapine 5 mg PO HS 06/07/22 06/07/22 cloNIDine HCL [Catapres] 0.1 mg PO QID PRN 06/07/22 06/07/22 Previous Rx's Medication Instructions Recorded amLODIPine [Norvasc] 5 mg PO DAILY #30 tab 09/25/21 Naltrexone HCl [Revia] 50 mg PO DAILY 30 Days tab 03/14/22 levETIRAcetam [Keppra] 500 mg PO BID 30 Days tab 03/14/22 Allergies Allergy/AdvReac Type Severity Reaction Status Date / Time No Known Allergies Allergy Verified 06/07/22 21:49 Review of Systems ROS Statement: Those systems with pertinent positive or pertinent negative responses have been documented in the HPI. ROS Other: All systems not noted in ROS Statement are negative. Past Medical History Past Medical History: Hypertension, Seizure Disorder Additional Past Medical History / Comment(s): Alcoholism, alcohol withdrawl/delirium/hallucinations/seizure with last one being 03/13/2020 History of Any Multi-Drug Resistant Organisms: None Reported Past Surgical History: No Surgical Hx Reported Additional Past Surgical History / Comment(s): [place] teeth extractions. Past Anesthesia/Blood Transfusion Reactions: No Reported Reaction Additional Past Anesthesia/Blood Transfusion Reaction / Comment(s): Pt has clausterphobia Past Psychological History: Anxiety, Bipolar, Depression, Schizophrenia Smoking Status: Current every day smoker Past Alcohol Use History: Abuse, Daily Past Drug Use History: None Reported - Past Family History Mother Family Medical History: No Reported History Additional Family Medical History / Comment(s): Mother is healthy Father Additional Family Medical History / Comment(s): Father is from alcoholism. General Exam - General Exam Comments Initial Comments: Patient in mild distress secondary to having a seizure likely related to alcohol withdrawal. Cranial nerves II through XII are intact. Cerebellar testing is normal. Patient has a notable, generalized tremor with minimal diaphoresis Limitations: no limitations General appearance: alert, in distress Head exam: Present: atraumatic, normocephalic, normal inspection Eye exam: Present: normal appearance, PERRL, EOMI, nystagmus. Absent: scleral icterus, conjunctival injection, periorbital swelling ENT exam: Present: normal exam, normal oropharynx, mucous membranes moist, TM's normal bilaterally, normal external ear exam. Absent: mucous membranes dry Neck exam: Present: normal inspection, full ROM. Absent: tenderness, mening ismus, lymphadenopathy Respiratory exam: Present: normal lung sounds bilaterally. Absent: respiratory distress, wheezes, rales, rhonchi, stridor Cardiovascular Exam: Present: normal rhythm, tachycardia, normal heart sounds. Absent: systolic murmur, diastolic murmur, rubs, gallop, clicks GI/Abdominal exam: Present: soft, normal bowel sounds. Absent: distended, tenderness, guarding, rebound, rigid Extremities exam: Present: normal inspection, full ROM, normal capillary refill. Absent: tenderness, pedal edema, joint swelling, calf tenderness Back exam: Present: normal inspection Neurological exam: Present: alert, oriented X3, CN II-XII intact, normal gait. Absent: altered, abnormal gait, motor sensory deficit Psychiatric exam: Present: agitated, anxious. Absent: flat affect Skin exam: Present: warm, dry, intact, normal color. Absent: rash, cyanosis, diaphoretic, erythema, urticaria, vesicles Course Vital Signs 06/07/22 17:01 Temperature 98.4 F Pulse Rate 110 H Respiratory 16 Rate Blood Pressure 111/74 O2 Sat by Pulse 100 Oximetry - Reevaluation(s) Reevaluation #1: 06/07/22 21:02 Medical record is reviewed Symptoms are improved after Ativan Patient is informed of results and questions answered Patient in no distress Reevaluation #2: 06/07/22 22:19 Patient still having some anxiety after Ativan. Dose repeated. Reevaluation #3: 06/07/22 22:20 Patient's CBC shows an elevated white blood cell, but no left shift, marketed macrocytosis, chemistry shows a CO2 of 15. Magnesium low 1.5, will initiate replacement. Mild elevation of the hepato-enzymes. - Consultations Consultation #1: Call placed for the hospitalist physician Consultation #2: Case discussed in detail with Dr. Leyva. Patient admitted to their service Medical Decision Making - Medical Decision Making Patient's CIWA score is 11 for mild headache, visual disturbance, auditory disturbance, tactile disturbances, agitation, Patient will likely require admission for alcohol withdrawal, Ativan ordered Patient be admitted for alcohol withdrawal seizures. Discussed case in detail with Dr. Jones. The case was discussed in detail with ED attending physician. Presentation, findings, treatment plan discussed in detail. Admitted to [facility], discussed with the hospitalist. Ativan protocol initiated - Lab Data Result diagrams: 06/07/22 19:58 06/07/22 19:58 Lab Results 06/07/22 06/07/22 Range/Units 19:58 19:58 WBC 15.7 H (3.8-10.6) k/uL RBC 4.11 (3.80-5.40) m/uL Hgb 15.0 (11.4-16.0) gm/dL Hct 45.8 (34.0-46.0) % MCV 111.6 H (80.0-100.0) fL MCH 36.5 H (25.0-35.0) pg MCHC 32.7 (31.0-37.0) g/dL RDW 15.3 (11.5-15.5) % Plt Count 364 (150-450) k/uL MPV 7.7 Neutrophils % 82 % Lymphocytes % 13 % Monocytes % 4 % Eosinophils % 0 % Basophils % 0 % Neutrophils # 12.8 H (1.3-7.7) k/uL Lymphocytes # 2.0 (1.0-4.8) k/uL Monocytes # 0.6 (0-1.0) k/uL Eosinophils # 0.0 (0-0.7) k/uL Basophils # 0.0 (0-0.2) k/uL Macrocytosis Marked A Sodium 138 (137-145) mmol/L Potassium 3.8 (3.5-5.1) mmol/L Chloride 94 L (98-107) mmol/L Carbon Dioxide 15 L (22-30) mmol/L Anion Gap 29 mmol/L BUN 7 (7-17) mg/dL Creatinine 0.73 (0.52-1.04) mg/dL Est GFR (CKD-EPI)AfAm >90 (>60 ml/min/1.73 sqM) Est GFR (CKD-EPI)NonAf >90 (>60 ml/min/1.73 sqM) Glucose 107 H (74-99) mg/dL Calcium 9.4 (8.4-10.2) mg/dL Magnesium 1.5 L (1.6-2.3) mg/dL Total Bilirubin 0.7 (0.2-1.3) mg/dL AST 74 H (14-36) U/L ALT 44 H (4-34) U/L Alkaline Phosphatase 108 (38-126) U/L Total Protein 8.4 H (6.3-8.2) g/dL Albumin 4.9 (3.5-5.0) g/dL Disposition Clinical Impression: Alcohol withdrawal seizure, Alcohol use disorder, severe, dependence Disposition: ADMITTED IP TO THIS HOSP Condition: Fair Referrals: Douglas Evans MD [Primary Care Provider] - 1-2 days Time of Disposition: 21:03 Decision to Admit Reason: Admit from EC Decision Time: 21:03
[2022-06-07 20:11] LABS: Basophils % (A) 0 %; Eosinophils % (A) 0 %; HCT 45.8 % (34.0-46.0); Lymphocytes % (A) 13 %; MCH 36.5 pg (25.0-35.0); MCHC 32.7 g/dL (31.0-37.0); MCV 111.6 fL (80.0-100.0); Macrocytosis Marked; Mean Platelet Volume 7.7; Monocytes # (A) 0.6 k/uL (0-1.0); Monocytes % (A) 4 %; Neutrophils # (A) 12.8 k/uL (1.3-7.7); Neutrophils % (A) 82 %; Platelet Count 364 k/uL (150-450); RBC 4.11 m/uL (3.80-5.40); RDW 15.3 % (11.5-15.5); WBC 15.7 k/uL (3.8-10.6)
[2022-06-07 21:03] LABS: African American GFR (CKD) >90 (>60 ml/min/1.73 sqM); Albumin 4.9 g/dL (3.5-5.0); Alkaline Phosphatase 108 U/L (38-126); Anion Gap 29 mmol/L; Blood Urea Nitrogen 7 mg/dL (7-17); Calcium 9.4 mg/dL (8.4-10.2); Carbon Dioxide 15 mmol/L (22-30); Chloride 94 mmol/L (98-107); Glucose 107 mg/dL (74-99); Magnesium 1.5 mg/dL (1.6-2.3); Non-African American GFR(CKD) >90 (>60 ml/min/1.73 sqM); Potassium 3.8 mmol/L (3.5-5.1); Sodium 138 mmol/L (137-145); Total Bilirubin 0.7 mg/dL (0.2-1.3); Total Protein 8.4 g/dL (6.3-8.2)
[2022-06-07 21:11] LABS: ALT 44 U/L (4-34); AST 74 U/L (14-36)
[2022-06-07] MEDS ORDERED: Magnesium Replacement Protocol 1 EACH MISC MISCELLANE PRN (22:20)
[2022-06-07] MEDS ORDERED: ACETAMINOPHEN TAB 325 MG TAB PO PRN (22:35)
[2022-06-07] MEDS ORDERED: NALOXONE 0.4 MG/ML 1 ML VIAL IV PRN (22:35)
[2022-06-07] MEDS ORDERED: THIAMINE 100 MG/ML 2 ML VIAL IM STA (22:35)
[2022-06-07] MEDS ORDERED: LORazepam 2 MG/ML INJ IV PRN ×3 (22:35)
[2022-06-07] MEDS ORDERED: ONDANSETRON 4 MG/2 ML VIAL IVP PRN (22:35)
[2022-06-07] MEDS ORDERED: MAGNESIUM OXIDE 400 MG TAB PO PRN (22:39)
[2022-06-07] MEDS ORDERED: cloNIDine HCL 0.1 MG TAB PO PRN (22:39)
[2022-06-07 23:57] LABS: Alcohol <10 mg/dL; GGT 195 U/L (12-43); Phosphorus 3.7 mg/dL (2.5-4.5)
[2022-06-08] MEDS: HEPARIN SODIUM,PORCINE/PF 5,000 UNIT/0.5 ML SYRINGE SQ SCH ×4 (00:25→23:57)
[2022-06-08] MEDS ORDERED: MORPHINE SULFATE 4 MG/ML SYRINGE IVP STA (00:27)
[2022-06-08] MEDS: FAMOTIDINE 20 MG TAB PO SCH ×3 (00:28→21:09)
[2022-06-08] MEDS: MAGNESIUM SULFATE-D5W PMX 1 GM in DEXTROSE/WATER 1 100ML.BAG IVPB SCH ×2 (00:32→01:47)
[2022-06-08] MEDS: THIAMINE 100 MG TAB PO SCH ×3 (00:32→15:16)
[2022-06-08] MEDS ORDERED: chlordiazePOXIDE 25 MG CAP PO STA (01:05)
--- NOTE | 2022-06-08 01:13 | P.HPIM ---
History of Present Illness H&P Date: 06/07/22 Chief Complaint: seizure 37-year-old female with alcohol dependence, history of alcohol withdrawal seizures, hypertension Patient is unreliable historian. She reports that her last drink was yesterday last night. Today she wasn't feeling well all day. As she was going out to smoke a cigarette she believes that she had a seizure episode she described the situation as she was standing outside with cigarette in her hand all of a sudden she couldn't walk she couldn't talk she couldn't move and due to that she thinks she had a seizure. She denies any tongue biting denies any falling denies any loss of consciousness she denies any loss of bladder or bowel control. This episode was not witnessed by anyone. She reports history of alcohol withdrawal seizures about a year ago she denies any history of seizure disorder. She is not willing to quit alcohol at this ti me she is hoping that she can go home to continue drinking. However ED documentation mentioned that they spoke with the mother and that seizure was witnessed but, (there is no detailed description of what type of seizure she had) for which she was brought into the hospital for evaluation Patient admitted for neurology evaluation Patient otherwise denies any fevers chills chest pain trouble breathing coughing upper respiratory infection symptoms denies any GI bleeding or diarrhea. She does have some epigastric discomfort she reports history of gastritis and pancreatitis in the past. She has throughout couple times in the ED nonbloody nonbilious She denies any illicit drugs, she admits to smoking cigarettes and heavy alcohol consumption Blood work showed elevated white count, and anion gap metabolic acidosis, alcohol level was less than 10, elevated GGT and liver enzymes Review of Systems Pertinent positives as noted in HPI. All other systems were reviewed and are negative Past Medical History Past Medical History: Hypertension, Seizure Disorder Additional Past Medical History / Comment(s): Alcoholism, alcohol withdrawl/delirium/hallucinations/seizure with last one being 03/13/2020 History of Any Multi-Drug Resistant Organisms: None Reported Past Surgical History: No Surgical Hx Reported Additional Past Surgical History / Comment(s): [place] teeth extractions. Past Anesthesia/Blood Transfusion Reactions: No Reported Reaction Additional Past Anesthesia/Blood Transfusion Reaction / Comment(s): Pt has clausterphobia Past Psychological History: Anxiety, Bipolar, Depression, Schizophrenia Smoking Status: Current every day smoker Past Alcohol Use History: Abuse, Daily Past Drug Use History: None Reported - Past Family History Mother Family Medical History: No Reported History Additional Family Medical History / Comment(s): Mother is healthy Father Additional Family Medical History / Comment(s): Father is from alcoholism. Medications and Allergies Home Medications Medication Instructions Recorded Confirmed Type amLODIPine [Norvasc] 5 mg PO DAILY #30 tab 09/25/21 06/07/22 Rx Naltrexone HCl [Revia] 50 mg PO DAILY 30 Days tab 03/14/22 06/07/22 Rx levETIRAcetam [Keppra] 500 mg PO BID 30 Days tab 03/14/22 06/07/22 Rx Vienva 1 tab PO DAILY 05/21/22 06/07/22 History traZODone HCL 300 mg PO HS 05/21/22 06/07/22 History Famotidine 20 mg PO DAILY 06/07/22 06/07/22 History Gabapentin 600 mg PO BID 06/07/22 06/07/22 History Magnesium Oxide [Walker] 500 mg PO QID PRN 06/07/22 06/07/22 History OLANZapine 5 mg PO HS 06/07/22 06/07/22 History cloNIDine HCL [Catapres] 0.1 mg PO QID PRN 06/07/22 06/07/22 History Allergies Allergy/AdvReac Type Severity Reaction Status Date / Time No Known Allergies Allergy Verified 06/07/22 21:49 Physical Exam Vitals: Vital Signs Temp Pulse Resp BP Pulse Ox 06/08/22 00:55 99.0 F 100 16 132/78 95 06/07/22 17:01 98.4 F 110 H 16 111/74 100 Intake and Output 06/07/22 06/07/22 06/08/22 14:59 22:59 06:59 Other: Weight 73.936 kg Constitutional: No acute distress, conversant, pleasant, patient is shaky Eyes: Anicteric sclerae, moist conjunctiva, Pupils equal round reactive to light ENMT: NC/AT Oropharynx clear, no erythema, or exudates Neck: Supple, no masses, or JVD No carotid bruits No thyromegaly Lungs: Clear to auscultation Clear to percussion Normal respiratory effort, no accessory muscle use Cardiovascular: Heart regular in rate and rhythm, No murmurs, gallops, or rubs No peripheral edema Abdominal: Soft Tenderness to deep palpation in the epigastric region with voluntary guarding, r no rebound or rigidity Abdomen moving with respiration Normoactive bowel sounds No hepatomegaly, No splenomegaly No palpable mass No abdominal wall hernia noted Skin: Normal temperature, tone, texture, turgor No induration No subcutaneous nodules No rash, lesions No ulcers Extremities: No digital cyanosis No clubbing Pedal pulses intact and symmetrical Radial pulses intact and symmetrical No calf tenderness Psychiatric: Alert and oriented to person, place and time Appropriate affect fair judgement Neuro Muscles Strength 5/5 in all 4 extremities Sensation to light touch grossly present throughout Cranial nerves II-XII grossly intact No focal sensory deficits Lymphatics: no palpable cervical or supraclavicular , or inguinal lymph nodes Results CBC & Chem 7: 06/07/22 19:58 06/07/22 19:58 Labs: Abnormal Lab Results - Last 24 Hours (Table) 06/07/22 06/07/22 06/07/22 Range/Units 19:58 19:58 23:30 WBC 15.7 H (3.8-10.6) k/uL MCV 111.6 H (80.0-100.0) fL MCH 36.5 H (25.0-35.0) pg Neutrophils # 12.8 H (1.3-7.7) k/uL Macrocytosis Marked A Chloride 94 L (98-107) mmol/L Carbon Dioxide 15 L (22-30) mmol/L Glucose 107 H (74-99) mg/dL Magnesium 1.5 L (1.6-2.3) mg/dL GGT 195 H (12-43) U/L AST 74 H (14-36) U/L ALT 44 H (4-34) U/L Total Protein 8.4 H (6.3-8.2) g/dL Assessment and Plan Assessment: Alcohol dependence with alcohol withdrawal syndrome Seizure precautions Thiamine IV fluid hydration Benzos per CIWA scale Patient encouraged to quit alcohol Patient doesn't feel ready to quit alcohol at this time Symptomatic control of nausea vomiting Check lactic acid Check lipase Anion gap metabolic acidosis IV fluid hydrationsaline Check lactic acid Monitor renal function Questionable history of seizures disorder versus alcohol withdrawal seizures Seizure precautions Neuro consult Resume Lu[place]cia which his home medication Elevated liver enzymes secondary to alcohol abuse Hypomagnesemia replace and follow up levels Full code DVT prophylaxis heparin subcu 3 times a day
[2022-06-08 03:06] LABS: African American GFR (CKD) >90 (>60 ml/min/1.73 sqM); Anion Gap 6 mmol/L; Blood Urea Nitrogen 7 mg/dL (7-17); Calcium 8.1 mg/dL (8.4-10.2); Carbon Dioxide 25 mmol/L (22-30); Chloride 99 mmol/L (98-107); Glucose 93 mg/dL (74-99); Magnesium 1.8 mg/dL (1.6-2.3); Non-African American GFR(CKD) >90 (>60 ml/min/1.73 sqM); Potassium 3.6 mmol/L (3.5-5.1); Sodium 130 mmol/L (137-145)
[2022-06-08 05:27] LABS: Appearance,Urine Cloudy (Clear); Bacteria,Urine Moderate /hpf; Bilirubin,Urine Negative (Negative); Blood,Urine Negative (Negative); Color,Urine Yellow; Glucose,Urine (UA) Negative (Negative); Hyaline Casts,Urine 3 /lpf (0-2); Ketones,Urine 1+ (Negative); Leukocyte Esterase,Urine Negative (Negative); Mucus,Urine Rare /hpf; Nitrite,Urine Negative (Negative); Protein,Urine 1+ (Negative); RBC,Urine 1 /hpf (0-5); Specific Gravity,Urine 1.012 (1.001-1.035); Squamous Epithelial Cell,Urine 7 /hpf (0-4); Urobilinogen,Urine <2.0 mg/dL (<2.0); WBC,Urine 4 /hpf (0-5)
[2022-06-08 05:32] LABS: Cocaine Screen,Urine Not Detected (NotDetected); Opiate Screen,Urine Detected (NotDetected); Phencyclidine Screen,Urine Not Detected (NotDetected); Urn Cannabinoid Scrn Not Detected (NotDetected)
[2022-06-08 05:33] LABS: Amphetamine Screen,Urine Not Detected (NotDetected); Barbiturate Screen,Urine Not Detected (NotDetected); Benzodiazepines Screen,Urine Detected (NotDetected); Methadone Screen, Urine Not Detected (NotDetected); Oxycodone Screen, Urine Not Detected (NotDetected); Tricyclic Antidepressant,Urine Detected (NotDetected)
[2022-06-08] MEDS: GABAPENTIN 300 MG CAP PO SCH ×2 (07:24→21:10)
[2022-06-08] MEDS: levETIRAcetam 500 MG TAB PO SCH ×2 (07:24→21:09)
[2022-06-08] MEDS: amLODIPine 5 MG TAB PO SCH (07:24)
--- NOTE | 2022-06-08 12:40 | P.CNNES ---
History of Present Illness Consult date: 06/08/22 Requesting physician: John Leyva Reason for Consult: Seizure? History of Present Illness: Patient is a 37-year-old female with history of alcoholism, came to the hospital by ambulance yesterday at 4:41 PM for possible seizure-like activity. Patient states that she had a seizure type episode 5-6 months ago, did not go to the hospital at that time, but was seen by her primary physician, and patient states that her primary physician started her on Keppra 500 mg twice a day. Patient was fine until yesterday, after taking a nap, she got up to go to the bathroom at 3:30 PM. She notices that she couldn't walk, couldn't do anything's and she was violently shaking. Patient denies any loss of consciousness, any alteration of consciousness. There was no loss of control of urine, or tongue bite. Patient states that this "violent shaking" lasted for about 1-1/2 hours. She remembers everything that happened during the incident. She was concerned therefore she called the ambulance and was brought to the hospital. As per EMS flow sheet, when they arrived, found patient sitting on stool, smoking a cigarette, hyperventilating. Patient stated that she took a nap and woke up having a "seizure". Patient seizure activity was uncontrolled shaking, no loss of consciousness and her mother states is consistent with her anxiety attacks. She does have a history of anxiety disorder and alcohol abuse. She normally drinks a fifth of vodka a day, which she has been doing since last 20 years. However for the last 2 weeks she has cut back only to 2 wine coolers in an attempt to quit drinking. Patient was not able to stand due to uncontrolled shaking. Her blood glucose was 121. Blood pressure 135/68, pulse rate 119, respiration 28 saturation 96%. Patient's blood test shows WBC 15.7 hemoglobin 15.0 with elevated MCV 111. Platelets are normal 364 electrolytes, renal functions are normal, AST 74 ALT 44. UA shows no infection. Urine drug screen positive for opiates, tricyclic and benzodiazepine. Blood elbow level was negative. Patient just had recent admission to the hospital with blood elbow l evel of 332 on 05/21/2022. Chest x-ray showed no acute process. Patient's home medications list include gabapentin 600 mg twice a day, magnesium, olanzapine 5 mg at bedtime, clonidine, Pepcid, trazodone 300 mg at bedtime, naltrexone (Revia), Keppra 500 mg twice a day and amlodipine 5 mg daily. Patient says that she has been off gabapentin for last 6 months as her primary physician would not fill the medication. She claims that she was taking Neurontin for "nerve damage" from alcohol, and she tells me the nerve damage is in her hands.. Patient had a brain MRI without contrast on 06/24/2020 for "altered mental status", was normal. Showed nonspecific white matter demyelination of question able clinical significance. Patient currently smokes one pack per day since age 14. Denies any marijuana use. Review of Systems All 14 point review systems reviewed, unremarkable except as mentioned in HPI. Past Medical History Past Medical History: Hypertension, Seizure Disorder Additional Past Medical History / Comment(s): Alcoholism, alcohol withdrawl/delirium/hallucinations/seizure with last one being 03/13/2020 History of Any Multi-Drug Resistant Organisms: None Reported Past Surgical History: No Surgical Hx Reported Additional Past Surgical History / Comment(s): [place] teeth extractions. Past Anesthesia/Blood Transfusion Reactions: No Reported Reaction Additional Past Anesthesia/Blood Transfusion Reaction / Comment(s): Pt has clausterphobia Past Psychological History: Anxiety, Bipolar, Depression, Schizophrenia Additional Psychological History / Comment(s): Pt states she has "alleged bipolar and schizophrenia". Pt resides with her mother. She is independent. Smoking Status: Current every day smoker Past Alcohol Use History: Abuse, Daily Additional Past Alcohol Use History / Comment(s): Pt started smoking in 1998. She is a ppd smoker. Pt states she drinks 1/5 of vodka a day. Past Drug Use History: None Reported - Past Family History Mother Family Medical History: No Reported History Additional Family Medical History / Comment(s): Mother is healthy Father Additional Family Medical History / Comment(s): Father is from alcoholism. Medications and Allergies Home Medications Medication Instructions Recorded Confirmed Type amLODIPine [Norvasc] 5 mg PO DAILY #30 tab 09/25/21 06/07/22 Rx Naltrexone HCl [Revia] 50 mg PO DAILY 30 Days tab 03/14/22 06/07/22 Rx levETIRAcetam [Keppra] 500 mg PO BID 30 Days tab 03/14/22 06/07/22 Rx Vienva 1 tab PO DAILY 05/21/22 06/07/22 History traZODone HCL 300 mg PO HS 05/21/22 06/07/22 History Famotidine 20 mg PO DAILY 06/07/22 06/07/22 History Gabapentin 600 mg PO BID 06/07/22 06/07/22 History Magnesium Oxide [Walker] 500 mg PO QID PRN 06/07/22 06/07/22 History OLANZapine 5 mg PO HS 06/07/22 06/07/22 History cloNIDine HCL [Catapres] 0.1 mg PO QID PRN 06/07/22 06/07/22 History Allergies Allergy/AdvReac Type Severity Reaction Status Date / Time No Known Allergies Allergy Verified 06/07/22 21:49 Physical Examination - Vital Signs Vital Signs: Vital Signs Temp Pulse Pulse Resp BP BP BP 06/08/22 07:00 98.2 F 70 18 118/81 06/08/22 02:23 18 06/08/22 02:00 98.4 F 79 17 122/80 06/08/22 00:55 99.0 F 100 16 132/78 06/07/22 17:01 98.4 F 110 H 16 111/74 Pulse Ox 06/08/22 07:00 98 06/08/22 02:23 06/08/22 02:00 97 06/08/22 00:55 95 06/07/22 17:01 100 Intake and Output 06/07/22 06/08/22 06/08/22 22:59 06:59 14:59 Other: Voiding Method Bedpan Bedpan # Voids 2 Weight 73.936 kg 73.936 kg Patient is a young female, in no acute distress. She appears slightly shaky. Patient is alert awake oriented to time place and person. Speech and language functions are normal. Attention, concentration and fund of knowledge is adequate. On cranial examination, pupils are round and reacting to light, visual goddard are full on confrontation, extraocular muscles are intact with no nystagmus. Face is symmetric, tongue protrudes to the midline. Palatal elevation and sensation normal, hearing and shoulder shrug normal, facial sensation normal. Shoulder shrug normal. On muscle strength testing, there is no pronator drift and the strength is normal in arms and legs distally and proximally. Deep tendon reflexes are symmetric, 2+ in the upper extremities at biceps and brachioradialis, 2+ at the knees, 1 at ankles and plantars downgoing bilaterally. Sensory to touch is equal with no neglect. Cerebellar function showed no ataxia for tperht-up-utal testing. No dysdiadochokinesia. Tone and bulk of muscles normal. Gait deferred. On general examination, there is no carotid bruit or murmur, S1-S2 audible. Abdomen is soft nontender. No organomegaly, bowel sounds present. Chest is clear. Peripheral pulses are present. No edema. Results - Laboratory Findings CBC and BMP: 06/07/22 19:58 06/08/22 02:14 Abnormal Lab Findings: Abnormal Labs 06/07/22 06/07/22 06/07/22 19:58 19:58 23:30 WBC 15.7 H MCV 111.6 H MCH 36.5 H Neutrophils # 12.8 H Macrocytosis Marked A Sodium Chloride 94 L Carbon Dioxide 15 L Glucose 107 H Calcium Magnesium 1.5 L GGT 195 H AST 74 H ALT 44 H Total Protein 8.4 H Urine Appearance Urine Protein Urine Ketones Ur Squamous Epith Cells Urine Bacteria Hyaline Casts Urine Mucus Urine Opiates Screen U Tricyclic Antidepress U Benzodiazepines Scrn 06/08/22 06/08/22 02:14 04:30 WBC MCV MCH Neutrophils # Macrocytosis Sodium 130 L Chloride Carbon Dioxide Glucose Calcium 8.1 L Magnesium GGT AST ALT Total Protein Urine Appearance Cloudy H Urine Protein 1+ H Urine Ketones 1+ H Ur Squamous Epith Cells 7 H Urine Bacteria Moderate H Hyaline Casts 3 H Urine Mucus Rare H Urine Opiates Screen Detected H U Tricyclic Antidepress Detected H U Benzodiazepines Scrn Detected H Assessment and Plan Assessment: * Convulsive-like activity, without loss of consciousness, or alteration of awareness lasted for 1-1/2 hours. No tongue bite or loss of control of urine with this spell. Clinical description of event suggestive more often nonepileptic event. Doubt epileptic seizures. * Long-standing history of alcoholism * Tobacco use Plan: * EEG rule out epileptiform activity. * Patient currently on Keppra 500 mg twice a day, which will be continued. * Recommend abstinence from alcoholism, and tobacco use. * Neurology will follow. Thank you for the consult. Update: EEG was performed, which revealed no epileptiform activity. Continue Keppra 500 mg twice a day. Neurologically clear for discharge with the above recommendations.
--- NOTE | 2022-06-08 14:00 | P.PN ---
Subjective Patient is being examined at bedside not complaining of new symptom otology. She does recently came back up from a EEG done. Patient states that she is somewhat compliant with her medication but not always. She denies any other recreational use except for her alcohol dependence which is approximately 4-5 beers per day. Objective - Vital Signs Vital signs: Vital Signs Temp 98.2 F 06/08/22 07:00 Pulse 70 06/08/22 07:00 Resp 18 06/08/22 07:00 BP 118/81 06/08/22 07:00 Pulse Ox 98 06/08/22 07:00 FiO2 Intake & Output 06/07/22 06/08/22 06/08/22 18:59 06:59 18:59 Weight 73.936 kg 73.936 kg Other: Voiding Method Bedpan Bedpan # Voids 2 1 - Exam Gen. patient is awake alert oriented 3 Respiratory no wheezing or rhonchi appreciated Cardio normal S1/S2 Abdomen soft, nontender Neuro no focal deficits noted Psych patient slightly anxious however in good spirits - Labs CBC & Chem 7: 06/07/22 19:58 06/08/22 02:14 Labs: Abnormal Lab Results - Last 24 Hours (Table) 06/07/22 06/07/22 06/07/22 Range/Units 19:58 19:58 23:30 WBC 15.7 H (3.8-10.6) k/uL MCV 111.6 H (80.0-100.0) fL MCH 36.5 H (25.0-35.0) pg Neutrophils # 12.8 H (1.3-7.7) k/uL Macrocytosis Marked A Sodium (137-145) mmol/L Chloride 94 L (98-107) mmol/L Carbon Dioxide 15 L (22-30) mmol/L Glucose 107 H (74-99) mg/dL Calcium (8.4-10.2) mg/dL Magnesium 1.5 L (1.6-2.3) mg/dL GGT 195 H (12-43) U/L AST 74 H (14-36) U/L ALT 44 H (4-34) U/L Total Protein 8.4 H (6.3-8.2) g/dL Urine Appearance (Clear) Urine Protein (Negative) Urine Ketones (Negative) Ur Squamous Epith Cells (0-4) /hpf Urine Bacteria (None) /hpf Hyaline Casts (0-2) /lpf Urine Mucus (None) /hpf Urine Opiates Screen (NotDetected) U Tricyclic Antidepress (NotDetected) U Benzodiazepines Scrn (NotDetected) 06/08/22 06/08/22 Range/Units 02:14 04:30 WBC (3.8-10.6) k/uL MCV (80.0-100.0) fL MCH (25.0-35.0) pg Neutrophils # (1.3-7.7) k/uL Macrocytosis Sodium 130 L (137-145) mmol/L Chloride (98-107) mmol/L Carbon Dioxide (22-30) mmol/L Glucose (74-99) mg/dL Calcium 8.1 L (8.4-10.2) mg/dL Magnesium (1.6-2.3) mg/dL GGT (12-43) U/L AST (14-36) U/L ALT (4-34) U/L Total Protein (6.3-8.2) g/dL Urine Appearance Cloudy H (Clear) Urine Protein 1+ H (Negative) Urine Ketones 1+ H (Negative) Ur Squamous Epith Cells 7 H (0-4) /hpf Urine Bacteria Moderate H (None) /hpf Hyaline Casts 3 H (0-2) /lpf Urine Mucus Rare H (None) /hpf Urine Opiates Screen Detected H (NotDetected) U Tricyclic Antidepress Detected H (NotDetected) U Benzodiazepines Scrn Detected H (NotDetected) Assessment and Plan Assessment: Assessment: #1 alcohol dependence with withdrawal symptoms #2 seizure disorder #3 electrolyte abnormality #4 transaminitis secondary to EtOH #5 essential hypertension Plan: -Admit to medicine for close monitoring -Aspiration/fall precaution -[facility] protocol -Neurology consulted -EEG completed pending read -Continue with Keppra 500 mg twice a day -DVT prophylaxis -Disposition despite discharge in the next 24 hours most likely.
--- NOTE | 2022-06-08 15:53 | EEG ---
ELECTROENCEPHALOGRAM REPORT DATE OF SERVICE: 06/08/2022 PREAMBLE: This is a 37-year-old female with seizures. This study is performed to evaluate for any epileptiform activity. EEG FINDINGS: This is a 21-channel digital EEG recorded with video competent, utilizing 10/20 international system with referential and bipolar montages. The recording is technically limited because of the presence of continuous electrode/60-cycle hertz interference at the left posterior head region. Background consists of moderately well- developed and regulated mixed frequencies of 10 hertz alpha, intermixed with some low amplitude 4 to 6 hertz theta activity seen in bihemispheric region. Background does not seem to be clearly reactive to eye opening or closing. Photic driving response was not seen. Some drowsiness was seen, but deeper stages of sleep were not attained. No focal or generalized epileptiform activity was seen. IMPRESSION: This is a mildly abnormal EEG due to mild background slowing. This is suggestive of generalized cerebral dysfunction as can be seen with encephalopathy or medication effect. No epileptiform activity was seen. The EEG was technically limited because of electrode artifact seen in the left hemispheric region. MMODL / IJN: [id number] /
[2022-06-08] MEDS ORDERED: traZODone HCL 100 MG TAB PO SCH (21:00)
[2022-06-08] MEDS ORDERED: OLANZapine 5 MG TAB PO SCH (21:00)
[2022-06-09 04:10] VITALS: PULSE 72
[2022-06-09 07:20] VITALS: BP 131/92; RESP 18; TEMP 98.4
[2022-06-09] MEDS: GABAPENTIN 300 MG CAP PO SCH (08:19)
[2022-06-09] MEDS: levETIRAcetam 500 MG TAB PO SCH (08:19)
[2022-06-09] MEDS: FAMOTIDINE 20 MG TAB PO SCH (08:20)
[2022-06-09] MEDS: THIAMINE 100 MG TAB PO SCH (08:20)
[2022-06-09] MEDS: HEPARIN SODIUM,PORCINE/PF 5,000 UNIT/0.5 ML SYRINGE SQ SCH (08:20)
[2022-06-09] MEDS: amLODIPine 5 MG TAB PO SCH (08:20)
--- NOTE | 2022-06-09 09:53 | P.DS ---
Providers Date of admission: 06/08/22 00:19 Attending physician: John Leyva MD Consults: 06/08/22 01:16 Consult Physician Routine Consulting Provider: Alonso Helms Consult Reason/Comments: seizure? Do you want consulting provider notified?: Yes, Notify in am 06/08/22 13:46 Consult Physician Routine Consulting Provider: Lazaro Jimenez Consult Reason/Comments: depression etoh Do you want consulting provider notified?: Already Contacted Primary care physician: Douglas [facility] Course: 37-year-old female with alcohol dependence, history of alcohol withdrawal seizures, hypertension She reports that her last drink was yesterday last night. Today she wasn't feeling well all day. As she was going out to smoke a cigarette she believes that she had a seizure episode she described the situation as she was standing outside with cigarette in her hand all of a sudden she couldn't walk she couldn't talk she couldn't move and due to that she thinks she had a seizure. She denies any tongue biting denies any falling denies any loss of consciousness she denies any loss of bladder or bowel control. This episode was not witnessed by anyone. She reports history of alcohol withdrawal seizures about a year ago she denies any history of seizure disorder. However ED documentation mentioned that they spoke with the mother and that seizure was witnessed but, (there is no detailed description of what type of seizure she had) for which she was brought into the hospital for evaluation Patient admitted for neurology evaluation Patient otherwise denies any fevers chills chest pain trouble breathing coughing upper respiratory infection symptoms denies any GI bleeding or diarrhea. She does have some epigastric discomfort she reports history of gastritis and pancreatitis in the past. She has throughout couple times in the ED nonbloody nonbilious She denies any illicit drugs, she admits to smoking cigarettes and heavy alcohol consumption Patient's vital signs continued to be stable afebrile blood pressure 131/92 showing any episodes of DVTs no hallucinations auditory visual or have tremors noted today. Patient was able to sleep well and have a good conversation with me. She denies any suicide ideation hallucination. She does have an appointment with her psychiatrist in the next week. Patient states that she has all of her medications and will follow-up accordingly. I've educated regarding medication compliance. She is agreeable. No indication for inpatient pyschitary noted. Patient wants to follow up oupatient in the community. Patient Condition at Discharge: Fair Plan - Discharge Summary Discharge Rx Participant: No New Discharge Prescriptions: New levETIRAcetam [Keppra] 500 mg PO BID 30 Days tab Continue amLODIPine [Norvasc] 5 mg PO DAILY #30 tab levETIRAcetam [Keppra] 500 mg PO BID 30 Days tab traZODone HCL 300 mg PO HS Famotidine 20 mg PO DAILY cloNIDine HCL [Catapres] 0.1 mg PO QID PRN PRN Reason: ANXIETY/HIGH BP Naltrexone HCl [Revia] 50 mg PO DAILY 30 Days tab Vienva 1 tab PO DAILY OLANZapine 5 mg PO HS Magnesium Oxide [Walker] 500 mg PO QID PRN PRN Reason: CRAMPS Gabapentin 600 mg PO BID Discharge Medication List amLODIPine [Norvasc] 5 mg PO DAILY #30 tab 09/25/21 [Rx] Naltrexone HCl [Revia] 50 mg PO DAILY 30 Days tab 03/14/22 [Rx] levETIRAcetam [Keppra] 500 mg PO BID 30 Days tab 03/14/22 [Rx] Vienva 1 tab PO DAILY 05/21/22 [History] traZODone HCL 300 mg PO HS 05/21/22 [History] Famotidine 20 mg PO DAILY 06/07/22 [History] Gabapentin 600 mg PO BID 06/07/22 [History] Magnesium Oxide [Walker] 500 mg PO QID PRN 06/07/22 [History] OLANZapine 5 mg PO HS 06/07/22 [History] cloNIDine HCL [Catapres] 0.1 mg PO QID PRN 06/07/22 [History] levETIRAcetam [Keppra] 500 mg PO BID 30 Days tab 06/09/22 [Rx] Follow up Appointment(s)/Referral(s): Douglas Evans MD [Primary Care Provider] - 1-2 days Alonso Helms MD [STAFF PHYSICIAN] - 1 Week Discharge/Stand Alone Forms: Outpatient Counseling, Inp Substance Abuse Facilities, Personal [facility] Discharge Disposition: HOME SELF-CARE
[2022-06-09 10:41] LABS: Basophils # (A) 0.05 X 10*3/uL (0.00-0.10); Basophils % (A) 0.6 %; Eosinophils # (A) 0.11 X 10*3/uL (0.04-0.35); Eosinophils % (A) 1.2 %; HCT 38.5 % (37.2-46.3); HGB 12.9 g/dL (12.0-15.0); Immature Grans, Automated 0.3 %; Lymphocytes # (A) 3.59 X 10*3/uL (0.90-5.00); Lymphocytes % (A) 39.8 %; MCH 35.6 pg (27.0-32.0); MCHC 33.5 g/dL (32.0-37.0); MCV 106.4 fL (80.0-97.0); Mean Platelet Volume 9.8 fL (9.5-12.2); Monocytes # (A) 0.64 X 10*3/uL (0.20-1.00); Monocytes % (A) 7.1 %; NRBC Per 100 WBC 0 /100 WBCS (0.0-0.0); Neutrophils # (A) 4.59 X 10*3/uL (1.80-7.70); Platelet Count 234 X 10*3/uL (140-440); RBC 3.62 X 10*6/uL (4.10-5.20); RDW 15.9 % (11.5-14.5); WBC 9.01 X 10*3/uL (4.50-10.00)
[2022-06-09 10:47] LABS: African American GFR (CKD) 107.6 (60.0-200.0); Anion Gap 11.3 mmol/L (10.00-18.00); BUN/Creat Ratio 9.13 Ratio (12.00-20.00); Blood Urea Nitrogen 7.3 mg/dL (9.0-27.0); Calcium 8.5 mg/dL (8.7-10.3); Carbon Dioxide 21.7 mmol/L (20.0-27.5); Non-African American GFR(CKD) 92.9 (60.0-200.0); Potassium 4.2 mmol/L (3.5-5.5)
--- NOTE | 2022-06-09 16:20 | P.PN ---
Subjective Progress Note Date: 06/09/22 Patient was seen for a follow-up. Offers no complaints. Denies any headache. No further seizure-like spells. Objective - Vital Signs Vital signs: Vital Signs Temp 98.4 F 06/09/22 07:19 Pulse 72 06/09/22 07:19 Resp 18 06/09/22 07:19 BP 131/92 06/09/22 07:19 Pulse Ox 96 06/09/22 07:19 FiO2 Intake & Output 06/08/22 06/09/22 06/09/22 18:59 06:59 18:59 Intake Total 118 Balance 118 Intake: Oral 118 Other: Voiding Method Bedpan Toilet Toilet # Voids 1 2 - Exam Mental status, speech and language functions are normal. Patient appears much more calm. - Labs CBC & Chem 7: 06/09/22 08:22 06/09/22 08:22 Labs: Abnormal Lab Results - Last 24 Hours (Table) 06/09/22 Range/Units 08:22 RBC 3.62 L (4.10-5.20) X 10*6/uL MCV 106.4 H (80.0-97.0) fL MCH 35.6 H (27.0-32.0) pg RDW 15.9 H (11.5-14.5) % Assessment and Plan Assessment: * Convulsive-like activity, without loss of consciousness, or alteration of awareness lasted for 1-1/2 hours. No tongue bite or loss of control of urine with this spell. Clinical description of event suggestive more of nonepileptic events. Probable panic attacks, or withdrawal related. * Long-standing history of alcoholism * Tobacco use Plan: EEG was performed, which revealed no epileptiform activity. Continue Keppra 500 mg twice a day. Recommend abstinence from alcohol and tobacco use. Neurologically clear for discharge with the above recommendations.
== END 2022-06-09 12:44 | disposition home or self-care (01) | DRG 897 ==
LOC: EC 16:41 → EEVIPCON 16:41 → 6NMEDSUR 06-08 00:19
PROVIDERS: ADMIT Internal Medicine; ATTEND Internal Medicine
PROC: 4A10X4Z Monitoring of Central Nervous Electrical Activity, External Approach (ICD-10-PCS; principal; 2022-06-08)
DX: F10.231 Alcohol dependence with withdrawal delirium (principal); E87.2 Acidosis; G40.909 Epilepsy, unspecified, not intractable, without status epilepticus; Z71.41 Alcohol abuse counseling and surveillance of alcoholic; F41.9 Anxiety disorder, unspecified; F20.9 Schizophrenia, unspecified; E83.42 Hypomagnesemia; R74.8 Abnormal levels of other serum enzymes; R74.01 Elevation of levels of liver transaminase levels; H53.9 Unspecified visual disturbance; R51.9 Headache, unspecified; F17.210 Nicotine dependence, cigarettes, uncomplicated; F31.9 Bipolar disorder, unspecified; F41.0 Panic disorder [episodic paroxysmal anxiety]; I10 Essential (primary) hypertension; K29.70 Gastritis, unspecified, without bleeding; Z79.899 Other long term (current) drug therapy
CPT/HCPCS: 36415; 71045; 80048; 80053; 80177; 80306; 80320; 81001; 81025; 82977; 83605; 83690; 83735; 84100; 85025; 95816; 96365; 96366; 96368; 96372; 96375; 96376; 99285

== ENCOUNTER 2022-11-17 20:48 | Emergency (ER) | payer OTHER ==
[2022-11-17 21:07] VITALS: RESP 16; TEMP 97
[2022-11-17] MEDS ORDERED: SODIUM CHLORIDE 0.9% 1,000 ML IV STA (21:14)
--- NOTE | 2022-11-17 21:34 | ED ---
Alcohol HPI - General Chief Complaint: Alcohol Stated Complaint: ETOH Time Seen by Provider: 11/17/22 21:00 Source: EMS, RN notes reviewed Mode of arrival: EMS Limitations: altered mental status - History of Present Illness Initial Comments: This is a 37-year-old female who presents to the emergency department for alcohol intoxication. Patient was brought in by EMS. Her mother called 911 after she found the patient to be lethargic in her bed. She went to work last night, and she did not want to wake up this morning. Her mom states that she looks like she typically does when she is intoxicated. Her mother checked all of her medications and it did not appear that she overdosed on any of these. It is unclear how much she has had to drink or what she had to drink. She was recently discharged from [facility]. She has been in the emergency department multiple times in the past for alcohol intoxication. She is not answering many questions at this time. Denies any nausea, vomiting, pain, or otherwise any complaints. MD Complaint: alcohol intoxication Treatments Prior to Arrival: none Chronic Alcohol Use: Yes - Related Data Home Medications Medication Instructions Recorded Confirmed Vienva 1 tab PO DAILY 05/21/22 07/04/22 traZODone HCL 300 mg PO HS 05/21/22 07/04/22 Famotidine 20 mg PO DAILY 06/07/22 07/04/22 Gabapentin 600 mg PO BID 06/07/22 07/04/22 OLANZapine 5 mg PO HS 06/07/22 07/04/22 Previous Rx's Medication Instructions Recorded amLODIPine [Norvasc] 5 mg PO DAILY #30 tab 09/25/21 levETIRAcetam [Keppra] 500 mg PO BID 30 Days tab 06/09/22 LORazepam [Ativan] 1 mg PO Q6H PRN #6 tab 07/06/22 Allergies Allergy/AdvReac Type Severity Reaction Status Date / Time No Known Allergies Allergy Verified 11/17/22 21:07 Review of Systems ROS Statement: Those systems with pertinent positive or pertinent negative responses have been documented in the HPI. ROS Other: All systems not noted in ROS Statement are negative. Past Medical History Past Medical History: Hypertension, Seizure Disorder Additional Past Medical History / Comment(s): Alcoholism, alcohol withdrawl/delirium/hallucinations/seizure with last one being 03/13/2020 History of Any Multi-Drug Resistant Organisms: None Reported Past Surgical History: No Surgical Hx Reported Additional Past Surgical History / Comment(s): [place] teeth extractions. Past Anesthesia/Blood Transfusion Reactions: No Reported Reaction Additional Past Anesthesia/Blood Transfusion Reaction / Comment(s): Pt has clausterphobia Past Psychological History: Anxiety, Bipolar, Depression, Schizophrenia Smoking Status: Current every day smoker Past Alcohol Use History: Abuse, Daily Past Drug Use History: None Reported - Past Family History Mother Family Medical History: No Reported History Additional Family Medical History / Comment(s): Mother is healthy Father Additional Family Medical History / Comment(s): Father is from alcoholism. General Exam Limitations: altered mental status General appearance: alert, appears intoxicated Head exam: Present: atraumatic, normocephalic, normal inspection Eye exam: Present: normal appearance, PERRL, EOMI. Absent: scleral icterus, conjunctival injection, periorbital swelling Respiratory exam: Present: normal lung sounds bilaterally. Absent: respiratory distress, wheezes, rales, rhonchi, stridor Cardiovascular Exam: Present: regular rate, normal rhythm, normal heart sounds. Absent: systolic murmur, diastolic murmur, rubs, gallop, clicks GI/Abdominal exam: Present: soft, normal bowel sounds. Absent: distended, tenderness, guarding, rebound, rigid Neurological exam: Present: alert Psychiatric exam: Present: normal affect, normal mood Skin exam: Present: warm, dry, intact, normal color. Absent: rash Course Vital Signs 11/17/22 11/17/22 11/18/22 21:00 23:43 02:00 Temperature 97.0 F L Pulse Rate 98 103 H 97 Respiratory 16 16 16 Rate Blood Pressure 112/75 111/66 110/62 O2 Sat by Pulse 92 L 97 97 Oximetry 11/18/22 04:17 Temperature Pulse Rate 98 Respiratory 16 Rate Blood Pressure 112/68 O2 Sat by Pulse 97 Oximetry Medical Decision Making - Medical Decision Making This is a 37-year-old female who presents to the emergency department for alco hol intoxication. Was pt. sent in by a medical professional or institution? @ -No Did you speak to anyone other than the patient for history? @ -EMS Did you review nursing and triage notes? @ -Agree, accurate with regards to the patient's symptoms. Were old charts reviewed? @ -No Differential Diagnosis? @ -Differential Altered Mental Status: Hypoglycemia, DKA, hypercapnia, ETOH, overdose, CO poisoning, trauma, myxedema coma, HTN encephalopathy, infection, encephalitis, psychosis, intercranial hemor rhage, hepatic encephalopathy, meningitis, CVA, this is not meant to be an all- inclusive list What testing was considered but not performed? (CT, X-rays, U/S, labs)? Why? @ -None What meds were considered but not given? Why? @ -None Did you discuss the management of the patient with other professionals? @ -No Did you reconcile home meds? @ -No Was smoking cessation discussed for >3mins.? @ -No Was critical care preformed (if so, how long)? @ -No Were there social determinants of health that impacted care today? How? (Homelessness, low income, unemployed, alcoholism, drug addiction, transportation, low edu. Level, literacy, decrease access to med. care, usp, rehab)? @ -No Was there de-escalation of care discussed even if they declined? (Discuss DNR or withdrawal of care, Hospice)? @ -No What co-morbidities impacted this encounter? (DM, HTN, Smoking, COPD, CAD, Cance r, CVA, Hep., AIDS, mental health diagnosis, sleep apnea, morbid obesity)? @ -Chronic alcoholism, seizure disorder, mental health diagnoses Was patient admitted / discharged? @ -On initial examination the patient was altered and she appeared intoxicated. She was not answering questions appropriately. Lab work obtained revealing a critical alcohol level of 418. She is a chronic alcohol user and this is not the highest her alcohol level has been in the past. She was given IV fluids and the CIWA protocol was initiated. Patient did later on become much more alert and talkative. She was able to hold a conversation and walk straight. Her mother was contacted and and was willing to pickle cutter the patient. She was discharged home in her mother's care. Drug Therapy requiring intensive monitoring for toxicity (Heparin, Nitro, Insulin, Cardizem)? @ -None Were any procedures done? @ -None Diagnosis/symptom? @ -Alcohol intoxication Acute, or Chronic, or Acute on Chronic? @ -Acute Uncomplicated (without systemic symptoms) or Complicated (systemic symptoms)? @ -Uncomplicated Side effects of treatment? @ -None Exacerbation, Progression, or Severe Exacerbation] @ -Not applicable Poses a threat to life or bodily function? @ -This is impacting her ability to function, and will continue to do so until she is sober. Return precautions reviewed in depth, the patient is instructed to return to the emergency department with any new, worsening, or concerning symptoms. Patient verbalized understanding. This case was discussed in detail with the attending ED physician. Presentation, findings, and treatment plan discussed in detail as well. - Lab Data Result diagrams: 11/18/22 00:06 11/17/22 22:04 Lab Results 11/17/22 11/18/22 Range/Units 22:04 00:06 WBC 9.0 (3.8-10.6) k/uL RBC 4.74 (3.80-5.40) m/uL Hgb 15.6 (11.4-16.0) gm/dL Hct 45.6 (34.0-46.0) % MCV 96.4 (80.0-100.0) fL MCH 33.0 (25.0-35.0) pg MCHC 34.3 (31.0-37.0) g/dL RDW 14.2 (11.5-15.5) % Plt Count 236 (150-450) k/uL MPV 9.3 Neutrophils % 31 % Lymphocytes % 61 % Monocytes % 4 % Eosinophils % 0 % Basophils % 1 % Neutrophils # 2.8 (1.3-7.7) k/uL Lymphocytes # 5.4 H (1.0-4.8) k/uL Monocytes # 0.4 (0-1.0) k/uL Eosinophils # 0.0 (0-0.7) k/uL Basophils # 0.1 (0-0.2) k/uL Manual Slide Review Performed Sodium 147 H (137-145) mmol/L Potassium 5.1 (3.5-5.1) mmol/L Chloride 109 H (98-107) mmol/L Carbon Dioxide 23 (22-30) mmol/L Anion Gap 15 mmol/L BUN 14 (7-17) mg/dL Creatinine 0.75 (0.52-1.04) mg/dL Est GFR (CKD-EPI)AfAm >90 (>60 ml/min/1.73 sqM) Est GFR (CKD-EPI)NonAf >90 (>60 ml/min/1.73 sqM) Glucose 109 H (74-99) mg/dL Calcium 8.2 L (8.4-10.2) mg/dL Phosphorus 3.9 (2.5-4.5) mg/dL Magnesium 1.9 (1.6-2.3) mg/dL Total Bilirubin 0.4 (0.2-1.3) mg/dL AST 63 H (14-36) U/L ALT 41 H (4-34) U/L Alkaline Phosphatase 74 (38-126) U/L Total Protein 7.9 (6.3-8.2) g/dL Albumin 4.8 (3.5-5.0) g/dL Amylase 65 (30-110) U/L Lipase 449 H (23-300) U/L Serum Alcohol 418 H* mg/dL Disposition Clinical Impression: Alcohol intoxication Disposition: HOME SELF-CARE Instructions (If sedation given, give patient instructions): Alcohol Intoxication (ED) Additional Instructions: Return to the emergency department with any new, worsening, or concerning symptoms. Do your best to abstain from drinking alcohol and consider going back to [facility]. Follow up with your primary care provider in 1-2 days. Is patient prescribed a controlled substance at d/c from ED?: No Referrals: None,Stated [Primary Care Provider] - 1-2 days
[2022-11-17 22:29] LABS: ALT 41 U/L (4-34); AST 63 U/L (14-36); African American GFR (CKD) >90 (>60 ml/min/1.73 sqM); Albumin 4.8 g/dL (3.5-5.0); Alkaline Phosphatase 74 U/L (38-126); Amylase 65 U/L (30-110); Anion Gap 15 mmol/L; Blood Urea Nitrogen 14 mg/dL (7-17); Calcium 8.2 mg/dL (8.4-10.2); Carbon Dioxide 23 mmol/L (22-30); Chloride 109 mmol/L (98-107); Glucose 109 mg/dL (74-99); Lipase 449 U/L (23-300); Magnesium 1.9 mg/dL (1.6-2.3); Non-African American GFR(CKD) >90 (>60 ml/min/1.73 sqM); Phosphorus 3.9 mg/dL (2.5-4.5); Sodium 147 mmol/L (137-145); Total Bilirubin 0.4 mg/dL (0.2-1.3); Total Protein 7.9 g/dL (6.3-8.2)
[2022-11-17 22:31] LABS: Potassium 5.1 mmol/L (3.5-5.1)
[2022-11-17 23:02] LABS: Alcohol 418 mg/dL
[2022-11-17] MEDS ORDERED: LORazepam 2 MG/ML INJ IV PRN ×4 (23:09)
[2022-11-17] MEDS ORDERED: THIAMINE 100 MG/ML 2 ML VIAL IM STA (23:09)
[2022-11-18 01:37] LABS: Basophils # (A) 0.1 k/uL (0-0.2); Basophils % (A) 1 %; Eosinophils % (A) 0 %; HCT 45.6 % (34.0-46.0); HGB 15.6 gm/dL (11.4-16.0); Lymphocytes # (A) 5.4 k/uL (1.0-4.8); Lymphocytes % (A) 61 %; MCHC 34.3 g/dL (31.0-37.0); MCV 96.4 fL (80.0-100.0); Mean Platelet Volume 9.3; Monocytes # (A) 0.4 k/uL (0-1.0); Monocytes % (A) 4 %; Neutrophils # (A) 2.8 k/uL (1.3-7.7); Neutrophils % (A) 31 %; Platelet Count 236 k/uL (150-450); RBC 4.74 m/uL (3.80-5.40); RDW 14.2 % (11.5-15.5)
[2022-11-18 04:17] VITALS: BP 112/68; PULSE 98
[2022-11-18] MEDS ORDERED: THIAMINE 100 MG TAB PO SCH (09:00)
== END 2022-11-18 05:14 | disposition home or self-care (01) ==
LOC: EC 20:48
DX: F10.129 Alcohol abuse with intoxication, unspecified (principal); I10 Essential (primary) hypertension; F41.9 Anxiety disorder, unspecified; F31.9 Bipolar disorder, unspecified; F17.200 Nicotine dependence, unspecified, uncomplicated
CPT/HCPCS: 36415; 80053; 82150; 83690; 83735; 84100; 85025; 99284; 96360; 96361 ×5; 96372; G0480; J3411; 80320

== ENCOUNTER 2022-11-19 23:17 | Inpatient (IN) | payer OTHER ==
[2022-11-19] MEDS ORDERED: SODIUM CHLORIDE 0.9% 1,000 ML IV ONE (23:25)
[2022-11-19] MEDS ORDERED: ONDANSETRON 4 MG/2 ML VIAL IVP STA (23:25)
[2022-11-19 23:43] LABS: Basophils # (A) 0.1 k/uL (0-0.2); Basophils % (A) 1 %; Eosinophils % (A) 1 %; HCT 41.1 % (34.0-46.0); HGB 14.4 gm/dL (11.4-16.0); Lymphocytes % (A) 47 %; MCH 33.4 pg (25.0-35.0); MCHC 35.1 g/dL (31.0-37.0); MCV 95.2 fL (80.0-100.0); Mean Platelet Volume 7.6; Monocytes # (A) 0.4 k/uL (0-1.0); Monocytes % (A) 5 %; Neutrophils # (A) 3.6 k/uL (1.3-7.7); Neutrophils % (A) 42 %; Platelet Count 249 k/uL (150-450); RBC 4.32 m/uL (3.80-5.40); RDW 14.2 % (11.5-15.5); WBC 8.5 k/uL (3.8-10.6)
[2022-11-19 23:54] LABS: ALT 35 U/L (4-34); AST 43 U/L (14-36); African American GFR (CKD) >90 (>60 ml/min/1.73 sqM); Albumin 4.1 g/dL (3.5-5.0); Alkaline Phosphatase 65 U/L (38-126); Anion Gap 17 mmol/L; Blood Urea Nitrogen 9 mg/dL (7-17); Calcium 7.6 mg/dL (8.4-10.2); Carbon Dioxide 21 mmol/L (22-30); Chloride 107 mmol/L (98-107); Glucose 136 mg/dL (74-99); Lipase 134 U/L (23-300); Magnesium 1.7 mg/dL (1.6-2.3); Non-African American GFR(CKD) >90 (>60 ml/min/1.73 sqM); Sodium 145 mmol/L (137-145); Total Bilirubin 0.2 mg/dL (0.2-1.3)
--- NOTE | 2022-11-19 23:57 | CT ---
EXAMINATION TYPE: CT brain cspine wo con DATE OF EXAM: 11/19/2022 COMPARISON: 05/21/2022 HISTORY: etoh, ams, questionable fall Pain CT DLP: 1519.3 mGycm Automated exposure control for dose reduction was used. Images of the brain and cervical spine obtained with no contrast. Ventricles have normal size. There is no mass effect or midline shift. No sign of intracranial hemorr misa. The calvarium is intact. The skull base is intact. There is normal aeration of the mastoid sinu ses. Sella turcica appears normal. The cervical vertebra have normal spacing and alignment. Posterior elements are intact. No compressio n fracture. Prevertebral soft tissues appear normal. Facet joints are intact. IMPRESSION: Negative CT scan of the cervical spine. Negative CT scan of the brain. No significant change compared to old exam.
--- NOTE | 2022-11-19 23:58 | XR ---
EXAMINATION TYPE: XR chest 1V portable DATE OF EXAM: 11/19/2022 COMPARISON: 06/07/2022 HISTORY: Fall. Chest pain TECHNIQUE: Single view FINDINGS: Heart is normal. Lungs are clear. Diaphragm is normal. Bony thorax is intact. There are riley st leads. No pleural effusion or pneumothorax IMPRESSION: Normal chest. No change.
[2022-11-20 00:32] LABS: Alcohol 549 mg/dL
[2022-11-20] MEDS ORDERED: NALOXONE 0.4 MG/ML 1 ML VIAL IV PRN (00:49)
--- NOTE | 2022-11-20 00:57 | ED ---
General Adult HPI - General Chief complaint: Alcohol Stated complaint: ETOH Time Seen by Provider: 11/19/22 23:24 Source: EMS Mode of arrival: EMS Limitations: no limitations - History of Present Illness Initial comments: This is a 37-year-old female was brought into the emergency department via EMS for EtOH intoxication. The patient's mother did call EMS as the patient was minimally responsive secondary to EtOH intoxication. No further history could be obtained at this time as EMS did not have any further history nor was the patient able to answer any questions. The patient was extremely intoxicated but was arousable to painful stimuli. No further history could be obtained at this time. The patient was recently seen in the emergency department 2 days ago for EtOH intoxication as well. The patient is a known chronic alcoholic. - Related Data Home Medications Medication Instructions Recorded Confirmed Vienva 1 tab PO DAILY 05/21/22 07/04/22 traZODone HCL 300 mg PO HS 05/21/22 07/04/22 Famotidine 20 mg PO DAILY 06/07/22 07/04/22 Gabapentin 600 mg PO BID 06/07/22 07/04/22 OLANZapine 5 mg PO HS 06/07/22 07/04/22 Previous Rx's Medication Instructions Recorded amLODIPine [Norvasc] 5 mg PO DAILY #30 tab 09/25/21 levETIRAcetam [Keppra] 500 mg PO BID 30 Days tab 06/09/22 LORazepam [Ativan] 1 mg PO Q6H PRN #6 tab 07/06/22 Allergies Allergy/AdvReac Type Severity Reaction Status Date / Time No Known Allergies Allergy Verified 11/17/22 21:07 Review of Systems ROS Statement: Those systems with pertinent positive or pertinent negative responses have been documented in the HPI. Limitations: ROS unobtainable due to patients medical condition Past Medical History Past Medical History: Hypertension, Seizure Disorder Additional Past Medical History / Comment(s): Alcoholism, alcohol withdrawl/delirium/hallucinations/seizure with last one being 03/13/2020 History of Any Multi-Drug Resistant Organisms: None Reported Past Surgical History: No Surgical Hx Reported Additional Past Surgical History / Comment(s): [place] teeth extractions. Past Anesthesia/Blood Transfusion Reactions: No Reported Reaction Additional Past Anesthesia/Blood Transfusion Reaction / Comment(s): Pt has clausterphobia Past Psychological History: Anxiety, Bipolar, Depression, Schizophrenia Smoking Status: Current every day smoker Past Alcohol Use History: Abuse, Daily Past Drug Use History: None Reported - Past Family History Mother Family Medical History: No Reported History Additional Family Medical History / Comment(s): Mother is healthy Father Additional Family Medical History / Comment(s): Father is from alcoholism. General Exam Limitations: altered mental status General appearance: appears intoxicated, lethargic Head exam: Present: atraumatic, normocephalic, normal inspection Eye exam: Present: normal appearance, PERRL, other (Minor contusion noted around the right eye without any other signs of trauma.) Pupils: Present: normal accommodation ENT exam: Present: normal exam, normal oropharynx, mucous membranes moist Neck exam: Present: normal inspection, full ROM Respiratory exam: Present: normal lung sounds bilaterally Cardiovascular Exam: Present: regular rate, normal rhythm, normal heart sounds GI/Abdominal exam: Present: soft, normal bowel sounds Extremities exam: Present: normal inspection, full ROM Back exam: Present: normal inspection, full ROM Neurological exam: Present: altered, other (Significantly intoxicated) Psychiatric exam: Present: other (Intoxicated) Skin exam: Present: warm, dry Course Vital Signs 11/19/22 11/20/22 23:26 00:00 Temperature 98.7 F Pulse Rate 98 84 Respiratory 18 16 Rate Blood Pressure 140/89 125/81 O2 Sat by Pulse 98 Oximetry EKG Findings - EKG Comments: EKG Findings:: An EKG was obtained was interpreted by myself. EKG showed a rate of 96,. MS interval 141, QS duration of 100 and QTC of 430. This EKG showed a normal sinus rhythm with no ST segment elevation or depression noted. Medical Decision Making - Medical Decision Making Was pt. sent in by a medical professional or institution (, PA, SQL SERVER DEVELOPER, urgent care, hospital, or correction...) When possible be specific @ -No Did you speak to anyone other than the patient for history (EMS, parent, family, police, friend...)? What history was obtained from this source @ -Yes, EMS Did you review nursing and triage notes (agree or disagree)? Why? @ -I reviewed and agree with nursing and triage notes Were old charts reviewed (outside hosp., previous admission, EMS record, old EKG, old radiological studies, urgent care reports/EKG's, correction records)? Report findings @ -Yes, previous emergency room visits were reviewed Differential Diagnosis (chest pain, altered mental status, abdominal pain women, abdominal pain men, vaginal bleeding, weakness, fever, dyspnea, syncope, headache, dizziness, GI bleed, back pain, seizure, CVA, palpatations, mental health)? @ -Acute intracranial bleed, EtOH intoxication, EtOH poisoning EKG interpreted by me (3pts min.). @ -As above X-rays interpreted by me (1pt min.). @ -Chest x-ray was obtained and was interpreted by myself showing no acute pa thology. CT interpreted by me (1pt min.). @ -Head CT and CT C-spine were obtained and interpreted by myself. These showed no acute pathology. U/S interpreted by me (1pt. min.). @ -None done What testing was considered but not performed or refused? (CT, X-rays, U/S, labs)? Why? @ -None What meds were considered but not given or refused? Why? @ -None Did you discuss the management of the patient with other professionals (leigh ann guillen i.eVidya Cruz, PA, SQL SERVER DEVELOPER, lab, RT, psych nurse, certified social workers in health care, field machinist, teacher, promotions officer, director of casework)? Give summary @ -Yes, admitting physician Was smoking cessation discussed for >3mins.? @ -No Was critical care preformed (if so, how long)? @ -No Were there social determinants of health that impacted care today? How? (Homelessness, low income, unemployed, alcoholism, drug addiction, transportation, low edu. Level, literacy, decrease access to med. care, penitentiary, rehab)? @ -Chronic alcoholism Was there de-escalation of care discussed even if they declined (Discuss DNR or withdrawal of care, Hospice)? DNR status @ -No What co-morbidities impacted this encounter? (DM, HTN, Smoking, COPD, CAD, Cance r, CVA, ARF, Chemo, Hep., AIDS, mental health diagnosis, sleep apnea, morbid obesity)? @ -chronic alcoholism Was patient admitted / discharged? Hospital course, mention meds given and route, prescriptions, significant lab abnormalities, going to OR and other per tinent info. @ -The patient was seen and evaluated emergency department. Physical exam, the patient was lethargic secondary to significant EtOH intoxication. Vital signs were stable on admission. Laboratory workup did show an EtOH level 549. Imaging including head CT, CT C-spine and chest x-ray were obtained and were within normal limits and negative. Due to the patient's significantly elevated EtOH, the patient will be admitted for EtOH poisoning. The patient does not have a primary care physician and instead will be admitted to the [facility] [place] [facility] who is city call. Dr. Leyva was contacted and accepted the admission at 0048. The patient was admitted in stable condition. Undiagnosed new problem with uncertain prognosis? @ -No Drug Therapy requiring intensive monitoring for toxicity (Heparin, Nitro, Insulin, Cardizem)? @ -No Were any procedures done? @ -No Diagnosis/symptom? @ -EtOH poisoning Acute, or Chronic, or Acute on Chronic? @ -Acute Uncomplicated (without systemic symptoms) or Complicated (systemic symptoms)? @ -Uncomplicated Side effects of treatment? @ -No Exacerbation, Progression, or Severe Exacerbation? @ -No Poses a threat to life or bodily function? How? (Chest pain, USA, NH, pneumonia, PE, COPD, DKA, ARF, appy, cholecystitis, CVA, Diverticulitis, Homicidal, Suicidal, threat to staff... and all critical care pts) @ -No - Lab Data Result diagrams: 11/19/22 23:31 11/19/22 23:31 Lab Results 11/19/22 11/19/22 Range/Units 23:31 23:31 WBC 8.5 (3.8-10.6) k/uL RBC 4.32 (3.80-5.40) m/uL Hgb 14.4 (11.4-16.0) gm/dL Hct 41.1 (34.0-46.0) % MCV 95.2 (80.0-100.0) fL MCH 33.4 (25.0-35.0) pg MCHC 35.1 (31.0-37.0) g/dL RDW 14.2 (11.5-15.5) % Plt Count 249 (150-450) k/uL MPV 7.6 Neutrophils % 42 % Lymphocytes % 47 % Monocytes % 5 % Eosinophils % 1 % Basophils % 1 % Neutrophils # 3.6 (1.3-7.7) k/uL Lymphocytes # 4.0 (1.0-4.8) k/uL Monocytes # 0.4 (0-1.0) k/uL Eosinophils # 0.0 (0-0.7) k/uL Basophils # 0.1 (0-0.2) k/uL Sodium 145 (137-145) mmol/L Potassium 4.0 (3.5-5.1) mmol/L Chloride 107 (98-107) mmol/L Carbon Dioxide 21 L (22-30) mmol/L Anion Gap 17 mmol/L BUN 9 (7-17) mg/dL Creatinine 0.69 (0.52-1.04) mg/dL Est GFR (CKD-EPI)AfAm >90 (>60 ml/min/1.73 sqM) Est GFR (CKD-EPI)NonAf >90 (>60 ml/min/1.73 sqM) Glucose 136 H (74-99) mg/dL Calcium 7.6 L (8.4-10.2) mg/dL Magnesium 1.7 (1.6-2.3) mg/dL Total Bilirubin 0.2 (0.2-1.3) mg/dL AST 43 H (14-36) U/L ALT 35 H (4-34) U/L Alkaline Phosphatase 65 (38-126) U/L Total Protein 7.0 (6.3-8.2) g/dL Albumin 4.1 (3.5-5.0) g/dL Lipase 134 (23-300) U/L Serum Alcohol 549 H* mg/dL Disposition Clinical Impression: Alcohol poisoning Disposition: ADMITTED IP TO THIS [facility] Condition: Stable Is patient prescribed a controlled substance at d/c from ED?: No Referrals: None,Stated [Primary Care Provider] - 1-2 days Time of Disposition: 00:48 Decision to Admit Reason: Admit from EC Decision Date: 11/20/22 Decision Time: 00:48
[2022-11-20] MEDS: SODIUM CHLORIDE 0.9% 1,000 ML IV SCH ×2 (00:59→17:26)
[2022-11-20 01:28] LABS: Amorphous Sediment,Urine Occasional /hpf; Appearance,Urine Turbid (Clear); Bacteria,Urine Many /hpf; Bilirubin,Urine Negative (Negative); Blood,Urine Trace (Negative); Color,Urine Colorless; Glucose,Urine (UA) Negative (Negative); Ketones,Urine Negative (Negative); Leukocyte Esterase,Urine Negative (Negative); Mucus,Urine Rare /hpf; Nitrite,Urine Negative (Negative); Protein,Urine Negative (Negative); RBC,Urine 1 /hpf (0-5); Specific Gravity,Urine 1.005 (1.001-1.035); Squamous Epithelial Cell,Urine 1 /hpf (0-4); Urobilinogen,Urine <2.0 mg/dL (<2.0); WBC,Urine 2 /hpf (0-5)
[2022-11-20 01:29] LABS: Amphetamine Screen,Urine Not Detected (NotDetected); Barbiturate Screen,Urine Not Detected (NotDetected); Benzodiazepines Screen,Urine Not Detected (NotDetected); Cocaine Screen,Urine Not Detected (NotDetected); Methadone Screen, Urine Not Detected (NotDetected); Opiate Screen,Urine Not Detected (NotDetected); Oxycodone Screen, Urine Not Detected (NotDetected); Phencyclidine Screen,Urine Not Detected (NotDetected); Tricyclic Antidepressant,Urine Not Detected (NotDetected); Urn Cannabinoid Scrn Not Detected (NotDetected)
[2022-11-20] MEDS ORDERED: LORazepam 2 MG/ML INJ IV PRN ×2 (03:04)
--- NOTE | 2022-11-20 03:08 | P.HPIM ---
History of Present Illness H&P Date: 11/20/22 Chief Complaint: alcohol intoxication 37 year old female known history of alcohol abuse and dependance patient brought in by EMS for alcohol intoxication. patient in severely intoxicated and unable to provide any meaningful history case discussed with ED doc, patient alcohol level is >500, patient arousable briefly but drifts back to sleep due to severe intoxication , no family available at this time , no evidence of bleeding , blood work showed elevated liver enzymes and AST and ALT, and elevated alcohol level imaging of the brain reported no acute pathology Review of Systems ROS unobtainable: due to mental status Past Medical History Past Medical History: Hypertension, Seizure Disorder Additional Past Medical History / Comment(s): Alcoholism, alcohol withdrawl/delirium/hallucinations/seizure with last one being 03/13/2020 History of Any Multi-Drug Resistant Organisms: None Reported Past Surgical History: No Surgical Hx Reported Additional Past Surgical History / Comment(s): [place] teeth extractions. Past Anesthesia/Blood Transfusion Reactions: No Reported Reaction Additional Past Anesthesia/Blood Transfusion Reaction / Comment(s): Pt has clausterphobia Past Psychological History: Anxiety, Bipolar, Depression, Schizophrenia Smoking Status: Current every day smoker Past Alcohol Use History: Abuse, Daily Past Drug Use History: None Reported - Past Family History Mother Family Medical History: No Reported History Additional Family Medical History / Comment(s): Mother is healthy Father Additional Family Medical History / Comment(s): Father is from alcoholism. Medications and Allergies Home Medications Medication Instructions Recorded Confirmed Type amLODIPine [Norvasc] 5 mg PO DAILY #30 tab 09/25/21 07/04/22 Rx Vienva 1 tab PO DAILY 05/21/22 07/04/22 History traZODone HCL 300 mg PO HS 05/21/22 07/04/22 History Famotidine 20 mg PO DAILY 06/07/22 07/04/22 History Gabapentin 600 mg PO BID 06/07/22 07/04/22 History OLANZapine 5 mg PO HS 06/07/22 07/04/22 History levETIRAcetam [Keppra] 500 mg PO BID 30 Days tab 06/09/22 07/04/22 Rx LORazepam [Ativan] 1 mg PO Q6H PRN #6 tab 07/06/22 Rx Allergies Allergy/AdvReac Type Severity Reaction Status Date / Time No Known Allergies Allergy Verified 11/17/22 21:07 Physical Exam Vitals: Vital Signs Temp Pulse Resp BP Pulse Ox 11/20/22 00:00 84 16 125/81 11/19/22 23:26 98.7 F 98 18 140/89 98 Intake and Output 11/19/22 11/19/22 11/20/22 14:59 22:59 06:59 Other: Weight 72.575 kg Constitutional: No acute distress, sleeping Eyes: Anicteric sclerae, moist conjunctiva, Pupils equal round reactive to light ENMT: NC/AT Neck: Supple, no masses, or JVD No carotid bruits No thyromegaly Lungs: Clear to auscultation Clear to percussion Normal respiratory effort, no accessory muscle use Cardiovascular: Heart regular in rate and rhythm, No murmurs, gallops, or rubs No peripheral edema Abdominal: Soft Nontender, no guarding, rebound or rigidity Abdomen moving with respiration Normoactive bowel sounds No palpable masses Skin: Normal temperature, tone, texture, turgor Extremities: No digital cyanosis No clubbing Pedal pulses intact and symmetrical Radial pulses intact and symmetrical No calf tenderness Psychiatric: severely intoxicated , sleeping. moaning to physical stimulation Neuro unable to perform Lymphatics: no palpable cervical or supraclavicular lymph nodes Results CBC & Chem 7: 11/19/22 23:31 11/19/22 23:31 Labs: Abnormal Lab Results - Last 24 Hours (Table) 11/19/22 Range/Units 23:31 Carbon Dioxide 21 L (22-30) mmol/L Glucose 136 H (74-99) mg/dL Calcium 7.6 L (8.4-10.2) mg/dL AST 43 H (14-36) U/L ALT 35 H (4-34) U/L Serum Alcohol 549 H* mg/dL Assessment and Plan Assessment: acute severe alcohol intoxication alcohol abuse and dependance seizure precautions and fall precautions IVF hydration thiamine Benzo per CIWA for withdrawal precautions h/o seizure resume keppra hypertension , resume amlodipine full code DVT PPX mechanical 37 year old female known alcohol abuse and dependance, arrives by EMS due to severe alcohol intoxication. family not available at this time, patient unable to provide any meaningful history , which was obtained by discussing the case with the ED doctor, agreed to admission for severe alcohol intoxication to monitor until sober, with alcohol withdrawal precautions. blood work showed slightly elevated AST and ALT, severely elevated alcohol level >500, and urine drug screen was negative. imaging of the brain showed no acute pathology . admitted as observation with anticipated length of stay <2 midnights
[2022-11-20] MEDS: levETIRAcetam 500 MG TAB PO SCH ×2 (09:33→20:18)
[2022-11-20] MEDS: FAMOTIDINE 20 MG TAB PO SCH (09:33)
[2022-11-20] MEDS: amLODIPine 5 MG TAB PO SCH (09:33)
--- NOTE | 2022-11-20 11:34 | P.PN ---
Progress Note - Text Progress Note Date: 11/20/22 Hospitalist Interval Note Patient seen and examined at bedside. Vital signs reviewed General: non toxic, no distress, appears at stated age Derm: warm, dry Head: atraumatic, normocephalic, symmetric Eyes: EOMI, no lid lag, anicteric sclera Mouth: no lip lesion, mucus membranes moist Cardiovascular: S1S2 reg, no murmur, positive posterior tibial pulse bilateral, Lungs: CTA bilateral, no rhonchi, no rales , no accessory muscle use Abdominal: soft, nontender to palpation, no guarding, no appreciable organomegaly Ext: no gross muscle atrophy, no edema, no contractures Neuro: CN II-XI grossly intact, no focal neuro deficits Psych: Alert, oriented, appropriate affect Assessment/Plan: Acute alcohol intoxication Alcohol abuse and dependence History of seizure Hypertension Acute urinary retention - Continue IV hydration -Thiamine -Benzo as needed for withdrawal -Continue Cottrell This is an update note for patient. There is no charge associated with this note.
[2022-11-20] MEDS ORDERED: CALCIUM CARBONATE 500 MG CHEWABLE PO PRN (18:16)
[2022-11-21] MEDS: SODIUM CHLORIDE 0.9% 1,000 ML IV SCH (07:49)
[2022-11-21] MEDS: levETIRAcetam 500 MG TAB PO SCH (08:21)
[2022-11-21] MEDS: FAMOTIDINE 20 MG TAB PO SCH (08:21)
[2022-11-21] MEDS: amLODIPine 5 MG TAB PO SCH (08:21)
[2022-11-21 08:32] VITALS: RESP 17
[2022-11-21] MEDS ORDERED: THIAMINE 100 MG TAB PO SCH (09:00)
--- NOTE | 2022-11-21 12:03 | P.PN ---
Subjective Progress Note Date: 11/21/22 Subjective: Patient seen and examined at bedside. No acute events overnight. She denies any significant chest pain, shortness of breath, abdominal pain, nausea, vomiting, diarrhea, constipation. She continues to have urinary catheter for urinary retention. Pertinent positives and negatives as discussed above, a complete review of systems was performed and all other systems are negative. Vitals Signs Reviewed. General: non toxic, no distress, appears at stated age Derm: warm, dry Head: atraumatic, normocephalic, symmetric Eyes: EOMI, no lid lag, anicteric sclera Mouth: no lip lesion, mucus membranes moist Cardiovascular: S1S2 reg, no murmur, positive posterior tibial pulse bilateral, Lungs: CTA bilateral, no rhonchi, no rales , no accessory muscle use Abdominal: soft, nontender to palpation, no guarding, no appreciable organomegaly Ext: no gross muscle atrophy, no edema, no contractures Neuro: CN II-XI grossly intact, no focal neuro deficits Psych: Alert, oriented, appropriate affect Assessment and Plan: Acute alcohol intoxication Alcohol abuse and dependence History of seizure - Continue IV fluids -Thiamine - Benzo as needed for withdrawal -Continue Keppra Acute urinary retention -Voiding trial Hypertension -Continue home medication DVT ppx: SCDs Code status: Full code Anticipated discharge place: Rehab for alcohol Anticipated discharge time: Today or tomorrow Objective - Vital Signs Vital signs: Vital Signs Temp 97.9 F 11/21/22 07:15 Pulse 76 11/21/22 07:15 Resp 17 11/21/22 07:15 BP 122/72 11/21/22 07:15 Pulse Ox 99 11/21/22 07:15 FiO2 Intake & Output 11/20/22 11/21/22 11/21/22 18:59 06:59 18:59 Intake Total 750 Output Total 3950 600 Balance -3200 -600 Intake: IV 750 Sodium Chloride 0.9% 1, 750 000 ml @ 75 mls/hr IV . [id number] DAGMAR Rx#:[id number] Output: Urine 3950 600 Uretheral (Cottrell) 1350 Other: Voiding Method Indwelling Catheter Indwelling Catheter # Bowel Movements 1 - Labs CBC & Chem 7: 11/19/22 23:31 11/19/22 23:31
--- NOTE | 2022-11-21 14:26 | P.DS ---
Providers Date of admission: 11/20/22 00:49 Expected date of discharge: 11/21/22 Attending physician: John Leyva MD Primary care physician: Stated None Hospital Course: Discharge Diagnosis: Acute alcohol intoxication Alcohol abuse and dependence History of seizure Acute urinary retention Hypertension Hospital Course: 37-year-old female with history of alcohol use and dependence presenting with acute alcohol intoxication. On arrival, vital signs were within normal limits. Patient's alcohol level was greater than 500. Transaminases were mildly elevated.v laboratory workup was otherwise negative. Chest x-ray and EKG. Patient's symptoms improved with IV fluids. Patient did have acute urinary retention requiring Cottrell catheter, voiding trial completed at discharge was successful. Patient to be discharged home with her mother. She will be going back to rehab for alcohol dependence. Trazodone discontinued due to increased side effect of sedation. Gabapentin continued to reduce risk of withdrawal seizures. Lasix discontinued, patient appears euvolemic. Patient seen and examined at bedside. Vital signs reviewed and stable. General: nontoxic, no distress, appears at stated age Derm: warm, dry Head: atraumatic, normocephalic, symmetric Eyes: EOMI, no lid lag, anicteric sclera Mouth: no lip lesion, mucus membranes moist Cardiovascular: S1S2 reg, no murmur Lungs: CTA bilateral, no rhonchi, no rales , no accessory muscle use Abdominal: soft, nontender to palpation, no guarding, no appreciable organomegaly Ext: no gross muscle atrophy, no edema, no contractures Neuro: CN II-XI grossly intact, no focal neuro deficits Psych: Alert, oriented, appropriate affect A total of 36 minutes of time were spent preparing this complex discharge summary. Patient was discharged on 11/21/22 at 14:22. Patient Condition at Discharge: Stable Plan - Discharge Summary New Discharge Prescriptions: Continue amLODIPine [Norvasc] 5 mg PO DAILY #30 tab Famotidine 20 mg PO DAILY Thiamine [Vitamin B-1] 100 mg PO DAILY Vienva 1 tab PO DAILY Gabapentin 600 mg PO BID levETIRAcetam [Keppra] 500 mg PO BID 30 Days tab Naltrexone HCl [Revia] 50 mg PO QAM Folic Acid 1 mg PO DAILY Aviane 0.1-0.02mg 1 tab PO DAILY Magnesium 200 mg PO DAILY Discontinued traZODone HCL 300 mg PO HS Furosemide [Lasix] 20 mg PO DAILY Discharge Medication List amLODIPine [Norvasc] 5 mg PO DAILY #30 tab 09/25/21 [Rx] Vienva 1 tab PO DAILY 05/21/22 [History] Famotidine 20 mg PO DAILY 06/07/22 [History] Gabapentin 600 mg PO BID 06/07/22 [History] levETIRAcetam [Keppra] 500 mg PO BID 30 Days tab 06/09/22 [Rx] Aviane 0.1-0.02mg 1 tab PO DAILY 11/20/22 [History] Folic Acid 1 mg PO DAILY 11/20/22 [History] Magnesium 200 mg PO DAILY 11/20/22 [History] Naltrexone HCl [Revia] 50 mg PO QAM 11/20/22 [History] Thiamine [Vitamin B-1] 100 mg PO DAILY 11/20/22 [History] Follow up Appointment(s)/Referral(s): None,Stated [Primary Care Provider] - 1-2 days Patient Instructions/Handouts: Alcohol Intoxication (DC) Activity/Diet/Wound Care/Special Instructions: Please see your PCP as soon as possible. Please go to alcohol rehab when a spot is available. Discharge Disposition: HOME SELF-CARE
[2022-11-21 14:31] VITALS: BP 138/91; PULSE 87; TEMP 97.5
== END 2022-11-21 14:45 | disposition home or self-care (01) | DRG 918 ==
LOC: EC 23:17 → 4SSUR 11-20 00:49
PROVIDERS: ADMIT Internal Medicine; ATTEND Internal Medicine
DX: T51.0X1A Toxic effect of ethanol, accidental (unintentional), initial encounter (principal); F10.229 Alcohol dependence with intoxication, unspecified; Y90.8 Blood alcohol level of 240 mg/100 ml or more; F20.9 Schizophrenia, unspecified; F41.9 Anxiety disorder, unspecified; G40.909 Epilepsy, unspecified, not intractable, without status epilepticus; I10 Essential (primary) hypertension; F17.210 Nicotine dependence, cigarettes, uncomplicated; Z79.899 Other long term (current) drug therapy; R33.9 Retention of urine, unspecified; Z81.1 Family history of alcohol abuse and dependence
CPT/HCPCS: 36415; 70450; 71045; 72125; 80053; 80306; 80320; 81001; 83690; 83735; 85025; 93005; 96374; 99285

== ENCOUNTER 2022-11-30 10:15 | Emergency (ER) | payer OTHER ==
[2022-11-30 10:30] VITALS: BP 140/86; PULSE 114; RESP 20; TEMP 98
[2022-11-30 13:27] LABS: Cocaine Screen,Urine Not Detected (NotDetected); Opiate Screen,Urine Not Detected (NotDetected); Phencyclidine Screen,Urine Not Detected (NotDetected); Urn Cannabinoid Scrn Not Detected (NotDetected)
[2022-11-30 13:28] LABS: Amphetamine Screen,Urine Not Detected (NotDetected); Barbiturate Screen,Urine Not Detected (NotDetected); Benzodiazepines Screen,Urine Not Detected (NotDetected); Methadone Screen, Urine Not Detected (NotDetected); Oxycodone Screen, Urine Not Detected (NotDetected); Tricyclic Antidepressant,Urine Not Detected (NotDetected)
--- NOTE | 2022-11-30 13:53 | ED ---
Psych HPI - General Chief Complaint: Psychiatric Symptoms Stated Complaint: mental health Time Seen by Provider: 11/30/22 10:18 Source: patient, RN notes reviewed Mode of arrival: ambulatory Limitations: no limitations - History of Present Illness Initial Comments: 37-year-old female bent emergency Department for evaluation and psychiatric issues. Patient is brought in by [facility]. Patient does have underlying alcoholism and which she is scheduled to go to rehab. Patient denies being suicidal or homicidal. Patient was petitioned by mother for evaluation. Patient denies any physical complaints denies any drug use. - Related Data Home Medications Medication Instructions Recorded Confirmed Vienva 1 tab PO DAILY 05/21/22 11/20/22 Famotidine 20 mg PO DAILY 06/07/22 11/20/22 Gabapentin 600 mg PO BID 06/07/22 11/20/22 Aviane 0.1-0.02mg 1 tab PO DAILY 11/20/22 11/20/22 Folic Acid 1 mg PO DAILY 11/20/22 11/20/22 Magnesium 200 mg PO DAILY 11/20/22 11/20/22 Naltrexone HCl [Revia] 50 mg PO QAM 11/20/22 11/20/22 Thiamine [Vitamin B-1] 100 mg PO DAILY 11/20/22 11/20/22 Previous Rx's Medication Instructions Recorded amLODIPine [Norvasc] 5 mg PO DAILY #30 tab 09/25/21 levETIRAcetam [Keppra] 500 mg PO BID 30 Days tab 06/09/22 Allergies Allergy/AdvReac Type Severity Reaction Status Date / Time No Known Allergies Allergy Verified 11/30/22 10:22 Review of Systems ROS Statement: Those systems with pertinent positive or pertinent negative responses have been documented in the HPI. ROS Other: All systems not noted in ROS Statement are negative. Past Medical History Past Medical History: Hypertension, Seizure Disorder Additional Past Medical History / Comment(s): Alcoholism, alcohol withdra wl/delirium/hallucinations/seizure with last one being 03/13/2020 History of Any Multi-Drug Resistant Organisms: None Reported Past Surgical History: No Surgical Hx Reported Additional Past Surgical History / Comment(s): [place] teeth extractions. Past Anesthesia/Blood Transfusion Reactions: No Reported Reaction Additional Past Anesthesia/Blood Transfusion Reaction / Comment(s): Pt has clausterphobia Past Psychological History: Anxiety, Bipolar, Depression, Schizophrenia Smoking Status: Current every day smoker Past Alcohol Use History: Abuse, Daily Past Drug Use History: None Reported - Past Family History Mother Family Medical History: No Reported History Additional Family Medical History / Comment(s): Mother is healthy Father Additional Family Medical History / Comment(s): Father is from alcoholism. General Exam Limitations: no limitations General appearance: alert, in no apparent distress Head exam: Present: atraumatic, normocephalic, normal inspection Eye exam: Present: normal appearance, PERRL, EOMI. Absent: scleral icterus, conjunctival injection, periorbital swelling ENT exam: Present: normal exam, normal oropharynx, mucous membranes moist Neck exam: Present: normal inspection, full ROM. Absent: tenderness, meningismus, lymphadenopathy Respiratory exam: Present: normal lung sounds bilaterally. Absent: respiratory distress, wheezes, rales, rhonchi, stridor Cardiovascular Exam: Present: regular rate, normal rhythm, normal heart sounds. Absent: systolic murmur, diastolic murmur, rubs, gallop, clicks GI/Abdominal exam: Present: soft, normal bowel sounds. Absent: distended, tenderness, guarding, rebound, rigid Neurological exam: Present: alert, oriented X3, CN II-XII intact Psychiatric exam: Present: normal affect, normal mood Course Vital Signs 11/30/22 10:19 Temperature 98 F Pulse Rate 114 H Respiratory 20 Rate Blood Pressure 140/86 O2 Sat by Pulse 99 Oximetry Medical Decision Making - Medical Decision Making Was pt. sent in by a medical professional or institution (, PA, RESEARCH WORKER KITCHEN, urgent care, hospital, or residential...) When possible be specific @ -No Did you speak to anyone other than the patient for history (EMS, parent, family, police, friend...)? What history was obtained from this source @ -[[facility] brought in patient for evaluation Did you review nursing and triage notes (agree or disagree)? Why? @ -I reviewed and agree with nursing and triage notes Were old charts reviewed (outside hosp., previous admission, EMS record, old EKG, old radiological studies, urgent care reports/EKG's, residential records)? Report findings @ -No old charts were reviewed Differential Diagnosis (chest pain, altered mental status, abdominal pain women, abdominal pain men, vaginal bleeding, weakness, fever, dyspnea, syncope, headache, dizziness, GI bleed, back pain, seizure, CVA, palpatations, mental health)? @ -Alcohol abuse, alcohol intoxication, depression, this list is not all- inclusive. EKG interpreted by me (3pts min.). @ -None X-rays interpreted by me (1pt min.). @ -None done CT interpreted by me (1pt min.). @ -None done U/S interpreted by me (1pt. min.). @ -None done What testing was considered but not performed or refused? (CT, X-rays, U/S, labs)? Why? @ -None What meds were considered but not given or refused? Why? @ -None Did you discuss the management of the patient with other professionals (professionals i.e. , PA, RESEARCH WORKER KITCHEN, lab, RT, psych nurse, criminal justice social worker, crossword puzzle maker, teacher, operations officer afloat, returned case inspector)? Give summary @ -[Psychiatric nurse, outpatient criminal justice social worker Was smoking cessation discussed for >3mins.? @ -No Was critical care preformed (if so, how long)? @ -No Were there social determinants of health that impacted care today? How? (Homelessness, low income, unemployed, alcoholism, drug addiction, transportation, low edu. Level, literacy, decrease access to med. care, custodial, rehab)? @ -No Was there de-escalation of care discussed even if they declined (Discuss DNR or withdrawal of care, Hospice)? DNR status @ -No What co-morbidities impacted this encounter? (DM, HTN, Smoking, COPD, CAD, Cancer, CVA, ARF, Chemo, Hep., AIDS, mental health diagnosis, sleep apnea, morbid obesity)? @ -None Was patient admitted / discharged? Hospital course, mention meds given and route, prescriptions, significant lab abnormalities, going to OR and other pertinent info. @ -Discharged - patient's was brought in for alcohol intoxication patient has a history abuse is scheduled go to rehab. Mother initially wanted patient to be evaluated by EPS the patient is not suicidal or homicidal. Mother did not sites patient is accepted at [facility] and will be discharged to the [facility]. Undiagnosed new problem with uncertain prognosis? @ -No Drug Therapy requiring intensive monitoring for toxicity (Heparin, Nitro, Insulin, Cardizem)? @ -No Were any procedures done? @ -No Diagnosis/symptom? @ -Alcohol abuse Acute, or Chronic, or Acute on Chronic? @ -acute on chronic Uncomplicated (without systemic symptoms) or Complicated (systemic symptoms)? @ -Unconjugated Side effects of treatment? @ -No Exacerbation, Progression, or Severe Exacerbation? @ -Exacerbation Poses a threat to life or bodily function? How? (Chest pain, [place], [place], pneumonia, PE, COPD, DKA, ARF, appy, cholecystitis, CVA, Diverticulitis, Homicidal, Suicidal, threat to staff... and all critical care pts) @ -No - Lab Data Lab Results 11/30/22 Range/Units 12:28 Urine Opiates Screen Not Detected (NotDetected) Ur Oxycodone Screen Not Detected (NotDetected) Urine Methadone Screen Not Detected (NotDetected) Ur Propoxyphene Screen Not Detected (NotDetected) Ur Barbiturates Screen Not Detected (NotDetected) U Tricyclic Antidepress Not Detected (NotDetected) Ur Phencyclidine Scrn Not Detected (NotDetected) Ur Amphetamines Screen Not Detected (NotDetected) U Methamphetamines Scrn Not Detected (NotDetected) U Benzodiazepines Scrn Not Detected (NotDetected) Urine Cocaine Screen Not Detected (NotDetected) U Marijuana (THC) Screen Not Detected (NotDetected) Disposition Clinical Impression: Alcoholic intoxication, Alcohol use disorder Disposition: HOME SELF-CARE Condition: Stable Instructions (If sedation given, give patient instructions): Alcohol Intoxication (ED) Additional Instructions: Please return to the Emergency Department if symptoms worsen or any other concerns. Is patient prescribed a controlled substance at d/c from ED?: No Referrals: Douglas Evans MD [Primary Care Provider] - 1-2 days Time of Disposition: 14:44
== END 2022-11-30 14:51 | disposition home or self-care (01) ==
LOC: EC 10:15
DX: F10.929 Alcohol use, unspecified with intoxication, unspecified (principal); I10 Essential (primary) hypertension; F41.9 Anxiety disorder, unspecified; F31.9 Bipolar disorder, unspecified; F17.200 Nicotine dependence, unspecified, uncomplicated; Z79.899 Other long term (current) drug therapy
CPT/HCPCS: 80306; 82075; 99284

== ENCOUNTER 2022-12-01 12:44 | Emergency (ER) | payer OTHER ==
[2022-12-01] MEDS ORDERED: SODIUM CHLORIDE 0.9% 1,000 ML IV STA (14:20)
[2022-12-01] MEDS ORDERED: LORazepam 2 MG/ML INJ IV STA (14:20)
--- NOTE | 2022-12-01 14:24 | ED ---
General Adult HPI - General Chief complaint: Weakness Stated complaint: Alcohol withdrawl Time Seen by Provider: 12/01/22 14:04 Source: patient Mode of arrival: EMS Limitations: no limitations - History of Present Illness Initial comments: Dictation was produced using [employer] dictation software. please excuse any grammatical, word or spelling errors. Chief Complaint: 37-year-old female presents emergency department for alcohol withdrawals History of Present Illness: At 37-year-old female she has 20 years of daily alcohol abuse. She states she drinks approximately a fifth of vodka daily. Patient's last alcohol intake was 48 hours ago. She was seen here in emergency department recently for the same complaint however discharged home. Patient states she went to back to the communal house when all of a sudden she began having worsening symptoms. Symptoms include sweats, generalized weakness and tremulousness. Patient also reports subjective fevers. Patient denies any pain complaints. Denies any visual changes. Mother at the bedside states that patient is not showing signs of status. The ROS documented in this emergency department record has been reviewed and confirmed by me. Those systems with pertinent positive or negative responses have been documented in the HPI. All other systems are other negative and/or noncontributory. PHYSICAL EXAM: General Impression: Alert and oriented x3, not in acute distress HEENT: Normocephalic atraumatic, extra-ocular movements intact, pupils equal and reactive to light bilaterally, mucous membranes moist. Cardiovascular: Heart regular rate and rhythm Chest: Able to complete full sentences, no retractions, no tachypnea Abdomen: abdomen soft, non-tender, non-distended, no organomegaly Musculoskeletal: Pulses present and equal in all extremities, no peripheral edema Motor: no focal deficits noted Neurological: CN II-XII grossly intact, no focal motor or sensory deficits noted Skin: Intact with no visualized rashes Psych: Normal affect and mood ED course: 37-year-old female presents emergency department for reported alcohol withdrawal symptoms. Signs upon arrival are within acceptable limits. Patient not showing any signs of severe alcohol withdrawal symptoms. Physical examination is benign. Nursing notes and chart review was performed Laboratory evaluation obtained. CBC and metabolic panel within acceptable limits. Serum alcohol is negative. Patient given 2 mg of IV Ativan monitored in the emergency department for 5 hours. At bedside at 5:48 PM on concealment condition. Patient is well-appearing. Patient is agreeable for discharge with tapering Librium medication. Patient told to follow-up with detox facility. Was pt. sent in by a medical professional or institution (, LARA, ACCOUNTS PAYABLE CLERK, urgent care, hospital, or [place] [facility] [place] facility...) When possible be specific @ -No Did you speak to anyone other than the patient for history (EMS, parent, family, police, friend...)? What history was obtained from this source @ -Mother at bedside Did you review nursing and triage notes (agree or disagree)? Why? @ -I reviewed and agree with nursing and triage notes Were old charts reviewed (outside hosp., previous admission, EMS record, old EKG, old radiological studies, urgent care reports/EKG's, [place] [facility] [place] records)? Report findings @ -No old charts were reviewed Differential Diagnosis (chest pain, altered mental status, abdominal pain women, abdominal pain men, vaginal bleeding, weakness, fever, dyspnea, syncope, headache, dizziness, GI bleed, back pain, seizure, CVA, palpatations, mental health)? @ -Differential Weakness: Hypoglycemia, shock, sepsis, hyponatremia, anemia, infection, [place], ETOH, adverse medicine reaction, overdose, stroke, this is not meant to be an all-inclusive list. EKG interpreted by me (3pts min.). @ -As above X-rays interpreted by me (1pt min.). @ -None done CT interpreted by me (1pt min.). @ -None done U/S interpreted by me (1pt. min.). @ -None done What testing was considered but not performed or refused? (CT, X-rays, U/S, labs)? Why? @ -None What meds were considered but not given or refused? Why? @ -More Ativan was considered however patient's well-appearing at bedside Did you discuss the management of the patient with other professionals (professionals i.e. , LARA, ACCOUNTS PAYABLE CLERK, lab, RT, psych nurse, vp digital marketing social media and crm, spooling operator, teacher, legal compliance officer, piano case maker)? Give summary @ -See above Was smoking cessation discussed for >3mins.? @ -No Was critical care preformed (if so, how long)? @ -No Were there social determinants of health that impacted care today? How? (Homelessness, low income, unemployed, alcoholism, drug addiction, transportati on, low edu. Level, literacy, decrease access to med. care, senior care, rehab)? @ -Social situation Was there de-escalation of care discussed even if they declined (Discuss DNR or withdrawal of care, Hospice)? DNR status @ -No What co-morbidities impacted this encounter? (DM, HTN, Smoking, COPD, CAD, Cancer, CVA, ARF, Chemo, Hep., AIDS, mental health diagnosis, sleep apnea, morbid obesity)? @ -None Was patient admitted / discharged? Hospital course, mention meds given and route, prescriptions, significant lab abnormalities, going to OR and other pertinent info. @ -See above Undiagnosed new problem with uncertain prognosis? @ -No Drug Therapy requiring intensive monitoring for toxicity (Heparin, Nitro, Insu nathalie, Cardizem)? @ -No Were any procedures done? @ -No Diagnosis/symptom? @ -Mild alcohol withdrawal Acute, or Chronic, or Acute on Chronic? @ -Acute Uncomplicated (without systemic symptoms) or Complicated (systemic symptoms)? @ -default Side effects of treatment? @ -No Exacerbation, Progression, or Severe Exacerbation? @ -No Poses a threat to life or bodily function? How? (Chest pain, [place], [place], pneumonia, PE, COPD, DKA, ARF, appy, cholecystitis, CVA, Diverticulitis, Homicidal, Suicidal, threat to staff... and all critical care pts) @ -Yes - Related Data Home Medications Medication Instructions Recorded Confirmed Vienva 1 tab PO DAILY 05/21/22 11/20/22 Famotidine 20 mg PO DAILY 06/07/22 11/20/22 Gabapentin 600 mg PO BID 06/07/22 11/20/22 Aviane 0.1-0.02mg 1 tab PO DAILY 11/20/22 11/20/22 Folic Acid 1 mg PO DAILY 11/20/22 11/20/22 Magnesium 200 mg PO DAILY 11/20/22 11/20/22 Naltrexone HCl [Revia] 50 mg PO QAM 11/20/22 11/20/22 Thiamine [Vitamin B-1] 100 mg PO DAILY 11/20/22 11/20/22 Previous Rx's Medication Instructions Recorded amLODIPine [Norvasc] 5 mg PO DAILY #30 tab 09/25/21 levETIRAcetam [Keppra] 500 mg PO BID 30 Days tab 06/09/22 chlordiazePOXIDE HCl [Librium] 25 mg PO TID 3 Days #15 capsule 12/01/22 Allergies Allergy/AdvReac Type Severity Reaction Status Date / Time No Known Allergies Allergy Verified 11/30/22 10:22 Review of Systems ROS Statement: Those systems with pertinent positive or pertinent negative responses have been documented in the HPI. ROS Other: All systems not noted in ROS Statement are negative. Past Medical History Past Medical History: Hypertension, Seizure Disorder Additional Past Medical History / Comment(s): Alcoholism, alcohol withdrawl/delirium/hallucinations/seizure with last one being 03/13/2020 History of Any Multi-Drug Resistant Organisms: None Reported Past Surgical History: No Surgical Hx Reported Additional Past Surgical History / Comment(s): [place] teeth extractions. Past Anesthesia/Blood Transfusion Reactions: No Reported Reaction Additional Past Anesthesia/Blood Transfusion Reaction / Comment(s): Pt has clausterphobia Past Psychological History: Anxiety, Bipolar, Depression, Schizophrenia Smoking Status: Current every day smoker Past Alcohol Use History: Abuse, Daily Past Drug Use History: None Reported - Past Family History Mother Family Medical History: No Reported History Additional Family Medical History / Comment(s): Mother is healthy Father Additional Family Medical History / Comment(s): Father is from alc oholism. General Exam Limitations: no limitations Course Vital Signs 12/01/22 12/01/22 13:08 16:13 Temperature 98 F Pulse Rate 90 65 Respiratory 20 17 Rate Blood Pressure 145/69 120/82 O2 Sat by Pulse 100 100 Oximetry Medical Decision Making - Lab Data Result diagrams: 12/01/22 15:31 12/01/22 16:07 Lab Results 12/01/22 12/01/22 Range/Units 15:31 16:07 WBC 6.7 (3.8-10.6) k/uL RBC 4.49 (3.80-5.40) m/uL Hgb 14.5 (11.4-16.0) gm/dL Hct 42.7 (34.0-46.0) % MCV 95.2 (80.0-100.0) fL MCH 32.4 (25.0-35.0) pg MCHC 34.0 (31.0-37.0) g/dL RDW 14.4 (11.5-15.5) % Plt Count 171 (150-450) k/uL MPV 8.1 Neutrophils % 63 % Lymphocytes % 29 % Monocytes % 7 % Eosinophils % 1 % Basophils % 1 % Neutrophils # 4.2 (1.3-7.7) k/uL Lymphocytes # 1.9 (1.0-4.8) k/uL Monocytes # 0.4 (0-1.0) k/uL Eosinophils # 0.0 (0-0.7) k/uL Basophils # 0.0 (0-0.2) k/uL Sodium 131 L (137-145) mmol/L Potassium 3.3 L (3.5-5.1) mmol/L Chloride 98 (98-107) mmol/L Carbon Dioxide 23 (22-30) mmol/L Anion Gap 10 mmol/L BUN 12 (7-17) mg/dL Creatinine 0.58 (0.52-1.04) mg/dL Est GFR (CKD-EPI)AfAm >90 (>60 ml/min/1.73 sqM) Est GFR (CKD-EPI)NonAf >90 (>60 ml/min/1.73 sqM) Glucose 152 H (74-99) mg/dL Calcium 7.7 L (8.4-10.2) mg/dL Magnesium 1.4 L (1.6-2.3) mg/dL Total Bilirubin 1.0 (0.2-1.3) mg/dL AST 72 H (14-36) U/L ALT 46 H (4-34) U/L Alkaline Phosphatase 62 (38-126) U/L Total Protein 6.3 (6.3-8.2) g/dL Albumin 3.8 (3.5-5.0) g/dL Lipase 98 (23-300) U/L Serum Alcohol <10 mg/dL Disposition Clinical Impression: Alcohol withdrawal Disposition: HOME SELF-CARE Condition: Fair Prescriptions: chlordiazePOXIDE HCl [Librium] 25 mg PO TID 3 Days #15 capsule Is patient prescribed a controlled substance at d/c from ED?: Yes If prescribed controlled substance>3 days was MAPS reviewed?: Prescribed <3 Days Referrals: Douglas Evans MD [Primary Care Provider] - 1-2 days Time of Disposition: 17:48
[2022-12-01 15:52] LABS: Basophils % (A) 1 %; Eosinophils % (A) 1 %; HCT 42.7 % (34.0-46.0); HGB 14.5 gm/dL (11.4-16.0); Lymphocytes # (A) 1.9 k/uL (1.0-4.8); Lymphocytes % (A) 29 %; MCH 32.4 pg (25.0-35.0); MCV 95.2 fL (80.0-100.0); Mean Platelet Volume 8.1; Monocytes # (A) 0.4 k/uL (0-1.0); Monocytes % (A) 7 %; Neutrophils # (A) 4.2 k/uL (1.3-7.7); Neutrophils % (A) 63 %; Platelet Count 171 k/uL (150-450); RBC 4.49 m/uL (3.80-5.40); RDW 14.4 % (11.5-15.5); WBC 6.7 k/uL (3.8-10.6)
[2022-12-01 16:50] LABS: ALT 46 U/L (4-34); AST 72 U/L (14-36); African American GFR (CKD) >90 (>60 ml/min/1.73 sqM); Albumin 3.8 g/dL (3.5-5.0); Alcohol <10 mg/dL; Alkaline Phosphatase 62 U/L (38-126); Anion Gap 10 mmol/L; Blood Urea Nitrogen 12 mg/dL (7-17); Calcium 7.7 mg/dL (8.4-10.2); Carbon Dioxide 23 mmol/L (22-30); Chloride 98 mmol/L (98-107); Glucose 152 mg/dL (74-99); Lipase 98 U/L (23-300); Magnesium 1.4 mg/dL (1.6-2.3); Non-African American GFR(CKD) >90 (>60 ml/min/1.73 sqM); Potassium 3.3 mmol/L (3.5-5.1); Sodium 131 mmol/L (137-145); Total Protein 6.3 g/dL (6.3-8.2)
[2022-12-01 17:53] VITALS: BP 118/84; PULSE 81; RESP 16; TEMP 98.3
== END 2022-12-01 18:05 | disposition home or self-care (01) ==
LOC: EC 12:44
DX: F10.239 Alcohol dependence with withdrawal, unspecified (principal); I10 Essential (primary) hypertension; F31.9 Bipolar disorder, unspecified; F41.9 Anxiety disorder, unspecified; F17.200 Nicotine dependence, unspecified, uncomplicated
CPT/HCPCS: 36415; 80053; 83690; 83735; 85025; 99285; 96374; 96361; G0480; J2060; 80320

== ENCOUNTER 2023-06-17 19:23 | Inpatient (IN) | payer MEDICARE, OTHER ==
[2023-06-17] MEDS ORDERED: SODIUM CHLORIDE 0.9% 1,000 ML IV ONE (21:19)
[2023-06-17] MEDS ORDERED: THIAMINE 100 MG/ML 2 ML VIAL IM STA (21:20)
[2023-06-17] MEDS ORDERED: LORazepam 2 MG/ML INJ IV PRN ×2 (21:20)
[2023-06-17 22:11] LABS: ALT 80 U/L (4-34); AST 106 U/L (14-36); African American GFR (CKD) >90 (>60 ml/min/1.73 sqM); Albumin 3.9 g/dL (3.5-5.0); Alcohol <10 mg/dL; Alkaline Phosphatase 66 U/L (38-126); Anion Gap 9 mmol/L; Blood Urea Nitrogen 12 mg/dL (7-17); Carbon Dioxide 25 mmol/L (22-30); Chloride 102 mmol/L (98-107); Glucose 119 mg/dL (74-99); Non-African American GFR(CKD) >90 (>60 ml/min/1.73 sqM); Potassium 3.9 mmol/L (3.5-5.1); Sodium 136 mmol/L (137-145); Total Bilirubin 0.9 mg/dL (0.2-1.3); Total Protein 7.1 g/dL (6.3-8.2)
[2023-06-17] MEDS ORDERED: levETIRAcetam IV 500 MG/5 ML VIAL IVP STA (22:15)
--- NOTE | 2023-06-17 22:19 | ED ---
General Adult HPI - General Chief complaint: Altered Mental Status Stated complaint: Detoxing, hallucinations Time Seen by Provider: 06/17/23 21:15 Source: patient, EMS, RN notes reviewed, old records reviewed Mode of arrival: EMS Limitations: no limitations - History of Present Illness Initial comments: Patient is a 38-year-old female [facility]. Patient has a history of delirium tremens, alcohol withdrawal seizures, who presents from [facility] over concern for auditory hallucinations as well as worsening delirium tremens. Has been on Ativan protocol there are, however there concern with the hallucinations and will not be able to manage her. She does state she has a history of serious alcohol withdrawals. She does appear to be talking to herself in the room and states she is hearing swelling speak to her. Does not go into details. Patient's last alcoholic beverage was yesterday. States she drinks heavily. Denies any other complaints at this time. Does endorse tremors as well as some tongue fasciculations. Denies nausea, vomiting, chest pain, shortness breath, fevers. Presents for further evaluation at this time. Denies any other drug use. Denies any trauma. - Related Data Home Medications Medication Instructions Recorded Confirmed Vienva 1 tab PO DAILY 05/21/22 11/20/22 Famotidine 20 mg PO DAILY 06/07/22 11/20/22 Gabapentin 600 mg PO BID 06/07/22 11/20/22 Aviane 0.1-0.02mg 1 tab PO DAILY 11/20/22 11/20/22 Folic Acid 1 mg PO DAILY 11/20/22 11/20/22 Magnesium 200 mg PO DAILY 11/20/22 11/20/22 Naltrexone HCl [Revia] 50 mg PO QAM 11/20/22 11/20/22 Thiamine [Vitamin B-1] 100 mg PO DAILY 11/20/22 11/20/22 Previous Rx's Medication Instructions Recorded amLODIPine [Norvasc] 5 mg PO DAILY #30 tab 09/25/21 levETIRAcetam [Keppra] 500 mg PO BID 30 Days tab 06/09/22 chlordiazePOXIDE HCl [Librium] 25 mg PO TID 3 Days #15 capsule 12/01/22 Allergies Allergy/AdvReac Type Severity Reaction Status Date / Time No Known Allergies Allergy Verified 06/17/23 19:41 Review of Systems ROS Statement: Those systems with pertinent positive or pertinent negative responses have been documented in the HPI. Review of Systems: CONST: Denies fever EYES: Denies blurry vision ENT: Denies nasal congestion C/V: Denies Chest pain RESP: Denies shortness of breath GI: Denies abdominal pain : Denies dysuria SKIN: Denies rash. MSK: Denies joint pain. NEURO: Denies headache ROS Other: All systems not noted in ROS Statement are negative. Past Medical History Past Medical History: Hypertension, Seizure Disorder Additional Past Medical History / Comment(s): Alcoholism, alcohol withdrawl/del irium/hallucinations/seizure with last one being 03/13/2020 History of Any Multi-Drug Resistant Organisms: None Reported Past Surgical History: No Surgical Hx Reported Additional Past Surgical History / Comment(s): [place] teeth extractions. Past Anesthesia/Blood Transfusion Reactions: No Reported Reaction Additional Past Anesthesia/Blood Transfusion Reaction / Comment(s): Pt has clausterphobia Past Psychological History: Anxiety, Bipolar, Depression, Schizophrenia Smoking Status: Current every day smoker Past Alcohol Use History: Abuse, Daily Past Drug Use History: None Reported - Past Family History Mother Family Medical History: No Reported History Additional Family Medical History / Comment(s): Mother is healthy Father Additional Family Medical History / Comment(s): Father is from alcoholism. General Exam - General Exam Comments Initial Comments: General: Appears to be having some auditory hallucinations. His tongue fasciculations, tremors of the hands. Appears to be an alcohol withdrawal. HEAD: Normal with no signs of head trauma. EYES: PERRLA, EOMI, conjunctiva normal, no discharge. Pupils are 3 mm and equal bilaterally. ENT: Hearing grossly intact, normal oropharynx. RESPIRATORY: Clear breath sounds bilaterally. No wheezes, rales, or rhonchi. C/V: Regular rate and rhythm. S1 and S2 auscultated, no edema, peripheral pulses 2+ and intact throughout ABD: Abd is soft, nontender, nondistended EXT: Normal range of motion, no obvious deformity SKIN: No rashes or lesions observed on exposed skin. NEURO: Alert and oriented x 4. Cranial nerves II-XII intact. No focal sensory or strength deficits. GCS of 15. Limitations: no limitations Course Vital Signs 0806/17/23 06/17/23 19:30 19:39 20:00 Temperature 99.4 F Pulse Rate 66 62 Respiratory 18 26 H 25 H Rate Blood Pressure 107/82 107/82 O2 Sat by Pulse 96 97 Oximetry 06/17/23 06/17/23 06/17/23 20:30 21:00 23:00 Temperature Pulse Rate 58 L 53 L Respiratory 22 15 Rate Blood Pressure 108/77 118/83 158/114 O2 Sat by Pulse 97 Oximetry 06/18/23 00:40 Temperature Pulse Rate 65 Respiratory 19 Rate Blood Pressure 132/88 O2 Sat by Pulse 98 Oximetry Medical Decision Making - Medical Decision Making Was pt. sent in by a medical professional or institution (, PA, [facility] [employer], urgent care, hospital, or [facility]...) When possible be specific @ -Sent from [facility] for worsening alcohol withdrawal symptoms Did you speak to anyone other than the patient for history (EMS, parent, family, police, friend...)? What history was obtained from this source @ -No Did you review nursing and triage notes (agree or disagree)? Why? @ -I reviewed and agree with nursing and triage notes Were old charts reviewed (outside hosp., previous admission, EMS record, old EKG, old radiological studies, urgent care reports/EKG's, [facility] records)? Report findings @ -Reviewed paperwork sent with patient from [facility]. Differential Diagnosis (chest pain, altered mental status, abdominal pain women, abdominal pain men, vaginal bleeding, weakness, fever, dyspnea, syncope, headache, dizziness, GI bleed, back pain, seizure, CVA, palpatations, mental health, musculoskeletal)? @ -Alcohol withdrawals, electrolyte abnormalities, hallucinations, mental health disorder, delirium tremens, acute intoxication. This list is not all inclusive. EKG interpreted by me (3pts min.). @ -As above X-rays interpreted by me (1pt min.). @ -Chest x-ray reveals no obvious acute cardio pulmonary process. CT interpreted by me (1pt min.). @ -CT brain reveals no obvious acute intracranial process or injury. U/S interpreted by me (1pt. min.). @ -None done What testing was considered but not performed or refused? (CT, X-rays, U/S, labs)? Why? @ -None What meds were considered but not given or refused? Why? @ -None Did you discuss the management of the patient with other professionals (professionals i.e. , PA, [employer], lab, RT, psych nurse, social services analyst, assistant portfolio manager, teacher, information technology officer, spring encaser)? Give summary @ -No Was smoking cessation discussed for >3mins.? @ -No Was critical care preformed (if so, how long)? @ -No Were there social determinants of health that impacted care today? How? (Homelessness, low income, unemployed, alcoholism, drug addiction, transportation, low edu. Level, literacy, decrease access to med. care, correction, rehab)? @ -No Was there de-escalation of care discussed even if they declined (Discuss DNR or withdrawal of care, Hospice)? DNR status @ -No What co-morbidities impacted this encounter? (DM, HTN, Smoking, COPD, CAD, Cancer, CVA, ARF, Chemo, Hep., AIDS, mental health diagnosis, sleep apnea, morbid obesity)? @ -Alcohol abuse, alcohol withdrawal Was patient admitted / discharged? Hospital course, mention meds given and route, prescriptions, significant lab abnormalities, going to OR and other pertinent info. @ -Based on the patient's presentation and physical exam, I'm concerned for worsening alcohol withdrawal symptoms as she does appear to be having some auditory hallucinations in addition to the typical tremors and tongue fasciculations. Last known drink was yesterday. We will obtain basic labs, CT brain due to the hallucinations and patient undergoing if these are negative or not. Unknown trauma although patient denies. Patient was placed on CIWA protocol, and initial score was 13. Will be given Ativan. I will also provide her with an evening dose of her normal Keppra. Vital signs within acceptable limits. She was in agreement with this plan. EKG showed no signs of acute ischemia.Imaging unremarkable. Patient's labs are also unremarkable. I gave the patient. She'll be admitted at this time. She was in agreement this plan. Patient is on CIWA protocol. I spoke with the admitting physician, Dr. Leyva who accepted the patient. Patient admitted to a telemetry bed. Undiagnosed new problem with uncertain prognosis? @ -No Drug Therapy requiring intensive monitoring for toxicity (Heparin, Nitro, Insulin, Cardizem)? @ -No Were any procedures done? @ -No Diagnosis/symptom? @ -Alcohol withdrawals, history of alcohol abuse Acute, or Chronic, or Acute on Chronic? @ -Acute on chronic Uncomplicated (without systemic symptoms) or Complicated (systemic symptoms)? @ -Complicated Side effects of treatment? @ -No Exacerbation, Progression, or Severe Exacerbation? @ -No Poses a threat to life or bodily function? How? (Chest pain, [place], [place], pneumonia, PE, COPD, DKA, ARF, appy, cholecystitis, CVA, Diverticulitis, Homicidal, Suicidal, threat to staff... and all critical care pts) @ -Yes - Lab Data Result diagrams: 06/17/23 21:55 06/17/23 21:55 Lab Results 06/17/23 06/17/23 06/17/23 Range/Units 21:55 21:55 21:55 WBC 5.1 (3.8-10.6) k/uL RBC 3.47 L (3.80-5.40) m/uL Hgb 12.7 (11.4-16.0) gm/dL Hct 37.6 (34.0-46.0) % MCV 108.2 H (80.0-100.0) fL MCH 36.6 H (25.0-35.0) pg MCHC 33.8 (31.0-37.0) g/dL RDW 16.3 H (11.5-15.5) % Plt Count 145 L (150-450) k/uL MPV 8.6 Neutrophils % 34 % Lymphocytes % 55 % Monocytes % 6 % Eosinophils % 1 % Basophils % 0 % Neutrophils # 1.7 (1.3-7.7) k/uL Lymphocytes # 2.8 (1.0-4.8) k/uL Monocytes # 0.3 (0-1.0) k/uL Eosinophils # 0.1 (0-0.7) k/uL Basophils # 0.0 (0-0.2) k/uL Manual Slide Review Performed Anisocytosis Slight Macrocytosis Marked A Sodium 136 L (137-145) mmol/L Potassium 3.9 (3.5-5.1) mmol/L Chloride 102 (98-107) mmol/L Carbon Dioxide 25 (22-30) mmol/L Anion Gap 9 mmol/L BUN 12 (7-17) mg/dL Creatinine 0.81 (0.52-1.04) mg/dL Est GFR (CKD-EPI)AfAm >90 (>60 ml/min/1.73 sqM) Est GFR (CKD-EPI)NonAf >90 (>60 ml/min/1.73 sqM) Glucose 119 H (74-99) mg/dL Calcium 9.0 (8.4-10.2) mg/dL Total Bilirubin 0.9 (0.2-1.3) mg/dL AST 106 H (14-36) U/L ALT 80 H (4-34) U/L Alkaline Phosphatase 66 (38-126) U/L Ammonia 10 (<30) umol/L Total Protein 7.1 (6.3-8.2) g/dL Albumin 3.9 (3.5-5.0) g/dL Urine Color Urine Appearance (Clear) Urine pH (5.0-8.0) Ur Specific [place] (1.001-1.035) Urine Protein (Negative) Urine Glucose (UA) (Negative) Urine Ketones (Negative) Urine Blood (Negative) Urine Nitrite (Negative) Urine Bilirubin (Negative) Urine Urobilinogen (<2.0) mg/dL Ur Leukocyte Esterase (Negative) Urine Opiates Screen (NotDetected) Ur Oxycodone Screen (NotDetected) Urine Methadone Screen (NotDetected) Ur Propoxyphene Screen (NotDetected) Ur Barbiturates Screen (NotDetected) U Tricyclic Antidepress (NotDetected) Ur Phencyclidine Scrn (NotDetected) Ur Amphetamines Screen (NotDetected) U Methamphetamines Scrn (NotDetected) U Benzodiazepines Scrn (NotDetected) Urine Cocaine Screen (NotDetected) U Marijuana (THC) Screen (NotDetected) Serum Alcohol <10 mg/dL 06/18/23 Range/Units 00:40 WBC (3.8-10.6) k/uL RBC (3.80-5.40) m/uL Hgb (11.4-16.0) gm/dL Hct (34.0-46.0) % MCV (80.0-100.0) fL MCH (25.0-35.0) pg MCHC (31.0-37.0) g/dL RDW (11.5-15.5) % Plt Count (150-450) k/uL MPV Neutrophils % % Lymphocytes % % Monocytes % % Eosinophils % % Basophils % % Neutrophils # (1.3-7.7) k/uL Lymphocytes # (1.0-4.8) k/uL Monocytes # (0-1.0) k/uL Eosinophils # (0-0.7) k/uL Basophils # (0-0.2) k/uL Manual Slide Review Anisocytosis Macrocytosis Sodium (137-145) mmol/L Potassium (3.5-5.1) mmol/L Chloride (98-107) mmol/L Carbon Dioxide (22-30) mmol/L Anion Gap mmol/L BUN (7-17) mg/dL Creatinine (0.52-1.04) mg/dL Est GFR (CKD-EPI)AfAm (>60 ml/min/1.73 sqM) Est GFR (CKD-EPI)NonAf (>60 ml/min/1.73 sqM) Glucose (74-99) mg/dL Calcium (8.4-10.2) mg/dL Total Bilirubin (0.2-1.3) mg/dL AST (14-36) U/L ALT (4-34) U/L Alkaline Phosphatase (38-126) U/L Ammonia (<30) umol/L Total Protein (6.3-8.2) g/dL Albumin (3.5-5.0) g/dL Urine Color Light Yellow Urine Appearance Clear (Clear) Urine pH 7.5 (5.0-8.0) Ur Specific [place] 1.010 (1.001-1.035) Urine Protein Negative (Negative) Urine Glucose (UA) Negative (Negative) Urine Ketones Negative (Negative) Urine Blood Negative (Negative) Urine Nitrite Negative (Negative) Urine Bilirubin Negative (Negative) Urine Urobilinogen <2.0 (<2.0) mg/dL Ur Leukocyte Esterase Negative (Negative) Urine Opiates Screen Not Detected (NotDetected) Ur Oxycodone Screen Not Detected (NotDetected) Urine Methadone Screen Not Detected (NotDetected) Ur Propoxyphene Screen Not Detected (NotDetected) Ur Barbiturates Screen Detected H (NotDetected) U Tricyclic Antidepress Not Detected (NotDetected) Ur Phencyclidine Scrn Not Detected (NotDetected) Ur Amphetamines Screen Not Detected (NotDetected) U Methamphetamines Scrn Not Detected (NotDetected) U Benzodiazepines Scrn Detected H (NotDetected) Urine Cocaine Screen Not Detected (NotDetected) U Marijuana (THC) Screen Not Detected (NotDetected) Serum Alcohol mg/dL - EKG Data -: EKG Interpreted by Me EKG Comments: 12-lead Electrocardiogram Interpretation Note EKG was reviewed and interpreted by myself. 12-lead ECG performed at 1938 is interpreted by me as revealing normal sinus rhythm at a rate of 60 beats per minute. [place] is normal. [place] interval is 130 ms, QRS duration is 93 ms, QTc is 421 ms.. There were no ST or T wave abnormalities to suggest myocardial is chemia or injury. R wave progression across the precordium was satisfactory. By my interpretation this EKG is non-diagnostic for acute ischemia. Disposition Clinical Impression: Alcohol withdrawal Disposition: ADMITTED IP TO THIS HOSP Condition: Serious Time of Disposition: 00:01
[2023-06-17 22:20] LABS: Anisocytosis Slight; Basophils % (A) 0 %; Eosinophils # (A) 0.1 k/uL (0-0.7); Eosinophils % (A) 1 %; HCT 37.6 % (34.0-46.0); HGB 12.7 gm/dL (11.4-16.0); Lymphocytes # (A) 2.8 k/uL (1.0-4.8); Lymphocytes % (A) 55 %; MCH 36.6 pg (25.0-35.0); MCHC 33.8 g/dL (31.0-37.0); MCV 108.2 fL (80.0-100.0); Macrocytosis Marked; Mean Platelet Volume 8.6; Monocytes # (A) 0.3 k/uL (0-1.0); Monocytes % (A) 6 %; Neutrophils # (A) 1.7 k/uL (1.3-7.7); Neutrophils % (A) 34 %; Platelet Count 145 k/uL (150-450); RBC 3.47 m/uL (3.80-5.40); RDW 16.3 % (11.5-15.5); WBC 5.1 k/uL (3.8-10.6)
--- NOTE | 2023-06-17 22:34 | CT ---
EXAMINATION TYPE: CT brain wo con DATE OF EXAM: 06/17/2023 COMPARISON: 11/19/2022 INDICATION: Altered mental status DLP: 1159.4 mGycm, Automated exposure control for dose reduction was used. CONTRAST: None CT of the brain is performed utilizing 3 mm thick sections through the posterior fossa and 3 mm thick sections through the remaining calvarium. Study is performed within 24 hours of arrival to the hosp [place]. No abnormal hyperdensity is present to suggest an acute intracranial hemorrhage. No mass lesion is evident. No acute infarcts are evident. Ventricles and sulci are appropriate for the patient age. Paranasal sinuses and mastoid air cells within the [id number] are clear. IMPRESSIONS: 1. No acute intracranial process. Follow-up MRI can be performed as clinically indicated
[2023-06-17] MEDS: LORazepam 2 MG/ML INJ IV PRN (22:50)
--- NOTE | 2023-06-17 23:09 | XR ---
EXAMINATION TYPE: XR chest 1V DATE OF EXAM: 06/17/2023 COMPARISON: 11/19/2022 INDICATION: Acute mental status changes TECHNIQUE: Single frontal view of the chest is obtained. FINDINGS: The heart size is normal. The pulmonary vasculature is normal. The lungs are clear. IMPRESSION: 1. No acute pulmonary process.
[2023-06-18] MEDS ORDERED: NALOXONE 0.4 MG/ML 1 ML VIAL IV PRN (00:43)
[2023-06-18 01:12] LABS: Appearance,Urine Clear (Clear); Bilirubin,Urine Negative (Negative); Blood,Urine Negative (Negative); Color,Urine Light Yellow; Glucose,Urine (UA) Negative (Negative); Ketones,Urine Negative (Negative); Leukocyte Esterase,Urine Negative (Negative); Nitrite,Urine Negative (Negative); PH, Urine 7.5 (5.0-8.0); Protein,Urine Negative (Negative); Urobilinogen,Urine <2.0 mg/dL (<2.0)
[2023-06-18 01:21] LABS: Cocaine Screen,Urine Not Detected (NotDetected); Phencyclidine Screen,Urine Not Detected (NotDetected); Urn Cannabinoid Scrn Not Detected (NotDetected)
[2023-06-18 01:22] LABS: Amphetamine Screen,Urine Not Detected (NotDetected); Barbiturate Screen,Urine Detected (NotDetected); Benzodiazepines Screen,Urine Detected (NotDetected); Methadone Screen, Urine Not Detected (NotDetected); Opiate Screen,Urine Not Detected (NotDetected); Oxycodone Screen, Urine Not Detected (NotDetected); Tricyclic Antidepressant,Urine Not Detected (NotDetected)
[2023-06-18] MEDS: SODIUM CHLORIDE 0.9% 1,000 ML IV SCH ×2 (03:07→17:26)
[2023-06-18] MEDS: LORazepam 2 MG/ML INJ IV PRN ×2 (03:51→19:58)
--- NOTE | 2023-06-18 05:34 | P.HPIM ---
History of Present Illness H&P Date: 06/18/23 Chief Complaint: alcohol withdrawal 38 year old female with alcohol abuse and dependance she is coming in from [place] due to severe alcohol withdrawal symptoms , patient does not provide any meaningful history , she is making things up and changes her story all the time. it seems like her last drink was 2 days ago, went to [place] first, trying to quit. then started having strong symptoms of withdrawal and hallucintations, for which she was sent in here for evaluation and treatment she admits to going through DTs in the past and seizures. she deneis fever, chills, cough, abd pain , chest pain or trouble breathing review of systems Pertinent positives as noted in HPI. All other systems were reviewed and are negative on exam Constitutional: No acute distress, Eyes: Anicteric sclerae, moist conjunctiva, Pupils equal round reactive to light ENMT: NC/AT Oropharynx clear, no erythema, or exudates Neck: Supple, no masses, or JVD No carotid bruits No thyromegaly Lungs: Clear to auscultation Clear to percussion Normal respiratory effort, no accessory muscle use Cardiovascular: Heart regular in rate and rhythm, No murmurs, gallops, or rubs No peripheral edema Abdominal: Soft Nontender, no guarding, rebound or rigidity Abdomen moving with respiration Normoactive bowel sounds No hepatomegaly, No splenomegaly No palpable mass No abdominal wall hernia noted Extremities: No digital cyanosis No clubbing Pedal pulses intact and symmetrical Radial pulses intact and symmetrical No calf tenderness Psychiatric: Alert and oriented to person, place Neuro Muscles Strength 5/5 in all 4 extremities Sensation to light touch grossly present throughout Cranial nerves II-XII grossly intact Lymphatics: no palpable cervical or supraclavicular lymph nodes Past Medical History Past Medical History: Hypertension, Seizure Disorder Additional Past Medical History / Comment(s): Alcoholism, alcohol withdrawl/delirium/hallucinations/seizure with last one being 03/13/2020 History of Any Multi-Drug Resistant Organisms: None Reported Past Surgical History: No Surgical Hx Reported Additional Past Surgical History / Comment(s): [place] teeth extractions. Past Anesthesia/Blood Transfusion Reactions: No Reported Reaction Additional Past Anesthesia/Blood Transfusion Reaction / Comment(s): Pt has clausterphobia Past Psychological History: Anxiety, Bipolar, Depression, Schizophrenia Smoking Status: Current every day smoker Past Alcohol Use History: Abuse, Daily Past Drug Use History: None Reported - Past Family History Mother Family Medical History: No Reported History Additional Family Medical History / Comment(s): Mother is healthy Father Additional Family Medical History / Comment(s): Father is from alcoholism. Medications and Allergies Home Medications Medication Instructions Recorded Confirmed Type amLODIPine [Norvasc] 5 mg PO DAILY #30 tab 09/25/21 11/20/22 Rx Vienva 1 tab PO DAILY 05/21/22 11/20/22 History Famotidine 20 mg PO DAILY 06/07/22 11/20/22 History Gabapentin 600 mg PO BID 06/07/22 11/20/22 History levETIRAcetam [Keppra] 500 mg PO BID 30 Days tab 06/09/22 11/20/22 Rx Aviane 0.1-0.02mg 1 tab PO DAILY 11/20/22 11/20/22 History Folic Acid 1 mg PO DAILY 11/20/22 11/20/22 History Magnesium 200 mg PO DAILY 11/20/22 11/20/22 History Naltrexone HCl [Revia] 50 mg PO QAM 11/20/22 11/20/22 History Thiamine [Vitamin B-1] 100 mg PO DAILY 11/20/22 11/20/22 History chlordiazePOXIDE HCl [Librium] 25 mg PO TID 3 Days #15 capsule 12/01/22 Rx Allergies Allergy/AdvReac Type Severity Reaction Status Date / Time No Known Allergies Allergy Verified 06/17/23 19:41 Physical Exam Vitals: Vital Signs Temp Pulse Resp BP Pulse Ox 06/18/23 00:40 65 19 132/88 98 06/17/23 23:00 53 L 15 158/114 06/17/23 21:00 118/83 06/17/23 20:30 58 L 22 108/77 97 06/17/23 20:00 62 25 H 107/82 97 06/17/23 19:39 26 H 06/17/23 19:30 99.4 F 66 18 107/82 96 Intake and Output 06/17/23 06/17/23 06/18/23 14:59 22:59 06:59 Other: Weight 72.575 kg Results CBC & Chem 7: 06/17/23 21:55 06/17/23 21:55 Labs: Abnormal Lab Results - Last 24 Hours (Table) 06/17/23 06/17/23 06/18/23 Range/Units 21:55 21:55 00:40 RBC 3.47 L (3.80-5.40) m/uL MCV 108.2 H (80.0-100.0) fL MCH 36.6 H (25.0-35.0) pg RDW 16.3 H (11.5-15.5) % Plt Count 145 L (150-450) k/uL Macrocytosis Marked A Sodium 136 L (137-145) mmol/L Glucose 119 H (74-99) mg/dL AST 106 H (14-36) U/L ALT 80 H (4-34) U/L Ur Barbiturates Screen Detected H (NotDetected) U Benzodiazepines Scrn Detected H (NotDetected) Assessment and Plan Assessment: 38 year old female with alcohol dependance, coming in for severe alcohol with drawal symptoms I discussed the case with ED doc and I accepted the admission for severe alcohol withdrawal with symptoms suggestive of DTs with anticipated length of stay > 2 midnights alcohol dependance and abuse alcohol withdrawal symptoms benzo per CIWA thiamine daily IVF hydration with normal saline continue keppra with history of seizure or alcohol withdrawal seizure, patient was not clear about that hypertension , continue amlodipine Brain CT showed no acute pathology hgb 12.7 unremarkable creatinin 0.8 unremarkable full code DVT PPX heparin sc tid
[2023-06-18] MEDS: THIAMINE 100 MG TAB PO SCH (09:23)
[2023-06-18] MEDS: levETIRAcetam 500 MG TAB PO SCH ×2 (09:23→19:58)
[2023-06-18] MEDS: amLODIPine 5 MG TAB PO SCH (09:23)
[2023-06-18] MEDS ORDERED: NICOTINE 21MG/24HR PATCH TRANSDERM STA (19:48)
[2023-06-18] MEDS ORDERED: traZODone HCL 100 MG TAB PO SCH (21:30)
[2023-06-19] MEDS: SODIUM CHLORIDE 0.9% 1,000 ML IV SCH ×3 (06:43→16:28)
[2023-06-19 09:49] LABS: Basophils % (A) 1 %; Eosinophils # (A) 0.1 k/uL (0-0.7); Eosinophils % (A) 2 %; HGB 12.5 gm/dL (11.4-16.0); Lymphocytes # (A) 3.1 k/uL (1.0-4.8); Lymphocytes % (A) 54 %; MCH 35.6 pg (25.0-35.0); MCHC 32.8 g/dL (31.0-37.0); MCV 108.6 fL (80.0-100.0); Macrocytosis Marked; Mean Platelet Volume 8.4; Monocytes # (A) 0.4 k/uL (0-1.0); Monocytes % (A) 6 %; Neutrophils % (A) 34 %; Platelet Count 135 k/uL (150-450); RDW 15.9 % (11.5-15.5); WBC 5.8 k/uL (3.8-10.6)
[2023-06-19] MEDS: amLODIPine 5 MG TAB PO SCH (09:53)
[2023-06-19] MEDS: levETIRAcetam 500 MG TAB PO SCH (09:53)
[2023-06-19] MEDS: THIAMINE 100 MG TAB PO SCH (09:54)
[2023-06-19 10:07] LABS: African American GFR (CKD) >90 (>60 ml/min/1.73 sqM); Anion Gap 11 mmol/L; Blood Urea Nitrogen 9 mg/dL (7-17); Calcium 8.5 mg/dL (8.4-10.2); Carbon Dioxide 20 mmol/L (22-30); Chloride 106 mmol/L (98-107); Glucose 122 mg/dL (74-99); Non-African American GFR(CKD) >90 (>60 ml/min/1.73 sqM); Potassium 3.6 mmol/L (3.5-5.1); Sodium 137 mmol/L (137-145)
--- NOTE | 2023-06-19 12:33 | P.DS ---
Providers Date of admission: 06/18/23 00:43 Expected date of discharge: 06/19/23 Attending physician: John Leyva MD Primary care physician: Douglas Munguia [facility] Course: Patient is a 38-year-old female with PMH of alcohol abuse, hypertension, seizure disorder presents to the ED for alcohol withdrawal and hallucinations sent in by [facility]. In the ED, her vital signs were stable. CBC showed RBC count of 3.47, MCV of 108.2, platelet count of 145. CMP showed sodium of 136, glucose 119, AST of 106, ALT of 80. Urinalysis was negative. UDS was positive for barbiturates and benzodiazepine. Serum alcohol less than 10. EKG showed sinus rhythm. Chest x-ray was negative for acute finding. Brain CT was negative for intracranial process. Patient was admitted for alcohol withdrawal. She was started on CW protocol and given Ativan as needed. She received 3 mg of IV Ativan after inpatient admission. 06/19 Patient was seen and examined. No acute events overnight. Patient reports feeling well. She denies any hallucinations. Looking forward to going back to [facility]. Most recent BP is 118/83, pulse of 58. She is advised to refrain from drinking alcohol. She'll be discharged to [facility]. Pertinent studies and procedures as above. General: non toxic, no distress, appears at stated age Derm: warm, dry Head: atraumatic, normocephalic, symmetric Eyes: EOMI, no lid lag, anicteric sclera Cardiovascular: S1S2 reg, no murmur Lungs: CTA bilateral, no rhonchi, no rales , no accessory muscle use Ext: no gross muscle atrophy, no edema, no contractures Neuro: no focal neuro deficits Psych: Alert, oriented, appropriate affect Discharge diagnosis: Alcohol abuse with impending withdrawal Seizure disorder Hypertension Macrocytosis Thrombocytopenia Transaminitis This complex discharge took 35 minutes to complete. Patient Condition at Discharge: Stable Plan - Discharge Summary Discharge Rx Participant: No New Discharge Prescriptions: Continue amLODIPine [Norvasc] 5 mg PO DAILY #30 tab Famotidine 20 mg PO DAILY Thiamine [Vitamin B-1] 100 mg PO DAILY Acetaminophen Tab [Tylenol] 650 mg PO Q4H PRN PRN Reason: Pain Or Fever > 100.5 Ibuprofen [Motrin Ib] 600 mg PO Q6H PRN PRN Reason: Pain Calcium, Magnesium, Zinc With Vitamin D3 1 tab PO DAILY PRN PRN Reason: CRAMPS busPIRone HCl [Buspar] 5 mg PO TID OLANZapine [ZyPREXA] 5 mg PO DAILY levETIRAcetam [Keppra] 500 mg PO BID 30 Days tab Naltrexone HCl [Revia] 50 mg PO DAILY Folic Acid 1 mg PO DAILY ondansetron HCL [Zofran] 8 mg PO Q6H PRN PRN Reason: Nausea Multivitamins, Thera [Multivitamin (formulary)] 1 tab PO DAILY Loperamide HCl [Imodium A-D] 4 mg PO QID PRN PRN Reason: Diarrhea Chlorpheniramine Maleate [Chlor-Trimeton] 4 mg PO Q4H PRN PRN Reason: WITHDRAWL SYMPTOMS traZODone HCL 300 mg PO HS Cariprazine HCl [Vraylar] 1.5 mg PO DAILY Discharge Medication List amLODIPine [Norvasc] 5 mg PO DAILY #30 tab 09/25/21 [Rx] Famotidine 20 mg PO DAILY 06/07/22 [History] levETIRAcetam [Keppra] 500 mg PO BID 30 Days tab 06/09/22 [Rx] Folic Acid 1 mg PO DAILY 11/20/22 [History] Naltrexone HCl [Revia] 50 mg PO DAILY 11/20/22 [History] Thiamine [Vitamin B-1] 100 mg PO DAILY 11/20/22 [History] Acetaminophen Tab [Tylenol] 650 mg PO Q4H PRN 06/18/23 [History] Calcium, Magnesium, Zinc With Vitamin D3 1 tab PO DAILY PRN 06/18/23 [History] Cariprazine HCl [Vraylar] 1.5 mg PO DAILY 06/18/23 [History] Chlorpheniramine Maleate [Chlor-Trimeton] 4 mg PO Q4H PRN 06/18/23 [History] Ibuprofen [Motrin Ib] 600 mg PO Q6H PRN 06/18/23 [History] Loperamide HCl [Imodium A-D] 4 mg PO QID PRN 06/18/23 [History] Multivitamins, Thera [Multivitamin (formulary)] 1 tab PO DAILY 06/18/23 [History] OLANZapine [ZyPREXA] 5 mg PO DAILY 06/18/23 [History] busPIRone HCl [Buspar] 5 mg PO TID 06/18/23 [History] ondansetron HCL [Zofran] 8 mg PO Q6H PRN 06/18/23 [History] traZODone HCL 300 mg PO HS 06/18/23 [History] Follow up Appointment(s)/Referral(s): Douglas Evans MD [Primary Care Provider] - 1-2 days Activity/Diet/Wound Care/Special Instructions: Call [facility] - [phone] Ext [phone] upon discharge, they will come and pick her up. Scripts will be sent to [facility] Discharge Disposition: HOME SELF-CARE
[2023-06-19 16:27] VITALS: BP 124/82; PULSE 58; RESP 15; TEMP 98.1
== END 2023-06-19 18:01 | disposition other institution (70) | DRG 897 ==
LOC: EC 19:23 → 3SCARD 06-18 00:43
PROVIDERS: ADMIT Internal Medicine; ATTEND Internal Medicine
DX: F10.231 Alcohol dependence with withdrawal delirium (principal); D69.6 Thrombocytopenia, unspecified; F31.9 Bipolar disorder, unspecified; G40.909 Epilepsy, unspecified, not intractable, without status epilepticus; F20.9 Schizophrenia, unspecified; I10 Essential (primary) hypertension; D75.89 Other specified diseases of blood and blood-forming organs; F41.9 Anxiety disorder, unspecified; R74.01 Elevation of levels of liver transaminase levels; F17.200 Nicotine dependence, unspecified, uncomplicated; Z71.6 Tobacco abuse counseling; Z79.899 Other long term (current) drug therapy
CPT/HCPCS: 36415; 70450; 71045; 80048; 80053; 80306; 80320; 81003; 82140; 85025; 93005; 94760; 96361; 96372; 96374; 96375; 96376; 99285